=== PATIENT | female | born 1970 | race Caucasian/White ===

== ENCOUNTER 2017-10-23 11:19 | Emergency (ER) | payer OTHER, SELFPAY ==
--- NOTE | 2017-10-23 11:54 | RAD REPORT ---
EXAM DESCRIPTION: RAD - Foot Right 3 View - 10/23/2017 11:45 am CLINICAL HISTORY: Right foot pain status post injury FINDINGS: No fracture or dislocation is seen
--- NOTE | 2017-10-23 12:04 | ER ---
Nurse's Notes [facility] Name: Christianne Fountain Age: 47 yrs Sex: Female : 1970 Arrival Date: 10/23/2017 Time: 11:22 Bed 13 Private MD: Diagnosis: Pain in right foot Presentation: 10/23 11:22 Presenting complaint: Patient states: RIGHT foot pain since last night. Pt reports she hb kicked an elbow during horseplay. Transition of care: patient was not received from another setting of care. Onset of symptoms was October 22, 2017. Care prior to arrival: None. 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 - Social history:: Smoking status: Patient/guardian denies using tobacco. Screenin:30 Abuse screen: Denies threats or abuse. Nutritional screening: No deficits noted. rb1 Tuberculosis screening: No symptoms or risk factors identified. Fall Risk None identified. Assessment: 11:30 General: Appears in no apparent distress. comfortable, Behavior is calm, cooperative. rb1 Pain: Complains of pain in lateral side of right foot Pain currently is 7 out of 10 on a pain scale. Neuro: Level of Consciousness is awake, alert, obeys commands, Oriented to person, place, time, situation. Cardiovascular: Capillary refill < 3 seconds is brisk in bilateral toes. Respiratory: Airway is patent Respiratory effort is even, unlabored, Respiratory pattern is regular, symmetrical. GI: No signs and/or symptoms were reported involving the gastrointestinal system. : No signs and/or symptoms were reported regarding the genitourinary system. Derm: Skin is pink, warm \T\ dry. Musculoskeletal: Range of motion: intact in all extremities. 12:16 Reassessment: Patient appears in no apparent distress at this time. No changes from rb1 previously documented assessment. Vital Signs: 11:25 BP 127 / 86; Pulse 99; Resp 16; Temp 97.9; Pulse Ox 99% on R/A; Weight 86.18 kg; Height hb 6 ft. (182.88 cm); Pain 10/10; 12:16 BP 128 / 83; Pulse 87; Resp 16; Pulse Ox 100% on R/A; rb1 11:25 Body Mass Index 25.77 (86.18 kg, 182.88 cm) hb ED Course: 11:22 Patient arrived in ED. as 11:24 Triage completed. hb 11:27 Arm band placed on left wrist. hb 11:30 Cailin Fitzpatrick FNP-C is PHCP. kb 11:30 Venancio Copeland MD is Attending Physician. kb 11:30 Patient has correct armband on for positive identification. Bed in low position. Call rb1 light in reach. Side rails up X 1. Pulse ox on. NIBP on. 11:43 X-ray completed. Portable x-ray completed in exam room. Patient tolerated procedure la2 well. 11:58 Marilyn Hogan, RN is Primary Nurse. rb1 12:17 No provider procedures requiring assistance completed. Patient did not have IV access rb1 during this emergency room visit. Administered Medications: No medications were administered Outcome: 12:03 Discharge ordered by . kb 12:17 Discharged to home ambulatory. rb1 12:17 Condition: stable 12:17 Discharge instructions given to patient, Instructed on discharge instructions, follow up and referral plans. Demonstrated understanding of instructions, follow-up care, Prescriptions given X none 12:18 Patient left the ED. rb1 Signatures: Cailin Fitzpatrick FNP-C FNP-Princess Lindquist as Marilyn Hogan, RN RN [facility] Tania Crum RN RN Courtney Hackett la2
--- NOTE | 2017-10-23 12:04 | EDPHYS ---
Physician Documentation [facility] Name: Christianne Fountain Age: 47 yrs Sex: Female : 1970 Arrival Date: 10/23/2017 Time: 11:22 Bed 13 Private MD: ED Physician Venancio Copeland HPI: 10/23 12:02 This 47 yrs old Female presents to ER via Ambulatory with complaints of Foot kb Injury. 12:02 The patient presents with pain, that is acute. The complaints affect the right foot. kb Context: The problem was sustained inside, resulted from the patient kicking, a person, the patient can fully bear weight, the patient is able to ambulate. Onset: The symptoms/episode began/occurred yesterday. Modifying factors: The symptoms are alleviated by nothing, the symptoms are aggravated by weight bearing. Associated signs and symptoms: Pertinent positives: swelling, Pertinent negatives: calf tenderness, fever, nausea, numbness, rash, tingling, vomiting, warmth, weakness. Severity of symptoms: At their worst the symptoms were moderate, in the emergency department the symptoms are unchanged. The patient has not experienced similar symptoms in the past. The patient has not recently seen a physician. 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 - Social history:: Smoking status: Patient/guardian denies using tobacco. ROS: 12:01 Constitutional: Negative for fever, chills, and weight loss, Cardiovascular: Negative kb for chest pain, palpitations, and edema, Respiratory: Negative for shortness of breath, cough, wheezing, and pleuritic chest pain, Abdomen/GI: Negative for abdominal pain, nausea, vomiting, diarrhea, and constipation, Skin: Negative for injury, rash, and discoloration, Neuro: Negative for headache, weakness, numbness, tingling, and seizure. 12:01 MS/extremity: Positive for pain, tenderness, of the lateral side of right foot. Exam: 12:01 Constitutional: This is a well developed, well nourished patient who is awake, alert, kb and in no acute distress. Head/Face: Normocephalic, atraumatic. Chest/axilla: Normal chest wall appearance and motion. Nontender with no deformity. No lesions are appreciated. Cardiovascular: Regular rate and rhythm with a normal S1 and S2. No gallops, murmurs, or rubs. Normal PMI, no JVD. No pulse deficits. Respiratory: Lungs have equal breath sounds bilaterally, clear to auscultation and percussion. No rales, rhonchi or wheezes noted. No increased work of breathing, no retractions or nasal flaring. Abdomen/GI: Soft, non-tender, with normal bowel sounds. No distension or tympany. No guarding or rebound. No evidence of tenderness throughout. Skin: Warm, dry with normal turgor. Normal color with no rashes, no lesions, and no evidence of cellulitis. Neuro: Awake and alert, GCS 15, oriented to person, place, time, and situation. Cranial nerves II-XII grossly intact. Motor strength 5/5 in all extremities. Sensory grossly intact. Cerebellar exam normal. Normal gait. 12:01 Musculoskeletal/extremity: Extremities: grossly normal except: noted in the lateral side of right foot: pain, swelling, tenderness, ROM: no acute changes, intact in all extremities, Circulation is intact in all extremities. Sensation intact. Weight bearing: able to fully bear weight. Vital Signs: 11:25 BP 127 / 86; Pulse 99; Resp 16; Temp 97.9; Pulse Ox 99% on R/A; Weight 86.18 kg; Height hb 6 ft. (182.88 cm); Pain 10/10; 12:16 BP 128 / 83; Pulse 87; Resp 16; Pulse Ox 100% on R/A; rb1 11:25 Body Mass Index 25.77 (86.18 kg, 182.88 cm) hb MDM: 11:30 Patient medically screened. kb 12:01 Data reviewed: vital signs, nurses notes. Data interpreted: Pulse oximetry: on room air kb is 99 %. Interpretation: normal. Counseling: I had a detailed discussion with the patient and/or guardian regarding: the historical points, exam findings, and any diagnostic results supporting the discharge/admit diagnosis, radiology results, the need for outpatient follow up, a family practitioner, to return to the emergency department if symptoms worsen or persist or if there are any questions or concerns that arise at home. 10/23 11:31 Order name: Foot Right 3 View XRAY kb 10/23 11:54 Order name: RAD; Complete Time: 11:58 EDMS Administered Medications: No medications were administered Disposition: 10/23/17 12:03 Discharged to Home. Impression: Pain in right foot. - Condition is Stable. - Discharge Instructions: Foot Contusion, [id number]. - Medication Reconciliation Form, Thank You Letter, Antibiotic Education, Prescription Opioid Use form. - Follow up: Emergency Department; When: As needed; Reason: Worsening of condition. Follow up: Private Physician; When: 2 - 3 days; Reason: Recheck today's complaints, Continuance of care, Re-evaluation by your physician. Addendum: 10/25/2017 08:08 Co-signature as Attending Physician, Venancio Copeland MD I agree with the assessment and c pradhan plan of care. Signatures: Dispatcher [employer] EDMS Cailin Fitzpatrick, RETAIL SALESPERSON-C RETAIL SALESPERSON-Venancio Blackmon MD MD cha Barber, Rebecca, RN RN [facility] Tania Crum, RICKI RN
== END 2017-10-23 12:18 | disposition home or self-care (01) ==
LOC: ER 11:19
DX: M79.671 Pain in right foot (principal); W51.XXXA Accidental striking against or bumped into by another person, initial encounter; Y93.9 Activity, unspecified; Y92.9 Unspecified place or not applicable; Z79.82 Long term (current) use of aspirin; Z88.5 Allergy status to narcotic agent; Z94.1 Heart transplant status
CPT/HCPCS: 99283

== ENCOUNTER 2018-11-18 07:13 | Emergency (ER) | payer OTHER, SELFPAY ==
[2018-11-18 07:57] LABS: Absolute Lymphocytes (CBC) 1.4 K/uL (0.7-4.9); Absolute Monocytes 0.5 K/uL (0.1-1.3); Absolute Neutrophil 4.5 K/uL (1.8-8.0); Eosinophils % 1.9 % (0-4.4); Hematocrit 42.9 % (36.0-45.0); Lymphocytes % 21.5 % (15.3-44.8); MPV 9.5 fL (7.6-11.3); RBC Red Blood Cell Count 4.83 M/uL (3.86-4.86)
[2018-11-18 08:00] LABS: Protime INR 1.04
[2018-11-18 08:15] LABS: ALT/SGPT 22 U/L (12-78); AST/SGOT 17 U/L (15-37); Albumin 4.3 g/dL (3.4-5.0); Alkaline Phosphatase 70 U/L (45-117); BUN Blood Urea Nitrogen 21 mg/dL (7-18); Bicarbonate 26 mmol/L (21-32); Bilirubin Direct 0.2 mg/dL (0-0.2); Bilirubin Total 0.9 mg/dL (0.2-1.0); Glucose Level 94 mg/dL (74-106); NT PRO-BNP 334 pg/mL (<125); Potassium 3.8 mmol/L (3.5-5.1); Protein, Total 7.8 g/dL (6.4-8.2); Sodium Level 139 mmol/L (136-145); Troponin (Emerg Dept Use Only) < 0.02 ng/mL (0.0-0.045)
--- NOTE | 2018-11-18 08:27 | RAD REPORT ---
EXAM DESCRIPTION: Negar Single View11/18/2018 7:53 am CLINICAL HISTORY: Chest pain COMPARISON: 2016 FINDINGS: Lungs probably are clear of acute infiltrate. The heart is mildly enlarged. Postsurgical changes involve the chest
--- NOTE | 2018-11-18 10:57 | EKG ---
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
--- NOTE | 2018-11-18 13:03 | ER ---
Nurse's Notes [facility] Name: Christianne Fountain Age: 48 yrs Sex: Female : 1970 Arrival Date: 11/18/2018 Time: 07:17 Bed 13 Private MD: None, None Diagnosis: Chest pain on breathing Presentation: 11/18 07:28 Presenting complaint: Intermittent substernal chest pain that radiated to upper back hb while walking at 0300 today. Pain lasted a few seconds, happened a few times over 3 hrs. 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 Denies fever/cough/nausea/SOB. Heart transplant pt. Transition of care: patient was not received from another setting of care. Onset of symptoms was November 18, 2018 at 03:00. Risk Assessment: Do you want to hurt yourself or someone else? Patient reports no desire to harm self or others. Care prior to arrival: None. 07:28 Method Of Arrival: Ambulatory hb 07:28 Acuity: FOSTER 3 hb 07:37 Initial Sepsis Screen: Does the patient meet any 2 criteria? No. Patient's initial hj sepsis screen is negative. Does the patient have a suspected source of infection? No. Patient's initial sepsis screen is negative. Triage Assessment: 07:36 General: Appears in no apparent distress. uncomfortable, Behavior is calm, cooperative, hj appropriate for age. Pain: Complains of pain in chest. Cardiovascular: Capillary refill < 3 seconds Patient's skin is warm and dry. 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 - Social history:: Smoking status: Patient/guardian denies using tobacco. - Ebola Screening: : No symptoms or risks identified at this time. Screenin:36 Abuse screen: Denies threats or abuse. Denies injuries from another. Nutritional hj screening: No deficits noted. Tuberculosis screening: No symptoms or risk factors identified. Fall Risk None identified. Assessment: 07:37 Pain: Pain began 4 hours ago. hj 07:37 General: Appears in no apparent distress. uncomfortable, Behavior is calm, cooperative, hj appropriate for age. Neuro: Level of Consciousness is awake, alert, obeys commands, Oriented to person, place, time, situation, Appropriate for age. Cardiovascular: Capillary refill < 3 seconds Patient's skin is warm and dry. Respiratory: Airway is patent Respiratory effort is even, unlabored, Respiratory pattern is regular, symmetrical. GI: No signs and/or symptoms were reported involving the gastrointestinal system. : No signs and/or symptoms were reported regarding the genitourinary system. EENT: No signs and/or symptoms were reported regarding the EENT system. Derm: No signs and/or symptoms reported regarding the dermatologic system. Musculoskeletal: No signs and/or symptoms reported regarding the musculoskeletal system. Vital Signs: 07:31 BP 141 / 92; Pulse 97; Resp 16; Temp 98.1; Pulse Ox 99% on R/A; Pain 0/10; hb 07:59 BP 148 / 101; Pulse 76; Resp 18; Pulse Ox 98% on R/A; hj 09:10 BP 122 / 89; Pulse 85; Resp 18; Pulse Ox 100% on R/A; hj 10:45 BP 128 / 94; Pulse 86; Resp 17; Pulse Ox 98% on R/A; dh3 ED Course: 07:17 Patient arrived in ED. mr 07:17 None, None is Private Physician. mr 07:26 Joseph Ro MD is Attending Physician. kdr 07:27 Silvano Donovan, RICKI is Primary Nurse. hj 07:31 Triage completed. hb 07:33 Arm band placed on. hb 07:37 Patient has correct armband on for positive identification. Placed in gown. Bed in low hj position. Call light in reach. Side rails up X 1. mortgage coordinator on. Pulse ox on. NIBP on. 07:37 Patient maintains SpO2 saturation greater than 95% on room air. hj 07:45 Initial lab(s) drawn, by me, sent to lab. Inserted saline lock: 22 gauge in right hj antecubital area, using aseptic technique. Blood collected. 07:50 X-ray completed. Portable x-ray completed in exam room. Patient tolerated procedure jb2 well. 07:52 EKG done, by endoscopy technician. reviewed by Joseph Ro MD. at1 07:53 XRAY Chest (1 view) In Process Unspecified. EDMS 10:48 Jose Jimenez, RN is Primary Nurse. rv 12:51 Primary Nurse role handed off by Jose Jimenez, RN iw 12:51 Christy Toribio, RN is Primary Nurse. iw 13:32 No provider procedures requiring assistance completed. IV discontinued, intact, iw bleeding controlled, No redness/swelling at site. Pressure dressing applied. Administered Medications: No medications were administered Outcome: 13:02 Discharge ordered by . kdr 13:31 Discharged to home ambulatory. iw 13:31 Condition: good 13:31 Discharge instructions given to patient, Instructed on discharge instructions, follow up and referral plans. Demonstrated understanding of instructions, follow-up care. 13:32 Patient left the ED. iw Signatures: Dispatcher [employer] EDMS Joseph Ro MD MD [facility] Madeline Dubose Jesse jb2 Christy Toribio, RN RN iw Dinora Lovell, pantograph i engraver EKG Tat1 Silvano Donovan RN RICKI Tania Crum, RN RICKI Cece Cruz 3 Jose Jimenez, RN RN rv Corrections: (The following items were deleted from the chart) 07:36 07:28 Presenting complaint: Intermittent substernal chest pain that radiated to upper hb back while walking at 0300 today. Pain lasted a few seconds, happened a few times over 3 hrs. 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
--- NOTE | 2018-11-18 13:03 | EDPHYS ---
Physician Documentation [facility] Name: Christianne Fountain Age: 48 yrs Sex: Female : 1970 Arrival Date: 11/18/2018 Time: 07:17 Bed 13 Private MD: None, None ED Physician Joseph Ro HPI: 11/18 07:39 This 48 yrs old Female presents to ER via Ambulatory with complaints of Chest kdr Pain. 07:39 The patient or guardian reports chest pain that is located primarily in the substernal kdr area. Onset: suddenly, this morning. The pain radiates to the left scapula, the scapula on both sides. Associated signs and symptoms: Pertinent positives: lightheadedness, nausea, Pertinent negatives: abdominal pain, cough, diaphoresis, headache, lower extremity pain, lower extremity swelling, near syncope, palpitations, recent travel, shortness of breath, syncope. The chest pain is described as sharp, stabbing. Duration: The patient or guardian reports multiple episodes, approximately 3 episodes since symptom onset, that are intermittent, that wax and wane, with no pattern, Between midnight and 03:00. Duration: The patient or guardian reports multiple episodes, Lasts onlyl a few seconds then completely resolves. Modifying factors: The symptoms are alleviated by nothing. the symptoms are aggravated by nothing. Severity of pain: At its worst the pain was mild in the emergency department the pain has resolved. The patient has experienced similar episodes in the past, several times. 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 - Social history:: Smoking status: Patient/guardian denies using tobacco. - Ebola Screening: : No symptoms or risks identified at this time. ROS: 07:39 Constitutional: Negative for fever, chills, and weight loss, Eyes: Negative for injury, kdr pain, redness, and discharge, ENT: Negative for injury, pain, and discharge, Neck: Negative for injury, pain, and swelling, Respiratory: Negative for shortness of breath, cough, wheezing, and pleuritic chest pain, Abdomen/GI: Negative for abdominal pain, nausea, vomiting, diarrhea, and constipation, Back: Negative for injury and pain, : Negative for injury, bleeding, discharge, and swelling, MS/Extremity: Negative for injury and deformity, Skin: Negative for injury, rash, and discoloration, Neuro: Negative for headache, weakness, numbness, tingling, and seizure activity. Psych: Negative for depression, anxiety, suicide ideation, homicidal ideation, and hallucinations, Allergy/Immunology: Negative for hives, rash, and allergies, Endocrine: Negative for neck swelling, polydipsia, polyuria, polyphagia, and marked weight changes, Hematologic/Lymphatic: Negative for swollen nodes, abnormal bleeding, and unusual bruising. 07:39 Cardiovascular: Positive for chest pain, of the mid-sternal area, Negative for edema, orthopnea, palpitations, paroxysmal nocturnal dyspnea. Exam: 07:39 Constitutional: This is a well developed, well nourished patient who is awake, alert, kdr and in no acute distress. Head/Face: Normocephalic, atraumatic. Eyes: Pupils equal round and reactive to light, extra-ocular motions intact. Lids and lashes normal. Conjunctiva and sclera are non-icteric and not injected. Cornea within normal limits. Periorbital areas with no swelling, redness, or edema. Neck: Trachea midline, no thyromegaly or masses palpated, and no cervical lymphadenopathy. Supple, full range of motion without nuchal rigidity, or vertebral point tenderness. No Meningismus. Chest/axilla: Normal chest wall appearance and motion. Nontender with no deformity. No lesions are appreciated. Cardiovascular: Regular rate and rhythm with a normal S1 and S2. No gallops, murmurs, or rubs. Normal PMI, no JVD. No pulse deficits. Respiratory: Lungs have equal breath sounds bilaterally, clear to auscultation and percussion. No rales, rhonchi or wheezes noted. No increased work of breathing, no retractions or nasal flaring. Abdomen/GI: Soft, non-tender, with normal bowel sounds. No distension or tympany. No guarding or rebound. No evidence of tenderness throughout. Back: No spinal tenderness. No costovertebral tenderness. Full range of motion. Skin: Warm, dry with normal turgor. Normal color with no rashes, no lesions, and no evidence of cellulitis. MS/ Extremity: Pulses equal, no cyanosis. Neurovascular intact. Full, normal range of motion. Neuro: Awake and alert, GCS 15, oriented to person, place, time, and situation. Cranial nerves II-XII grossly intact. Motor strength 5/5 in all extremities. Sensory grossly intact. Cerebellar exam normal. Normal gait. Psych: Awake, alert, with orientation to person, place and time. Behavior, mood, and affect are within normal limits. Vital Signs: 07:31 BP 141 / 92; Pulse 97; Resp 16; Temp 98.1; Pulse Ox 99% on R/A; Pain 0/10; hb 07:59 BP 148 / 101; Pulse 76; Resp 18; Pulse Ox 98% on R/A; hj 09:10 BP 122 / 89; Pulse 85; Resp 18; Pulse Ox 100% on R/A; hj 10:45 BP 128 / 94; Pulse 86; Resp 17; Pulse Ox 98% on R/A; dh3 MDM: 10:19 Data reviewed: vital signs, nurses notes, lab test result(s), EKG, radiologic studies. kdr ED course: The patient continues to be stable and pain free in the ED. Will order one more Trop for r/o. 12:59 ED course: D/w social work coordinator: Darrel who conferred with Dr. Rita Lawrence. kdr Given normal VS and labs, the patient may be discharged to follow-up in clinic this next week. ED course: The patient was stable in the ED and without any other c/o and/or concerns. She was happy with the care provided and the plan for discharge and follow-up. 13:02 Patient medically screened. kdr 11/18 07:39 Order name: Basic Metabolic Panel; Complete Time: 09:20 kdr 11/18 07:39 Order name: CBC with Diff; Complete Time: 09:20 kdr 11/18 07:39 Order name: LFT's; Complete Time: 09:20 [facility] 11/18 07:39 Order name: Magnesium; Complete Time: 09:20 [facility] 11/18 07:39 Order name: NT PRO-BNP; Complete Time: 09:20 [facility] 11/18 07:39 Order name: PT-INR; Complete Time: 09:20 [facility] 11/18 07:39 Order name: Troponin (emerg Dept Use Only); Complete Time: 09:20 [facility] 11/18 07:39 Order name: XRAY Chest (1 view); Complete Time: 09:20 [facility] 11/18 07:39 Order name: EKG; Complete Time: 07:39 [facility] 11/18 07:39 Order name: Cardiac monitoring; Complete Time: 07:43 [facility] 11/18 07:39 Order name: EKG - Nurse/Tech; Complete Time: 07:43 [facility] 11/18 07:39 Order name: IV Saline Lock; Complete Time: 07:43 [facility] 11/18 07:39 Order name: Labs collected and sent; Complete Time: 07:43 [facility] 11/18 10:19 Order name: Troponin (emerg Dept Use Only); Complete Time: 12:06 [facility] 11/18 07:39 Order name: O2 Per Protocol; Complete Time: 07: [facility] 11/18 07:39 Order name: O2 Sat Monitoring; Complete Time: 07:44 kdr Administered Medications: No medications were administered Disposition: 11/18/18 13:02 Discharged to Home. Impression: Chest pain on breathing. - Condition is Stable. - Discharge Instructions: Nonspecific Chest Pain, [id number]. - Medication Reconciliation Form, Thank You Letter, Work release form form. - Follow up: Private Physician; When: 2 - 3 days; Reason: If symptoms return, Further diagnostic work-up, Recheck today's complaints, Continuance of care, Re-evaluation by your physician. - Problem is new. - Symptoms are resolved. Signatures: Dispatcher [employer] EDIA Joseph Ro MD MD kdr Christy Toribio RN RN iw Tania Crum RN RN Corrections: (The following items were deleted from the chart) 13:32 13:02 11/18/2018 13:02 Discharged to Home. Impression: Chest pain on breathing. iw Condition is Stable. Forms are Medication Reconciliation Form, Thank You Letter, Antibiotic Education, Prescription Opioid Use. Follow up: Private Physician; When: 2 - 3 days; Reason: If symptoms return, Further diagnostic work-up, Recheck today's complaints, Continuance of care, Re-evaluation by your physician. Problem is new. Symptoms are resolved. kdr
== END 2018-11-18 13:32 | disposition home or self-care (01) ==
LOC: ER 07:13
DX: R07.1 Chest pain on breathing (principal); Z79.82 Long term (current) use of aspirin; Z94.1 Heart transplant status; Z88.5 Allergy status to narcotic agent
CPT/HCPCS: 36415; 71045; 80048; 80076; 83735; 83880; 84484; 85025; 85610; 93005; 99285

== ENCOUNTER 2019-03-27 13:25 | Emergency (ER) | payer OTHER ==
--- OUTSIDE RECORDS SUMMARY | 2019-03-27 13:29 | XMS REPORT ---
:1970 [facility] [place] [address] Care Team Providers Name Role Phone Unavailable Unavailable Unavailable Problems This patient has no known problems. Allergies, Adverse Reactions, Alerts This patient has no known allergies or adverse reactions. Medications This patient has no known medications.
--- OUTSIDE RECORDS SUMMARY | 2019-03-27 13:29 | XMS REPORT | Clinical Summary ---
:1970 Author Organization [facility] Address [address] [place] [address] Care Team Providers Name Role Phone Asked, No Pcp Primary Care Provider Unavailable Allergies Active Allergy Reactions Severity Noted Date Comments Morphine Rash Medium 11/21/2018 Rash and vomiting. Can tolerate codeine. Medications Medication Sig Dispensed Refills Start End Status Date Date aspirin (ECOTRIN) 81 Take 81 mg by 0 03/31/20 Active MG enteric coated mouth daily. 17 021 tablet multivitamin Take 1 tablet 0 03/31/20 Active (THERAGRAN) tablet by mouth 17 021 daily. tacrolimus (PROGRAF) 1 Take 2 120 capsule 11 11/25/19 Active MG capsule capsules (2 19 020 mg total) by mouth 2 (two) times a day. calcium Take 1 tablet 0 01/03/20 Active carbonate-vitamin D3 by mouth 19 020 500 mg-200 unit per daily. tablet pravastatin Take 40 mg by 0 01/03/20 Active (PRAVACHOL) 40 MG mouth daily. 19 020 tablet hydroCHLOROthiazide Take 1 tablet 30 tablet 11 01/04/20 Active (HYDRODIURIL) 25 MG (25 mg total) 19 020 tablet by mouth daily as needed (for lowere extremity edema, or wt. gain ogreater than 4 pounds.). omeprazole OTC Take 1 tablet 60 tablet 11 01/04/20 Active (PriLOSEC OTC) 20 MG (20 mg total) 19 020 EC tablet by mouth 2 (two) times a day. mycophenolate Take 1 tablet 60 tablet 02/23/20 Active (CELLCEPT) 500 mg (500 mg 19 023 tablet total) by mouth 2 (two) times a day. Mfg-Assistanc e; must be brand name calcium Take 1 tablet 0 03/31/20 Discontinued carbonate-vitamin D3 by mouth 17 019 (Med List 500 mg-200 unit per daily. Cleanup) tablet mycophenolate Take 1,000 mg 0 03/31/20 Discontinued (CELLCEPT) 500 mg by mouth 2 17 019 tablet (two) times a day. Mfg-Assistanc e; must be brand name omeprazole (PriLOSEC) Take 40 mg by 0 03/31/20 Discontinued 20 MG capsule mouth daily. 17 019 (Med List Cleanup) pravastatin Take 20 mg by 0 03/31/20 Discontinued (PRAVACHOL) 20 MG mouth 17 019 (Med List tablet nightly. Cleanup) predniSONE (DELTASONE) Take 5 mg by 0 03/31/20 Discontinued 5 mg tablet mouth daily. 17 019 (Med List Cleanup) tacrolimus (PROGRAF) 1 Take 2 360 capsule 3 09/08/19 Discontinued MG capsule capsules (2 18 019 (Reorder) mg total) by mouth 2 (two) times a day. Z94.1 heart transplant tacrolimus (PROGRAF) 1 Take 1 180 capsule 3 10/11/19 Discontinued MG capsule capsule (1 mg 19 019 (Reorder) total) by mouth 2 (two) times a day. Z94.1 heart transplant tacrolimus (PROGRAF) 1 Take 1 60 capsule 11 10/19/19 Discontinued MG capsule capsule (1 mg 19 019 (Reorder) total) by mouth 2 (two) times a day. Z94.1 heart transplant tacrolimus (PROGRAF) 1 Take 2 120 capsule 11 11/01/19 Discontinued MG capsule capsules (2 19 019 (Reorder) mg total) by mouth 2 (two) times a day. Z94.[facility] tacrolimus (PROGRAF) 1 Take 2 120 capsule 11 11/15/19 Discontinued MG capsule capsules (2 19 019 mg total) by mouth 2 (two) times a day. Z94.1 heart transplant[facility] [facility] 07/25/2008 tacrolimus (PROGRAF) 1 Take 1 mg AM 90 capsule 11 11/17/19 Discontinued MG capsule & 2 mg PM . 19 019 (Med List Z94.1 heart Cleanup) transplant 07/25/2008 tacrolimus (PROGRAF) 1 Take 1 mg by 0 Discontinued MG capsule mouth 2 (two) 019 times a day. tacrolimus (PROGRAF) 1 Take 2 56 capsule 0 11/25/19 Discontinued MG capsule capsules (2 19 019 (Reorder) mg total) by mouth 2 (two) times a day for 14 days. calcium Take 1 tablet 30 tablet 0 11/27/19 carbonate-vitamin D3 by mouth 19 019 500 mg-200 unit per daily for 30 tablet days. omeprazole (PriLOSEC) Take 2 60 capsule 0 11/27/19 20 MG capsule capsules (40 19 019 mg total) by mouth daily for 30 days. pravastatin Take 1 tablet 30 tablet 0 11/27/19 (PRAVACHOL) 40 MG (40 mg total) 19 019 tablet by mouth nightly for 30 days. mycophenolate Take 1 tablet 60 tablet 12 01/04/20 Discontinued (CELLCEPT) 500 mg (500 mg 19 019 (Reorder) tablet total) by mouth 2 (two) times a day. Mfg-Assistanc e; must be brand name Active Problems Patient Care Coordination Note Heart Transplant 07/25/2008 Hx LVAD - [facility] Under insured MFG assistance Brand Name required for Prograf and Cellcept Problem Noted Date Other heart failure 11/28/2018 Overview: Added automatically from request for surgery [id number] Long-term use of immunosuppressant medication 11/21/2018 Weakness 11/21/2018 Heart transplanted 04/01/2017 Overview: Christianne Fountain : 1970 07/25/2008 Heart Transplanted Pre hx LVAD-[facility] DCM,MIs x3 in 1999 & 2000 Not seen since 2015 R/T no insurance and financial reasons Visit Date biopsy C4D Treatment Echo CMV Level Admit 4/22/19 4/23 0 R Admit from clinic -chest pressure; No insurance; out of FK; to convert to Rapa 60-64 neg 12/07/18 Lab only Late draw lab Kenji 4.2 on Echo/DEXA Scan , Encounters Date Type Specialty Care Team Description 02/22/2019 Refill Transplant Joel, Med Refill DAIN Layton 02/12/2019 Refill Transplant Gideon, Med Refill MD Joel 01/17/2019 Orders Only Cardiology Michael Pickett MD 01/03/2019 Office Visit Transplant Nieves, Heart transplanted ([facility]) ( Primary Dx); MD Michael Heart replaced by transplant ([facility]); Essential hypertension 01/02/2019 Orders Only Transplant Renard Bello Heart replaced by transplant ([facility]) (Primary Dx); RN Complication of heart transplant, unspecified complication ([facility]); Acute deep vein thrombosis (DVT) of right lower extremity, unspecified vein ([facility]) 12/12/2018 Hospital Encounter Transplant Nieves, Heart transplanted ([facility] ) (Primary Dx); MD Michael Long-term use of immunosuppressant medication 12/09/2018 Abstract Transplant Renard Bello RN 12/06/2018 Orders Only Cardiology Michael Pickett MD 12/01/2018 Documentation Transplant Kinjal Maldonado MA 11/30/2018 Orders Only Transplant Renard Bello Heart replaced by transplant ([facility]) (Primary Dx); RN Complication of heart transplant, unspecified complication ([facility]); Metabolic syndrome; Mixed hyperlipidemia; Essential hypertension; Bone loss; Hyperthyroidism; Infection; Chest pain due to myocardial ischemia, unspecified ischemic chest pain type; Cytomegalovirus infection, unspecified cytomegaloviral infection type ( [facility]) 11/28/2018 Orders Only Transplant Casey Heart replaced by RICKI Miller transplant ([facility]) (Primary Dx) 11/28/2018 Telephone Transplant Phyllis Brady MA 11/25/2018 Surgery Procedural Rita Lawrence Selective coronary Cardiology angiography [50114 (CPT)] 11/24/2018 Refill Transplant Munir Peña RN 11/22/2018 Surgery Procedural Blanca Reid, Cv right heart cath Cardiology right biopsy [[id number] (CPT)] 11/21/2018 Hospital Encounter Neurology Nilesh Acosta Weakness (Primary Dx); - MD Mode Acute angina (HCC); 11/26/2018 Mara Maravilla, Heart transplant failure (HCC); Other heart failure (HCC) 11/21/2018 Hospital Encounter Transplant Nieves, Long-term use of immunosuppressant medication (Primary Dx); MD Michael Heart transplanted (HCC); Heart replaced by transplant (HCC); Cardiac transplant rejection (HCC); Essential hypertension; Therapeutic drug monitoring; Metabolic syndrome; Hyperlipidemia associated with type 2 diabetes mellitus (HCC); Chronic fatigue; Chest pain, unspecified type; Infection; Cytomegalovirus infection, unspecified cytomegaloviral infection type ( HCC) 11/21/2018 Hospital Encounter Transplant Nieves, Heart replaced by transplant (HCC); MD Michael Cardiac transplant rejection (HCC); Essential hypertension; Therapeutic drug monitoring; Metabolic syndrome; Hyperlipidemia associated with type 2 diabetes mellitus (HCC); Chronic fatigue; Chest pain, unspecified type; Infection; Cytomegalovirus infection, unspecified cytomegaloviral infection type ( HCC) 11/21/2018 Travel 11/21/2018 Telephone Transplant Kinjal Maldonado MA 11/18/2018 Documentation Transplant Darrel Giles, After Hours Call RN 11/17/2018 Orders Only Transplant Renard Bello, Heart replaced by transplant (HCC) (Primary Dx); 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 10/31/2018 Documentation Transplant Renard Bello RN 10/31/2018 Refill Transplant Renard Bello Med Refill RN 10/26/2018 Documentation Transplant Renard Bello RN 10/24/2018 Telephone Transplant Sherif Dominguez, Prior Authorization MA 10/24/2018 Telephone Transplant Sherif Dominguez, Medication MA Clarification 10/18/2018 Refill Transplant Joel Med Refill DAIN Layton 10/10/2018 Refill Transplant Joel, Med Refill Kinjal DAIN 10/10/2018 Refill Transplant Nas, Med Refill Sarah Singh MA 10/10/2018 Telephone Transplant DominguezYumiko alexanderevon, Requesting Fax Number DAIN 10/10/2018 Telephone Transplant Brown, Assitance Program Holli Khanna MA 07/01/2018 Telephone Transplant Dominguez, Sherif, Discharge Date MA after 03/26/2018 Family History Medical History Relation Name Comments No Known Problems Father heart disease No Known Problems Mother heart disease No Known Problems Sister heart disease Relation Name Status Comments Father Mother Sister Social History Tobacco Use Types Packs/Day Years Used Date Never Smoker Smokeless Tobacco: Never Used Alcohol Use Drinks/Week oz/Week Comments No Alcohol Habits Answer Date Recorded How often do you have a drink containing alcohol? Never 11/21/2018 How many drinks containing alcohol do you have on a typical Not asked day when you are drinking? How often do you have six or more drinks on one occasion? Not asked Sex Assigned at Date Recorded Not on file Job Start Date Occupation Industry Not on file Not on file Not on file Travel History Travel Start Travel End No recent travel history available. Last Filed Vital Signs Vital Sign Reading Time Taken Comments Blood Pressure 135/87 01/03/2019 7:49 AM CDT 107 Pulse 106 01/03/2019 7:49 AM CDT Temperature 36.6 C (97.8 F) 01/03/2019 7:49 AM CDT Respiratory Rate 16 01/03/2019 7:49 AM CDT Oxygen Saturation 97% 01/03/2019 7:51 AM CDT Inhaled Oxygen Concentration - - Weight 94 kg (207 lb 4.8 oz) 01/03/2019 7:49 AM CDT Height 182.9 cm (6') 01/03/2019 7:49 AM CDT Body Mass Index 28.11 01/03/2019 7:49 AM CDT Plan of Treatment Health Maintenance Due Date Last Done Comments DIABETIC RETINAL EYE EXAM 1970 DIABETIC FOOT EXAM 1982 CERVICAL CANCER SCREENING 1993 INFLUENZA VACCINE 03/02/2019 Procedures Procedure Name Priority Date/Time Associated Diagnosis Comments FK506 TACROLIMUS Routine 01/17/2019 8:00 Results for this LEVEL, RANDOM AM CDT procedure are in the results section. MAGNESIUM LEVEL Routine 01/17/2019 8:00 Results for this AM CDT procedure are in the results section. PHOSPHORUS LEVEL Routine 01/17/2019 8:00 Results for this AM CDT procedure are in the results section. BASIC METABOLIC PANEL Routine 01/17/2019 8:00 Results for this AM CDT procedure are in the results section. CBC WITH PLATELET AND Routine 01/17/2019 8:00 Results for this DIFFERENTIAL AM CDT procedure are in the results section. ESTIMATED GFR STAT 01/03/2019 9:25 Results for this AM CDT procedure are in the results section. FK506 TACROLIMUS STAT 01/03/2019 9:25 Heart replaced by Results for this LEVEL, RANDOM AM CDT transplant (HCC) procedure are in Complication of heart the results transplant, section. unspecified complication (HCC) Metabolic syndrome Mixed hyperlipidemia Essential hypertension Bone loss Hyperthyroidism Infection Chest pain due to myocardial ischemia, unspecified ischemic chest pain type Cytomegalovirus infection, unspecified cytomegaloviral infection type (HCC) PROTHROMBIN TIME WITH STAT 01/03/2019 9:25 Heart replaced by Results for this INR AM CDT transplant (HCC) procedure are in Complication of heart the results transplant, section. unspecified complication (HCC) Metabolic syndrome Mixed hyperlipidemia Essential hypertension Bone loss Hyperthyroidism Infection Chest pain due to myocardial ischemia, unspecified ischemic chest pain type Cytomegalovirus infection, unspecified cytomegaloviral infection type (HCC) B NATRIURETIC PEPTIDE STAT 01/03/2019 9:25 Heart replaced by Results for this AM CDT transplant (HCC) procedure are in Complication of heart the results transplant, section. unspecified complication (HCC) Metabolic syndrome Mixed hyperlipidemia Essential hypertension Bone loss Hyperthyroidism Infection Chest pain due to myocardial ischemia, unspecified ischemic chest pain type Cytomegalovirus infection, unspecified cytomegaloviral infection type (HCC) LDH STAT 01/03/2019 9:25 Heart replaced by Results for this AM CDT transplant (HCC) procedure are in Complication of heart the results transplant, section. unspecified complication (HCC) Metabolic syndrome Mixed hyperlipidemia Essential hypertension Bone loss Hyperthyroidism Infection Chest pain due to myocardial ischemia, unspecified ischemic chest pain type Cytomegalovirus infection, unspecified cytomegaloviral infection type (HCC) HC COMPLETE BLD COUNT STAT 01/03/2019 9:25 Heart replaced by Results for this W/AUTO DIFF AM CDT transplant (HCC) procedure are in Complication of heart the results transplant, section. unspecified complication (HCC) Metabolic syndrome Mixed hyperlipidemia Essential hypertension Bone loss Hyperthyroidism Infection Chest pain due to myocardial ischemia, unspecified ischemic chest pain type Cytomegalovirus infection, unspecified cytomegaloviral infection type (HCC) COMPREHENSIVE STAT 01/03/2019 9:25 Heart replaced by Results for this METABOLIC PANEL AM CDT transplant (HCC) procedure are in Complication of heart the results transplant, section. unspecified complication (HCC) Metabolic syndrome Mixed hyperlipidemia Essential hypertension Bone loss Hyperthyroidism Infection Chest pain due to myocardial ischemia, unspecified ischemic chest pain type Cytomegalovirus infection, unspecified cytomegaloviral infection type (HCC) ECG 12-LEAD Routine 01/03/2019 8:10 Heart transplanted Results for this AM CDT (HCC) procedure are in Heart replaced by the results transplant (HCC) section. Essential hypertension FK506 TACROLIMUS Routine 12/06/2018 1:55 Results for this LEVEL, RANDOM PM CDT procedure are in the results section. MAGNESIUM LEVEL Routine 12/06/2018 1:55 Results for this PM CDT procedure are in the results section. PHOSPHORUS LEVEL Routine 12/06/2018 1:55 Results for this PM CDT procedure are in the results section. CBC WITH PLATELET AND Routine 12/06/2018 1:55 Results for this DIFFERENTIAL PM CDT procedure are in the results section. BASIC METABOLIC PANEL Routine 12/06/2018 1:55 Results for this PM CDT procedure are in the results section. CBC WITH PLATELET AND Routine 11/30/2018 7:48 Heart replaced by Results for this DIFFERENTIAL AM CDT transplant (HCC) procedure are in the results section. PHOSPHORUS LEVEL Routine 11/30/2018 7:48 Heart replaced by Results for this AM CDT transplant (HCC) procedure are in the results section. MAGNESIUM LEVEL Routine 11/30/2018 7:48 Heart replaced by Results for this AM CDT transplant (HCC) procedure are in the results section. BASIC METABOLIC PANEL Routine 11/30/2018 7:48 Heart replaced by Results for this AM CDT transplant (HCC) procedure are in the results section. FK506 TACROLIMUS Routine 11/30/2018 7:48 Heart replaced by Results for this LEVEL, RANDOM AM CDT transplant (HCC) procedure are in the results section. ESTIMATED GFR Routine 11/26/2018 5:05 Results for this AM CDT procedure are in the results section. FK506 TACROLIMUS Routine 11/26/2018 5:05 Results for this LEVEL, RANDOM AM CDT procedure are in the results section. BASIC METABOLIC PANEL Routine 11/26/2018 5:05 Results for this AM CDT procedure are in the results section. HC COMPLETE BLD COUNT Routine 11/26/2018 5:05 Results for this W/AUTO DIFF AM CDT procedure are in the results section. CV SELECTIVE CORONARY Routine 11/25/2018 6:28 Results for this ANGIOGRAPHY PM CDT procedure are in the results section. ESTIMATED GFR Routine 11/25/2018 5:15 Results for this AM CDT procedure are in the results section. PROTHROMBIN TIME WITH Routine 11/25/2018 5:15 Results for this INR AM CDT procedure are in the results section. FK506 TACROLIMUS Routine 11/25/2018 5:15 Results for this LEVEL, RANDOM AM CDT procedure are in the results section. BASIC METABOLIC PANEL Routine 11/25/2018 5:15 Results for this AM CDT procedure are in the results section. HC COMPLETE BLD COUNT Routine 11/25/2018 5:15 Results for this W/AUTO DIFF AM CDT procedure are in the results section. ESTIMATED GFR Routine 11/24/2018 5:17 Results for this AM CDT procedure are in the results section. CBC WITH PLATELET AND Routine 11/24/2018 5:17 Results for this DIFFERENTIAL AM CDT procedure are in the results section. BASIC METABOLIC PANEL Routine 11/24/2018 5:17 Results for this AM CDT procedure are in the results section. FK506 TACROLIMUS Routine 11/24/2018 5:17 Results for this LEVEL, RANDOM AM CDT procedure are in the results section. ESTIMATED GFR Routine 11/23/2018 5:03 Results for this AM CDT procedure are in the results section. D-DIMER Routine 11/23/2018 5:03 Results for this AM CDT procedure are in the results section. CYTOMEGALOVIRUS BY PCR Routine 11/23/2018 5:03 Results for this AM CDT procedure are in the results section. CBC WITH PLATELET AND Routine 11/23/2018 5:03 Results for this DIFFERENTIAL AM CDT procedure are in the results section. BASIC METABOLIC PANEL Routine 11/23/2018 5:03 Results for this AM CDT procedure are in the results section. FK506 TACROLIMUS Routine 11/23/2018 5:03 Results for this LEVEL, RANDOM AM CDT procedure are in the results section. US DUPLEX VENOUS LOWER STAT 11/22/2018 9:07 Results for this EXTREMITY BILATERAL PM CDT procedure are in the results section. SURGICAL PATHOLOGY Routine 11/22/2018 5:21 Results for this REQUEST PM CDT procedure are in the results section. CV RIGHT HEART CATH Routine 11/22/2018 5:08 Results for this RIGHT HEART BIOPSY PM CDT procedure are in the results section. POC , URINE Routine 11/22/2018 4:02 Results for this PM CDT procedure are in the results section. DONOR SPECIFIC Routine 11/22/2018 5:42 Results for this ANTIBODY AM CDT procedure are in the results section. ESTIMATED GFR Routine 11/22/2018 5:42 Results for this AM CDT procedure are in the results section. CYTOMEGALOVIRUS BY PCR Routine 11/22/2018 5:42 Results for this AM CDT procedure are in the results section. HC COMPLETE BLD COUNT Routine 11/22/2018 5:42 Results for this W/AUTO DIFF AM CDT procedure are in the results section. BASIC METABOLIC PANEL Routine 11/22/2018 5:42 Results for this AM CDT procedure are in the results section. FK506 TACROLIMUS Routine 11/22/2018 5:42 Results for this LEVEL, RANDOM AM CDT procedure are in the results section. ECHOCARDIOGRAM 2D STAT 11/21/2018 11:27 Results for this COMPLETE W MMODE PM CDT procedure are in SPECTRAL COLOR DOPPLER the results (83057) section. CT CHEST WO CONTRAST Routine 11/21/2018 8:06 Results for this PM CDT procedure are in the results section. TROPONIN Timed 11/21/2018 6:24 Results for this PM CDT procedure are in the results section. ECG ED PRELIMINARY Routine 11/21/2018 4:43 Results for this INTERPRETATION PM CDT procedure are in the results section. XR CHEST 2 VW STAT 11/21/2018 4:36 Results for this PM CDT procedure are in the results section. ESTIMATED GFR STAT 11/21/2018 4:26 Results for this PM CDT procedure are in the results section. B NATRIURETIC PEPTIDE STAT 11/21/2018 4:26 Results for this PM CDT procedure are in the results section. TROPONIN STAT 11/21/2018 4:26 Results for this PM CDT procedure are in the results section. COMPREHENSIVE STAT 11/21/2018 4:26 Results for this METABOLIC PANEL PM CDT procedure are in the results section. HC COMPLETE BLD COUNT STAT 11/21/2018 4:26 Results for this W/AUTO DIFF PM CDT procedure are in the results section. ECG 12-LEAD STAT 11/21/2018 3:28 Results for this PM CDT procedure are in the results section. ESTIMATED GFR Routine 11/21/2018 6:40 Results for this AM CDT procedure are in the results section. TROPONIN Routine 11/21/2018 6:40 Heart replaced by Results for this AM CDT transplant (HCC) procedure are in Cardiac transplant the results rejection (HCC) section. Essential hypertension Therapeutic drug monitoring Metabolic syndrome Hyperlipidemia associated with type 2 diabetes mellitus (HCC) Chronic fatigue Chest pain, unspecified type Infection Cytomegalovirus infection, unspecified cytomegaloviral infection type (HCC) FK506 TACROLIMUS Routine 11/21/2018 6:40 Heart replaced by Results for this LEVEL, RANDOM AM CDT transplant (HCC) procedure are in Cardiac transplant the results rejection (HCC) section. Essential hypertension Therapeutic drug monitoring Metabolic syndrome Hyperlipidemia associated with type 2 diabetes mellitus (HCC) Chronic fatigue Chest pain, unspecified type Infection Cytomegalovirus infection, unspecified cytomegaloviral infection type (HCC) T4 Routine 11/21/2018 6:40 Heart replaced by Results for this AM CDT transplant (HCC) procedure are in Cardiac transplant the results rejection (HCC) section. Essential hypertension Therapeutic drug monitoring Metabolic syndrome Hyperlipidemia associated with type 2 diabetes mellitus (HCC) Chronic fatigue Chest pain, unspecified type Infection Cytomegalovirus infection, unspecified cytomegaloviral infection type (HCC) T3 Routine 11/21/2018 6:40 Heart replaced by Results for this AM CDT transplant (HCC) procedure are in Cardiac transplant the results rejection (HCC) section. Essential hypertension Therapeutic drug monitoring Metabolic syndrome Hyperlipidemia associated with type 2 diabetes mellitus (HCC) Chronic fatigue Chest pain, unspecified type Infection Cytomegalovirus infection, unspecified cytomegaloviral infection type (HCC) B NATRIURETIC PEPTIDE Routine 11/21/2018 6:40 Heart replaced by Results for this AM CDT transplant (HCC) procedure are in Cardiac transplant the results rejection (HCC) section. Essential hypertension Therapeutic drug monitoring Metabolic syndrome Hyperlipidemia associated with type 2 diabetes mellitus (HCC) Chronic fatigue Chest pain, unspecified type Infection Cytomegalovirus infection, unspecified cytomegaloviral infection type (HCC) LDH Routine 11/21/2018 6:40 Heart replaced by Results for this AM CDT transplant (HCC) procedure are in Cardiac transplant the results rejection (HCC) section. Essential hypertension Therapeutic drug monitoring Metabolic syndrome Hyperlipidemia associated with type 2 diabetes mellitus (HCC) Chronic fatigue Chest pain, unspecified type Infection Cytomegalovirus infection, unspecified cytomegaloviral infection type (HCC) URIC ACID LEVEL Routine 11/21/2018 6:40 Heart replaced by Results for this AM CDT transplant (HCC) procedure are in Cardiac transplant the results rejection (HCC) section. Essential hypertension Therapeutic drug monitoring Metabolic syndrome Hyperlipidemia associated with type 2 diabetes mellitus (HCC) Chronic fatigue Chest pain, unspecified type Infection Cytomegalovirus infection, unspecified cytomegaloviral infection type (HCC) THYROID STIMULATING Routine 11/21/2018 6:40 Heart replaced by Results for this HORMONE AM CDT transplant (HCC) procedure are in Cardiac transplant the results rejection (HCC) section. Essential hypertension Therapeutic drug monitoring Metabolic syndrome Hyperlipidemia associated with type 2 diabetes mellitus (HCC) Chronic fatigue Chest pain, unspecified type Infection Cytomegalovirus infection, unspecified cytomegaloviral infection type (HCC) PARATHYROID HORMONE Routine 11/21/2018 6:40 Heart replaced by Results for this AM CDT transplant (HCC) procedure are in Cardiac transplant the results rejection (HCC) section. Essential hypertension Therapeutic drug monitoring Metabolic syndrome Hyperlipidemia associated with type 2 diabetes mellitus (HCC) Chronic fatigue Chest pain, unspecified type Infection Cytomegalovirus infection, unspecified cytomegaloviral infection type (HCC) HEMOGLOBIN A1C Routine 11/21/2018 6:40 Heart replaced by Results for this AM CDT transplant (HCC) procedure are in Cardiac transplant the results rejection (HCC) section. Essential hypertension Therapeutic drug monitoring Metabolic syndrome Hyperlipidemia associated with type 2 diabetes mellitus (HCC) Chronic fatigue Chest pain, unspecified type Infection Cytomegalovirus infection, unspecified cytomegaloviral infection type (HCC) LIPID PANEL Routine 11/21/2018 6:40 Heart replaced by Results for this AM CDT transplant (HCC) procedure are in Cardiac transplant the results rejection (HCC) section. Essential hypertension Therapeutic drug monitoring Metabolic syndrome Hyperlipidemia associated with type 2 diabetes mellitus (HCC) Chronic fatigue Chest pain, unspecified type Infection Cytomegalovirus infection, unspecified cytomegaloviral infection type (HCC) HEPATIC FUNCTION PANEL Routine 11/21/2018 6:40 Heart replaced by Results for this AM CDT transplant (HCC) procedure are in Cardiac transplant the results rejection (HCC) section. Essential hypertension Therapeutic drug monitoring Metabolic syndrome Hyperlipidemia associated with type 2 diabetes mellitus (HCC) Chronic fatigue Chest pain, unspecified type Infection Cytomegalovirus infection, unspecified cytomegaloviral infection type (HCC) MAGNESIUM LEVEL Routine 11/21/2018 6:40 Heart replaced by Results for this AM CDT transplant (HCC) procedure are in Cardiac transplant the results rejection (HCC) section. Essential hypertension Therapeutic drug monitoring Metabolic syndrome Hyperlipidemia associated with type 2 diabetes mellitus (HCC) Chronic fatigue Chest pain, unspecified type Infection Cytomegalovirus infection, unspecified cytomegaloviral infection type (HCC) HC COMPLETE BLD COUNT Routine 11/21/2018 6:40 Heart replaced by Results for this W/AUTO DIFF AM CDT transplant (HCC) procedure are in Cardiac transplant the results rejection (HCC) section. Essential hypertension Therapeutic drug monitoring Metabolic syndrome Hyperlipidemia associated with type 2 diabetes mellitus (HCC) Chronic fatigue Chest pain, unspecified type Infection Cytomegalovirus infection, unspecified cytomegaloviral infection type (HCC) BASIC METABOLIC PANEL Routine 11/21/2018 6:40 Heart replaced by Results for this AM CDT transplant (HCC) procedure are in Cardiac transplant the results rejection (HCC) section. Essential hypertension Therapeutic drug monitoring Metabolic syndrome Hyperlipidemia associated with type 2 diabetes mellitus (HCC) Chronic fatigue Chest pain, unspecified type Infection Cytomegalovirus infection, unspecified cytomegaloviral infection type (HCC) after 03/26/2018 Results FK506 Tacrolimus level, random (01/17/2019 8:00 AM CDT)Only the most recent of10 resultswithin the time period is included. FK506 level 3.5 2.0 - 20.0 ng/mL [facility] Comment: Trough (immediately following transplant) 15.0 Trough (steady state, 2 weeks or more after transplant):3.0 - 8.0 Detection Limit=1.0 Performed by LC-MS/MS technology. This test was developed and its performance characteristics determined by [employer]. It has not been cleared or approved by the Food and Drug Administration. Specimen Narrative Performed At Performed at: - [facility] [address] [place], [place] [id number] Bag Inspector: Staci Delgado MD, Phone:[phone] Performing Organization Address City/State/Zipcode Phone Number [facility] CBC with platelet and differential (01/17/2019 8:00 AM CDT)Only the most recent of11 resultswithin the time period is included. WBC 6.5 3.4 - 10.8 x10E3/uL [facility] RBC 4.22 3.77 - 5.28 x10E6/uL [facility] HGB 12.4 11.1 - 15.9 g/dL [facility] HCT 38.2 34.0 - 46.6 % [facility] MCV 91 79 - 97 fL [facility] MCH 29.4 26.6 - 33.0 pg [facility] MCHC 32.5 31.5 - 35.7 g/dL [facility] RDW 13.4 12.3 - 15.4 % [facility] Platelet count 222 150 - 450 x10E3/uL [facility] Neutrophils 42 Not Estab. % [facility] Lymphocytes 37 Not Estab. % [facility] Monocytes 7 Not Estab. % [facility] Eosinophils 13 Not Estab. % [facility] Basophils 1 Not Estab. % [facility] Neutrophils, absolute 2.7 1.4 - 7.0 x10E3/uL [facility] Lymphocytes, absolute 2.4 0.7 - 3.1 x10E3/uL [facility] Monocytes, absolute 0.4 0.1 - 0.9 x10E3/uL [facility] Eosinophils, absolute 0.8 (H) 0.0 - 0.4 x10E3/uL [facility] Basophils, absolute 0.1 0.0 - 0.2 x10E3/uL [facility] Immature granulocytes 0 Not Estab. % [facility] Immature grans (abs) 0.0 0.0 - 0.1 x10E3/uL [facility] Specimen Narrative Performed At Performed at:[address] [place], [place] [id number] Bag Inspector: José Parmar MD, Phone:[phone] Performing Organization Address [facility] Phone Number [facility] Phosphorus level (01/17/2019 8:00 AM CDT)Only the most recent of3 resultswithin the time period is included. Phosphorus 3.4 2.5 - 4.5 mg/dL [facility] Specimen Narrative Performed At Performed at: [id number] Bag Inspector: José Parmar MD, Phone:[phone] Performing Organization Address [facility] Phone Number [facility] Magnesium level (01/17/2019 8:00 AM CDT)Only the most recent of4 resultswithin the time period is included. Magnesium 1.8 1.6 - 2.3 mg/dL [facility] Specimen Narrative Performed At Performed at:[address] [place], [place] [id number] Bag Inspector: José Parmar MD, Phone:[phone] Performing Organization Address City/[facility] Phone Number [facility] Basic metabolic panel (01/17/2019 8:00 AM CDT)Only the most recent of9 resultswithin the time period is included. Glucose 105 (H) 65 - 99 mg/dL [facility] BUN, whole blood 17 6 - 24 mg/dL [facility] Creatinine 0.88 0.57 - 1.00 mg/dL [facility] EGFR Non-Afr. Malaysian 79 >59 mL/min/1.73 [facility] EGFR 91 >59 mL/min/1.73 [facility] BUN/creatinine ratio 19 9 - 23 [facility] Sodium 141 134 - 144 mmol/L [facility] Potassium 4.2 3.5 - 5.2 mmol/L [facility] Chloride 106 96 - 106 mmol/L [facility] CO2 24 20 - 29 mmol/L [facility] Calcium 9.0 8.7 - 10.2 mg/dL [facility] Specimen Narrative Performed At Performed at:01 - [facility] [address] [place], [id number] Bag Inspector: José Parmar MD, Phone:[phone] Performing Organization Address [facility] Phone Number [facility] Estimated GFR (01/03/2019 9:25 AM CDT)Only the most recent of8 resultswithin the time period is included. Pathologist [facility] Estimated GFR 66 mL/min/1.73 [facility] Comment: HOSPITAL CatergoryUnitsInterpretation G1 >=90 Normal or high G2 60-89Mildly decreased [id number] to moderately decreased [id number] to severely decreased G4 15-29Severely decreased G5 <15Kidney failure The eGFR was calculated using the Chronic Kidney Disease Epidemiology Collaboration (CKD-EPI) equation. Interpretation is based on recommendations of the National Kidney Foundation-Kidney Disease Outcomes Quality Initiative (NKF-KDOQI) published in 2014. Specimen Plasma specimen Performing Organization Address City/State/Zipcode Phone Number [facility] DEPARTMENT OF PATHOLOGY AND [address] [place] [address] GENOMIC MEDICINE [address] [address] Prothrombin time with INR (01/03/2019 9:25 AM CDT)Only the most recent of2 resultswithin the time period is included. Pathologist [facility] Prothrombin time 12.8 11.5 - 14.5 [facility] INR 1.0 [facility] Comment: [facility] International Normalized Ratio (INR) is a therapeutic HOSPITAL monitoring tool for patients who are stable on oral anticoagulant therapy. An INR of 2.0-3.0 is suggested for deep vein thrombosis/pulmonary embolism. Specimen Blood Performing Organization Address City/[facility] Phone Number [facility] DEPARTMENT OF PATHOLOGY AND [address] [place] [address] B natriuretic peptide (01/03/2019 9:25 AM CDT)Only the most recent of3 resultswithin the time period is included. [facility] BNP 125 (H) 0 - 100 pg/mL [facility] Specimen Blood Performing Organization Address City/[facility] Phone Number [facility] DEPARTMENT OF PATHOLOGY AND [address] [place] [address] LDH (01/03/2019 9:25 AM CDT)Only the most recent of2 resultswithin the time period is included. Pathologist [facility] LDH 185 87 - 225 U/L [facility] Specimen Plasma specimen Performing Organization Address City/[facility] Phone Number [facility] DEPARTMENT OF PATHOLOGY AND [address] [place] [address] Comprehensive metabolic panel (01/03/2019 9:25 AM CDT)Only the most recent of2 resultswithin the time period is included. Pathologist [facility] Sodium 142 135 - 148 [facility] mEq/L [facility] Potassium 3.8 3.5 - 5.0 [facility] mEq/L [facility] Chloride 103 98 - 112 mEq/L [facility] CO2 26 24 - 31 mEq/L [facility] Anion gap 13@ANIO 7 - 15 mEq/L [facility] BUN 16 6 - 20 mg/dL [facility] Creatinine 1.01 (H) 0.50 - 0.90 [facility] mg/dL HOSPITAL Glucose 90 65 - 99 mg/dL [facility] Calcium 9.5 8.3 - 10.2 [facility] mg/dL HOSPITAL Protein 7.4 6.3 - 8.3 g/dL [facility] Comment: HOSPITAL 4.6-7.0 g/dL 1 week 4.4-7.6 g/dL 7 months-1year5.1-7.3 g/dL 1-2 years5.6-7.5 g/dL >3 years6.0-8.0 g/dL 18-150 6.3-8.3 g/dL Albumin 3.9 3.5 - 5.0 g/dL [facility] A/G ratio 1.1 0.7 - 3.8 [facility] Alkaline phosphatase 86 35 - 104 U/L [facility] AST 25 10 - 35 U/L [facility] ALT 16 5 - 50 U/L [facility] Total bilirubin 0.4 0.0 - 1.2 [facility] mg/dL HOSPITAL Specimen Plasma specimen Performing Organization Address City/[facility] Phone Number [facility] DEPARTMENT OF PATHOLOGY AND [address] [place] [address] GENOMIC MEDICINE [address] [address] ECG 12 lead (01/03/2019 8:10 AM CDT)Only the most recent of2 resultswithin the time period is included. Ventricular rate 97 [facility] Atrial rate 97 [facility] LA interval 174 [facility] QRSD interval 130 [facility] QT interval 374 [facility] QTC interval 474 [facility] P axis 1 52 [facility] QRS axis 1 70 [facility] T wave axis 13 H MUSE EKG impression Normal sinus [facility] MUSE rhythm-Possible Left atrial enlargement-Right bundle branch block-Abnormal ECG-In automated comparison with ECG of 12-DEC-2018 12:40,-No significant change was found- Specimen Narrative Performed At Performing Organization Address City/State/[facility] Phone Number [facility] [address] [place] [id number] Cv geoscience laboratory technician procedure (11/25/2018 6:28 PM CDT) Specimen Narrative Performed At Mild CAV. HM [facility] Normal LVEDP. Performing Organization Address [facility] Cent[facility]ode Phone Number [facility] [address] [place] [address] Cytomegalovirus by PCR (11/23/2018 5:03 AM CDT)Only the most recent of2 resultswithin the time period is included. Cytomegalovirus by PCR Not-Detected Not-Detected [facility] IU/mL HOSPITAL Cytomegalovirus by PCR See link [facility] below for PDF HOSPITAL Lab ReportComment : Specimen Performing Organization Address [facility]j Phone Number [facility] DEPARTMENT OF PATHOLOGY AND [address] [place] [address] D-dimer (11/23/2018 5:03 AM CDT) D-dimer 0.32 0.00 - 0.40 [facility] Comment: ug/mL FEU HOSPITAL Units are ug/ml Fibrinogen Equivalent Unit. When combined with low clinical probability, D-dimer results of less than 0.5 ug/ml FEU have a good negativepredictive value in excluding PE or DVT. For D-dimer results greater than 0.5ug/ml FEU further testing is indicated if PE or DVT is suspectedclinically. Elevated D-dimer results have been reported in DVT, PE, and DIC cases and may indicate the presence of a clot. D-dimer results may be elevated due to old age, , inflammatory diseases, trauma, post-operative states, sepsis, and malignancies. Specimen Blood Performing Organization Address [facility] Phone Number [facility] DEPARTMENT OF PATHOLOGY AND [address] [place] [address] Us duplex venous lower extremity (11/22/2018 9:07 PM CDT) Specimen Narrative Performed At [facility] Vascular Ultrasound Laboratory Lower Extremity Venous Report [address] [place] [address].Name:Precious FOUNTAIN.ID:[id number] .Date: 11/22/2018 Refer.MD:MARA MARAVILLA MD Exam Time: 8:24:00 PMStudy Type:LE Venous DOBAge:1970,48Y Sex: FEMALE Sonogrphr: Connell Vi, RVTPat. Stat.:Inpatient Room:[address] TapeVol: AUGUSTO, CPT - 4: 30680 Echo Event ID:[id number] Order ID:[id number] Reason for Study:Patieint had chest pain. History of heart transplant in 2007. Procedures:Colorflow, Grayscale/2D, Pulsed wave Doppler SUMMARY: DUPLEX SCAN OBSERVATIONS Deep VeinsSuperficial Veins RightLeft RightLeft EIV GSV (prox) NormalNormal CFV Normal Normal (above knee) Femoral Normal Normal GSV (dist) Normal Normal Profunda Normal Normal (below knee) Popliteal Normal Normal PT (prox) Normal NormalSSV Normal Normal PT (dist) Normal Normal Peroneal Normal Normal Gastroc NormalNormal RIGHT: There is normal compressibility with no evidence of echogenic material noted within the lumen of the visualized veins.Colorflow and Doppler signals are normal. LEFT: There is normal compressibility with no evidence of echogenic material noted within the lumen of the visualized veins.Colorflow and Doppler signals are normal. PRELIMINARY FINDINGS 1. No evidence of venous thrombosis seen in the visualized veins, bilaterally. PHYSICIAN INTERPRETATION Venous examination of the both lower extremities demonstrated no evidence of venous thrombosis in the visualized veins.Normal compressibility and augmentation of all veins visualized. Signed 11/22/2018 11:32 PM Jorge Vickers MD, RPVI Procedure Note Interface, Radiology Results In - 11/22/2018 11:32 PM CDT Vascular Ultrasound Laboratory Lower Extremity Venous Report [address] [place] [address] Pat.Name: CHRISTIANNE FOUNTAIN.ID: [id number] .Date: 11/22/2018 Refer.MD: MARA MARAVILLA MD Exam Time: 8:24:00 PM Study Type:LE Venous Age: 11 1970,48Y Sex: FEMALE Sonogrphr: Connell Vi, RVT Pat. Stat.:Inpatient Room: [id number] Tape Vol: AUGUSTO, CPT - 4: 82431 Echo Event ID:[id number] Order ID: [id number] Reason for Study:Patieint had chest pain. History of heart transplant in 2007. Procedures:Colorflow, Grayscale/2D, Pulsed wave Doppler SUMMARY: DUPLEX SCAN OBSERVATIONS Deep Veins Superficial Veins Right Left Right Left EIV GSV (prox) Normal Normal CFV Normal Normal (above knee) Femoral Normal Normal GSV (dist) Normal Normal Profunda Normal Normal (below knee) Popliteal Normal Normal PT (prox) Normal Normal SSV Normal Normal PT (dist) Normal Normal Peroneal Normal Normal Gastroc Normal Normal RIGHT: There is normal compressibility with no evidence of echogenic material noted within the lumen of the visualized veins.Colorflow and Doppler signals are normal. LEFT: There is normal compressibility with no evidence of echogenic material noted within the lumen of the visualized veins.Colorflow and Doppler signals are normal. PRELIMINARY FINDINGS 1. No evidence of venous thrombosis seen in the visualized veins, bilaterally. PHYSICIAN INTERPRETATION Venous examination of the both lower extremities demonstrated no evidence of venous thrombosis in the visualized veins. Normal compressibility and augmentation of all veins visualized. Signed 11/22/2018 11:32 PM Jorge Vickers MD, RPVI Performing Organization Address City/[facility]/Zipcode Phone Number [facility] [address] [place] [address] Surgical pathology request (11/22/2018 5:21 PM CDT) [facility] DEPARTMENT OF PATHOLOGY AND GENOMIC MEDICINE Surgical pathology See link below [facility] DEPARTMENT OF report for PDF Lab PATHOLOGY AND Report GENOMIC MEDICINE Result status This is Final [facility] DEPARTMENT OF Report for PATHOLOGY AND [id number] GENOMIC MEDICINE Specimen Performing Organization Address City/[facility]/Zipcode Phone Number [facility] DEPARTMENT OF PATHOLOGY AND [address] [place] [address] GENOMIC MEDICINE Cv geoscience laboratory technician procedure (11/22/2018 5:08 PM CDT) Specimen Narrative Performed At Normal left and right sided filling pressures [facility] Normal CO/CI Await EMBx results Post procedure RA pressure was same as baseline. Performing Organization Address City/[facility] Cent[facility]ode Phone Number [facility] [address] [place] [address] POC , urine (11/22/2018 4:02 PM CDT) test urine, POC Negative QC done Yes Specimen Urine Donor specific antibody (11/22/2018 5:42 AM CDT) DSA serum ID [id number] [facility] DSA serum collection 11/22/2018 05:42 [facility] D&T [facility] DSA class I antibody Negative [facility] DSA antibody I [facility] DSA cPRA class I 0 [facility] DSA class II Negative [facility] DSA antibody II NONE [facility] DSA cPRA class II 0 [facility] Donor specific See link below [facility] antibody for PDF Lab HOSPITAL Report Specimen Blood Performing Organization Address City/[facility]ode Phone Number [facility] DEPARTMENT OF PATHOLOGY AND [address] [place] [address] GEN[address] MED[address] Echocardiogram complete w contrast and 3D if needed (11/21/2018 11:27 PM CDT) Specimen Narrative Performed At [facility] Echocardiography Report [address] [place] [address] Pat.Name:Precious FOUNTAIN.ID:[id number] .Date: 11/21/2018 Refer.MD:MARA MARAVILLA MD Exam Time: 8:58:00 PMStudy Type:Routine Echo Height:72.01in Weight:199.54lb BSA: 2.13 m2 DOBAge:1970,48Y Sex: FEMALEBP:125/77 HR:97 bpmSonogrphr: CIELO Morgan Pat. Stat.:Inpatient Room:[place] [address] Study Status:Final Echo Event ID:[id number] Order ID:[id number] Reason for Study:Cardiac transplant, monitoring for rejection Procedures:2D Echo, Colorflow Doppler, Strain, Portable, Stat Race: FINDINGS: LV: LV size is normal. LV EF is normal. Overall wall motion is normal.Estimated EF is 60-64%. RV: RV size is mildly enlarged. RV systolic function is normal. LA: LA volume is enlarged. RA: RA volume is enlarged. AO: Aortic root diameter is normal. DONNA: No pericardial effusion. AV: No structural AV abnormalities noted. MV: No structural MV abnormalities noted. Mild mitral regurgitation. PV: No structural PV abnormalities noted. TV: No structural TV abnormalities noted. A trace of tricuspid regurgitation Quarles: Normal diastolic function. Other:Insufficient TR jet to estimate PA systolic pressure. MEASUREMENTS: 2D Parasternal Long [place] LA Ds3.4 cmLVPWd0.9 cm LVOT 2 cmAo An2 cm LVIDd4.3 cmIndex2 cm/m Ao Rtd 2.3 cm Index1.1 cm/m LVIDs2.5 cmLV Wrlc198.2 g(87-129) LV%fs 41.9 % LVM Index 60.2 g/m2 IVSd 1 cmRWT0.4 LA Sng Plane LA Area 30.1 cm2(8.8-23.4) LA Vol98.9 ml Index46.4 ml/m LA LngAx 7.5 cm RA Sng Plane RA Area 28.7 cm2(8.3-19.5) RA Vol85.1 ml Index40 ml/m RA LngAx 7.9 cm DOPPLER LVOT Stroke Vol LVOT 2 cmLVOT CO5.6 l/min LVOT TVI19.2 cmLVOT CI2.6 l/m/m2 LVOT Tm275 [id number] bpm LVOT SV 60.2 ml Signed 11/22/2018 11:47 AM Ry Ha M.D. Procedure Note Interface, Radiology Results In - 11/22/2018 11:47 AM CDT Echocardiography Report [address] [address] Pat.Name: CHRISTIANNE FOUNTAIN.ID: [id number] St.Date: 11/21/2018 Refer.MD: MARA MARAVILLA MD Exam Time: 8:58:00 PM Study Type:Routine Echo Height: 72.01in Weight: 199.54lb BSA: 2.13 m2 Age: 11 1970,48Y Sex: FEMALE BP: 125/77 HR: 97 bpm Sonogrphr: CIELO Morgan Pat. Stat.:Inpatient Room: [place] [address] Study Status:Final Echo Event ID:[id number] Order ID: [id number] Reason for Study:Cardiac transplant, monitoring for rejection Procedures:2D Echo, Colorflow Doppler, Strain, Portable, Stat Race: FINDINGS: LV: LV size is normal. LV EF is normal. Overall wall motion is normal. Estimated EF is 60-64%. RV: RV size is mildly enlarged. RV systolic function is normal. LA: LA volume is enlarged. RA: RA volume is enlarged. AO: Aortic root diameter is normal. DONNA: No pericardial effusion. AV: No structural AV abnormalities noted. MV: No structural MV abnormalities noted. Mild mitral regurgitation. PV: No structural PV abnormalities noted. TV: No structural TV abnormalities noted. A trace of tricuspid regurgitation Quarles: Normal diastolic function. Other: Insufficient TR jet to estimate PA systolic pressure. MEASUREMENTS: 2D Parasternal Long [place] LA Ds 3.4 cm LVPWd 0.9 cm LVOT 2 cm Ao An 2 cm LVIDd 4.3 cm Index 2 cm/m Ao Rtd 2.3 cm Index 1.1 cm/m LVIDs 2.5 cm LV Mass 128.2 g (87-129) LV%fs 41.9 % LVM Index 60.2 g/m2 IVSd 1 cm RWT 0.4 LA Sng Plane LA Area 30.1 cm2 (8.8-23.4) LA Vol 98.9 ml Index 46.4 ml/m LA LngAx 7.5 cm RA Sng Plane RA Area 28.7 cm2 (8.3-19.5) RA Vol 85.1 ml Index 40 ml/m RA LngAx 7.9 cm DOPPLER LVOT Stroke Vol LVOT 2 cm LVOT CO 5.6 l/min LVOT TVI 19.2 cm LVOT CI 2.6 l/m/m2 LVOT Tm 275 msec HR 93 bpm LVOT SV 60.2 ml Signed 11/22/2018 11:47 AM Ry Ha M.D. Performing Organization Address City/State/Zipcode Phone Number [facility] [address] [place] [address] CT Chest Wo Contrast (11/21/2018 8:06 PM CDT) Specimen Narrative Performed At EXAMINATION:CT CHEST WO CONTRAST RADIANT CLINICAL HISTORY:Chest pain or SOBpleurisy or effusion suspected, abdnormal chestx ray. Vague nodular airspace disease in lung bases COMPARISON:09/13/2009 TECHNIQUE:CT of the chest without intravenous contrast. Absence of contrast decreases sensitivity for detection of focal lesions and vascular pathology. CT imaging was performed with iterative reconstruction techniques and/or automated exposure control to reduce radiation dose. FINDINGS: LUNGS and PLEURA:There are no concerning lung nodules. There are some scattered calcified granulomas on the right. No consolidation or effusion. There is some mild stable linear scarring in the right upper lobe. There is some mild nonspecific groundglass attenuation within the right lung base which was also present in 2009, minimally more prominent. There is some mild mosaic attenuation the lung bases may be some physiologic air trapping. HEART and MEDIASTINUM:Thoracic aorta is nonaneurysmal. Main pulmonary artery is dilated measuring 4.1 cm. there are midline sternotomy wires. Mild to moderate cardiac enlargement. No thoracic adenopathy ABDOMEN:The IVC and hepatic veins appear slightly prominent. Can be seen with right heart dysfunction. Cholecystectomy clips. Calcified splenic granulomas. BONES and SOFT TISSUES:No concerning osseous abnormalities. IMPRESSION: 1.Noted concerning lung nodule. 2.No acute consolidation or effusion. 3.Enlargement of the main pulmonary artery suggests pulmonary hypertension. There is mild to moderate cardiac enlargement. 4.Additional findings as above. [facility]-[id number] Procedure Note Interface, Radiology Results Incoming - 11/21/2018 8:20 PM CDT EXAMINATION: CT CHEST WO CONTRAST CLINICAL HISTORY: Chest pain or SOB pleurisy or effusion suspected, abdnormal chest x ray. Vague nodular airspace disease in lung bases COMPARISON: 09/13/2009 TECHNIQUE: CT of the chest without intravenous contrast. Absence of contrast decreases sensitivity for detection of focal lesions and vascular pathology. CT imaging was performed with iterative reconstruction techniques and/or automated exposure control to reduce radiation dose. FINDINGS: LUNGS and PLEURA: There are no concerning lung nodules. There are some scattered calcified granulomas on the right. No consolidation or effusion. There is some mild stable linear scarring in the right upper lobe. There is some mild nonspecific groundglass attenuation within the right lung base which was also present in 2010, minimally more prominent. There is some mild mosaic attenuation the lung bases may be some physiologic air trapping. HEART and MEDIASTINUM: Thoracic aorta is nonaneurysmal. Main pulmonary artery is dilated measuring 4.1 cm. there are midline sternotomy wires. Mild to moderate cardiac enlargement. No thoracic adenopathy ABDOMEN: The IVC and hepatic veins appear slightly prominent. Can be seen with right heart dysfunction. Cholecystectomy clips. Calcified splenic granulomas. BONES and SOFT TISSUES: No concerning osseous abnormalities. IMPRESSION: 1. Noted concerning lung nodule. 2. No acute consolidation or effusion. 3. Enlargement of the main pulmonary artery suggests pulmonary hypertension. There is mild to moderate cardiac enlargement. 4. Additional findings as above. [facility]-[id number] Performing Organization Address City/State/Zipcode Phone Number [facility] [address] [place] [address] Troponin (11/21/2018 6:24 PM CDT)Only the most recent of3 resultswithin the time period is included. Troponin <0.30 0.00 - 0.30 [facility] Comment: ng/mL HOSPITAL 0.30 - 1.49 ng/mlMay indicate increased risk of acute coronary syndrome. >=1.5 ng/mlConsistent with acute myocardial infarction. The diagnostic value of a single normal or non-diagnostic result is questionable.Serial samples at 2-6 hour intervals are required to rule out acute myocardial injury. Specimen Plasma specimen Performing Organization Address City/State/Zipcode Phone Number [facility] DEPARTMENT OF PATHOLOGY AND [address] [place] [address] GENOMIC MEDICINE [facility] [address] [place] [address] ECG ED Preliminary Interpretation - Not an Order (11/21/2018 4:43 PM CDT) Narrative Performed At Nilesh Acosta MD 11/21/20188:38 PM ECG ED Preliminary Interpretation - Not an Order Performed by: Enedina Arzate PA Authorized by: Nilesh Acosta MD ECG reviewed by ED Physician in the absence of a cable assembler and swager: yes Previous ECG: Previous ECG:Compared to current Interpretation: Interpretation: abnormal Rate: ECG rate:109 bpm ECG rate assessment: tachycardic Rhythm: Rhythm: sinus rhythm Ectopy: Ectopy: none QRS: QRS axis:Left Conduction: Conduction: abnormal Abnormal conduction: complete RBBB ST segments: ST segments:Non-specific T waves: T waves: non-specific XR Chest 2 Vw (11/21/2018 4:36 PM CDT) Specimen Narrative Performed At EXAMINATION:XR CHEST 2 VW RADIANT CLINICAL HISTORY:Coughnew onset COMPARISON:2 view chest from 07/21/2011 IMPRESSION: PA and lateral radiographs of the chest was submitted for interpretation. Vague nodular airspace disease is seen predominantly within both lung bases. Findings may represent an underlying bronchiolitis. Further evaluation with CT chest is recommended. No focal consolidation or pleural effusion. No pneumothorax or midline shift. The mediastinal contours and cardiac silhouette are unchanged. The patient is status post median sternotomy. The bones are unremarkable. [facility]-[id number] Procedure Note Interface, Radiology Results Incoming - 11/21/2018 4:41 PM CDT EXAMINATION: XR CHEST 2 VW CLINICAL HISTORY: Cough new onset COMPARISON: 2 view chest from 07/21/2011 IMPRESSION: PA and lateral radiographs of the chest was submitted for interpretation. Vague nodular airspace disease is seen predominantly within both lung bases. Findings may represent an underlying bronchiolitis. Further evaluation with CT chest is recommended. No focal consolidation or pleural effusion. No pneumothorax or midline shift. The mediastinal contours and cardiac silhouette are unchanged. The patient is status post median sternotomy. The bones are unremarkable. [facility]-[id number] Performing Organization Address City/[facility]/Zipcode Phone Number [address] [address] Uric acid level (11/21/2018 6:40 AM CDT) Uric acid 4.0 2.4 - 5.7 mg/dL [facility] Specimen Plasma specimen Performing Organization Address [facility] Phone Number [facility] DEPARTMENT OF PATHOLOGY AND [address] [place] [phone] T3 (11/21/2018 6:40 AM CDT) T3 104 80 - 200 ng/dL [facility] Specimen Plasma specimen Performing Organization Address [facility] Phone Number [facility] DEPARTMENT OF PATHOLOGY AND [address] [place] [phone] Thyroid stimulating hormone (11/21/2018 6:40 AM CDT) TSH 1.88 0.27 - 4.20 uIU/mL [facility] Specimen Plasma specimen Performing Organization Address [facility] Phone Number [facility] DEPARTMENT OF PATHOLOGY AND [address] [place] [phone] T4 (11/21/2018 6:40 AM CDT) T4 7.8 4.5 - 11.7 ug/dL [facility] Specimen Plasma specimen Performing Organization Address [facility] Phone Number [facility] DEPARTMENT OF PATHOLOGY AND [address] [place] [phone] Parathyroid hormone (11/21/2018 6:40 AM CDT) PTH 104 (H) 15 - 65 pg/mL [facility] Specimen Blood Performing Organization Address City/[facility] Cent[facility]ode Phone Number [facility] DEPARTMENT OF PATHOLOGY AND [address] [place] [phone] [address] Hemoglobin A1c (11/21/2018 6:40 AM CDT) Hemoglobin A1C 5.5 4.0 - 5.6 % [facility] Comment: HOSPITAL HbA1c cutoffs for diagnosing diabetes: 4.0% - 5.6%=normal 5.7% - 6.4%=increased risk for diabetes (prediabetes) >=6.5%=diabetes Goals for glycemic control (ADA 2016) < 7.0%Target for non adults with diabetes. More or less stringent targets may be appropriate for individual patients. <7.5% Target for Children and adolescents with type 1 diabetes. Specimen Blood Performing Organization Address [facility] Cent[facility] Phone Number [facility] DEPARTMENT OF PATHOLOGY AND [address] [place] [phone] [address] Hepatic function panel (11/21/2018 6:40 AM CDT) Albumin 4.0 3.5 - 5.0 g/dL [facility] Total bilirubin 0.5 0.0 - 1.2 [facility] mg/dL [facility] Bilirubin direct <0.2 0.0 - 0.3 [facility] mg/dL [facility] Alkaline phosphatase 75 35 - 104 U/L [facility] Protein 7.1 6.3 - 8.3 g/dL [facility] Comment: HOSPITAL [place] 4.6-7.0 g/dL 1 week 4.4-7.6 g/dL 7 months-1year5.1-7.3 g/dL 1-2 years5.6-7.5 g/dL >3 years6.0-8.0 g/dL 18-150 6.3-8.3 g/dL ALT 15 5 - 50 U/L [facility] AST 16 10 - 35 U/L [facility] Specimen Plasma specimen Performing Organization Address [facility] Centercode Phone Number [facility] DEPARTMENT OF PATHOLOGY AND [address] [place] [phone] [address] Lipid panel (11/21/2018 6:40 AM CDT) Cholesterol 192 <200 mg/dL [facility] Triglycerides 47 <150 mg/dL [facility] HDL cholesterol 79 >40 mg/dL [facility] LDL cholesterol 114 (H)Comment: <100 mg/dL [facility] Result obtained by [facility] direct [facility] measurement [facility]id [facility] Comment: [facility] Total Cholesterol (mg/dL) HOSPITAL <200 Desirable [id number]-pmkf >=240High Triglycerides (mg/dL) <150 Normal 561-950Fwgmrodkjb-iwpp 200-499High >=500Very high HDL Cholesterol (mg/dL) <40Low (male) <40Low (female) LDL Cholesterol (mg/dL) <100 Optimal 100-129Near or above optimal [phone]-qhrk 160-189High >=190Very high Risk Catergories that modify LDL goals. Risk CatergoriesLDL goal (mg/dL) CHD and CHD risk equivalent<100 (10-year risk >20%) Multiple (2+) risk factors <130 (10-year risk=<20%) 0-1 risk factors <160 (<10-year risk) Defining levels of lipids in metabolic syndrome Triglycerides>=150 mg/dL HDL Cholesterol Men<40 mg/dL Women<40 mg/dL Non-HDL cholesterol is a second target for therapy in persons with high triglycerides (>=200 mg/dL) Specimen Plasma specimen Performing Organization Address City/State/Zipcode Phone Number [facility] DEPARTMENT OF PATHOLOGY AND [address] [place] [phone] GENOMIC MEDICINE [address] [address] after 03/26/2018 Insurance Payer Benefit Plan / Subscriber ID Effective Dates Phone Address Type Group ALLIED HEALTH ALLIED HEALTH xxxxxxxxx 2018-Present Commercial [place] (Home) [place] [address] Advance Directives For more information, please contact: [phone] Type Date Recorded Patient Insurance Claims Processor Explanation Advance Directives, Living Will 08/10/2008 1:16 PM and 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
[2019-03-27] MEDS ORDERED: NA CHLORIDE 0.9% 1,000 ML ONE (13:52)
[2019-03-27 14:16] LABS: Absolute Lymphocytes (CBC) 1.7 K/uL (0.7-4.9); Basophils % 0.8 % (0-1.3); Hematocrit 42.8 % (36.0-45.0); Lymphocytes % 18.7 % (15.3-44.8); MPV 9.4 fL (7.6-11.3); RBC Red Blood Cell Count 4.81 M/uL (3.86-4.86)
--- NOTE | 2019-03-27 14:32 | RAD REPORT ---
EXAM DESCRIPTION: RAD - Chest Single View - 03/27/2019 2:22 pm CLINICAL HISTORY: COUGH Chest pain. COMPARISON: Chest Single View dated 11/18/2018; Chest Single View dated 11/18/2015 FINDINGS: Portable technique limits examination quality. Mild interstitial pulmonary edema suspected. The heart is mildly enlarged in size with sternotomy wir es present. No displaced fractures. IMPRESSION: Mild CHF versus volume overload pattern.
[2019-03-27 14:36] LABS: ALT/SGPT 22 U/L (12-78); AST/SGOT 15 U/L (15-37); Albumin 3.9 g/dL (3.4-5.0); Alkaline Phosphatase 76 U/L (45-117); BUN Blood Urea Nitrogen 16 mg/dL (7-18); Bicarbonate 32 mmol/L (21-32); Bilirubin Direct 0.2 mg/dL (0-0.2); Bilirubin Total 0.6 mg/dL (0.2-1.0); Glucose Level 125 mg/dL (74-106); Lipase 86 U/L (73-393); Magnesium 1.8 mg/dL (1.8-2.4); NT PRO-BNP 349 pg/mL (<125); Potassium 3.2 mmol/L (3.5-5.1); Protein, Total 7.5 g/dL (6.4-8.2); Sodium Level 137 mmol/L (136-145); Troponin (Emerg Dept Use Only) < 0.02 ng/mL (0.0-0.045)
--- NOTE | 2019-03-27 14:40 | RAD REPORT ---
EXAM DESCRIPTION: CT - Head Brain Wo Cont - 03/27/2019 2:33 pm CLINICAL HISTORY: HEADACHE Headache, nausea and vomiting COMPARISON: No comparisons TECHNIQUE: All CT scans are performed using dose optimization technique as appropriate and may inclu de automated exposure control or mA/KV adjustment according to patient size. FINDINGS: No intracranial hemorrhage, hydrocephalus or extra-axial fluid collection.No areas of brai n edema or evidence of midline shift. The paranasal sinuses and mastoids are clear. The calvarium is intact. IMPRESSION: No acute intracranial abnormality.
--- NOTE | 2019-03-27 15:17 | EKG ---
Test Date: 2019-03-27 Test Time: 14:13:16 Asset Management Coordinator: JORGE MEASUREMENT RESULTS: Intervals: Rate: 82 WV: 172 QRSD: 144 QT: 436 QTc: 509 Moore: P: 65 WV: 172 QRS: 73 T: 52 INTERPRETIVE STATEMENTS: Normal sinus rhythm Possible Left atrial enlargement Right bundle branch block Abnormal ECG Compared to ECG 11/18/2018 07:43:36 No significant changes Electronically Signed On 03-27-19 15:16:59 CDT by Zion Murcia
[2019-03-27] MEDS ORDERED: POTASSIUM 25 MEQ EFFERV TAB ONE (15:41)
--- NOTE | 2019-03-27 15:41 | ER ---
Nurse's Notes [facility] Name: Christianne Fountain Age: 48 yrs Sex: Female : 1970 Arrival Date: 03/27/2019 Time: 13:26 Bed 28 Private MD: Elliott Veras V Diagnosis: Headache;Hypokalemia Presentation: 03/27 13:42 Presenting complaint: Patient states: last night, i had this R sided headache since iw last night, now the headache is all over my head now, pain is 10/10; reports N/V; hx of heart transplant in 2007;. Transition of care: patient was not received from another setting of care. Onset of symptoms was March 27, 2019. Risk Assessment: Do you want to hurt yourself or someone else? Patient reports no desire to harm self or others. Initial Sepsis Screen: Does the patient meet any 2 criteria? No. Patient's initial sepsis screen is negative. Does the patient have a suspected source of infection? No. Patient's initial sepsis screen is negative. Care prior to arrival: None. 13:42 Method Of Arrival: Ambulatory iw 13:42 Acuity: FOSTER 3 iw Triage Assessment: 14:17 Headache History: The patient has had previous headaches and this one is different than rv previous episodes, and this one is more severe than previous episodes. General: Appears in no apparent distress. comfortable, Behavior is calm, cooperative. Pain: Pain currently is 7 out of 10 on a pain scale. Pain began suddenly. Pain: Also complains of no other associated symptoms. Historical: - Allergies: 13:45 Morphine (Vomiting, Hives); iw - Home Meds: 13:45 aspirin 81 mg Oral chew 1 tab once daily [Active]; CellCept 1000 units Oral tab 2 times iw per day [Active]; Centrum Silver 400-250 mcg Oral chew daily [Active]; prednisone 5 mg/5 mL Oral soln once daily [Active]; Prograf 2mg Oral cap every 12 hours [Active]; tumeric [Active]; - PMHx: 13:45 cardiac issues; iw - PSHx: 13:45 Heart Transplant; Cholecystectomy; iw - Immunization history:: Adult Immunizations up to date. - Social history:: Smoking status: unknown. - Ebola Screening: : No symptoms or risks identified at this time. Screenin:16 Abuse screen: Denies threats or abuse. Denies injuries from another. Nutritional rv screening: No deficits noted. Tuberculosis screening: No symptoms or risk factors identified. Fall Risk None identified. Assessment: 14:15 General: Appears in no apparent distress. comfortable, Behavior is calm, cooperative. rv Pain: Complains of pain in head. Neuro: Level of Consciousness is awake, alert, obeys commands, Oriented to person, place, time, situation, Reports headache that is the "worst ever". Cardiovascular: Patient's skin is warm and dry. Respiratory: Airway is patent. GI: No signs and/or symptoms were reported involving the gastrointestinal system. : No signs and/or symptoms were reported regarding the genitourinary system. EENT: No signs and/or symptoms were reported regarding the EENT system. Derm: Skin is intact. Musculoskeletal: No signs and/or symptoms reported regarding the musculoskeletal system. Vital Signs: 13:45 BP 139 / 84; Pulse 85; Resp 18; Temp 98.4(O); Pulse Ox 98% on R/A; Weight 95.25 kg; iw Height 6 ft. 0 in. (182.88 cm); Pain 10/10; 14:19 BP 131 / 87; Pulse 81; Resp 16; Pulse Ox 98% on R/A; rv 15:16 BP 128 / 75; Pulse 84; Resp 15; Pulse Ox 98% on R/A; rv 15:51 BP 127 / 86; Pulse 82; Resp 15; Pulse Ox 98% on R/A; rv 13:45 Body Mass Index 28.48 (95.25 kg, 182.88 cm) iw ED Course: 13:26 Patient arrived in ED. mr 13:27 Elliott Veras MD is Private Physician. mr 13:44 Triage completed. iw 13:45 Arm band placed on left wrist. iw 13:47 Venancio Copeland MD is Attending Physician. soledad 14:00 Inserted saline lock: 20 gauge in left antecubital area, using aseptic technique. Blood rv collected. 14:13 Jose Jimenez, RICKI is Primary Nurse. rv 14:17 Patient has correct armband on for positive identification. Placed in gown. Bed in low rv position. Call light in reach. Side rails up X 1. desk monitor on. Pulse ox on. NIBP on. 14:23 XRAY Chest (1 view) In Process Unspecified. EDMS 14:24 EKG done, by metrology technician. reviewed by Venancio Copeland MD. [facility] 14:36 CT Head Brain wo Cont In Process Unspecified. EDMS 15:38 Elliott Veras MD is Referral Physician. soledad 15:51 No provider procedures requiring assistance completed. rv 15:53 IV discontinued, intact, bleeding controlled, No redness/swelling at site. Pressure rv dressing applied. Administered Medications: Discontinued: NS 0.9% 1000 ml IV at 125 ml/hr continuous 14:00 Drug: NS 0.9% 1000 ml Route: IV; Rate: 125 ml/hr; Site: left antecubital; rv 15:50 Follow up: IV Status: Order to discontinue infusion rv 15:47 Drug: Potassium Effervescent Tablet 25 mEq Route: PO; rv 15:51 Follow up: Response: No adverse reaction rv Outcome: 15:39 Discharge ordered by MD. soledad 15:53 Discharged to home ambulatory. rv 15:53 Condition: good 15:53 Discharge instructions given to patient, Instructed on discharge instructions, follow up and referral plans. medication usage, Demonstrated understanding of instructions, follow-up care, medications, Prescriptions given X 2. 15:53 Patient left the ED. rv Signatures: Dispatcher [employer] ESTEFANYMS Venancio Copeland MD MD cha Rivera, Mary mr Williams, Irene, Kaya Singh RN [facility] Jose Jimenez, RICKI RN rv Corrections: (The following items were deleted from the chart) 13:47 13:45 Pulse 85bpm; Resp 18bpm; Pulse Ox 98% RA; Temp 98.4F Oral; 95.25 kg; Height 6 ft. iw 0 in.; BMI: 28.4; Pain 10/10; iw
--- NOTE | 2019-03-27 15:41 | EDPHYS ---
Physician Documentation [facility] Name: Christianne Fountain Age: 48 yrs Sex: Female : 1970 Arrival Date: 03/27/2019 Time: 13:26 Bed 28 Private MD: Elliott Veras V ED Physician Venancio Copeland HPI: 03/27 13:50 This 48 yrs old Female presents to ER via Ambulatory with complaints of soledad Headache, Nausea, Vomiting. Historical: - Allergies: 13:45 Morphine (Vomiting, Hives); iw - Home Meds: 13:45 aspirin 81 mg Oral chew 1 tab once daily [Active]; CellCept 1000 units Oral tab 2 times iw per day [Active]; Centrum Silver 400-250 mcg Oral chew daily [Active]; prednisone 5 mg/5 mL Oral soln once daily [Active]; Prograf 2mg Oral cap every 12 hours [Active]; tumeric [Active]; - PMHx: 13:45 cardiac issues; iw - PSHx: 13:45 Heart Transplant; Cholecystectomy; iw - Immunization history:: Adult Immunizations up to date. - Social history:: Smoking status: unknown. - Ebola Screening: : No symptoms or risks identified at this time. ROS: 15:35 Constitutional: Negative for fever, chills, and weight loss, Eyes: Negative for injury, soledad pain, redness, and discharge, ENT: Negative for injury, pain, and discharge, Neck: Negative for injury, pain, and swelling, Cardiovascular: Negative for chest pain, palpitations, and edema, Respiratory: Negative for shortness of breath, cough, wheezing, and pleuritic chest pain, Abdomen/GI: Negative for abdominal pain, nausea, vomiting, diarrhea, and constipation, Back: Negative for injury and pain, : Negative for injury, bleeding, discharge, and swelling, MS/Extremity: Negative for injury and deformity, Skin: Negative for injury, rash, and discoloration, Psych: Negative for depression, anxiety, suicide ideation, homicidal ideation, and hallucinations, Allergy/Immunology: Negative for hives, rash, and allergies, Endocrine: Negative for neck swelling, polydipsia, polyuria, polyphagia, and marked weight changes, Hematologic/Lymphatic: Negative for swollen nodes, abnormal bleeding, and unusual bruising. 15:35 Neuro: Positive for headache. Exam: 15:35 Constitutional: This is a well developed, well nourished patient who is awake, alert, soledad and in no acute distress. Head/Face: Normocephalic, atraumatic. Eyes: Pupils equal round and reactive to light, extra-ocular motions intact. Lids and lashes normal. Conjunctiva and sclera are non-icteric and not injected. Cornea within normal limits. Periorbital areas with no swelling, redness, or edema. ENT: Nares patent. No nasal discharge, no septal abnormalities noted. Tympanic membranes are normal and external auditory canals are clear. Oropharynx with no redness, swelling, or masses, exudates, or evidence of obstruction, uvula midline. Mucous membranes moist. Neck: Trachea midline, no thyromegaly or masses palpated, and no cervical lymphadenopathy. Supple, full range of motion without nuchal rigidity, or vertebral point tenderness. No Meningismus. Chest/axilla: Normal chest wall appearance and motion. Nontender with no deformity. No lesions are appreciated. Cardiovascular: Regular rate and rhythm with a normal S1 and S2. No gallops, murmurs, or rubs. Normal PMI, no JVD. No pulse deficits. Respiratory: Lungs have equal breath sounds bilaterally, clear to auscultation and percussion. No rales, rhonchi or wheezes noted. No increased work of breathing, no retractions or nasal flaring. Abdomen/GI: Soft, non-tender, with normal bowel sounds. No distension or tympany. No guarding or rebound. No evidence of tenderness throughout. Back: No spinal tenderness. No costovertebral tenderness. Full range of motion. Skin: Warm, dry with normal turgor. Normal color with no rashes, no lesions, and no evidence of cellulitis. MS/ Extremity: Pulses equal, no cyanosis. Neurovascular intact. Full, normal range of motion. Neuro: Awake and alert, GCS 15, oriented to person, place, time, and situation. Cranial nerves II-XII grossly intact. Motor strength 5/5 in all extremities. Sensory grossly intact. Cerebellar exam normal. Normal gait. Psych: Awake, alert, with orientation to person, place and time. Behavior, mood, and affect are within normal limits. 15:35 Neck: ROM/movement: is normal, no acute changes, Meningeal signs: are not present, Kernig's sign is negative, Brudzinski's sign is negative. Vital Signs: 13:45 BP 139 / 84; Pulse 85; Resp 18; Temp 98.4(O); Pulse Ox 98% on R/A; Weight 95.25 kg; iw Height 6 ft. 0 in. (182.88 cm); Pain 10/10; 14:19 BP 131 / 87; Pulse 81; Resp 16; Pulse Ox 98% on R/A; rv 15:16 BP 128 / 75; Pulse 84; Resp 15; Pulse Ox 98% on R/A; rv 15:51 BP 127 / 86; Pulse 82; Resp 15; Pulse Ox 98% on R/A; rv 13:45 Body Mass Index 28.48 (95.25 kg, 182.88 cm) iw MDM: 13:[address] [facility] 15:37 Data reviewed: vital signs, nurses notes, lab test result(s), EKG, radiologic studies, [facility] CT scan, plain films. 03/27 13:49 Order name: Basic Metabolic Panel; Complete Time: 15:34 [facility] 03/27 13:49 Order name: CBC with Diff; Complete Time: 15:34 [facility] 03/27 13:49 Order name: LFT's; Complete Time: 15:34 [facility] 03/27 13:49 Order name: Magnesium; Complete Time: 15:34 [facility] 03/27 13:49 Order name: NT PRO-BNP; Complete Time: 15:34 [facility] 03/27 13:49 Order name: PT-INR; Complete Time: 15:34 [facility] 03/27 13:49 Order name: Troponin (emerg Dept Use Only); Complete Time: 15:34 [facility] 03/27 13:49 Order name: XRAY Chest (1 view); Complete Time: 15:34 [facility] 03/27 13:49 Order name: Lipase; Complete Time: 15:34 [facility] 03/27 13:49 Order name: CT Head Brain wo Cont; Complete Time: 15:34 [facility] 03/27 14:55 Order name: Urine Dipstick--Ancillary (enter results) 03/27 14:55 Order name: Urine --Ancillary (enter results) 03/27 13:49 Order name: EKG; Complete Time: 13:51 [facility] 03/27 13:49 Order name: Cardiac monitoring; Complete Time: 14:14 [facility] 03/27 13:49 Order name: EKG - Nurse/Tech; Complete Time: 14:14 [facility] 03/27 13:49 Order name: IV Saline Lock; Complete Time: 14:14 [facility] 03/27 13:49 Order name: Labs collected and sent; Complete Time: 14:14 [facility] 03/27 13:49 Order name: O2 Per Protocol; Complete Time: 14:14 [facility] 03/27 13:49 Order name: O2 Sat Monitoring; Complete Time: 14:15 [facility] 03/27 13:49 Order name: Urine Dipstick-Ancillary (obtain specimen); Complete Time: 14:14 [facility] Administered Medications: Discontinued: NS 0.9% 1000 ml IV at 125 ml/hr continuous 14:00 Drug: NS 0.9% 1000 ml Route: IV; Rate: 125 ml/hr; Site: left antecubital; rv 15:50 Follow up: IV Status: Order to discontinue infusion rv 15:47 Drug: Potassium Effervescent Tablet 25 mEq Route: PO; rv 15:51 Follow up: Response: No adverse reaction rv Disposition: 03/27/19 15:39 Discharged to Home. Impression: Headache, Hypokalemia. - Condition is Stable. - Discharge Instructions: Potassium Content of Foods, General Headache Without Cause, General Headache Without Cause, [id number], Hypokalemia. - Prescriptions for Fioricet with Codeine 50- 325-40-30 mg Oral capsule - take 1 capsule by ORAL route every 4 hours as needed not to exceed 6 capsules per 24hrs; 20 capsule. Zofran 4 mg Oral Tablet - take 1 tablet by ORAL route every 12 hours As needed; 20 tablet. - Medication Reconciliation Form, Thank You Letter, Antibiotic Education, Prescription Opioid Use, Work release form form. - Follow up: Elliott Veras MD; When: 1 - 2 days; Reason: Recheck today's complaints, Continuance of care, Re-evaluation by your physician. - Problem is new. - Symptoms have improved. Signatures: Dispatcher [employer] Venancio Spicer MD MD cha Williams, Irene, RICKI RN iw Jose Jimenez RN RN rv Corrections: (The following items were deleted from the chart) 15:40 15:39 03/27/2019 15:39 Discharged to Home. Impression: Headache. Condition is Stable. soledad Forms are Medication Reconciliation Form, Thank You Letter, Antibiotic Education, Prescription Opioid Use. Follow up: Elliott Veras; When: 1 - 2 days; Reason: Recheck today's complaints, Continuance of care, Re-evaluation by your physician. Problem is new. Symptoms have improved. [facility] 15:53 15:40 03/27/2019 15:39 Discharged to Home. Impression: Headache; Hypokalemia. Condition rv is Stable. Forms are Medication Reconciliation Form, Thank You Letter, Antibiotic Education, Prescription Opioid Use. Follow up: Elliott Veras; When: 1 - 2 days; Reason: Recheck today's complaints, Continuance of care, Re-evaluation by your physician. Problem is new. Symptoms have improved. soledad
[2019-03-27 15:43] LABS: Urine Blood 2+ (NEG); Urine Glucose NEGATIVE (NEG); Urine Protein NEGATIVE (NEG); Urine Specific Gravity >1.030 (1.005-1.030); Urine pH 6.5 (5.0-7.0)
== END 2019-03-27 15:53 | disposition home or self-care (01) ==
LOC: ER 13:25
DX: E87.6 Hypokalemia (principal); Z79.82 Long term (current) use of aspirin; Z88.5 Allergy status to narcotic agent; Z94.1 Heart transplant status
CPT/HCPCS: 96361; 93005; 85025; 80048; 36415; 83735; 81025; 85610; 80076; 81003; 84484; 83690; 83880; 70450; 71045; 96360; 99285; J7030

== ENCOUNTER 2019-08-31 05:53 | Emergency (ER) | payer OTHER ==
--- OUTSIDE RECORDS SUMMARY | 2019-08-31 05:54 | XMS REPORT ---
:1970 [facility] Address [address] [place] [address] Care Team Providers Name Role Phone Unavailable Unavailable Unavailable Problems This patient has no known problems. Allergies, Adverse Reactions, Alerts This patient has no known allergies or adverse reactions. Medications This patient has no known medications.
[2019-08-31 06:37] LABS: Urine Blood NEGATIVE (NEG); Urine Glucose NEGATIVE (NEG); Urine Protein NEGATIVE (NEG); Urine pH 5.5 (5.0-7.0)
[2019-08-31 06:46] LABS: Absolute Lymphocytes (CBC) 1.6 K/uL (0.7-4.9); Basophils % 1.4 % (0-1.3); Hematocrit 39.8 % (36.0-45.0); Lymphocytes % 23.2 % (15.3-44.8); MPV 9.4 fL (7.6-11.3); RBC Red Blood Cell Count 4.42 M/uL (3.86-4.86)
[2019-08-31 06:47] LABS: Protime INR 1.03
[2019-08-31 06:49] LABS: Barbiturates NEGATIVE (NEGATIVE); Benzodiazepines NEGATIVE (NEGATIVE); Cocaine NEGATIVE (NEGATIVE); METHAMPHETAM NEGATIVE (NEGATIVE); Methadone NEGATIVE (NEGATIVE); Opiates NEGATIVE (NEGATIVE); Phencyclidine NEGATIVE (NEGATIVE); THC Cannibis NEGATIVE (NEGATIVE)
[2019-08-31 06:55] LABS: Urine Bacteria <20 /HPF (<20); Urine Culture Reflex Order NOT NEEDED; Urine RBC <5 /HPF (NONE SEEN)
[2019-08-31 07:01] LABS: ALT/SGPT 23 U/L (12-78); AST/SGOT 20 U/L (15-37); Albumin 3.9 g/dL (3.4-5.0); Alkaline Phosphatase 57 U/L (45-117); BUN Blood Urea Nitrogen 18 mg/dL (7-18); Bicarbonate 27 mmol/L (21-32); Bilirubin Direct 0.3 mg/dL (0-0.2); Bilirubin Total 0.8 mg/dL (0.2-1.0); Glucose Level 78 mg/dL (74-106); Magnesium 1.9 mg/dL (1.8-2.4); NT PRO-BNP 549 pg/mL (<125); Potassium 4.2 mmol/L (3.5-5.1); Protein, Total 7.2 g/dL (6.4-8.2); Sodium Level 137 mmol/L (136-145); Troponin (Emerg Dept Use Only) < 0.02 ng/mL (0.0-0.045)
--- NOTE | 2019-08-31 07:48 | RAD REPORT ---
EXAM DESCRIPTION: CT - Head Brain Wo Cont - 08/31/2019 6:52 am CLINICAL HISTORY: Headache COMPARISON: 2014 TECHNIQUE: Computed axial tomography of the head was obtained. IV contrast was not requested. All CT scans are performed using dose optimization technique as appropriate and may include automated exposure control or mA/KV adjustment according to patient size. FINDINGS: An intracranial bleed is not seen . The ventricles are normal in caliber. No extra-axial fluid collection is noted. Fluid within the sinuses/ mastoids is not seen. IMPRESSION: No acute intracranial abnormality is seen. If patient's symptoms persist MRI of the bra in would be recommended.
--- NOTE | 2019-08-31 07:52 | RAD REPORT ---
EXAM DESCRIPTION: USCarotid Artery Bilateral08/31/2019 7:18 am CLINICAL HISTORY: Blurred vision COMPARISON: None FINDINGS: The velocity of the right internal carotid artery equals 119 cm/sec. The right ICA/CCA rat io 1 The velocity of the left internal carotid artery equals 125 cm/sec. The left ICA/CCA ratio 1.1 No plaque is visualized within the carotid arteries The vertebral arteries demonstrate antegrade flow IMPRESSION: No plaque visualized within the carotid arteries NASCET criteria used. Mild 0-49% stenosis Moderate 50-69% stenosis Severe 70-99% stenosis
--- NOTE | 2019-08-31 07:55 | RAD REPORT ---
EXAM DESCRIPTION: Negar Single View08/31/2019 6:28 am CLINICAL HISTORY: Chest pain COMPARISON: March 2019 FINDINGS: The lungs appear clear of acute infiltrate. The heart is mildly enlarged. Postsurgical changes involve the chest. IMPRESSION: No acute abnormalities displayed
--- NOTE | 2019-08-31 08:15 | ER ---
Nurse's Notes [facility] Name: Christianne Fountain Age: 49 yrs Sex: Female : 1970 Arrival Date: 08/31/2019 Time: 05:54 Bed 13 Private MD: Diagnosis: Headache;Dizziness and giddiness Presentation: 08/31 06:09 Presenting complaint: Patient states: she was at work tonight at [employer] at approx bb 0100 and started feeling pressure on the sides of her neck radiating through her head which has increased with activity causing her to feel dizzy and her vision to get cloudy for seconds at a time, pt has had heart transplant 11 years ago. Transition of care: patient was not received from another setting of care. Onset of symptoms was August 31, 2019. Risk Assessment: Do you want to hurt yourself or someone else? Patient reports no desire to harm self or others. Initial Sepsis Screen: Does the patient meet any 2 criteria? No. Patient's initial sepsis screen is negative. Does the patient have a suspected source of infection? No. Patient's initial sepsis screen is negative. Care prior to arrival: None. 06:09 Method Of Arrival: Ambulatory bb 06:09 Acuity: FOSTER 2 bb CLINICAL TECH: 06:16 LMP 08/15/2019 bb Historical: - Allergies: 06:16 Morphine (Vomiting, Hives); bb - Home Meds: 06:16 aspirin 81 mg Oral chew 1 tab once daily [Active]; tacrolimus oral oral [Active]; bb Omeprazole Oral [Active]; spironolactone Oral [Active]; mycophenolate mofetil oral oral [Active]; - PMHx: 06:16 cardiac issues; bb - PSHx: 06:16 Heart Transplant; Cholecystectomy; bb - Immunization history:: Adult Immunizations up to date. - Coronavirus screen:: The patient has NOT traveled to [place], [place], or [place] in the past 14 days. Proceed with normal triage process as indicated. - Social history:: Smoking status: Patient denies any tobacco usage or history of. - Ebola Screening: : No symptoms or risks identified at this time. Screenin:35 Abuse screen: Denies threats or abuse. Denies injuries from another. Nutritional wh screening: No deficits noted. Tuberculosis screening: No symptoms or risk factors identified. Fall Risk None identified. Assessment: 06:35 General: Appears in no apparent distress. Behavior is calm, cooperative, appropriate wh for age. Pain: Denies pain. Neuro: Level of Consciousness is awake, alert, obeys commands, Oriented to person, place, time, situation, Appropriate for age Personnel Manager are equal bilaterally Moves all extremities. Gait is steady, Speech is normal, Facial symmetry appears normal, Reports dizziness. Cardiovascular: Heart tones S1 S2 Rhythm is regular. Respiratory: Airway is patent Respiratory effort is even, unlabored, Respiratory pattern is regular, symmetrical, Breath sounds are clear bilaterally. GI: Abdomen is flat, non-distended. : No signs and/or symptoms were reported regarding the genitourinary system. EENT: No signs and/or symptoms were reported regarding the EENT system. Derm: Skin is intact, is healthy with good turgor, Skin is pink, warm \T\ dry. normal. Musculoskeletal: Circulation, motion, and sensation intact. 07:00 General: Appears in no apparent distress. comfortable, Behavior is calm, cooperative. rb1 Pain: Denies pain. Neuro: Level of Consciousness is awake, alert, obeys commands, Oriented to person, place, time, situation. Cardiovascular: Capillary refill < 3 seconds is brisk in bilateral fingers. Respiratory: Airway is patent Respiratory effort is even, unlabored, Respiratory pattern is regular, symmetrical. 07:00 Derm: Skin is pink, warm \T\ dry. rb1 08:00 Reassessment: Patient appears in no apparent distress at this time. No changes from rb1 previously documented assessment. 08:40 Reassessment: Patient appears in no apparent distress at this time. Patient and/or rb1 family updated on plan of care and expected duration. Pain level reassessed. Patient is alert, oriented x 3, equal unlabored respirations, skin warm/dry/pink. Patient denies pain at this time. Vital Signs: 06:16 BP 133 / 86; Pulse 94; Resp 16 S; Temp 97.7(O); Pulse Ox 100% on R/A; Weight 92.99 kg bb (R); Height 6 ft. 0 in. (182.88 cm) (R); Pain 0/10; 07:30 BP 118 / 81; Pulse 87; Resp 17; Pulse Ox 97% on R/A; Pain 0/10; rb1 08:30 BP 119 / 77; Pulse 87; Resp 15; Pulse Ox 100% ; Pain 0/10; rb1 06:16 Body Mass Index 27.80 (92.99 kg, 182.88 cm) bb [place] Coma Score: 08:15 Eye Response: spontaneous(4). Verbal Response: oriented(5). Motor Response: obeys snw commands(6). Total: 15. ED Course: 05:54 Patient arrived in ED. ag3 05:56 Lore Hu FNP-C [facility]. snw 05:56 Prakash Tinajero MD is Attending Physician. snw 06:11 Triage completed. bb 06:15 Dominguez Aparicio is Primary Nurse. wh 06:16 Arm band placed on Patient placed in an exam room, on a stretcher, on pulse oximetry. bb 06:20 Inserted saline lock: 22 gauge in right antecubital area, using aseptic technique. Blood collected. 06:29 XRAY Chest (1 view) In Process Unspecified. EDMS 06:37 Patient has correct armband on for positive identification. Bed in low position. Call light in reach. Side rails up X 1. classroom monitor on. Pulse ox on. NIBP on. 06:52 CT Head Brain wo Cont In Process Unspecified. EDMS 06:56 CT completed. Patient tolerated procedure well. Patient moved to CT via wheelchair. Patient moved back from CT. 07:19 Carotid Artery Bilateral In Process Unspecified. EDMS 08:47 No provider procedures requiring assistance completed. IV discontinued, intact, rb1 bleeding controlled, No redness/swelling at site. Pressure dressing applied. Administered Medications: 08:45 Drug: Antivert 50 mg Route: PO; rb1 08:45 Follow up: Response: Medication administered at discharge. rb1 08:45 Follow up: Response: Medication administered at discharge. rb1 Outcome: 08:15 Discharge ordered by . snw 08:47 Discharged to home ambulatory. rb1 08:47 Condition: stable 08:47 Discharge instructions given to patient, Instructed on discharge instructions, follow up and referral plans. medication usage, Demonstrated understanding of instructions, follow-up care, medications, Prescriptions given X 1. 08:47 Patient left the ED. rb1 Signatures: Dispatcher [employer] EDMS Lore Hu FNP-C [employer] ROB[employer]IST-Judw JaidenRodo do Brenda, RN RN bb Marilyn Hogan, RN RN rb1 Dominguez Aparicio Alice ag3
--- NOTE | 2019-08-31 08:16 | EDPHYS ---
Physician Documentation [facility] Name: Christianne Fountain Age: 49 yrs Sex: Female : 1970 Arrival Date: 08/31/2019 Time: 05:54 Bed 13 Private MD: ED Physician Prakash Tinajero HPI: 08/31 07:43 This 49 yrs old Female presents to ER via Ambulatory with complaints of Feels snw pressure in neck and head. 07:43 The patient complains of pain to the generalized. The patient describes the headache as snw a pressure. Onset: The symptoms/episode began/occurred this morning, at 01:00. Associated signs and symptoms: Pertinent positives: bouts of blurry vision that last a few seconds. Severity of symptoms: At its worst the pain was mild, moderate. The symptoms are alleviated by nothing. the symptoms are aggravated by nothing. It is unknown whether or not the patient has had similar symptoms in the past. The patient has not recently seen a physician, the patient's primary care provider is Dr. Dr. Veras. hx of heart transplant 11 yrs ago. 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 - Coronavirus screen:: The patient has NOT traveled to [place], [place], or [place] in the past 14 days. Proceed with normal triage process as indicated. - Social history:: Smoking status: Patient denies any tobacco usage or history of. - Ebola Screening: : No symptoms or risks identified at this time. ROS: 06:41 Constitutional: Negative for fever, chills, and weight loss, Eyes: Negative for injury, snw pain, redness, and discharge, ENT: Negative for injury, pain, and discharge, Neck: Negative for injury, pain, and swelling, Cardiovascular: Negative for chest pain, palpitations, and edema, Respiratory: Negative for shortness of breath, cough, wheezing, and pleuritic chest pain, Abdomen/GI: Negative for abdominal pain, nausea, vomiting, diarrhea, and constipation, Back: Negative for injury and pain, : Negative for injury, bleeding, discharge, and swelling, MS/Extremity: Negative for injury and deformity, Skin: Negative for injury, rash, and discoloration, Neuro: Negative for headache, weakness, numbness, tingling, and seizure, pressure in head intermittently since 0100 while at work, intermittent blurry vision Psych: Negative for depression, anxiety, suicide ideation, homicidal ideation, and hallucinations. Exam: 06:40 Constitutional: This is a well developed, well nourished patient who is awake, alert, snw and in no acute distress. Head/Face: Normocephalic, atraumatic. Eyes: Pupils equal round and reactive to light, extra-ocular motions intact. Lids and lashes normal. Conjunctiva and sclera are non-icteric and not injected. Cornea within normal limits. Periorbital areas with no swelling, redness, or edema. ENT: Nares patent. No nasal discharge, no septal abnormalities noted. Tympanic membranes are normal and external auditory canals are clear. Oropharynx with no redness, swelling, or masses, exudates, or evidence of obstruction, uvula midline. Mucous membranes moist. Neck: Trachea midline, no thyromegaly or masses palpated, and no cervical lymphadenopathy. Supple, full range of motion without nuchal rigidity, or vertebral point tenderness. No Meningismus. Chest/axilla: Normal chest wall appearance and motion. Nontender with no deformity. No lesions are appreciated. 06:40 Respiratory: Lungs have equal breath sounds bilaterally, clear to auscultation and percussion. No rales, rhonchi or wheezes noted. No increased work of breathing, no retractions or nasal flaring. Abdomen/GI: Soft, non-tender, with normal bowel sounds. No distension or tympany. No guarding or rebound. No evidence of tenderness throughout. Back: No spinal tenderness. No costovertebral tenderness. Full range of motion. Skin: Warm, dry with normal turgor. Normal color with no rashes, no lesions, and no evidence of cellulitis. MS/ Extremity: Pulses equal, no cyanosis. Neurovascular intact. Full, normal range of motion. Neuro: Awake and alert, GCS 15, oriented to person, place, time, and situation. Cranial nerves II-XII grossly intact. Motor strength 5/5 in all extremities. Sensory grossly intact. Cerebellar exam normal. Normal gait. Psych: Awake, alert, with orientation to person, place and time. Behavior, mood, and affect are within normal limits. 06:40 Cardiovascular: Rate: tachycardic. Vital Signs: 06:16 BP 133 / 86; Pulse 94; Resp 16 S; Temp 97.7(O); Pulse Ox 100% on R/A; Weight 92.99 kg bb (R); Height 6 ft. 0 in. (182.88 cm) (R); Pain 0/10; 07:30 BP 118 / 81; Pulse 87; Resp 17; Pulse Ox 97% on R/A; Pain 0/10; rb1 08:30 BP 119 / 77; Pulse 87; Resp 15; Pulse Ox 100% ; Pain 0/10; rb1 06:16 Body Mass Index 27.80 (92.99 kg, 182.88 cm) bb Opal Coma Score: 08:15 Eye Response: spontaneous(4). Verbal Response: oriented(5). Motor Response: obeys snw commands(6). Total: 15. MDM: 06:32 Patient medically screened. snw 08:15 Data reviewed: vital signs, nurses notes. Data interpreted: Pulse oximetry: on room air snw is 97 %. Interpretation: normal. Counseling: I had a detailed discussion with the patient and/or guardian regarding: the historical points, exam findings, and any diagnostic results supporting the discharge/admit diagnosis, the presence of at least one elevated blood pressure reading (>120/80) during this emergency department visit, lab results, radiology results, the need for outpatient follow up, to return to the emergency department if symptoms worsen or persist or if there are any questions or concerns that arise at home. Response to treatment: the patient's symptoms have resolved after treatment. Special discussion: Based on the history and exam findings, there is no indication for further emergent testing or inpatient evaluation. I discussed with the patient/guardian the need to see the primary care provider for further evaluation of the symptoms. 08/31 06:11 Order name: Urine Drug Screen; Complete Time: 06:50 snw 08/31 06:11 Order name: Urine Microscopic Only; Complete Time: 06:58 08/31 06:11 Order name: Basic Metabolic Panel; Complete Time: 07:07 08/31 06:11 Order name: CBC with Diff; Complete Time: 06:50 w 08/31 06:11 Order name: LFT's; Complete Time: 07:07 08/31 06:11 Order name: Magnesium; Complete Time: 07:07 08/31 06:11 Order name: CT Head Brain wo Cont; Complete Time: 07:49 w 08/31 06:11 Order name: US Carotid Artery Bilateral; Complete Time: 07:53 w 08/31 06:11 Order name: NT PRO-BNP; Complete Time: 07:07 08/31 06:11 Order name: PT-INR; Complete Time: 07:07 08/31 06:11 Order name: Troponin (emerg Dept Use Only); Complete Time: 07:07 08/31 06:11 Order name: XRAY Chest (1 view); Complete Time: 08:02 08/31 06:34 Order name: Urine Dipstick--Ancillary (enter results); Complete Time: 06:40 cm6 08/31 06:11 Order name: Urine Dipstick-Ancillary (obtain specimen); Complete Time: 06:31 08/31 06:11 Order name: EKG; Complete Time: 06:12 08/31 06:11 Order name: Cardiac monitoring; Complete Time: 06:31 08/31 06:11 Order name: EKG - Nurse/Tech; Complete Time: 06:31 08/31 06:11 Order name: IV Saline Lock; Complete Time: 06:31 08/31 06:11 Order name: Labs collected and sent; Complete Time: 06:31 08/31 06:11 Order name: O2 Per Protocol; Complete Time: 06:14 08/31 06:11 Order name: O2 Sat Monitoring; Complete Time: 06:14 snw Administered Medications: 08:45 Drug: Antivert 50 mg Route: PO; rb1 08:45 Follow up: Response: Medication administered at discharge. rb1 08:45 Follow up: Response: Medication administered at discharge. rb1 Disposition: 11:22 Co-signature as Attending Physician, Prakash Tinajero MD I agree with the assessment and tw4 plan of care. Disposition: 08/31/19 08:15 Discharged to Home. Impression: Headache, Dizziness and giddiness. - Condition is Stable. - Discharge Instructions: Dizziness, General Headache Without Cause, Hypertension, Rehydration, Adult. - Prescriptions for promethazine 25 mg Oral Tablet - take 1 tablet by ORAL route every 6 hours As needed; 20 tablet. - Medication Reconciliation Form, Thank You Letter, Antibiotic Education, Prescription Opioid Use, Work release form form. - Follow up: Emergency Department; When: As needed; Reason: Worsening of condition. Follow up: Private Physician; When: 2 - 3 days; Reason: Recheck today's complaints, Continuance of care, Re-evaluation by your physician. Signatures: Dispatcher [employer] EDMS Lore Hu, CRISTINA-C ACCOUNTING LECTURER-Csnw Carito Taylor, RN RN bb Marilyn Hogan, RN RN rb1 Prakash Tinajero MD MD tw4 Corrections: (The following items were deleted from the chart) 08:47 08:15 08/31/2019 08:15 Discharged to Home. Impression: Headache; Dizziness and rb1 giddiness. Condition is Stable. Forms are Medication Reconciliation Form, Thank You Letter, Antibiotic Education, Prescription Opioid Use. Follow up: Emergency Department; When: As needed; Reason: Worsening of condition. Follow up: Private Physician; When: 2 - 3 days; Reason: Recheck today's complaints, Continuance of care, Re-evaluation by your physician. snw
[2019-08-31] MEDS ORDERED: MECLIZINE HCL 12.5 MG TAB ONE (08:42)
--- NOTE | 2019-08-31 11:17 | EKG ---
Test Date: 2019-08-31 Test Time: 06:31:46 Onsite Health Coach: RUI MEASUREMENT RESULTS: Intervals: Rate: 87 NV: 160 QRSD: 130 QT: 402 QTc: 483 [place]: P: 53 NV: 160 QRS: 65 T: 51 INTERPRETIVE STATEMENTS: Normal sinus rhythm Possible Left atrial enlargement Right bundle branch block Septal infarct, age undetermined Abnormal ECG Compared to ECG 03/27/2019 14:13:16 Myocardial infarct finding now present Electronically Signed On 08-31-19 11:16:04 THREAT MONITORING ANALYST by Cristi Lara
[2019-08-31 15:10] VITALS: TEMP 97.7
[2019-08-31 15:13] VITALS: BP 119/77; O2SAT 100
== END 2019-08-31 08:47 | disposition home or self-care (01) ==
LOC: ER 05:53
DX: R51 Headache (principal); R42 Dizziness and giddiness
CPT/HCPCS: 93005; 85025; 80048; 36415; 83735; 85610; 80076; 80307 ×8; 84484; 83880; 70450; 71045; 93880; 99285; J8597; 81003; 81015

== ENCOUNTER 2020-07-16 08:49 | Emergency (ER) | payer OTHER ==
--- OUTSIDE RECORDS SUMMARY | 2020-07-16 08:55 | XMS REPORT | Clinical Summary ---
:1970 Author Organization [facility] Address [address] [place] [address] Care Team Providers Name Role Phone Asked, No Pcp Primary Care Provider Unavailable Allergies Active Allergy Reactions Severity Noted Date Comments Morphine Rash Medium 11/21/2018 Rash and vomiti ng. Can tolerate codeine. Medications Medication Sig Dispensed Refills Start End Date Status Date aspirin (ECOTRIN) Take 81 mg by 0 04/01/20 Active 81 MG enteric mouth daily. 7 21 coated tablet multivitamin Take 1 tablet 0 04/01/20 Act ambrose (THERAGRAN) tablet by mouth 7 21 daily. spironolactone Take 25 mg by 0 A ctive (ALDACTONE) 25 MG mouth daily. tablet pantoprazole Take 1 tablet 60 tablet 11 12/04/19 Act ambrose (Protonix) 40 MG EC (40 mg total) 0 21 tablet by mouth daily. metoprolol Take 1 tablet 30 tablet 11 12/04/19 Activ e succinate XL (25 mg total) 0 21 (Toprol XL) 25 mg by mouth 24 hr tablet daily. mycophenolate Take 1 tablet 180 tablet 3 03/05/20 A ctive (CELLCEPT) 500 mg (500 mg 0 21 tablet total) by mouth 2 (two) times a day. Z94.1 Heart TXP S/P tacrolimus Take 2 360 capsule 3 03/05/20 Active (Prograf) 1 MG capsules (2 0 21 capsule mg total) by mouth 2 (two) times a day. Z94.1 Heart Txp S/P amLODIPine Take 1 tablet 90 tablet 3 04/05/20 Activ e (NORVASC) 5 mg (5 mg total) 0 21 tablet by mouth daily. tacrolimus Take 2 120 capsule 11 03/05/20 Discont inued (PROGRAF) 1 MG capsules (2 9 20 (Re order) capsule mg total) by mouth 2 (two) times a day. calcium Take 1 tablet 0 01/03/20 d carbonate-vitamin by mouth 9 20 D3 500 mg-200 unit daily. per tablet mycophenolate Take 1 tablet 180 tablet 3 03/05/20 D iscontinued (CELLCEPT) 500 mg (500 mg 9 20 (R eorder) tablet total) by mouth 2 (two) times a day. Z94.1 Heart TXP S/P omeprazole OTC Take 2 180 tablet 3 12/04/19 Disc ontinued (PriLOSEC OTC) 20 tablets (40 9 20 (Alternate MG EC mg total) by therapy ) tabletIndications: mouth daily. Heart transplanted (HCC), Metabolic syndrome pravastatin Take 1 tablet 90 tablet 3 06/05/20 Expi red (PRAVACHOL) 40 MG (40 mg total) 9 20 tablet by mouth daily. benzonatate Take 1 90 capsule 0 04/27/20 (Tessalon Perles) capsule (100 0 20 100 MG capsule mg total) by mouth 3 (three) times a day as needed for cough for up to 30 days. Active Problems Patient Care Coordination Note Heart Transplant 07/25/2008 Hx LVAD - [facility] Under insured MFG assistance Brand Name required for Prograf and Cellcept Problem Noted Date Cardiac dysrhythmia 12/08/2019 Overview: Added 12/04/2019 Intermittent c/o palpations and chest pa in. 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 Other heart failure 11/28/2018 Overview: Added automatically from request for wes cathleen [id number] Long-term use of immunosuppressant medication 11/22/19 19 Weakness 11/21/2018 Heart transplanted 04/01/2017 Overview: Christianne Fountain : 1970 07/25/2008 Heart Transplanted Pre hx LVAD-[facility] DCM,MIs x3 in 1999 & 2000 Not seen since 2016 R/T no insurance and financial reasons Visit Date biopsy C4D Treatment Echo CMV Level Admit 11/21/1811/22 0 R Admit from clinic -chest pressure; No insurance; out of FK; to convert to Rapa 60-64 neg 12/07/18 Lab only Late draw lab Kenji 4.2 on Admit 07/10/1907/11 0 R Admit for Rejection .Out of FK for > 10 days; EF >70 < 2.0 08/08/19 AlloM AlloS Post d/c follow-up: BNP 166, DSA s pending SCr 0.98/GFR 69, LDH 190: return 3 month s 60-64 neg 7.0 11/09/19 Local l lab SCr 0.88/GFR 78, WB C 5.2 Fk ^ to 4.4 Clinic 12/04/19 AlloM AlloS 35 <0.17 C/O chest pressure & Palpations BNP 167, Trop <0.006, SCR 1.03/GFR 64, Blaine 7 day event monitor EF 59% 7.9 on 09/0303/21/20 03/22/20 Sick COVID pos Call w c/o temp,& head ache Advised COVID testing: New c/o nause/loss of appetite Testing t kimberli , Encounters Date Type Specialty Care Team Description 07/16/2020 Telephone Transplant KiraMonisha vance, Sick Call MA 07/15/2020 Travel 07/15/2020 Documentation Transplant Renard Bello RN 06/28/2020 Orders Only Transplant Renard Bello Heart transpl [place] ([facility]); RN Metabolic syndr ome; Therapeutic satish g monitoring; Infection; Essential hyper tension 05/31/2020 Orders Only Transplant Renard Bello Heart transpl [place] ([facility]); RN Metabolic syndr ome; Therapeutic satish g monitoring; Infection; Essential hyper tension 05/03/2020 Orders Only Transplant Renard Bello Heart transpl gina ([facility]); RN Metabolic syndr ome; Therapeutic satish g monitoring; Infection; Essential hyper tension 04/05/2020 Transplant Transplant Nieves Heart transplcathy Rodriguez MD ([facility]) (Primary Dx) Madeleine Desir MD 03/28/2020 Documentation Transplant Renard Bello RN 03/21/2020 Documentation Transplant Renard Bello RN 03/21/2020 Telephone Transplant Andrew, Sick call Librado 03/08/2020 Documentation Transplant Renard Bello, RN 03/05/2020 Refill Transplant , Med Refill Kinjal, MA 03/05/2020 Refill Transplant , Med Refill Kinjal, MA 03/05/2020 Telephone Transplant Jose Antonio, Prior Auth Fax [place] Clemencia, [place] 02/28/2020 Telephone Transplant KiraMonisha, Sick Call MA 12/07/2019 Documentation Transplant Renard Bello, RN 12/07/2019 Documentation Procedural Renard Bello, flight hostess 12/06/2019 Documentation Transplant Renard Bello, RN 12/04/2019 Office Visit Transplant Radhaimabenjamin Heart transplan siddhartha ([facility]) (Primary Dx); MD Michael Long-term use of immunosuppressant medic ation; Jean, Imad, Chest pain, u nspecified type; Cardiac transpl ant rejection ([facility]); Essential hyper tension; Metabolic syndr ome; Chronic fatigue ; Therapeutic satish g monitoring; Hyperlipidemia associated with type 2 diabetes mellitus ([facility]); Infection; Cytomegalovirus infection, unspecified cytomegaloviral infection type ([facility]); Persistent atri al fibrillation; Palpitations 12/04/2019 Hospital Encounter Procedural Bhimaraj, Chest calli n, unspecified type; Cardiology MD Michael Heart transplan siddhartha ([facility]); Cardiac transpl ant rejection ([facility]); Essential hyper tension 12/04/2019 Travel 12/01/2019 Travel 12/01/2019 Documentation Transplant Renard Bello, RICKI 11/24/2019 Documentation Transplant Renard Bello, RN 11/09/2019 Orders Only Cardiology Michael Pickett MD 09/28/2019 Documentation Transplant Renard Bello, RN 08/23/2019 Documentation Transplant Renard Bello, RN 08/07/2019 Office Visit Transplant Bhimabenjamin, Heart transplan siddhartha ([facility]) (Primary Dx); MD Michael Long-term use of immunosuppressant medic ation; Madeleine Desir MD Cardiac carreon splant rejection ([facility]); Heart replaced by transplant ([facility]); Essential hyper tension 08/07/2019 Hospital Encounter Procedural Trachtenberg, Heart tr ansplanted ([facility]); Cardiology MD Ronel Essential hyper tension; Cardiac transpl ant rejection ([facility]) 08/01/2019 Orders Only Transplant Ace Renard, Heart transpl anted (HCC) (Primary Dx); RN Essential hyper tension; Cardiac transpl ant rejection (HCC) 07/27/2019 Orders Only Transplant Renard Bello, Heart transpl anted (HCC) (Primary Dx); 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) 07/17/2019 Documentation Transplant Renard Bello RN after 07/16/2019 Immunizations Name Administration Dates Next Due FLUCELVAX QUAD PF 07/13/2019 Surgical History Surgery Date Site/Laterality Comments CARDIAC SURGERY transplant 2007 HEART TRANSPLANTATION 07/09/2008 CARDIAC CATHETERIZATION 11/22/2018 N/A Procedur e: Cv right heart cath right biopsy; S urgeon: Blanca Reid MD; Locat ion: [facility] [employer] Invasive Loc ation; Service: Cardiovascular; Laterality: N/A; CARDIAC CATHETERIZATION 11/25/2018 N/A Procedur e: Selective coronary angiography; [place] rgeon: Rita Lawrence MD; Lo cation: [facility] [employer] Location; Service: Cardiov ascular; Laterality: N/A; CARDIAC CATHETERIZATION 07/11/2019 N/A Procedur e: Right heart cath right biopsy; Surgeon : Shagufta Dill MD; Location: [facility] [employer] Invasive Locatio n; Service: Cardiovascular; Laterality: N/A; Medical History Medical History Date Comments Heart transplant recipient (HCC) Skin cancer Family History Medical History Relation Name Comments [...] six or more drinks on one occasion? 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 Temperature 36.2 C (97.1 F) 12/04/2019 1:35 PM CDT Respiratory Rate 17 12/04/2019 1:35 PM CDT Oxygen Saturation 97% 12/04/2019 1:35 PM CDT Inhaled Oxygen Concentration - - Weight 93.8 kg (206 lb 11.2 oz) 12/04/2019 1:35 PM CDT Height 182.9 cm (6') 12/04/2019 1:35 PM CDT Body Mass Index 28.03 12/04/2019 1:35 PM CDT Plan of Treatment Date Type Specialty Care Team Description 07/16/2020 Transplant Telemedicine Transplant Hussain Lawrence MD [address] [facility] [address] [place] [address] 07/23/2020 Lab Transplant Rita Lawrence M D [address] 7703 07/23/2020 Appointment Procedural Cardiology Francesco Lawrence MD [address] [facility] [address] [place] [address] 7703 07/23/2020 Office Visit Transplant Rita Lawrence M D [address] 7703 Health Maintenance Due Date Last Done Comments DIABETES: RETINAL EYE EXAM 1982 DIABETIC FOOT EXAM 1982 COVID-19 VACCINE (#1) 1988 CERVICAL CANCER SCREENING 1993 INFLUENZA VACCINE 03/02/2020 07/13/2019 Procedures Procedure Name Priority Date/Time Associated Diagnosis Comme nts FK506 TACROLIMUS Routine 04/01/2020 7:57 Results for LEVEL, RANDOM AM CDT this procedure are in the results section. COMPREHENSIVE Routine 04/01/2020 7:57 Results fo r METABOLIC PANEL AM CDT this procedu re are in the results section. CBC WITH PLATELET AND Routine 04/01/2020 7:57 Re sults for DIFFERENTIAL AM CDT this procedure are in the results section. MAGNESIUM LEVEL Routine 04/01/2020 7:57 Heart transplanted Re sults for AM CDT (HCC) this procedure Metabolic syndro me are in the Therapeutic drug results monitoring section. Infection Essential hypertension ECG 12-LEAD Routine 12/04/2019 1:46 Chest pain, unspecified Results for PM CDT type this procedure Heart transplanted are in th e (HCC) results Cardiac transplant section. rejection (HCC) Essential hypert ension Long-term use of immunosuppressant medication Metabolic syndro me Chronic fatigue Therapeutic drug monitoring Hyperlipidemia associated with type 2 diabetes mellitu s (HCC) Infection Cytomegalovirus infection, unspecified cytomegaloviral infection type (HCC) TTE COMPLETE, WO Routine 12/04/2019 9:00 Chest pain, unspecif ied Results for CONTRAST, W DOPPLER AM CDT type this procedure (16183) Heart transplanted are in th e (HCC) results Cardiac transplant section. rejection (HCC) Essential hypertension DONOR SPECIFIC Routine 12/04/2019 7:07 Results f or ANTIBODY AM CDT this procedure are in the results section. MISCELLANEOUS REFERRAL STAT 12/04/2019 7:07 R esults for TEST AM CDT this procedure are in the results section. ESTIMATED GFR STAT 12/04/2019 7:07 Results fo r AM CDT this procedure are in the results section. FK506 TACROLIMUS STAT 12/04/2019 7:07 Chest pain, unspecif ied Results for LEVEL, RANDOM AM CDT type this procedure Heart transplanted are in th e (HCC) results Cardiac transplant section. rejection (HCC) Essential hypert ension Long-term use of immunosuppressant medication Metabolic syndro me Chronic fatigue Therapeutic drug monitoring Hyperlipidemia associated with type 2 diabetes mellitu s (HCC) Infection Cytomegalovirus infection, unspecified cytomegaloviral infection type (HCC) PROTHROMBIN TIME WITH STAT 12/04/2019 7:07 Chest pain, uns pecified Results for INR AM CDT type this procedure Heart transplanted are in th e (HCC) results Cardiac transplant section. rejection (HCC) Essential hypert ension Long-term use of immunosuppressant medication Metabolic syndro me Chronic fatigue Therapeutic drug monitoring Hyperlipidemia associated with type 2 diabetes mellitu s (HCC) Infection Cytomegalovirus infection, unspecified cytomegaloviral infection type (HCC) TROPONIN STAT 12/04/2019 7:07 Chest pain, unspecified Results for AM CDT type this procedure Heart transplanted are in th e (HCC) results Cardiac transplant section. rejection (HCC) Essential hypert ension Long-term use of immunosuppressant medication Metabolic syndro me Chronic fatigue Therapeutic drug monitoring Hyperlipidemia associated with type 2 diabetes mellitu s (HCC) Infection Cytomegalovirus infection, unspecified cytomegaloviral infection type (HCC) B NATRIURETIC PEPTIDE STAT 12/04/2019 7:07 Chest pain, uns pecified Results for AM CDT type this procedure Heart transplanted are in th e ([facility]) results Cardiac transplant section. rejection (HCC) Essential hypert ension Long-term use of immunosuppressant medication Metabolic syndro me Chronic fatigue Therapeutic drug monitoring Hyperlipidemia associated with type 2 diabetes mellitu s (HCC) Infection Cytomegalovirus infection, unspecified cytomegaloviral infection type (HCC) LDH STAT 12/04/2019 7:07 Chest pain, unspecified Results for AM CDT type this procedure Heart transplanted are in th e ([facility]) results Cardiac transplant section. rejection (HCC) Essential hypert ension Long-term use of immunosuppressant medication Metabolic syndro me Chronic fatigue Therapeutic drug monitoring Hyperlipidemia associated with type 2 diabetes mellitu s (HCC) Infection Cytomegalovirus infection, unspecified cytomegaloviral infection type (HCC) HC COMPLETE BLD COUNT STAT 12/04/2019 7:07 Chest pain, uns pecified Results for W/AUTO DIFF AM CDT type this procedure Heart transplanted are in th e ([facility]) results Cardiac transplant section. rejection (HCC) Essential hypert ension Long-term use of immunosuppressant medication Metabolic syndro me Chronic fatigue Therapeutic drug monitoring Hyperlipidemia associated with type 2 diabetes mellitu s (HCC) Infection Cytomegalovirus infection, unspecified cytomegaloviral infection type (HCC) MAGNESIUM LEVEL STAT 12/04/2019 7:07 Chest pain, unspecifi ed Results for AM CDT type this procedure Heart transplanted are in th e ([facility]) results Cardiac transplant section. rejection (HCC) Essential hypert ension Long-term use of immunosuppressant medication Metabolic syndro me Chronic fatigue Therapeutic drug monitoring Hyperlipidemia associated with type 2 diabetes mellitu s (HCC) Infection Cytomegalovirus infection, unspecified cytomegaloviral infection type (HCC) COMPREHENSIVE STAT 12/04/2019 7:07 Chest pain, unspecified Results for METABOLIC PANEL AM CDT type this procedure Heart transplanted are in th e ([facility]) results Cardiac transplant section. rejection (HCC) Essential hypert ension Long-term use of immunosuppressant medication Metabolic syndro me Chronic fatigue Therapeutic drug monitoring Hyperlipidemia associated with type 2 diabetes mellitu s (HCC) Infection Cytomegalovirus infection, unspecified cytomegaloviral infection type (HCC) FK506 TACROLIMUS Routine 11/09/2019 8:12 Results for LEVEL, RANDOM AM CDT this procedure are in the results section. MAGNESIUM LEVEL Routine 11/09/2019 8:12 Results for AM CDT this procedure are in the results section. COMPREHENSIVE Routine 11/09/2019 8:12 Results fo r METABOLIC PANEL AM CDT this procedu re are in the results section. CBC WITH PLATELET AND Routine 11/09/2019 8:12 Re sults for DIFFERENTIAL AM CDT this procedure are in the results section. ECG 12-LEAD Routine 08/07/2019 11:11 Heart transplanted Resul ts for AM MONOMER RECOVERY OPERATOR ([facility]) this procedure Heart replaced by are in the transplant ([facility]) results Essential hypertension secti on. TTE COMPLETE, WO Routine 08/07/2019 10:41 Heart transplanted R esults for CONTRAST, W DOPPLER AM MONOMER RECOVERY OPERATOR ([facility]) this procedure ([id number]) Essential hypert ension are in the Cardiac transplant results rejection ([facility]) section. DONOR SPECIFIC Routine 08/07/2019 6:25 Results f or ANTIBODY AM MONOMER RECOVERY OPERATOR this procedure are in the results section. ESTIMATED GFR STAT 08/07/2019 6:25 Results fo r AM MONOMER RECOVERY OPERATOR this procedure are in the results section. FK506 TACROLIMUS STAT 08/07/2019 6:25 Heart replaced by Re sults for LEVEL, RANDOM AM MONOMER RECOVERY OPERATOR transplant ([facility]) this procedure Complication of heart are in the transplant, unspecified resu lts complication (HC C) section. Metabolic syndro me Mixed hyperlipid emia Essential hypert ension Bone loss Hyperthyroidism Infection Chest pain due to myocardial ischemia, unspecified ischemic chest pain type Cytomegalovirus infection, unspecified cytomegaloviral infection type ([facility]) TROPONIN STAT 08/07/2019 6:25 Heart replaced by Result s for AM MONOMER RECOVERY OPERATOR transplant ([facility]) this procedure Complication of heart are in the transplant, unspecified resu lts complication (HC C) section. Metabolic syndro me Mixed hyperlipid emia Essential hypert ension Bone loss Hyperthyroidism Infection Chest pain due to myocardial ischemia, unspecified ischemic chest pain type Cytomegalovirus infection, unspecified cytomegaloviral infection type ([facility]) B NATRIURETIC PEPTIDE STAT 08/07/2019 6:25 Heart replaced by Results for AM MONOMER RECOVERY OPERATOR transplant ([facility]) this procedure Complication of heart are in the transplant, unspecified resu lts complication (HC C) section. Metabolic syndro me Mixed hyperlipid emia Essential hypert ension Bone loss Hyperthyroidism Infection Chest pain due to myocardial ischemia, unspecified ischemic chest pain type Cytomegalovirus infection, unspecified cytomegaloviral infection type (HCC) LDH STAT 08/07/2019 6:25 Heart replaced by Result s for AM MONOMER RECOVERY OPERATOR transplant (HCC) this procedure Complication of heart are in the transplant, unspecified resu lts complication (HC C) section. Metabolic syndro me Mixed hyperlipid emia Essential hypert ension Bone loss Hyperthyroidism Infection Chest pain due to myocardial ischemia, unspecified ischemic chest pain type Cytomegalovirus infection, unspecified cytomegaloviral infection type (HCC) CYTOMEGALOVIRUS BY PCR STAT 08/07/2019 6:25 Heart replaced by Results for AM MONOMER RECOVERY OPERATOR transplant ([facility]) this procedure Complication of heart are in the transplant, unspecified resu lts complication (HC C) section. Metabolic syndro me Mixed hyperlipid emia Essential hypert ension Bone loss Hyperthyroidism Infection Chest pain due to myocardial ischemia, unspecified ischemic chest pain type Cytomegalovirus infection, unspecified cytomegaloviral infection type (HCC) HC COMPLETE BLD COUNT STAT 08/07/2019 6:25 Heart replaced by Results for W/AUTO DIFF AM MONOMER RECOVERY OPERATOR transplant ([facility]) this procedure Complication of heart are in the transplant, unspecified resu lts complication (HC C) section. Metabolic syndro me Mixed hyperlipid emia Essential hypert ension Bone loss Hyperthyroidism Infection Chest pain due to myocardial ischemia, unspecified ischemic chest pain type Cytomegalovirus infection, unspecified cytomegaloviral infection type (HCC) MAGNESIUM LEVEL STAT 08/07/2019 6:25 Heart replaced by Res ults for AM MONOMER RECOVERY OPERATOR transplant (HCC) this procedure Complication of heart are in the transplant, unspecified resu lts complication (HC C) section. Metabolic syndro me Mixed hyperlipid emia Essential hypert ension Bone loss Hyperthyroidism Infection Chest pain due to myocardial ischemia, unspecified ischemic chest pain type Cytomegalovirus infection, unspecified cytomegaloviral infection type (HCC) COMPREHENSIVE STAT 08/07/2019 6:25 Heart replaced by Resul ts for METABOLIC PANEL AM MONOMER RECOVERY OPERATOR transplant ([facility]) this procedure Complication of heart are in the transplant, unspecified resu lts complication (HC C) section. Metabolic syndro me Mixed hyperlipid emia Essential hypert ension Bone loss Hyperthyroidism Infection Chest pain due to myocardial ischemia, unspecified ischemic chest pain type Cytomegalovirus infection, unspecified cytomegaloviral infection type (HCC) after 07/16/2019 Results FK506 Tacrolimus level, random (04/01/2020 7:57 AM CDT)Only the most recent of4 resultswithin the time period is included. Pathologist Sig nature FK506 level 11.9 2.0 - 20.0 ng/mL [facility] Comment: Trough (immediately following transplant) 15.0 Trough (steady state, 2 weeks or more after transplant): 3.0 - 8.0 Detec tion Limit = 1.0 Performed by LC-MS/MS technology. This test was developed and its performanc e characteristics determined by [facility]. It has not been cleared or approved by the Food a nd Drug Administration. Specimen Narrative Performed At Performed at: 01 - [facility] [address] [place], [place] [id number] [employer] Officer: Staci Delgado MD, Phone: [phone] Performing Organization Address City/State/ZIP Code Phon e Number [facility] CBC with platelet and differential (04/01/2020 7:57 AM CDT)Only the most recent of4 resultswithin the time period is included. Pathologist Sig nature WBC 6.6 3.4 - 10.8 x10E3/uL [facility] RBC 4.46 3.77 - 5.28 x10E6/uL [facility] HGB 13.8 11.1 - 15.9 g/dL [facility] HCT 40.3 34.0 - 46.6 % [facility] MCV 90 79 - 97 fL [facility] MCH 30.9 26.6 - 33.0 pg [facility] MCHC 34.2 31.5 - 35.7 g/dL [facility] RDW 11.8 11.7 - 15.4 % [facility] Platelet count 196 150 - 450 x10E3/uL [facility] Neutrophils 46 Not Estab. % [facility] Lymphocytes 39 Not Estab. % [facility] Monocytes 10 Not Estab. % [facility] Eosinophils 3 Not Estab. % [facility] Basophils 1 Not Estab. % [facility] Neutrophils, absolute 3.2 1.4 - 7.0 x10E3/uL [facility] Lymphocytes, absolute 2.5 0.7 - 3.1 x10E3/uL [facility] Monocytes, absolute 0.6 0.1 - 0.9 x10E3/uL [facility] Eosinophils, absolute 0.2 0.0 - 0.4 x10E3/uL [facility] Basophils, absolute 0.0 0.0 - 0.2 x10E3/uL [facility] Immature granulocytes 1 Not Estab. % [facility] Immature grans (abs) 0.0 0.0 - 0.1 x10E3/uL [facility] Specimen Narrative Performed At [facility]formed at: [facility] [address] [place] [address] [id number] [employer] Officer: José Parmar MD, Phone: [phone] Performing Organization Address [facility] Phon e Number [facility] Magnesium level (04/01/2020 7:57 AM CDT)Only the most recent of4 resultswithin the time period is included. Pathologist Sig nature Magnesium 1.8 1.6 - 2.3 mg/dL [facility] Specimen Blood Narrative Performed At Performed at: [facility] [address] [place] [address] [id number] [employer] Officer: José Parmar MD, Phone: [phone] Performing Organization Address [facility] [facility] e Number [facility] Comprehensive metabolic panel (04/01/2020 7:57 AM CDT)Only the most recent of4 resultswithin the time period is included. Pathologist Sig nature Glucose 119 (H) 65 - 99 mg/dL [facility] BUN 28 (H) 6 - 24 mg/dL [facility] Creatinine 1.38 (H) 0.57 - 1.00 mg/dL [facility] EGFR Non-Afr. Sudanese 46 (L) >59 mL/min/1.73 [facility] EGFR 53 (L) >59 mL/min/1.73 [facility] BUN/creatinine ratio 20 9 - 23 [facility] Sodium 138 134 - 144 mmol/L [facility] Potassium 5.1 3.5 - 5.2 mmol/L [facility] Chloride 98 96 - 106 mmol/L [facility] CO2 25 20 - 29 mmol/L [facility] Calcium 9.7 8.7 - 10.2 mg/dL [facility] Protein 6.8 6.0 - 8.5 g/dL [facility] Albumin, S 4.5 3.8 - 4.8 g/dL [facility] Globulin, total 2.3 1.5 - 4.5 g/dL [facility] Albumin/globulin ratio 2.0 1.2 - 2.2 [facility] Total bilirubin 0.8 0.0 - 1.2 mg/dL [facility] Alkaline phosphatase 73 39 - 117 IU/L [facility] AST 19 0 - 40 IU/L [facility] ALT 14 0 - 32 IU/L [facility] Specimen Narrative Performed At Performed at: [facility] [address] [place], [place] [id number] 143 [employer] Officer: José Parmar MD, Phone: [phone] Performing Organization Address City/[facility]/ZIP Code Phon e Number [id number] ECG 12 lead (12/04/2019 1:46 PM CDT)Only the most recent of2 resultswithin the time period is included. Pathologist Sig nature Ventricular rate 96 [facility] Atrial rate 96 [facility] OR interval 150 [facility] QRSD interval 122 [facility] QT interval 384 [facility] QTC interval 485 [facility] P axis 1 61 [facility] QRS axis 1 73 [facility] T wave axis 60 [facility] EKG impression Normal sinus [facility] MUSE rhythm-Possible Left atrial enlargement-Right bundle branch block- Specimen Narrative Performed At This result has an attachment that is no t available. Performing Organization Address [facility] e Number [facility] MUSE [address] [place] [address] Transthoracic Echocardiogram Complete, (w Contrast, Strain and 3D if needed) (12/04/2019 9:00 AM CDT) Specimen Narrative Performed At [facility] Echo cardiography Report [address] [place] [address] Pat.Name: CHRISTIANNE FOUNTAIN Pat.ID: [id number] .Date: 12/04/2019 Refer.MD: MICHAEL PICKETT MD Exam Time: 8:17:00 AM Study Type:R outine Echo Height: 72in Weight: 209lb BSA: 2.17 m2 Ag e: 1970,49Y Sex: FEMALE BP: 119/70 HR: 84 bpm Sonogr phr: Martine Le, VERO, RVT Pat. Stat.:Outpatient Room: [place] [address] Study Status:Final Echo Event ID:[id number] Order ID: [id number] Reason for Study:Cardiac transplant, mon itoring for rejection palpationsin heart transplant pt. History / Clinical:Cancer, Heart Transpl ant Procedures: 2D Echo, Colorflow Doppler Race: C SUMMARY: EF = 59% RV systolic function is normal. LV filling pressure is normal. Estimated PA systolic pressure is 33-38 mmHg, assuming a mean RAP of 5-10 mmHg. FINDINGS: LV: LV size is normal. LV EF is normal. Overall wall motion is normal. EF = 59% RV: RV size is mildly enlarged. RV systolic function is normal. LA: LA volume is enlarged, rela siddhartha to heart transplant. RA: RA volume is enlarged, rela siddhartha to heart transplant. AO: Aortic root diameter is nor mal. DONNA: No pericardial effusion. AV: No structural AV abnormalit ies noted. Aortic Valve is normal. MV: No structural MV abnormalit ies noted. Mild mitral regurgitation. PV: No structural PV abnormalit ies noted. TV: No structural TV abnormalit ies noted. Mild tricuspid regurgitation Quarles: LV relaxation is normal. LV filling pressure is normal. Other: Estimated PA systolic pressu re is 33-38 mmHg, assuming a mean RAP of 5-10 mmHg. MEASUREMENTS: 2D Parasternal Long [place] Ao An 2 cm LVPWd 0.94 cm Ao Rtd 2.4 cm Index 1.1 cm/m2 LA Ds 5.2 cm IVSd 1.2 cm RWT 0.42 LVIDd 4.5 cm Index 2.1 cm/m2 LV Mass 163 g (87-12 9) LVIDs 3 cm LVM I ndex 75 g/m LV%fs 33 % LVOT 2.2 cm EF Biplane EDV 125 ml EF 59 % ESV 51 ml HR 77 bpm SV 74 ml CO 5.7 l/min LVOT LVOT Area 3.7 cm DOPPLER AV For Flow/MELLY AV pkVel 131 cm/s (100-170) AV AC/ET 0.3 AV mnVel 94 cm/s AV TVI 27 cm AV pkPG 6.9 mmHg AVpkAcRt 2911 cm/s AV Mean G 4.1 mmHg AV DeRt 458 cm/s AV ET 286 msec AV AC 85 msec (83-118) Aortic Valve AV DI 0.76 AV Are a 2.8 cm (3-5) LVOT For Flow LVOT TVI 20 cm LVOTpkP G 3.6 mmHg LVOTpkVel 95 cm/s LVOTmnPG 2 mmHg LVOT LVOT SV 75 ml SVi 35 ml/m Signed 12/05/2019 11:34 AM Jamshid Hassan M.D. Procedure Note Interface, Radiology Results In - 2019 11:34 AM CDT Echocardiography Report [address] [place] [address] Pat.Name: CHRISTIANNE FOUNTAIN Pat.I D: [id number] .Date: 12/04/2019 Refer .MD: MICHAEL PICKETT MD Exam Time: 8:17:00 AM Study Type:Routine Echo Height: 72in Weigh t: 209lb BSA: 2.17 m2 Age: 11 1970,49Y Sex: FEMALE BP: 119/70 HR: 84 bpm Sonog rphr: Martine Le RDCS, RVT Pat. Stat.:Outpatient Room: [facility]- 3 Study Status:Final Echo Event ID:[id number] Order ID: [id number] Reason for Study:Cardiac transplant, mon itoring for rejection palpationsin heart transplant pt. History / Clinical:Cancer, Heart Transpl ant Procedures: 2D Echo, Colorflow Doppler Race: C SUMMARY: EF = 59% RV systolic function is normal. LV filling pressure is normal. Estimated PA systolic pressure is 33-38 mmHg, assuming a mean RAP of 5-10 mmHg. FINDINGS: LV: LV size is normal. LV EF is no rmal. Overall wall motion is normal. EF = 59% RV: RV size is mildly enlarged. RV systolic function is normal. LA: LA volume is enlarged, related to heart transplant. RA: RA volume is enlarged, related to heart transplant. AO: Aortic root diameter is normal . DONNA: No pericardial effusion. AV: No structural AV abnormalities noted. Aortic Valve is normal. MV: No structural MV abnormalities noted. Mild mitral regurgitation. PV: No structural PV abnormalities noted. TV: No structural TV abnormalities noted. Mild tricuspid regurgitation Quarles: LV relaxation is normal. LV fi lling pressure is normal. Other: Estimated PA systolic pressure is 33-38 mmHg, assuming a mean RAP of 5-10 mmHg. MEASUREMENTS: 2D Parasternal Long [place] Ao An 2 cm LVPW d 0.94 cm Ao Rtd 2.4 cm Inde x 1.1 cm/m2 LA Ds 5.2 cm IVSd 1.2 cm RWT 0.42 LVIDd 4.5 cm Inde x 2.1 cm/m2 LV Mass 163 g (87-129) LVIDs 3 cm LVM Index 75 g/m LV%fs 33 % LVOT 2.2 cm EF Biplane EDV 125 ml EF 59 % ESV 51 ml HR 77 bpm SV 74 ml CO 5.7 l/min LVOT LVOT Area 3.7 cm DOPPLER AV For Flow/MELLY AV pkVel 131 cm/s (100-170) AV AC/ET 0.3 AV mnVel 94 cm/s AV T 27 cm AV pkPG 6.9 mmHg AVpk AcRt 2911 cm/s AV Mean G 4.1 mmHg AV D eRt 458 cm/s AV ET 286 msec AV A C 85 msec (83-118) Aortic Valve AV DI 0.76 AV A roseann 2.8 cm (3-5) LVOT For Flow LVOT TVI 20 cm LVOT pkPG 3.6 mmHg LVOTpkVel 95 cm/s LVOT mnPG 2 mmHg LVOT LVOT SV 75 ml SVi 35 ml/m Signed 12/05/2019 11:34 AM Jamshid Hassan M.D. Performing Organization Address City/[facility] Phon e Number [facility] [address] [place] [address] Estimated GFR (12/04/2019 7:07 AM CDT)Only the most recent of2 resultswithin the time period is included. Pathologist [facility] Estimated GFR 64 mL/min/1.73 [facility] Comment: HOSPITAL Catergory Units Interpretation G1 >=90 Normal or high G2 60-89 Mildly decreased G3a 45-59 Mildly to moderately decreas ed G3b 30-44 Moderately to severely decre ased G4 15-29 Severely decreased G5 <15 Kidney failure The eGFR was calculated using the Chronic Kidney Disea se Epidemiology Collaboration (CKD-EPI) equation. Interpretation is based on recommendations of the National Kidney Foundation-Kidney Disease Outcomes Alberto lity Initiative (NKF-KDOQI) published in 2014. Specimen Performing Organization Address City/[facility] Phon e Number [facility] DEPARTMENT OF PATHOLOGY AND [address] [place], [place] [address] GENOMIC [address] [address] Miscellaneous referral test (12/04/2019 7:07 AM CDT) Pathologist [facility] Misc test name CMV QUANT PCR SHOWN ABOVE Misc test result see note SHOWN ABOVE Comment: CMV qPCR (plasma) - - - - - - - - - - - - - - - - - - - - - - - - - - - - - - - - TEST RESULT UNIT REF RANGE CMV qPCR Not Detected IU/mL N ot Detected Assay Range: 96 IU/mL to 1.88E+08 IU/mL One IU is equal to 0.53 copies of CMV. The limit of quantitation (LOQ) is 96 IU/mL. CMV DNA d etected below the LOQ will be reported as Detected:<96 IU/mL. This test was developed and its performance characteri stics determined by [employer]. It has not been cleared or approved by the U.S. Food and Drug Administration. Results should be used in conjunc tion with clinical findings, and should not form the sole basis for a aimee gnosis or treatment decision. --------- Performed at: [facility] [address] [employer] [place], [place] Specimen Narrative Performed At CMVPR - Cytomegalovirus (CMV) Quantitative [facility] DEPARTM ENT OF PATHOLOGY AND GENOMIC Real-time PCR MEDICINE [facility] Test code: 5500 Source: PLASMA ?CMV PCR Quantitative Performing Organization Address City/[facility] Phon e Number [facility] DEPARTMENT OF PATHOLOGY AND [address] [place] [phone] GENOMIC MEDICINE SHOWN ABOVE Donor specific antibody (12/04/2019 7:07 AM CDT)Only the most recent of2 resultswithin the time period is included. DSA serum ID [id number] [facility] DSA serum collection 12/04/2019 07:07 [facility] T D&T [facility] DSA class I antibody Negative [facility] DSA antibody I None [facility] DSA cPRA class I [address] [facility] DSA class II DP11 [facility] antibody assignment HOSPITAL DSA antibody II Cannot exclude DP [facility] comments antibody as DSA HOSPITAL DSA cPRA class II [address] [facility] Donor specific See link below [facility] antibody for PDF Lab HOSPITAL Report Specimen Blood Performing Organization Address City/State/ZIP Code Phon e Number [facility] DEPARTMENT OF PATHOLOGY AND [address] [place] [phone] [facility] [address] [place] [address] [facility] Troponin (12/04/2019 7:07 AM CDT)Only the most recent of2 resultswithin the time period is included. Troponin <0.006 0.000 - 0.040 [facility] Comment: ng/mL HOSPITAL In patients suspected of having a myocardial infarctio n, along with all other appropriate clinical measures and actions includ ing ECG and other diagnostics as appropriate, measure Ultra TnI at 0 hrs and at 3 hrs. Myocardial infarction VERY LIKELY The 0 hr TnI level is > 0.10 ng/mL Myocardial infarction LIKELY The 0 hr TnI level is > 0.04 ng/mL and 3 hr level is i ncreased or decreased by at least 0.020 ng/mL Myocardial infarction VERY UNLIKELY Both the 0 hr and 3 hr TnI levels <= 0.04 ng/mL(within normal limits) OR 0 hr is > 0.04 ng/mL and 3 hr is increased OR decreased by less than 0.020 ng/mL Specimen Blood Performing Organization Address City/[facility] Code Phon e Number [facility] DEPARTMENT OF PATHOLOGY AND [address] [place], [place] [address] [address] Prothrombin time with INR (12/04/2019 7:07 AM CDT) Prothrombin time 13.7 11.5 - 14.5 [facility] INR 1.0 [facility] Comment: SHAHRAM The International Normalized Ratio (INR) is a [facility] monitoring tool for patients who are stable on oral anticoagulant therapy. An INR of 2.0-3.0 is suggested for deep vein thrombosis/pulmonary embolism. Specimen Blood Performing Organization Address City/[facility] Phon e Number [facility] DEPARTMENT OF PATHOLOGY AND [address] [place] [address] B natriuretic peptide (12/04/2019 7:07 AM CDT)Only the most recent of2 results within the time period is included. Pathologist Sig nature BNP 167 (H) 0 - 100 pg/mL [facility] Specimen Blood Performing Organization Address [facility] Phon e Number [facility] DEPARTMENT OF PATHOLOGY AND [address] [place] [address] LDH (12/04/2019 7:07 AM CDT)Only the most recent of2 resultswithin the time period is included. Pathologist Sig nature LDH 242 (H) 87 - 225 U/L [facility] Specimen Blood Performing Organization Address [facility] Phon e Number [facility] DEPARTMENT OF PATHOLOGY AND [address] [place] [address] Echocardiogram complete w contrast and 3D if needed (08/07/2019 10:41 AM MONOMER RECOVERY OPERATOR) Specimen Narrative Performed At [facility] Echo cardiography Report [address] [facility] [place] [address] Pat.Name: CHRISTIANNE FOUNTIAN Pat.ID: [id number] .Date: 08/07/2019 Refer.MD: RONEL ADAMS MD Exam Time: 10:12:00 AM Study Type:Ro utine Echo Height: 72.01in Weight: 209lb BSA: 2.17 m2 Ag e: 1970,49Y Sex: FEMALE BP: 132/84 HR: 119 bpm Sonogrp hr: Yumiko Chaudhary RDCS Pat. Stat.:Outpatient Study Status :Final Echo Event ID:[id number] Order ID: [id number] Reason for Study:VAD and Cardiac Transpl antation - Cardiac structure and function evaluation in a potential h eart donor Ruleout rejection inpost heart transplan t pt. History / Clinical:Cancer, Heart Transpl ant Procedures: 2D Echo, Colorflow Doppler, Strain Race: SUMMARY: Normal average LV global longitudinal st rain at -18.4%. Estimated EF is 60-64%. Normal diastolic function and LV filling pressures. Estimated PA systolic pressure is 32 mmH g, assuming a mean RAP of 5 mmHg. FINDINGS: LV: LV size is normal. Normal a verage LV global longitudinal strain at -18.4%. LV EF is normal. Ov erall wall motion is normal. Estimated EF is 60-64%. RV: RV size is normal. RV systo lic function is normal. LA: LA volume is enlarged. RA: RA volume is enlarged. AO: Aortic root diameter is nor mal. DONNA: No pericardial effusion. PLE: Pleural effusion is present . AV: No structural AV abnormalit ies noted. MV: No structural MV abnormalit ies noted. A trace of mitral regurgitation. PV: No structural PV abnormalit ies noted. TV: No structural TV abnormalit ies noted. A trace of tricuspid regurgitation Quarles: Normal diastolic function an d LV filling pressures. Other: Estimated PA systolic pressu re is 32 mmHg, assuming a mean RAP of 5 mmHg. MEASUREMENTS: 2D Parasternal Long [place] Ao An 2 cm LVPWd 0.9 cm Ao Rtd 2.3 cm Index 1.1 cm/m2 LA Ds 6.8 cm IVSd 0.93 cm RWT 0.39 LVIDd 4.6 cm Index 2.1 cm/m2 LV Mass 142 g (87-12 9) LVIDs 3.1 cm LVM In dex 65 g/m LV%fs 34 % LA Sng Plane LA Area 31 cm (8.8-23.4) LA Vol 91 ml Index 42 ml/m2 LA LngAx 9.1 cm LVOT Stroke Vol LVOT 1.9 cm LVOT LVOT Area 2.8 cm DOPPLER LVOT Stroke Vol LVOT TVI 20 cm LVOT CI 2.4 l/m/m LVOT SV 58 ml HR 88 bpm LVOT CO 5.1 l/min LVOT SVi 27 ml/m Signed 08/08/2019 02:44 PM Jamshid Hassan M.D. Procedure Note Interface, Radiology Results In - 2019 2:45 PM MONOMER RECOVERY OPERATOR Echocardiography Report [address] [place] [address] Pat.Name: CHRISTIANNE FOUNTAIN Pat.I D: [id number] .Date: 08/07/2019 Refer.MD: RONEL ADAMS MD Exam Time: 10:12:00 AM Study Type:Routine Echo Height: 72.01in Weigh t: 209lb BSA: 2.17 m2 Age: 11 1970,49Y Sex: FEMALE BP: 132/84 HR: 119 bpm Sonog rphr: Yumiko Chaudhary RDCS Pat. Stat.:Outpatient Study Status:Final Echo Event ID:[id number] Order ID: [id number] Reason for Study:VAD and Cardiac Transpl antation - Cardiac structure and function evaluation in a potential h eart donor Ruleout rejection inpost heart transplan t pt. History / Clinical:Cancer, Heart Transpl ant Procedures: 2D Echo, Colorflow Doppler, Strain Race: SUMMARY: Normal average LV global longitudinal st rain at -18.4%. Estimated EF is 60-64%. Normal diastolic function and LV filling pressures. Estimated PA systolic pressure is 32 mmH g, assuming a mean RAP of 5 mmHg. FINDINGS: LV: LV size is normal. Normal aver age LV global longitudinal strain at -18.4%. LV EF is no rmal. Overall wall motion is normal. Estimated EF is 60-64 %. RV: RV size is normal. RV systolic function is normal. LA: LA volume is enlarged. RA: RA volume is enlarged. AO: Aortic root diameter is normal . DONNA: No pericardial effusion. PLE: Pleural effusion is present. AV: No structural AV abnormalities noted. MV: No structural MV abnormalities noted. A trace of mitral regurgitation. PV: No structural PV abnormalities noted. TV: No structural TV abnormalities noted. A trace of tricuspid regurgitation Quarles: Normal diastolic function and LV filling pressures. Other: Estimated PA systolic pressure is 32 mmHg, assuming a mean RAP of 5 mmHg. MEASUREMENTS: 2D Parasternal Long [place] Ao An 2 cm LVPW d 0.9 cm Ao Rtd 2.3 cm Inde x 1.1 cm/m2 LA Ds 6.8 cm IVSd 0.93 cm RWT 0.39 LVIDd 4.6 cm Inde x 2.1 cm/m2 LV Mass 142 g (87-129) LVIDs 3.1 cm LVM Index 65 g/m LV%fs 34 % LA Sng Plane LA Area 31 cm (8.8-23.4) L A Vol 91 ml Index 42 ml/m2 LA LngAx 9.1 cm LVOT Stroke Vol LVOT 1.9 cm LVOT LVOT Area 2.8 cm DOPPLER LVOT Stroke Vol LVOT TVI 20 cm LVOT CI 2.4 l/m/m LVOT SV 58 ml HR 88 bpm LVOT CO 5.1 l/min LVOT SVi 27 ml/m Signed 08/08/2019 02:44 PM Jamshid Hassan M.D. Performing Organization Address City/State/ZIP Code Phon e Number [facility] [address] [place] [address] Cytomegalovirus by PCR (08/07/2019 6:25 AM MONOMER RECOVERY OPERATOR) Cytomegalovirus by PCR Not-Detected Not-Detected [facility] IU/mL HOSPITAL Cytomegalovirus by PCR See link [facility] below for PDF HOSPITAL Lab ReportComment : Specimen Performing Organization Address [facility] Code Phon e Number [facility] DEPARTMENT OF PATHOLOGY AND [address] [place], [place] [address] [facility] [address] [place] [address] [facility] after 07/16/2019 Insurance Payer Benefit Plan / Subscriber ID Effective Dates Phone Addre ss Type Group 90 ENTRUST / [id number] 2019-Present PPO DEGREE/[employer] BENEFITS COVERAGE M Advance Directives For more information, please contact: [phone] Type Date Recorded Patient Operations Officer Afloat Explanati on Advance Directives, Living Will 08/10/2008 1:16 PM and Medical Power of Oil Transport Driver
--- OUTSIDE RECORDS SUMMARY | 2020-07-16 08:56 | XMS REPORT | Continuity of Care Document ---
:1970 Author Organization [facility] t Address [address] [place] [address] Care Team Providers Name Role Phone Asked, No Pcp Primary Care Physician Unavailable Kira GAUTAM Attending Clinician Unavailable Ace ROBISON Attending Clinician Unavailable Nieves BERRY Attending Clinician Thang BERRY Attending Clinician Andrew Attending Clinician Unavailable Joel GAUTAM Attending Clinician Unavailable Clemencia Brady MA Attending Clinician Unavailable Jean BERRY Attending Clinician Gideon BERRY Attending Clinician EVANGELIST Attending Clinician Unavailable NIEVES Ariasitting Clinician Unavailable Payers Payer Name Policy Type Policy Effective Date Expiration Date Sour ce Number 90 [id number] 2019 [facility] DEGREE/ENTRUSTE 00:00:00 Yarsanism NTRUST / 90 DEGREE BENEFITS COVERAGE [id number] Problems Condition Condition Condition Status Onset Resolution Last Treating Co mments Source Name Details Category Date Date Treatment Clinician Date Cardiac Cardiac Disease Active Overview: lLoyd ton dysrhythmi dysrhythmi 5-08 Added Me [facility] a a 00:00: 12/04/2019 st 00 Intermitt ent c/o palpation s and chest pain. Cardiac Cardiac Disease Active 2018-08 [facility] transplant transplant 2-09 Me thodi rejection rejection 00:00: st 00 Other Other Disease Active Overview: Pedro Luis n heart heart 4-29 Added Methodi failure failure 00:00: automatic st 00 ally from request for surgery [id number] Long-term Long-term Disease Active Alejandro mendez use of use of 4-22 [facility] immunosupp immunosupp 00:00: st ressant ressant 00 medication medication Weakness Weakness Disease Active [place] 11-21 Methodi 00:00: st 00 Heart Heart Disease Active Overview: Pedro Luis bobby transplant transplant 04-01 Formattin Methodi ed ed 00:00: g of this note might be different from the original. Christianne Fountain : 1970 8 Heart Transplan tedPre hx [facility] DCM,MIs x3 in 1999 & 2000Not seen since 2015 R/T no insurance and financial reasonsVi sit Date biopsy C4D Treatment Echo CMV Level Admit 11/21/1811/22 0 R Admit from clinic -chest pressure; No insurance ; out of FK; to convert to Rapa 60-64 neg 12/07/18 Lab only Late draw lab Kenji 4.2 on Admit 07/10/1907/11 0 R Admit for Rejection .Out of FK for > 10 days; EF >70 < 2.0 08/08/19 AlloMAllo S Post d/c follow-up : BNP 166, DSAs pendingSC r 0.98/GFR 69, LDH 190: return 3 months 60-64 neg 7.0 11/09/19 Local l lab SCr 0.88/GFR 78, WBC 5.2 Fk ^ to 4.4 Clinic 12/04/19 AlloMAllo S 35<0.17 C/O chest pressure & Palpation sBNP 167, Trop <0.006, SCR 1.03/GFR 64, Blaine 7 day event monitor EF 59% 7.9 on 09/03 03/21// SickCOVID pos Call w c/o temp,& head ache Advised COVID testing: New c/o nause/los s of appetite Testing today , Allergies, Adverse Reactions, Alerts Allergy Allergy Status Severity Reaction(s) Onset Inactive Treating Comm ents Source Name Type Date Date Clinician Morphine Propensi Active Rash Rash and [place] ty to 11-21 vomiting. Methodi adverse 00:00: Can st reaction 00 tolerate s to codeine. drug Family History Family Member Diagnosis Comments Start Date Stop Date Source Natural father No Known Problems Alejandro Newmanist Natural mother No Known Problems Alejandro [place] Natural sister No Known Problems Alejandro mendez Yarsanism Social History Social Habit Start Date Stop Date Quantity Comments [facility] Binge Sex Assigned At [facility] Clemencia ethodist Exposure to Not sure [place] Metho dist SARS-CoV-2 (event) Tobacco use and 2019-07-13 2019-07-13 Never used Landeros Clemencia ethodist exposure 00:00:00 00:00:00 Alcohol intake 2019-07-13 2019-07-13 Current [facility] Me thodist 00:00:00 00:00:00 non-drinker of alcohol (finding) History SDOH 2018-11-21 2018-11-21 1 [facility] Meth odist Alcohol Frequency 00:00:00 00:00:00 Smoking Status Start Date Stop Date Source Never smoker [facility] Methodis t Medications Ordered Filled Start Stop Current Ordering Indication Dosage Frequency Signature Comments Components Source Medication Medication Date Date Medication? Clinician (SIG) Name Name amLODIPine 2020- No 5mg QD Take 1 [place] (NORVASC) 5 04-05 tablet (5 Me thodi mg tablet 00:00: 23:59 mg total) st 00 :00 by mouth daily. benzonatate 2019- No 100mg Q.[id number] Take 1 [facility] (Tessalon 03-28 [id number] capsule Methodi Perles) 100 00:00: 23:59 3D ([address] MG capsule 00 :00 total) by mouth 3 (three) times a day as needed for cough for up to 30 days. mycophenola 2020- No 500mg Q.5D Take 1 Driss donohue te 03-05 tablet Methodi (CELLCEPT) 00:00: 23:59 ([address] 500 mg 00 :00 total) by tablet mouth 2 (two) times a day. Z94.1 Heart TXP S/P tacrolimus 2020- No 2mg Q.5D Take 2 [place] (Prograf) 1 03-05 capsules Met hodi MG capsule 00:00: 23:59 ([address] 00 :00 total) by mouth 2 (two) times a day. Z94.1 Heart Txp S/P spironolact 2019- Yes 25mg QD Take 25 mg Landeros one 5-04 by mouth Methodi (ALDACTONE) 07:10: daily. st 25 MG 34 tablet pantoprazol No 40mg QD Take 1 Alejandro ston e 12-03 05-04 tablet (40 Methodi (Protonix) 00:00: 23:59 mg total) s t 40 MG EC 00 :00 by mouth tablet daily. metoprolol No 25mg QD Take 1 [place] succinate 12-03 05-04 tablet (25 Met hodi XL (Toprol 00:00: 23:59 mg total) s t XL) 25 mg 00 :00 by mouth 24 hr daily. tablet pravastatin 2018-08 No 40mg QD Take 1 Alejandro ston (PRAVACHOL) 08-05 tablet (40 M ethodi 40 MG 00:00: 23:59 mg total) st tablet 00 :00 by mouth daily. omeprazole 2018-08 Metabolic 40mg QD Take 2 Landeros OTC 0 05-04 syndrome tablets Methodi (PriLOSEC 00:00: 00:00 ([address] OTC) 20 MG 00 :00 total) by EC tablet mouth daily. mycophenola 2018-08- No 500mg Q.5D Take 1 [place] 0- tablet Methodi (CELLCEPT) 00:00: 00:00 ([address] 500 mg 00 :00 total) by tablet mouth 2 (two) times a day. Z94.1 Heart TXP S/P calcium No 1{tbl} QD Take 1 [place] carbonate-v 01-02- tablet by Me dickey itamin D3 00:00: 23:[address] 500 mg-200 00 :00 daily. unit per tablet tacrolimus 2019- No 2mg Q.5D Take 2 [place] (PROGRAF) 1 11-24- capsules Met hodi MG capsule 00:00: 00:00 ([address] 00 :00 total) by mouth 2 (two) times a day. aspirin 81mg QD Take 81 mg Alejandro ston (ECOTRIN) 03-31 by mouth Metho di 81 MG 00:00: 23:[address] enteric 00 :00 coated tablet multivitami 2017-0 2021- No 1{tbl} QD Take 1 H rosalba n 830 04-01 tablet by Methodi (THERAGRAN) 00:00: 23:[address] tablet 00 :00 daily. Immunizations Ordered Immunization Filled Immunization Date Status Commen ts Source Name Name TOM GONZALEZ PF 2019-07-13 Completed [facility] 00:00:00 Yarsanism Vital Signs Vital Name Observation Time Observation Value Comments Source Systolic blood 2019-12-04 13:35:00 130 mm[Hg] Lloydto n Yarsanism pressure Diastolic blood 2019-12-04 13:35:00 85 mm[Hg] Melquiades on Yarsanism pressure Body temperature 2019-12-04 13:35:00 36.17 Susan Lloyd [place] Respiratory rate 2019-12-04 13:35:00 17 /min Lloyd [place] Body height 2019-12-04 13:35:00 182.9 cm Tigre [place] Body weight 2019-12-04 13:35:00 93.759 kg [place] BMI 2019-12-04 13:35:00 28.03 kg/m2 [place] Oxygen saturation in 2019-12-04 13:35:00 97 /min [place] Arterial blood by Pulse oximetry Heart rate 2019-08-07 13:26:00 119 /min [place]re [place] Procedures Procedure Date / Time Performing Clinician Source Performed MAGNESIUM LEVEL 2020-04-01 07:57:00 Rita Lawrence Meth odist CBC WITH PLATELET AND 2020-04-01 07:57:00 Rita Lawrence DIFFERENTIAL COMPREHENSIVE METABOLIC 2020-04-01 07:57:00 Rita Lawrence PANEL [id number] TACROLIMUS LEVEL, 2020-04-01 07:57:00 Rita Lawrence RANDOM ECG 12-LEAD 2019-12-04 13:46:14 Michael Pickett Met jacob TTE COMPLETE, WO CONTRAST, 2019-12-04 09:00:00 Michael Pickett W DOPPLER ([id number]) COMPREHENSIVE METABOLIC 2019-12-04 07:07:00 Michael Pickett Yarsanism PANEL MAGNESIUM LEVEL 2019-12-04 07:07:00 Michael Pickett Met jacob HC COMPLETE BLD COUNT 2019-12-04 07:07:00 Michael Pickett on Yarsanism W/AUTO DIFF LDH 2019-12-04 07:07:00 Michael Pickett Met hodist B NATRIURETIC PEPTIDE 2019-12-04 07:07:00 Michael Pickett on Yarsanism TROPONIN 2019-12-04 07:07:00 Michael Pickett Met hodist PROTHROMBIN TIME WITH INR 2019-12-04 07:07:00 Michael Pickett Yarsanism [id number] TACROLIMUS LEVEL, 2019-12-04 07:07:00 Michael Pickett Yarsanism RANDOM ESTIMATED GFR 2019-12-04 07:07:00 Michael Pickett Met hodist MISCELLANEOUS REFERRAL 2019-12-04 07:07:00 Michael Pickett Yarsanism TEST DONOR SPECIFIC ANTIBODY 2019-12-04 07:07:00 Michael Pickett Yarsanism CBC WITH PLATELET AND 2019-11-09 08:12:00 Michael Pickett on Yarsanism DIFFERENTIAL COMPREHENSIVE METABOLIC 2019-11-09 08:12:00 Michael Pickett Yarsanism PANEL MAGNESIUM LEVEL 2019-11-09 08:12:00 Michael Pickett Met hodist [id number] TACROLIMUS LEVEL, 2019-11-09 08:12:00 Michael Pickett Yarsanism RANDOM ECG 12-LEAD 2019-08-07 11:11:36 Michael Pickett Met hodist TTE COMPLETE, WO CONTRAST, 2019-08-07 10:41:47 Enmanuel Meneses Yarsanism W DOPPLER ([id number]) COMPREHENSIVE METABOLIC 2019-08-07 06:25:00 Michael Pickett Yarsanism PANEL MAGNESIUM LEVEL 2019-08-07 06:25:00 Michael Pickett Met hodist HC COMPLETE BLD COUNT 2019-08-07 06:25:00 Michael Pickett on Yarsanism W/AUTO DIFF CYTOMEGALOVIRUS BY PCR 2019-08-07 06:25:00 Michael Pickett Yarsanism LDH 2019-08-07 06:25:00 Michael Pickett Met hodist B NATRIURETIC PEPTIDE 2019-08-07 06:25:00 Michael Pickett on Yarsanism TROPONIN 2019-08-07 06:25:00 Michael Pickett Met jacob [id number] TACROLIMUS LEVEL, 2019-08-07 06:25:00 Michael Pickett RANDOM ESTIMATED GFR 2019-08-07 06:25:00 Michael Pickett Met jacob DONOR SPECIFIC ANTIBODY 2019-08-07 06:25:00 Ronel Meneses Plan of Care Planned Activity Planned Date Details Comments Source Future Scheduled 2020-03-02 INFLUENZA VACCINE [place] [facility] Test 00:00:00 [code = INFLUENZA VACCINE] Future Scheduled 1993 Screening for [facility] thodist Test 00:00:00 malignant neoplasm of cervix (procedure) [code = 514108406] Future Scheduled 1988 COVID-19 VACCINE [facility] Yarsanism Test 00:00:00 (#1) [code = COVID-19 VACCINE (#1)] Future Scheduled 1982 DIABETES: RETINAL [place] [facility] Test 00:00:00 EYE EXAM [code = DIABETES: RETINAL EYE EXAM] Future Scheduled 1982 DIABETIC FOOT EXAM [place] Yarsanism Test 00:00:00 [code = DIABETIC FOOT EXAM] Encounters Start End Encounter Admission Attending Care Care Encounter Source Date/Time Date/Time Type Type Clinicians Facility Department ID 2020-04-05 2020-04-05 Outpatient [facility] [id number] [facility] 00:00:00 00:00:00 MICHAEL [address] 2019-12-04 2019-12-04 Outpatient [facility] [id number] [facility] 00:00:00 00:00:00 MICHAEL [address] 2019-12-04 2019-12-04 Outpatient [facility] [id number] [facility] 00:00:00 00:00:00 MICHAEL [address] 2019-12-04 2019-12-04 Outpatient [facility] [id number] [facility] 00:00:00 00:00:00 MICHAEL [address] 2019-08-07 2019-08-07 Outpatient [facility] [id number] [facility] 00:00:00 00:00:00 RONEL Dickens 463 Ricardo courtney 2019-07-10 2019-07-13 Inpatient KYLIE BLANCA [facility] [id number] [facility] 00:00:00 00:00:[address] Results Test Description Test Time Test Comments Results Result Comments Source FK506 Tacrolimus level, random 2020-04-04 12:10:00 Test Item Value Reference Range Interpretation Comme nts FK506 level (test code 11.9 ng/mL 2-20 Trough (immediately = 63779-0) following transplant) 15.0 Trough (steady state, 2 weeks or more after tr ansplant): 3.0 - 8.0 Dete ction Limit = 1.0 Perf ormed by LC-MS/MS techno logy. This test was d heliod and its performance characteristics determined by [employer]. It has not been cleared or approved by the Food and Drug Administration. LAUREN (test code = LAUREN) Performed at: [address] [id number] Director: Staci Delgado MD, Phone: [phone] [facility] [id number] 06:09:00 Test Item Value Reference Range Interpretation Comments Glucose (test code = 119 mg/dL 65-99 H 2345-7) BUN (test code = 3094-0) 28 mg/dL 6-24 H Creatinine (test code = 1.38 mg/dL 0.57-1 H 2160-0) EGFR Non-Afr. [place] 46 mL/min/1.73 >59 L (test code = 2775) EGFR 53 mL/min/1.73 >59 L (test code = 2774) BUN/creatinine ratio 20 9-23 (test code = 3097-3) Sodium (test code = 138 mmol/L 178-532 0878-2) Potassium (test code = 5.1 mmol/L 3.5-5.2 2823-3) Chloride (test code = 98 mmol/L 96-106 2075-0) CO2 (test code = 8-9) 25 mmol/L 20-29 Calcium (test code = 9.7 mg/dL 8.7-10.2 93947-2) Protein (test code = 6.8 g/dL 6-8.5 2885-2) Albumin, S (test code = 4.5 g/dL 3.8-4.8 1751-7) Globulin, total (test 2.3 g/dL 1.5-4.5 code = 10298-7) Albumin/globulin ratio 2.0 1.2-2.2 (test code = 1759-0) Total bilirubin (test 0.8 mg/dL 0-1.2 code = 1975-2) Alkaline phosphatase 73 39- 117 IU/L (test code = 6768-6) AST (test code = 1920-8) 19 0- 40 IU/L ALT (test code = 1742-6) 14 0- 32 IU/L LAUREN (test code = LAUREN) Performed at: [address] [place] [id number] Director: José Parmar MD, Phone: [phone] Lab Interpretation (test Abnormal code = 57998-3) [facility] [id number] 06:09:00 Test Item Value Reference Range Interpretation Comments Magnesium (test code = 1.8 mg/dL 1.6-2.3 26748-0) LAUREN (test code = LAUREN) Performed at: [address] [place] [address] [id number] Director: José Parmar MD, Phone: [phone] [facility] with platelet and [id number] 06:09:00 Test Item Value Reference Range Interpretation Comments WBC (test code = 6.6 3.4- 10.8 x10E3/uL 6690-2) RBC (test code = 4.46 3.77- 5.28 x10E6/uL 789-8) HGB (test code = 13.8 g/dL 11.1-15.9 718-7) HCT (test code = 40.3 % 34-46.6 4544-3) MCV (test code = 90 fL 79-97 787-2) MCH (test code = 30.9 pg 26.6-33 785-6) MCHC (test code = 34.2 g/dL 31.5-35.7 786-4) RDW (test code = 11.8 % 11.7-15.4 788-0) Platelet count (test 196 150- 450 x10E3/uL code = 777-3) Neutrophils (test code 46 % Not Estab. = 770-8) Lymphocytes (test code 39 % Not Estab. = 736-9) Monocytes (test code = 10 % Not Estab. 5905-5) Eosinophils (test code 3 % Not Estab. = 713-8) Basophils (test code = 1 % Not Estab. 706-2) Neutrophils, absolute 3.2 1.4- 7.0 x10E3/uL (test code = 751-8) Lymphocytes, absolute 2.5 0.7- 3.1 x10E3/uL (test code = 731-0) Monocytes, absolute 0.6 0.1- 0.9 x10E3/uL (test code = 742-7) Eosinophils, absolute 0.2 0.0- 0.4 x10E3/uL (test code = 711-2) Basophils, absolute 0.0 0.0- 0.2 x10E3/uL (test code = 704-7) Immature granulocytes 1 % Not Estab. (test code = 97356-1) Immature grans (abs) 0.0 0.0- 0.1 x10E3/uL (test code = 25413-1) LAUREN (test code = LAUREN) Performed at: [address] [place] [address] [id number] Director: José Parmar MD, Phone: [phone] [facility] Complete, (w Contrast, Strain and 3D if needed)2019-12-05 11:34:00Interface, Radiology Results In - 12/05/2019 11:34 AM CDT Echocardiography Report [id number] [address] Pat.Name: CHRISTIANNE FOUNTAIN Bren.ID: [id number].Date: 12/04/2019 Refer.MD: MICHAEL PICKETT MD Exam Time: 8:17:00 AM Study Type:Routine Echo Height: 72in Weight: 209lb BSA: 2.17 m2 Age: 11 1970,49Y Sex: FEMALE BP: 119/70 HR: 84 bpm Sonogrphr: Martine Le, RDCS, RVT Pat. Stat.:Outpatient Room: [place] [address] Study Status:Final Echo Event ID:[id number] Order ID: [id number] Reason for Study:Cardiac transplant, monitoring forrejectionpalpationsin heart transplant pt.History / Clinical:Cancer, Heart TransplantProcedures: 2D Echo, Colorflow DopplerRace: C ---- SUMMARY: EF = 59%RV systolic function is normal.LV filling pressure is normal.Estimated PA systolic pressure is 33-38 mmHg, assuming amean RAP of5-10 mmHg. FINDINGS: ------LV: LV size is normal. LV EF is normal. Overall wall motion is normal. EF = 59%RV: RV size is mildly enlarged. RV systolic function is normal.LA: LA volume is enlarged, related to heart transplant.RA: RA volume is enlarged, related to heart transplant.AO: Aorticroot diameter is normal.DONNA: No pericardial effusion.AV: No structural AV abnormalities noted. Aortic Valve is normal. MV: No structural MV abnormalities noted. Mild mitral regurgitation. PV: No structural PV abnormalities noted.TV: No structural TV abnormalities noted. Mild tricuspid regurgitation Quarles: LV relaxation is normal. LV filling pressure is normal.Other: Estimated PA systolic pressure is 33-38 mmHg, assuming a mean RAP of 5-10 mmHg. MEASUREMENTS: 2DParasternal [facility] Ao An 2 cm LVPWd 0.94 cm Ao Rtd 2.4 cm Index 1.1 cm/m2 LA Ds 5.2 cm IVSd 1.2 cm RWT 0.42 LVIDd 4.5 cm Index 2.1 cm/m2 LV Mass 163 g (87-129) LVIDs 3 cm LVM Index 75 g/m2 LV%fs 33 % LVOT 2.2 cm EF Biplane EDV 125 ml EF 59 % ESV 51 ml HR 77 bpm SV 74 ml CO 5.7 l/minLVOT LVOT Area 3.7 cm2 DOPPLERAV For Flow/MELLY AV pkVel 131 cm/s (100- 170) AV AC/ET 0.3 AV mnVel 94 cm/s AV TVI 27 cm AV pkPG 6.9 mmHg AVpkAcRt 2911 cm/s2 AV Mean G 4.1 mmHgAV DeRt 458 cm/s2 AV ET 286 msec AV AC 85 msec (83-118)Aortic Valve AV DI 0.76 AV Area 2.8 cm2 (3-5)LVOT For Flow LVOT TVI 20 cm LVOTpkPG 3.6 mmHg LVOTpkVel 95 cm/s LVOTmnPG 2 mmHgLVOT LVOT SV 75 ml SVi 35 ml/m2 Signed 12/05/2019 11:34 Colette Hassan M.D.[facility] 12 lead 2019-12-04 17:54:15 Test Item Value Reference Range Interpretation Comments Ventricular rate (test 96 code = 253) Atrial rate (test code = 96 255) ND interval (test code = 150 266) QRSD interval (test code 122 = 260) QT interval (test code = 384 264) QTC interval (test code = 485 265) P axis 1 (test code = 61 267) QRS axis 1 (test code = 73 268) T wave axis (test code = 60 270) EKG impression (test code Normal sinus = 273) rhythm-Possible Left atrial enlargement-Right bundle branch block- [facility] MethodistEchocardiogram complete w contrast and 3D if [id number] 14:44:00Interface, Radiology Results In - 08/08/2019 2:45 PM [facility] Echocardiography Report [id number] [address] Pat.Name: CHRISTIANNE FOUNTAIN Pat.ID: [id number].Date: 08/07/2019 Refer.MD: RONEL MENESES MDExam Time: 10:12:00 AM Study Type:Routine Echo Height: 72.01in Weight: 209lb BSA: 2.17 m2 Age: 11 1970,49Y Sex: FEMALE BP: 132/84 HR: 119 bpm Sonogrphr: Yumiko swanson [facility] Pat. Stat.:Outpatient Study Status:Final Echo Event ID:[id number] Order ID: [id number] Reason for Study:VAD and Cardiac Transplantation - Cardiac structureand function evaluation in a potential heart donorRuleout rejection inpost heart transplant pt.History / Clinical:Cancer, Heart TransplantProcedures: 2D Echo, Colorflow Doppler, StrainRace: SUMMARY: Normal average LV global longitudinal strain at - 18.4%.Estimated EF is 60-64%.Normal diastolic function and LV filling pressures.Estimated PA systolic pressure is 32 mmHg, assuming amean RAP of 5mmHg. FINDINGS: -------LV: LV size is normal. Normal average LV global longitudinal strain at -18.4%. LV EF is normal. Overall wall motion is normal. Estimated EF is 60-64%.RV: RV size is normal. RV systolic function is normal.LA: LA volume is enlarged.RA: RA volume is enlarged.AO: Aortic root diameter is normal.DONNA: No pericardial effusion.PLE: Pleural effusion is present.AV: No structural AV abnormalities noted.MV: No structural MV abnormalities noted. A trace of mitral regurgitation. PV: No structural PV abnormalities noted.TV: No structural TV abnormalities noted. A trace of tricuspid regurgitation Quarles: Normal diastolic function and LV filling pressures.Other: Estimated PA systolic pressure is 32 mmHg, assuming a mean RAP of 5 mmHg. MEASUREMENTS: 2DParasternal [facility] Ao An 2 cm LVPWd 0.9 cm Ao Rtd 2.3 cm Index 1.1 cm/m2 LA Ds 6.8 cm IVSd 0.93 cm RWT 0.39 LVIDd 4.6 cm Index 2.1 cm/m2 LV Mass 142 g (87-129) LVIDs 3.1 cm LVM Index 65 g/m2 LV%fs 34 % LA Sng Plane LA Area 31 cm2 (8.8-23.4) LA Vol 91 ml Index 42 ml/m2 LA LngAx 9.1 cm LVOT Stroke Vol LVOT 1.9 cm LVOT LVOT Area 2.8 cm2 DOPPLERLVOT Stroke Vol LVOT TVI 20 cmLVOT CI 2.4 l/m/m2 LVOT SV 58 ml HR 88 bpm LVOT CO 5.1 l/min LVOT SVi 27 ml/m2 Signed 08/08/2019 02:44 PMNicola Meyer
--- NOTE | 2020-07-16 09:52 | EDPHYS ---
Physician Documentation [facility] Name: Christianne Fountain Age: 50 yrs Sex: Female : 1970 Arrival Date: 07/16/2020 Time: 08:49 Bed 4 Private MD: Elliott Veras V ED Physician Venancio Copeland HPI: 07/16 09:43 This 50 yrs old Female presents to ER via Wheelchair with complaints of Chest soledad Pain, Dizziness, Shortness Of Breath, High Blood Pressure. 09:43 The patient or guardian reports chest pain that is located primarily in the anterior soledad chest wall, bilaterally. Onset: 2 week(s) ago. The pain does not radiate. Associated signs and symptoms: Pertinent positives: abdominal pain. The chest pain is described as a pressure. Severity of pain: At its worst the pain was mild in the emergency department the pain has improved. The patient has experienced similar episodes in the past, several times. Historical: - Allergies: 09:01 Morphine (Vomiting, Hives); sv - PMHx: 09:01 cardiac issues; sv - PSHx: 09:01 Cholecystectomy; Thumb; Foot; sv - Immunization history:: Flu vaccine is up to date. - Social history:: Smoking status: Patient denies any tobacco usage or history of. - Family history:: not pertinent. ROS: 09:43 Constitutional: Negative for fever, chills, and weight loss, Eyes: Negative for injury, soledad pain, redness, and discharge, ENT: Negative for injury, pain, and discharge, Neck: Negative for injury, pain, and swelling, Respiratory: Negative for shortness of breath, cough, wheezing, and pleuritic chest pain, Abdomen/GI: Negative for abdominal pain, nausea, vomiting, diarrhea, and constipation, Back: Negative for injury and pain, : Negative for injury, bleeding, discharge, and swelling, MS/Extremity: Negative for injury and deformity, Skin: Negative for injury, rash, and discoloration. 09:43 Cardiovascular: Positive for chest pain. Exam: 09:43 Constitutional: This is a well developed, well nourished patient who is awake, alert, soledad and in no acute distress. Head/Face: Normocephalic, atraumatic. Eyes: Pupils equal round and reactive to light, extra-ocular motions intact. Lids and lashes normal. Conjunctiva and sclera are non-icteric and not injected. Cornea within normal limits. Periorbital areas with no swelling, redness, or edema. ENT: Nares patent. No nasal discharge, no septal abnormalities noted. Tympanic membranes are normal and external auditory canals are clear. Oropharynx with no redness, swelling, or masses, exudates, or evidence of obstruction, uvula midline. Mucous membranes moist. Neck: Trachea midline, no thyromegaly or masses palpated, and no cervical lymphadenopathy. Supple, full range of motion without nuchal rigidity, or vertebral point tenderness. No Meningismus. Chest/axilla: Normal chest wall appearance and motion. Nontender with no deformity. No lesions are appreciated. Cardiovascular: Regular rate and rhythm with a normal S1 and S2. No gallops, murmurs, or rubs. Normal PMI, no JVD. No pulse deficits. Respiratory: Lungs have equal breath sounds bilaterally, clear to auscultation and percussion. No rales, rhonchi or wheezes noted. No increased work of breathing, no retractions or nasal flaring. Abdomen/GI: Soft, non-tender, with normal bowel sounds. No distension or tympany. No guarding or rebound. No evidence of tenderness throughout. Back: No spinal tenderness. No costovertebral tenderness. Full range of motion. Female : Normal external genitalia. Skin: Warm, dry with normal turgor. Normal color with no rashes, no lesions, and no evidence of cellulitis. MS/ Extremity: Pulses equal, no cyanosis. Neurovascular intact. Full, normal range of motion. Neuro: Awake and alert, GCS 15, oriented to person, place, time, and situation. Cranial nerves II-XII grossly intact. Motor strength 5/5 in all extremities. Sensory grossly intact. Cerebellar exam normal. Normal gait. Psych: Awake, alert, with orientation to person, place and time. Behavior, mood, and affect are within normal limits. 09:52 ECG was reviewed by the Attending Physician. [facility] Vital Signs: 08:57 Weight 92.08 kg; Height 6 ft. 0 in. (182.88 cm); Pain 0/10; sv 09:07 BP 124 / 89; Pulse 95; Resp 28; Temp 97.7(TE); Pulse Ox 99% on R/A; mh5 10:04 BP 116 / 84; Pulse 91; Resp 23; Pulse Ox 98% on R/A; tw2 11:00 BP 114 / 72; Pulse 90; Resp 20; Pulse Ox 98% on 2 lpm NC; ph 11:44 BP 128 / 87; Pulse 93; Resp 24; Pulse Ox 99% on 2 lpm NC; ph 12:40 BP 122 / 79; Pulse 89; Resp 18; Temp 97.8; Pulse Ox 99% on 2 lpm NC; ph 08:57 Body Mass Index 27.53 (92.08 kg, 182.88 cm) sv MDM: 08:59 Patient medically screened. soledad 09:48 Differential diagnosis: abnormal EKG, acute myocardial infarction, acute pericarditis, soledad anxiety, coronary artery disease costochondritis, esophagitis, hiatal hernia, mitral valve prolapse, pancreatitis, peptic ulcer disease, pleurisy, stable angina, unstable angina. HEART Score: History: Moderately Suspicious (1), ECG: Non specific repolarization disturbance / LBTB / PM (1), Age: > 45 and < 65 years (1), Risk Factors: > or = 3 Risk factors for atherosclerotic disease (2), [Hypercholesterolemia] [Hypertension] [+ Family HX] Troponin: < or = 1 x Normal Limit (0). The patient was given aspirin in the Emergency Department. The patient's deep vein thrombosis risk score was calculated as follows: Total Score: 0. This patient was found to be at low risk for a deep vein thrombosis by using the Well's assessment criteria. The patient's pulmonary embolism risk score was calculated as follows: Total Score: 0-2 points. This patient was found to be at low risk for a pulmonary embolism by using the Well's assessment criteria. KAL Risk Score: not applicable. Data reviewed: vital signs, nurses notes, lab test result(s), EKG. Data interpreted: environmental monitoring specialist: rate is 95 beats/min, rhythm is regular, Pulse oximetry: on room air is 99 %. Test interpretation: by ED physician or midlevel provider: ECG, plain radiologic studies. Counseling: I had a detailed discussion with the patient and/or guardian regarding: the historical points, exam findings, and any diagnostic results supporting the discharge/admit diagnosis, the presence of at least one elevated blood pressure reading (>120/80) during this emergency department visit, lab results, radiology results, the need to transfer to another facility, for higher level of care, [facility] does not immediately have the required specialist. 07/16 09:01 Order name: Basic Metabolic Panel [facility] 07/16 09:01 Order name: CBC with Diff [facility] 07/16 09:01 Order name: LFT's [facility] 07/16 09:01 Order name: Magnesium [facility] 07/16 09:01 Order name: NT PRO-BNP [facility] 07/16 09:01 Order name: PT-INR; Complete Time: 10:07 [facility] 07/16 09:01 Order name: Troponin (emerg Dept Use Only) [facility] 07/16 09:01 Order name: Flu [facility] 07/16 09:02 Order name: Basic Metabolic Panel [facility] 07/16 09:02 Order name: CBC with Automated Diff; Complete Time: 10:07 [facility] 07/16 09:02 Order name: Liver (Hepatic) Function [facility] 07/16 09:38 Order name: Urine Dipstick--Ancillary (enter results); Complete Time: 10:07 [facility] 07/16 09:38 Order name: Urine --Ancillary (enter results); Complete Time: 10:07 em 07/16 09:01 Order name: XRAY Chest (1 view) [facility] 07/16 09:01 Order name: EKG; Complete Time: 09:02 [facility] 07/16 09:01 Order name: Cardiac monitoring; Complete Time: 09:19 [facility] 07/16 09:01 Order name: EKG - Nurse/Tech; Complete Time: 09:19 [facility] 07/16 09:01 Order name: IV Saline Lock; Complete Time: 10:04 [facility] 07/16 09:01 Order name: Labs collected and sent; Complete Time: 10:04 [facility] 07/16 09:01 Order name: O2 Per Protocol; Complete Time: 10:05 [facility] 07/16 09:01 Order name: O2 Sat Monitoring; Complete Time: 10:05 [facility] 07/16 09:01 Order name: Urine Dipstick-Ancillary (obtain specimen); Complete Time: 09:36 [facility] 07/16 10:08 Order name: Urine Culture [facility] 07/16 10:10 Order name: Oxygen; Complete Time: 10:35 [facility] 07/16 10:50 Order name: SARS-COV-2 RT PCR EDMS EC:52 Rate is 94 beats/min. Rhythm is regular. QRS [place] is Normal. DE interval is normal. QRS soledad interval is normal. QT interval is normal. No Q waves. T waves are Normal. No ST changes noted. Clinical impression: NSR w/ Non-specific ST/T Changes and No evidence of ischemia. Interpreted by me. Reviewed by me. Administered Medications: 10:28 Drug: Lasix 20 mg Route: IVP; Site: right antecubital; tw2 11:47 Follow up: Response: No adverse reaction ph 10:30 Drug: Rocephin - (cefTRIAXone) 1 grams {Note: IVP available on from pharmacy.} Route: tw2 IVPB; Infused Over: 5 mins; Site: right antecubital; 10:36 Follow up: Response: No adverse reaction; IV Status: Completed infusion; IV Intake: [id number] Disposition: 07/16/20 09:51 Transfer ordered to [facility]. Diagnosis are Chest pain, unspecified, Transplanted organ and tissue status, Urinary tract infection, site not specified, Dyspnea, Unspecified systolic (congestive) heart failure. - Reason for transfer: Higher level of care. - Accepting physician is to transplant [place], meth. - Condition is Stable. - Problem is new. - Symptoms have improved. Signatures: Dispatcher [employer] EDMS Stephanie Malloy RN RN Venancio Levi MD MD cha Martinez, Eric em1 Reyna Berger RN RN tw2 Nithya Naylor RN ph Corrections: (The following items were deleted from the chart) 10:08 09:02 CORONAVIRUS+MR.LAB.BRZ ordered. [facility] 10:09 09:51 07/16/2020 09:51 Transfer ordered to [facility]. Diagnosis is Chest pain, soledad unspecified; Transplanted organ and tissue status. Reason for transfer: Higher level of care. Accepting physician is to transplant [place], meth. Condition is Stable. Problem is new. Symptoms have improved. soledad 10:11 10:07/16/2020 09:51 Transfer ordered to [facility]. Diagnosis is Chest pain, soledad unspecified; Transplanted organ and tissue status; Urinary tract infection, site not specified. Reason for transfer: Higher level of care. Accepting physician is to transplant [place], meth. Condition is Stable. Problem is new. Symptoms have improved. soledad 12:49 10:11 07/16/2020 09:51 Transfer ordered to [facility]. Diagnosis is Chest pain, em1 unspecified; Transplanted organ and tissue status; Urinary tract infection, site not specified; Dyspnea; Unspecified systolic (congestive) heart failure. Reason for transfer: Higher level of care. Accepting physician is to transplant [place]. Condition is Stable. Problem is new. Symptoms have improved. soledad
--- NOTE | 2020-07-16 09:52 | ER ---
Nurse's Notes [facility] Name: Christianne Fountain Age: 50 yrs Sex: Female : 1970 Arrival Date: 07/16/2020 Time: 08:49 Bed 4 Private MD: Elliott Veras V Diagnosis: Chest pain, unspecified;Transplanted organ and tissue status;Urinary tract infection, site not specified;Dyspnea;Unspecified systolic (congestive) heart failure Presentation: 07/16 08:57 Chief complaint: Patient states: left sided chest pain and SOB with activity that sv started yesterday, dizziness started today. Coronavirus screen: Client denies travel out of the [place] in the last 14 days. shortness of breath, Client presents with at least one sign or symptom that may indicate coronavirus-19. Standard/surgical mask placed on the client. Provider contacted for isolation considerations. Ebola Screen: No symptoms or risks identified at this time. Risk Assessment: Do you want to hurt yourself or someone else? Patient reports no desire to harm self or others. Onset of symptoms was July 15, 2020. 08:57 Method Of Arrival: Wheelchair sv 08:57 Acuity: FOSTER 3 sv 10:12 Initial Sepsis Screen: Does the patient meet any 2 criteria? No. Patient's initial ph sepsis screen is negative. Does the patient have a suspected source of infection? No. Patient's initial sepsis screen is negative. Triage Assessment: 09:01 General: Appears in no apparent distress. comfortable, Behavior is calm, cooperative, sv appropriate for age. Pain: Denies pain. Neuro: Level of Consciousness is awake, alert, obeys commands, Oriented to person, place, time, situation. Respiratory: Respiratory effort is even, unlabored. Historical: - Allergies: 09:01 Morphine (Vomiting, Hives); sv - PMHx: 09:01 cardiac issues; sv - PSHx: 09:01 Cholecystectomy; Thumb; Foot; sv - Immunization history:: Flu vaccine is up to date. - Social history:: Smoking status: Patient denies any tobacco usage or history of. - Family history:: not pertinent. Screenin:04 Abuse screen: Denies threats or abuse. Nutritional screening: No deficits noted. tw2 Tuberculosis screening: No symptoms or risk factors identified. Fall Risk None identified. Assessment: 09:30 General: Appears in no apparent distress. comfortable, well groomed, Behavior is calm, ph cooperative, appropriate for age, Denies fever, feeling ill. Pain: Complains of pain in anterior aspect of left upper chest Pain does not radiate. Pain began approx 1 week ago. Neuro: Level of Consciousness is awake, alert, obeys commands, Oriented to person, place, time, situation, Reports dizziness. Cardiovascular: Reports chest pain, fatigue, lightheadedness, Capillary refill < 3 seconds in bilateral fingers Patient's skin is warm and dry. Respiratory: Reports shortness of breath on exertion Airway is patent Respiratory effort is even, unlabored, Respiratory pattern is regular, symmetrical. GI: No signs and/or symptoms were reported involving the gastrointestinal system. Derm: Skin is intact, is healthy with good turgor, Skin is pink, warm \T\ dry. Musculoskeletal: Circulation, motion, and sensation intact. Range of motion: intact in all extremities. 10:04 Reassessment: Patient appears in no apparent distress at this time. No changes from tw2 previously documented assessment. Patient and/or family updated on plan of care and expected duration. Pain level reassessed. Patient is alert, oriented x 3, equal unlabored respirations, skin warm/dry/pink. 11:00 Reassessment: Patient appears in no apparent distress at this time. Patient and/or ph family updated on plan of care and expected duration. Pain level reassessed. Patient is alert, oriented x 3, equal unlabored respirations, skin warm/dry/pink. 11:42 Reassessment: Patient appears in no apparent distress at this time. Patient and/or ph family updated on plan of care and expected duration. Pain level reassessed. Patient is alert, oriented x 3, equal unlabored respirations, skin warm/dry/pink. Pt ambulated to restroom w/ steady gait, denies dizziness, awaiting transfer. 12:40 Reassessment: Patient appears in no apparent distress at this time. Patient and/or ph family updated on plan of care and expected duration. Pain level reassessed. Patient is alert, oriented x 3, equal unlabored respirations, skin warm/dry/pink. [facility] at bedside, pt transferred to [facility]. Vital Signs: 08:57 Weight 92.08 kg; Height 6 ft. 0 in. (182.88 cm); Pain 0/10; sv 09:07 BP 124 / 89; Pulse 95; Resp 28; Temp 97.7(TE); Pulse Ox 99% on R/A; mh5 10:04 BP 116 / 84; Pulse 91; Resp 23; Pulse Ox 98% on R/A; tw2 11:00 BP 114 / 72; Pulse 90; Resp 20; Pulse Ox 98% on 2 lpm NC; ph 11:44 BP 128 / 87; Pulse 93; Resp 24; Pulse Ox 99% on 2 lpm NC; ph 12:40 BP 122 / 79; Pulse 89; Resp 18; Temp 97.8; Pulse Ox 99% on 2 lpm NC; ph 08:57 Body Mass Index 27.53 (92.08 kg, 182.88 cm) sv ED Course: 08:49 Patient arrived in ED. rg4 08:50 Elliott Veras MD is Private Physician. rg4 08:59 Venancio Copeland MD is Attending Physician. soledad 09:00 Triage completed. sv 09:01 Arm band placed on. sv 09:06 Patient has correct armband on for positive identification. Bed in low position. Call 5 light in reach. Pillow given. managed services consultant on. Pulse ox on. NIBP on. 09:06 EKG done, by ED staff, reviewed by Venancio Copeland MD. mh5 09:36 Urine collected: clean catch specimen, cloudy. mh5 09:38 XRAY Chest (1 view) In Process Unspecified. EDMS 09:40 Initial lab(s) drawn, by wv, sent to lab. COVID swab sent to lab. Flu and/or RSV swab ph sent to lab. Inserted saline lock: 20 gauge in right antecubital area, using aseptic technique. Blood collected. Patient maintains SpO2 saturation greater than 95% on room air. 09:50 Nithya Naylor, RN is Primary Nurse. ph 10:11 No provider procedures requiring assistance completed. ph 12:40 Patient transferred, IV remains in place. ph Administered Medications: 10:28 Drug: Lasix 20 mg Route: IVP; Site: right antecubital; tw2 11:47 Follow up: Response: No adverse reaction ph 10:30 Drug: Rocephin - (cefTRIAXone) 1 grams {Note: IVP available on from pharmacy.} Route: tw2 IVPB; Infused Over: 5 mins; Site: right antecubital; 10:36 Follow up: Response: No adverse reaction; IV Status: Completed infusion; IV Intake: [id number] Intake: 10:36 IV: 10ml; Total: 10ml. tw2 Outcome: 09:51 ER care complete, transfer ordered by MD. rowe 12:40 Transferred by ground EMS to [facility]. 12:40 Condition: stable 12:40 Instructed on the need for admit. 12:49 Patient left the ED. em1 Signatures: Dispatcher [employer] Stephanie Stockton, Venancio Hager RN, MD MD cha Martinez, Eric em1 Nithya Naylor RN RN ph Wise, Tara, RN RN 2 Perla Rodriguez [facility] Linnette Bear [facility]
[2020-07-16 09:55] LABS: Urine Blood 2+ (NEG); Urine Glucose NEGATIVE (NEG); Urine Protein NEGATIVE (NEG); Urine Specific Gravity >1.030 (1.005-1.030); Urine pH 5.5 (5.0-7.0)
[2020-07-16 10:02] LABS: Basophils % 1.8 % (0-1.3); Hematocrit 40.8 % (36.0-45.0); Lymphocytes % 25.1 % (15.3-44.8); MPV 9.3 fL (7.6-11.3); RBC Red Blood Cell Count 4.54 M/uL (3.86-4.86)
--- NOTE | 2020-07-16 10:09 | RAD REPORT ---
EXAM DESCRIPTION: RAD - Chest Single View - 07/16/2020 9:38 am CLINICAL HISTORY: PAINleft-side with shortness of breath COMPARISON: Portable August 2019 TECHNIQUE: AP portable chest image was obtained 07/16/2020 9:38 am . FINDINGS: No focal, dense consolidations seen. Patient indicates left-sided chest pain. Interstitial pattern in the left lung field is similar. Right lung field shows increased opacification in the low er right lung field. This is subtle and probably artifact from imaging technique or possibly minimal atelectasis. Acute right lung field finding is doubtful in the setting of no clinical symptom. Sternotomy wires are in place. Heart and vasculature are normal. No measurable pleural effusion and n o pneumothorax. No acute bony abnormality seen. No acute aortic findings suspected. IMPRESSION: No acute cardiopulmonary process. As detailed above, no acute cardiopulmonary finding confirmed.
[2020-07-16 10:19] LABS: ALT/SGPT 17 U/L (12-78); AST/SGOT 15 U/L (15-37); Albumin 3.9 g/dL (3.4-5.0); Alkaline Phosphatase 71 U/L (45-117); BUN Blood Urea Nitrogen 16 mg/dL (7-18); Bicarbonate 27 mmol/L (21-32); Bilirubin Direct 0.1 mg/dL (0-0.2); Bilirubin Total 0.6 mg/dL (0.2-1.0); Glucose Level 104 mg/dL (74-106); Magnesium 1.8 mg/dL (1.8-2.4); NT PRO-BNP 1203 pg/mL (<125); Potassium 3.7 mmol/L (3.5-5.1); Protein, Total 7.5 g/dL (6.4-8.2); Sodium Level 142 mmol/L (136-145); Troponin (Emerg Dept Use Only) < 0.02 ng/mL (0.0-0.045)
[2020-07-16] MEDS ORDERED: FUROSEMIDE 20 MG/ 2ML VIAL ONE (10:33)
[2020-07-16] MEDS ORDERED: CEFTRIAXONE/SWI 1gm 1 GM/10 ML SYR ONE (10:33)
--- NOTE | 2020-07-16 19:33 | EKG ---
Test Date: 2020-07-16 Test Time: 09:01:17 Spray Machine Operator: RICHARD MEASUREMENT RESULTS: Intervals: Rate: 94 OR: 166 QRSD: 128 QT: 390 QTc: 487 [place]: P: 52 OR: 166 QRS: 63 T: 54 INTERPRETIVE STATEMENTS: Normal sinus rhythm Possible Left atrial enlargement Right bundle branch block Septal infarct, age undetermined Abnormal ECG Compared to ECG 08/31/2019 06:31:46 No significant changes Electronically Signed On 07-16-20 19:32:21 MIX MAKER by Cristi Lara
[2020-07-18 16:30] VITALS: TEMP 97.7
[2020-07-18 16:34] VITALS: BP 128/87; O2SAT 99
== END 2020-07-16 12:49 | disposition short-term general hospital (02) ==
LOC: ER 08:49
DX: R06.00 Dyspnea, unspecified (principal); N39.0 Urinary tract infection, site not specified; I50.9 Heart failure, unspecified; Z20.828 Contact with and (suspected) exposure to other viral communicable diseases; Z94.9 Transplanted organ and tissue status, unspecified; Z88.5 Allergy status to narcotic agent
CPT/HCPCS: 93005; 87088; 85025; 87086; 80048; 36415; 83735; 81025; 85610; 80076; 81003; 84484; 83880; 87804 ×2; 71045; 96375; 96374; 99285; U0003; J1940; J0696

== ENCOUNTER 2020-12-17 08:43 | Emergency (ER) | payer OTHER ==
--- OUTSIDE RECORDS SUMMARY | 2020-12-17 08:48 | XMS REPORT | Continuity of Care Document ---
:1970 Author Organization [facility] t Address [address] [place] [address] Care Team Providers Name Role Phone Asked, No Pcp Primary Care Physician Unavailable Clemencia Brady MA Attending Clinician Unavailable Ace ROBISON Attending Clinician Unavailable Swati Reid MD Attending Clinician Kyle Franco MD Attending Clinician Andrew Attending Clinician Unavailable Nieves BERRY Attending Clinician Provider Attending Clinician Unavailable Chandu Attending Clinician Unavailable Pavan Mccarthy Attending Clinician Unavailable Kim ROBISON Attending Clinician Unavailable Leah BERRY Attending Clinician Joel GAUTAM Attending Clinician Unavailable Gideon BERRY Attending Clinician Martin ROBISON Attending Clinician Unavailable Melinda BERRY Attending Clinician Kira GAUTAM Attending Clinician Unavailable Aniyah BERRY Attending Clinician Thang BERRY Attending Clinician EVANGELIST Admitting Clinician Unavailable JOAN Admitting Clinician Unavailable NIEVES Admitting Clinician Unavailable Payers Payer Name Policy Type Policy Effective Date Expiration Date [facility] ce Number 90 [id number] 2019 [place] DEGREE/ENTRUSTE 00:00:00 Spiritism NTRUST / 90 DEGREE BENEFITS COVERAGE [id number] Problems Condition Condition Condition Status Onset Resolution Last Treating Co mments Source Name Details Category Date Date Treatment Clinician Date Therapeuti Therapeuti Disease Active [place] drug c drug 4-30 Methodi monitoring monitoring 00:00: st 00 Pulmonary Pulmonary Disease Active Alejandro mendez embolism embolism 11-26 Method i on right on right 00:00: st 00 SOB SOB Disease Active [place] (shortness (shortness 11-26 Me th[facility] of breath) of breath) 00:00: st 00 COVID-19 COVID-19 Disease Active [place] 10-30 Methodi 00:00: st 00 Heart Heart Disease Active Overview: Pedro Luis n failure failure 10-25 [place] Metho di 00:00: g of this st note might be different from the original. Added automatic ally from request for surgery [id number] Essential Essential Disease Active 2019-08 Alejandro mendez hypertensi hypertensi [facility] [place] on on 00:00: st 00 COVID-19 COVID-19 Disease Active 2019-08 Overview: [place] virus virus [place] Methodi infection infection 00:00: g of this s note might be different from the original. March 2020 Covid infection with symptoms: Fever,chi lls, SOB, weakness / malase, cough, head aches,Not e related virtual visits Anxiety Anxiety Disease Active 2019-08 Overview: [place] Methodi 00:00: g of this st note might be different from the original. Long standing history of anxiety attacksAc companied with palpation s &/or chest pressure Chest pain Chest pain Disease Active 2019-08 Overview : [place] 09-18 [place] Methodi 00:00: g of this st note might be different from the original. Multiple ER visits and admits for chest pain/pres sure. Cardiac Cardiac Disease Active Overview: [place] dysrhythmi dysrhythmi 12-07 [place] Methodi a a 00:00: g of this st note might be different from the original. Added 12/04/2019 Intermitt ent c/o palpation s and chest pain.14 day [place] failed to record any occurence s Cardiac Cardiac Disease Active 2018-08 [place] transplant transplant 2-09 Me th[facility] rejection rejection 00:00: st 00 Other Other Disease Active Overview: Pedro Luis n heart heart 11-28 [place] Methodi failure failure 00:00: g of this st note might be different from the original. Added automatic ally from request for surgery [id number] Long-term Long-term Disease Active Alejandro stokanu use of use of 11-21 Methodi immunosupp immunosupp 00:00: st ressant ressant 00 medication medication Weakness Weakness Disease Active [place] 11-21 Methodi 00:00: st 00 Heart Heart Disease Active Overview: Pedro Luis bobby transplant transplant 04-01 [place] Methodi ed ed 00:00: g of this st note is different from the original. Images from the original note were not included. [place] : 1970 8 Heart Transplan tedPre hx [facility] Ector DCM,MIs x3 in 1999 & 2000Not seen [...] c/o nause/los s of appetite Testing today AdmitPost DC 09/1909/19/2011 / ChestLeft cathD/C PainNormc kelsie Admit via transfer from [facility] ER fo uncontrol ed BP/ chest pain upon exertionD ischarge clinic: Started op colchicin e 0.3 mg BID NoDSAs 70% Fk 7.9 Lajueu0pf COVID ? 10/14/20 10/22/20AM ap 373/ 10/30/214/ 01/20 SCR SCRASureP reLabRt BXLab&UA [id number] .12CX For c/o chest pressure, & not urinating + UTI (enteroco ccus f. )Start Cipro 500 x5 PCP referral for PM: , stop cochicine (Positive ) for COVID. BX cancelled & ambulator y Covid referral initiated for Patient had reaction to monoclona l antibody infusion (flushing , rash, Hypertens ambrose, tach )BNP 177, SCr 0.99, WBC 5.98 /Neutr 57.1 DSAs negCOVID CMV pendneg 8.6 /28.9 2/215.4 [facility] >ADMIT 11/26/20Fo r PE A-[facility] re 340.26 BNP 143, SCR 1.13 / GFR 57,: seen for SOB &chest pain. CT Chest PE protocol (+) for multi PE in rt. lobes 60-64 neg 6.8 2/2 , Allergies, Adverse Reactions, Alerts Allergy Allergy Status Severity Reaction(s) Onset Inactive Treating Comm ents Source Name Type Date Date Clinician Morphine Propensi Active Rash Rash and [place] ty to 11-21 vomiting. Methodi adverse 00:00: Can st reaction 00 tolerate s to codeine. drug Family History Family Member Diagnosis Comments Start Date Stop Date Source Natural father No Known Problems Alejandro ston Spiritism Natural mother No Known Problems Alejandro ston Spiritism Natural sister No Known Problems Alejandro ston Spiritism Social History Social Habit Start Date Stop Date Quantity Comments Source History [facility] Meth odist Alcohol Std Drinks History [facility] Meth odist Alcohol Binge ASSERTION [place] Method ist Exposure to Not sure [place] Metho dist SARS-CoV-2 (event) Tobacco use and 2020-11-26 2020-11-26 Never used [place] Khanna ethodist exposure 00:00:00 00:00:00 Alcohol intake 2020-11-26 2020-11-26 Current [facility] thodist 00:00:00 00:00:00 non-drinker of alcohol (finding) History SDIN 2018-11-21 2018-11-21 1 [place] Meth odist Alcohol Frequency 00:00:00 00:00:00 [birth year] F [place] Khanna ethodist 00:00:00 00:00:00 Smoking Status Start Date Stop Date Source Never smoker [place] t Medications Ordered Filled Start Stop Current Ordering Indication Dosage Frequency Signature Comments Components Source Medication Medication Date Date Medication? Clinician (SIG) Name Name apixaban Yes 5mg Q.5D Take 1 [place] (ELIQUIS) 5 5-05 tablet (5 Met hodi mg tablet 00:00: mg total) st 00 by mouth 2 (two) times a day. spironolact Yes 50mg QD Take 50 mg [place] one 4-30 by mouth Methodi (ALDACTONE) 18:49: daily. st 25 MG 37 tablet apixaban 2020- No 10mg Q.5D Take 2 [place] (ELIQUIS) 5 4-30 05-04 tablets Meth romel mg tablet 00:00: 23:59 ([address] 00 :00 total) by mouth 2 (two) times a day for 4 days. apixaban Yes follow [place] (Eliquis 4-28 package Methodi DVT-PE 00:00: instructio st Treat 30D 00 ns Start) 5 mg (74 tabs) tablets,dos e pack ciprofloxac 2020- No 500mg QD Take 1 [place] (Cipro) 10-22 tablet Method i 500 MG 00:00: 23:59 ([address] tablet 00 :00 total) by mouth daily for 5 days. For UTI colchicine 2020- No TAKE BY Alejandro mendez 0.6 mg 09-11 MOUTH 1/2 Methodi tablet 00:00: 00:[address] 00 :00 TIMES A DAY colchicine 2020- No .3mg Q.5D Take 0.5 [place] 0.6 mg 09-10 tablets Methodi tablet 00:00: 00:00 (0.[address] 00 :00 total) by mouth 2 (two) times a day for 90 days. ( take 1/2 a tablet twice a day = total of 0.6 mg daily) Effexor XR Yes TAKE 1 [place] 75 mg 24 hr 1-14 CAPSULE BY Nh thodi capsule 00:00: MOUTH st 00 EVERY MORNING colchicine 2019-08 .3mg Q.5D Take 0.5 [place] 0.6 mg 09-10 tablets Methodi tablet 00:00: 00:00 (0.[address] 00 :00 total) by mouth 2 (two) times a day. ( take 1/2 a tablet twice a day = total of 0.6 mg daily) docusate 2019-08 100mg Q.5D Take 1 [place] sodium 09-22 capsule Methodi (COLACE) 00:00: 23:59 ([address] 100 MG 00 :00 total) by capsule mouth 2 (two) times a day for 90 days. polyethylen 2019-08 17g QD Take 17 g [place] e glycol 09-22 by mouth Method i (MIRALAX) 00:00: 23:[address] 17 gram 00 :00 90 days. packet venlafaxine 2019-08 75mg QD Take 1 Alejandro ston XR 09-20 capsule Methodi (EFFEXOR-XR 00:00: 00:00 ([address] ) 75 MG 24 00 :00 total) by hr capsule mouth every morning. venlafaxine 2019-08 75mg QD Take 1 Alejandro ston XR 09-20-18 capsule Methodi (EFFEXOR-XR 00:00: 00:00 ([address] ) 75 MG 24 00 :00 total) by hr capsule mouth every morning for 30 days. pravastatin 2019-08 Yes TAKE 1 [place] (PRAVACHOL) 2-18 TABLET BY Met hodi 40 mg 00:00: MOUTH st tablet 00 EVERY DAY butalbital- 2019-08 1{tbl} Q6H Take 1 [place] acetaminoph 18 - tablet by [place] en-caff 00:00: 23:[address] (FIORICET) 00 :00 every 6 50-325-40 (six) mg per hours as tablet needed for headaches for up to 20 days. tacrolimus 2019-08 1mg QD Take 1 mg H rosalba (PROGRAF) 1 2-17 12-15 by mouth Met hodi MG capsule 17:59: 00:[address] 54 :00 evening. 2 mg in morning1 mg in evenin amLODIPine No 5mg QD Take 1 [place] (NORVASC) 5 04-05- tablet (5 Me thodi mg tablet 00:00: 23:59 mg total) st 00 :00 by mouth daily. benzonatate 2019- No 100mg [id number] Take 1 [place] (Tessalon 03-28- [id number] capsule Methodi Perles) 100 00:00: 23:59 3D ([address] MG capsule 00 :00 total) by mouth 3 (three) times a day as needed for cough for up to 30 days. mycophenola No 500mg Q.5D Take 1 [place] te 03-05 tablet Methodi (CELLCEPT) 00:00: 23:59 ([address] 500 mg 00 :00 total) by tablet mouth 2 (two) times a day. Z94.1 Heart TXP S/P tacrolimus No 2mg Q.5D Take 2 [place] (Prograf) 1 03-05 capsules Met hodi MG capsule 00:00: 23:59 ([address] 00 :00 total) by mouth 2 (two) times a day. Z94.1 Heart Txp S/P pantoprazol Yes 40mg QD Take 1 [place] e 5-04 tablet (40 Methodi (Protonix) 00:00: mg total) st 40 MG EC 00 by mouth tablet daily. metoprolol Yes 25mg QD Take 1 [place] succinate 12-03 tablet (25 Meth romel XL (Toprol 00:00: mg total) st XL) 25 mg 00 by mouth 24 hr daily. tablet pravastatin 2018-08 No 40mg QD Take 1 Alejandro ston (PRAVACHOL) 08-05 tablet (40 M ethodi 40 MG 00:00: 00:00 mg total) st tablet 00 :00 by mouth daily. mycophenola 2018-08- No 500mg Q.5D Take 1 [place] te 0-07 08-04 tablet Methodi (CELLCEPT) 00:00: 00:00 ([address] 500 mg 00 :00 total) by tablet mouth 2 (two) times a day. Z94.1 Heart TXP S/P calcium 2019- No 1{tbl} QD Take 1 [place] carbonate-v 01-02 tablet by Me dickey itamin D3 00:00: 23:[address] 500 mg-200 00 :00 daily. unit per tablet tacrolimus 2019- No 2mg Q.5D Take 2 [place] (PROGRAF) 1 11-24 capsules Met hodi MG capsule 00:00: 00:00 ([address] 00 :00 total) by mouth 2 (two) times a day. aspirin 81mg QD Take 81 mg Alejandro ston (ECOTRIN) 03-31 by mouth Metho di 81 MG 00:00: 23:[address] enteric 00 :00 coated tablet multivitami No 1{tbl} QD Take 1 [place] 03-31 tablet by Ramandeep (THERAGRAN) 00:00: 23:[address] tablet 00 :00 daily. Immunizations Ordered Immunization Filled Immunization Date Status Commen ts Source Name Name FLUCELVAX QUAD PF 2020-07-19 Completed [place] 00:00:00 Spiritism FLUCELVAX QUAD PF 2019-07-13 Completed [place] 00:00:00 Spiritism Vital Signs Vital Name Observation Time Observation Value Comments Source Systolic blood 2020-11-29 11:16:17 126 mm[Hg] [place] Spiritism pressure Diastolic blood 2020-11-29 11:16:17 77 mm[Hg] [place] [facility] pressure Heart rate 2020-11-29 11:16:17 88 /min [place] Body temperature 2020-11-29 11:16:17 35.83 Susan [place] [facility] Respiratory rate 2020-11-29 11:16:17 18 /min [place] [facility] Oxygen saturation in 2020-11-29 11:16:17 98 /min [place] Arterial blood by Pulse oximetry Body weight 2020-11-29 04:50:33 91.218 kg [place] BMI 2020-11-29 04:50:33 27.27 kg/m2 [place] Body height 2020-11-26 22:05:56 182.9 cm [place] Procedures Procedure Date / Time Performing Clinician Source Performed [id number] TACROLIMUS LEVEL, 2020-11-29 05:14:00 Blanca Reid Spiritism RANDOM BASIC METABOLIC PANEL 2020-11-29 05:14:00 Amanda Uriostegui on Spiritism [place] CBC WITH PLATELET AND 2020-11-29 05:14:00 Amanda Uriostegui on Spiritism DIFFERENTIAL [place] ESTIMATED GFR 2020-11-29 05:14:00 Amanda Uriostegui Met hodist Moisésle US DUPLEX VENOUS LOWER 2020-11-28 20:25:00 Tamia Franco EXTREMITY BILATERAL ECG 12-LEAD 2020-11-28 13:22:48 Hung Mayberry ethodist [id number] TACROLIMUS LEVEL, 2020-11-28 04:40:00 lBanca Reid RANDOM BASIC METABOLIC PANEL 2020-11-28 04:40:00 Amanda Uriostegui on Spiritism [place] CBC WITH PLATELET AND 2020-11-28 04:40:00 Amanda Uriostegui on Spiritism DIFFERENTIAL [place] THYROID STIMULATING 2020-11-28 04:40:00 Hung Mayberry HORMONE T4, FREE 2020-11-28 04:40:00 Hung Mayberry ethodist HEPATIC FUNCTION PANEL 2020-11-28 04:40:00 Hung Mayberry CYTOMEGALOVIRUS BY PCR 2020-11-28 04:40:00 Hung Mayberry ESTIMATED GFR 2020-11-28 04:40:00 Amanda Uriostegui Met jacob Frias DONOR SPECIFIC ANTIBODY 2020-11-28 04:40:00 Hung Mayberry [id number] TACROLIMUS LEVEL, 2020-11-27 05:41:00 Blanca Reid Spiritism RANDOM BASIC METABOLIC PANEL 2020-11-27 05:41:00 Amanda Uriostegui on Spiritism [place] HC COMPLETE BLD COUNT 2020-11-27 05:41:00 Bryant, Amanda [place] [facility] W/AUTO DIFF [place] ESTIMATED GFR 2020-11-27 05:41:00 Amanda Uriostegui Met hodist Rodriguez ANTI XA, UNFRACTIONATED 2020-11-27 05:41:00 Blanca Reid Spiritism TTE COMPLETE, WO CONTRAST, 2020-11-27 00:45:00 Blanca Reid W DOPPLER ([id number]) ANTI XA, UNFRACTIONATED 2020-11-27 00:28:00 Amanda Uriostegui Spiritism [place] MISCELLANEOUS REFERRAL 2020-11-27 00:16:00 Tamia Franco TEST PARTIAL THROMBOPLASTIN 2020-11-26 18:00:00 Blanca Reid Spiritism TIME (PTT) ANTI XA, UNFRACTIONATED 2020-11-26 18:00:00 Blanca Reid FACTOR VIII ASSAY 2020-11-26 18:00:00 Tamia Franco Spiritism ANTITHROMBIN III LEVEL 2020-11-26 18:00:00 Tamia Franco FUNCTIONAL PROTEIN C 2020-11-26 18:00:00 Tamia Franco FUNCTIONAL PROTEIN S 2020-11-26 18:00:00 Tamia Franco THYROID STIMULATING 2020-11-26 16:44:00 Tamia Franco Spiritism HORMONE T4, FREE 2020-11-26 16:44:00 Tamia Franco C-REACTIVE PROTEIN 2020-11-26 16:39:00 Tamia Francoist CARDIOLIPIN ANTIBODIES 2020-11-26 16:39:00 Tamia Franco BETA-2 GLYCOPROTEIN 1 2020-11-26 16:39:00 Tamia Franco ANTIBODY, IGG AND IGM COVID-19 QUALITATIVE PCR 2020-11-26 16:27:[address] ANGIOGRAM PE CHEST 2020-11-26 11:02:43 Blanca Reid Spiritism ECG 12-LEAD 2020-11-26 08:06:11 Michael Pickett Met hodist COMPREHENSIVE METABOLIC 2020-11-26 07:00:00 Michael Pickett Spiritism PANEL MAGNESIUM LEVEL 2020-11-26 07:00:00 Michael Pickett Met hodist HC COMPLETE BLD COUNT 2020-11-26 07:00:00 Michael Pickett on Spiritism W/AUTO DIFF CYTOMEGALOVIRUS BY PCR 2020-11-26 07:00:00 Michael Pickett Spiritism LDH 2020-11-26 07:00:00 Michael Pickett Met hodist B NATRIURETIC PEPTIDE 2020-11-26 07:00:00 Michael Pickett on Spiritism TROPONIN 2020-11-26 07:00:00 Michael Pickett Met hodist PROTHROMBIN TIME WITH INR 2020-11-26 07:00:00 Michael Pickett Spiritism [id number] TACROLIMUS LEVEL, 2020-11-26 07:00:00 Michael Pickett Spiritism RANDOM ESTIMATED GFR 2020-11-26 07:00:00 Michael Pickett Met hodist RESPIRATORY PATHOGEN PANEL 2020-11-06 08:05:00 Michael Pickett Spiritism WITH COVID-19 COVID-19 ANTI-SPIKE IGG 2020-11-06 08:05:00 Michael Pickett Spiritism ANTIBODY TITER COMPREHENSIVE METABOLIC 2020-11-06 08:05:00 Michael Pickett Spiritism PANEL HC COMPLETE BLD COUNT 2020-11-06 08:05:00 Michael Pickett on Spiritism W/AUTO DIFF B NATRIURETIC PEPTIDE 2020-11-06 08:05:00 Michael Pickett on Spiritism [id number] TACROLIMUS LEVEL, 2020-11-06 08:05:00 Michael Pickett Spiritism RANDOM PROTHROMBIN TIME WITH INR 2020-11-06 08:05:00 Michael Pickett ESTIMATED GFR 2020-11-06 08:05:00 Michael Pickett Met hodist COMPREHENSIVE METABOLIC 2020-10-29 08:40:00 Michael Pickett Spiritism PANEL MAGNESIUM LEVEL 2020-10-29 08:40:00 Michael Pickett Met hodist HC COMPLETE BLD COUNT 2020-10-29 08:40:00 Michael Pickett on Spiritism W/AUTO DIFF B NATRIURETIC PEPTIDE 2020-10-29 08:40:00 Michael Pickett on Spiritism PROTHROMBIN TIME WITH INR 2020-10-29 08:40:00 Michael Pickett URINALYSIS, AUTOMATED WITH 2020-10-29 08:40:00 Michael Pickett MICROSCOPY ESTIMATED GFR 2020-10-29 08:40:00 Michael Pickett Met hodist DONOR SPECIFIC ANTIBODY 2020-10-29 08:40:00 Michael Pickett Spiritism COVID-19 QUALITATIVE PCR 2020-10-29 08:27:00 Blanca Reid Spiritism ECG 12-LEAD 2020-10-22 08:20:03 Michael Pickett Met hodist COMPREHENSIVE METABOLIC 2020-10-22 07:35:00 Michael Pickett Spiritism PANEL MAGNESIUM LEVEL 2020-10-22 07:35:00 Michael Pickett Met hodist HC COMPLETE BLD COUNT 2020-10-22 07:35:00 Michael Pickett on Spiritism W/AUTO DIFF CYTOMEGALOVIRUS BY PCR 2020-10-22 07:35:00 Michael Pickett B NATRIURETIC PEPTIDE 2020-10-22 07:35:00 Michael Pickett on Spiritism TROPONIN 2020-10-22 07:35:00 Michael Pickett Met hodist PROTHROMBIN TIME WITH INR 2020-10-22 07:35:00 Michael Pickett [id number] TACROLIMUS LEVEL, 2020-10-22 07:35:00 Michael Pickett Spiritism RANDOM ESTIMATED GFR 2020-10-22 07:35:00 Michael Pickett DONOR SPECIFIC ANTIBODY 2020-10-22 07:35:00 Michael Pickett URINE CULTURE 2020-10-14 09:18:00 Ronel Meneses CBC WITH PLATELET AND 2020-10-14 09:18:00 Ronel Meneses Spiritism DIFFERENTIAL COMPREHENSIVE METABOLIC 2020-10-14 09:18:00 Ronel Meneses PANEL URINALYSIS, ROUTINE WITH 2020-10-14 09:18:00 Ronel Meneses MICROSCOPIC EXAMINATION ON POSITIVES MICROSCOPIC EXAMINATION 2020-10-14 09:18:00 Ronel Mneeses MAGNESIUM LEVEL 2020-10-14 09:18:00 Ronel Meneses [id number] TACROLIMUS LEVEL, 2020-10-14 09:18:00 Ronel Meneses RANDOM CBC WITH PLATELET AND 2020-08-15 07:55:00 Rita Lawrence Spiritism DIFFERENTIAL COMPREHENSIVE METABOLIC 2020-08-15 07:55:00 Rita Lawrence Spiritism PANEL MAGNESIUM LEVEL 2020-08-15 07:55:00 Rita Lawrence odist [id number] TACROLIMUS LEVEL, 2020-08-15 07:55:00 Rita Lawrence Spiritism RANDOM [id number] TACROLIMUS LEVEL, 2020-07-24 08:02:00 Rita Lawrence Spiritism RANDOM CBC WITH PLATELET AND 2020-07-24 08:02:00 Rita Lawrence n Spiritism DIFFERENTIAL COMPREHENSIVE METABOLIC 2020-07-24 08:02:00 Rita Lawrence Spiritism PANEL MAGNESIUM LEVEL 2020-07-24 08:02:00 Rita Lawrence Meth odist [id number] TACROLIMUS LEVEL, 2020-07-19 04:55:00 Hung Mayberry Spiritism RANDOM BASIC METABOLIC PANEL 2020-07-19 04:55:00 Tamia Franco HC COMPLETE BLD COUNT 2020-07-19 04:55:00 Tamia Franco W/AUTO DIFF ESTIMATED GFR 2020-07-19 04:55:00 Tamia Franco MAGNESIUM LEVEL 2020-07-19 04:55:00 Tamia Franco Spiritism PHOSPHORUS LEVEL 2020-07-19 04:55:00 Tamia Franco CV LEFT HEART CATH LV GRAM 2020-07-18 14:32:04 Amanda Uriostegui Spiritism WITH CORS [place] [id number] TACROLIMUS LEVEL, 2020-07-18 05:43:00 Hung Mayberry RANDOM BASIC METABOLIC PANEL 2020-07-18 05:43:00 Tamia Franco HC COMPLETE BLD COUNT 2020-07-18 05:43:00 Tamia Franco W/AUTO DIFF ESTIMATED GFR 2020-07-18 05:43:00 Tamia Franco MAGNESIUM LEVEL 2020-07-18 05:43:00 Tamia Franco PHOSPHORUS LEVEL 2020-07-18 05:43:00 Tamia Franco XR CHEST 1 VW PORTABLE 2020-07-17 11:22:06 Tamia Franco [id number] TACROLIMUS LEVEL, 2020-07-17 05:47:00 Hung Mayberry RANDOM CYTOMEGALOVIRUS BY PCR 2020-07-17 05:47:00 Hung Mayberry THYROID STIMULATING 2020-07-17 05:47:00 Hung Mayberry on Spiritism HORMONE T4, FREE 2020-07-17 05:47:00 Hung Mayberry ethodist IMMUNOGLOBULIN G 2020-07-17 05:47:00 Hung Mayberry LIPID PANEL 2020-07-17 05:47:00 Hung Mayberry ethodist BASIC METABOLIC PANEL 2020-07-17 05:47:00 Tamia Franco CBC WITH PLATELET AND 2020-07-17 05:47:00 Tamia Franco DIFFERENTIAL MAGNESIUM LEVEL 2020-07-17 05:47:00 Tamia Franco ESTIMATED GFR 2020-07-17 05:47:00 Tamia Franco TTE COMPLETE, WO CONTRAST, 2020-07-16 21:45:00 Hung Mayberry W DOPPLER ([id number]) URINE CULTURE 2020-07-16 19:26:[address] HEAD WO CONTRAST 2020-07-16 18:55:56 Hung Mayberry on Spiritism URINALYSIS SCREEN AND 2020-07-16 18:15:00 Tamia Franco MICROSCOPY, WITH REFLEX TO CULTURE US DUPLEX VENOUS LOWER 2020-07-16 17:15:00 Hung Mayberry EXTREMITY BILATERAL US CAROTID DUPLEX 2020-07-16 17:00:00 Hung Mayberry BILATERAL INFLUENZA ANTIGEN TEST, 2020-07-16 16:30:00 Hung Myaberry REFLEX NEGATIVE TO RPP RESPIRATORY PATHOGEN PANEL 2020-07-16 16:30:00 Hung Mayberry WITH COVID-19 HCG QUALITATIVE, SERUM 2020-07-16 16:17:00 Tamia Franco SCREEN BLOOD CULTURE, AEROBIC & 2020-07-16 16:15:00 Hung Mayberry ANAEROBIC BLOOD CULTURE, AEROBIC & 2020-07-16 16:00:00 Hung Mayberry ANAEROBIC HC COMPLETE BLD COUNT 2020-07-16 16:00:00 Hung Mayberry W/AUTO DIFF BASIC METABOLIC PANEL 2020-07-16 16:00:00 Hung Mayberry HEPATIC FUNCTION PANEL 2020-07-16 16:00:00 Hung Mayberry TROPONIN 2020-07-16 16:00:00 Hung Mayberry ethodist ESTIMATED GFR 2020-07-16 16:00:00 Hung Mayberry ethodist DONOR SPECIFIC ANTIBODY 2020-07-16 16:00:00 Hung Mayberry XR CHEST 1 VW PORTABLE 2020-07-16 15:11:42 Hung Mayberry ECG 12-LEAD 2020-07-16 15:10:22 Hung Mayberry M ethodist COVID-19 QUALITATIVE PCR 2020-07-16 15:07:00 Hung Mayberry MAGNESIUM LEVEL 2020-04-01 07:57:00 Rita Lawrence Meth odist CBC WITH PLATELET AND 2020-04-01 07:57:00 Rita Lawrence DIFFERENTIAL COMPREHENSIVE METABOLIC 2020-04-01 07:57:00 Rita Lawrence PANEL [id number] TACROLIMUS LEVEL, 2020-04-01 07:57:00 Rita Lawrence RANDOM Plan of Care Planned Activity Planned Date Details Comments Source Future Scheduled 2021-03-02 INFLUENZA VACCINE [place] [facility] Test 00:00:00 [code = INFLUENZA VACCINE] Future Scheduled 1993 Screening for [facility] thodist Test 00:00:00 malignant neoplasm of cervix (procedure) [code = 990946809] Future Scheduled 1990 Hepatitis C [place] Met hodist Test 00:00:00 screening (procedure) [code = 359856918] Future Scheduled 1984 COVID-19 VACCINE (1) Alejandro mendez Spiritism Test 00:00:00 [code = COVID-19 VACCINE (1)] Future Scheduled 1982 DIABETES: RETINAL [place] [facility] Test 00:00:00 EYE EXAM [code = DIABETES: RETINAL EYE EXAM] Future Scheduled 1982 DIABETIC FOOT EXAM Melquiades contreras Spirit[facility] Test 00:00:00 [code = DIABETIC FOOT EXAM] Encounters Start End Encounter Admission Attending Care Care Encounter Source Date/Time Date/Time Type Type Clinicians Facility Department ID 2020-11-26 2020-11-29 Inpatient [facility] [id number] [place] 00:00:00 00:00:00 TAMIA [address] 2020-11-26 2020-11-26 Outpatient [facility] [id number] [place] 00:00:00 00:00:00 MICHAEL [address] 2020-11-26 2020-11-26 Outpatient NIEVES, [facility] [id number] [place] 00:00:00 00:00:00 MICHAEL [address] 2020-11-26 2020-11-26 Outpatient BLANCA REID [facility] [id number] [place] 00:00:00 00:00:[address] 2020-11-06 2020-11-06 Outpatient NIEVES [facility] [id number] [place] 00:00:00 00:00:00 MICHAEL [address] 2020-10-31 2020-10-31 Outpatient NIEVES [facility] [id number] [place] 00:00:00 00:00:00 MICHAEL [address] 2020-10-29 2020-10-29 Outpatient NIEVES [facility] [id number] [place] 00:00:00 00:00:00 MICHEAL [address] 2020-10-29 2020-10-29 Outpatient NIEVES [facility] [id number] [place] 00:00:00 00:00:00 MICHAEL [address] 2020-10-22 2020-10-22 Outpatient NIEVES [facility] [id number] [place] 00:00:00 00:00:00 MICHAEL [address] 2020-10-22 2020-10-22 Outpatient NIEVES [facility] [id number] [place] 00:00:00 00:00:00 MICHAEL [address] 2020-07-30 2020-07-30 Outpatient MELINDA [facility] [id number] [place] 00:00:00 00:00:00 ASHRITH [address] 2020-07-16 2020-07-19 Inpatient JOAN, [facility] [id number] [place] 00:00:00 00:00:00 TAMIA [address] 2020-04-05 2020-04-05 Outpatient NIEVES, [facility] [id number] [place] 00:00:00 00:00:00 MICHAEL [address] 2019-12-04 2019-12-04 Outpatient NIEVES, [facility] [id number] [place] 00:00:00 00:00:00 MICHAEL [address] 2019-12-04 2019-12-04 Outpatient NIEVES [facility] [address] [place] 00:00:00 00:00:00 MICHAEL [address] 2019-12-04 2019-12-04 Outpatient NIEVES [facility] [address] [place] 00:00:00 00:00:00 MICHAEL [address] 2019-08-07 2019-08-07 Outpatient CAITIE [facility] 482 [id number] [place] 00:00:00 00:00:[address] 2019-07-10 2019-07-13 Inpatient BLANCA REID [facility] [id number] 83 [place] 00:00:00 00:00:[address] Results Test Description Test Time Test Comments Results Result Comments Source Miscellaneous referral test 2020-12-03 13:32:54 Test Item Value Reference Range Interpretation Comme nts Misc test name (test FACV PTPCR code = 2566) Mis test result (test see comment Facto r V Leiden (F5) R506Q code = 1730) Mutation [facility] est code [id number] FACV Specimen Whole Blood - - - - - - - - - - - - - - - - - - - - - - - - - - - - - - Factor V Leiden (F5) R 506Q Mutation Negative Indic ation for testing: Assess genetic risk for thrombosis. NEGATIVE: The factor V Leiden variant, c.1601G>A; p.Ar h434Ydx, was not detected. This does not exclude a genetic cause for thrombophilia. If this individual has had a previous venous thromboe mbolism, this negative result is unlikely to significantly r educe the risk for recurrence; thus, future clinical manage ment to reduce recurrence shou ld not be altered. This r esult has been reviewed and ap proved by Daryn Johnson, Ph.D. BACKG ROUND INFORMATION: Fa ctor V Leiden (F5) R506Q Muta tion CHARACTERISTICS : Venous thromboembolism (VTE) is multifactorial caused by a combination of genetic and environmental f actors. The Factor V Leiden (FVL) variant is the most com mon cause of inherited VTEs, accounting for over 90 percent of activated protein C (APC) resistance. Because the FVL variant eliminates the APC cleavage site, factor V is inactivated slower, thus pe rsisting longer in blood circul ation, leading to more thrombi n production. Other genetic r isk factors for VTE include, ma le sex and variants in ant ithrombin, protein C, prot ein S, or factor XIII. Non-bhumi ic risk factors include, age, s moking, prolonged immob ilization, malignant neopl asms, surgery, , oral contraceptives, estrogen replac ement therapy, tamoxifen and r aloxifene therapy.INCIDEN CE OF FACTOR V LEIDEN VARIANT: Approximately 5 percent of Cauc asians, 2 percent of Hisp anics, 1 percent of Amer icans and 0.5 percent of Danielle ns are heterozygous; h omozygosity occurs in 1 in 1500 Caucasians.INHE RITANCE: Semi-dominant; both heterozygotes a nd homozygotes are at increase d risk for VTE.PENETRANCE: Lifetime risk of VTE is 10 pe rcent for heterozygotes a nd 80 percent of homozygotes.CAU SE: The pathogenic gain of function in the F5 gene karis iant c.1601G>A (p.Hmw728Sgt). Legacy nomenclature: R 506Q (1691G>A) CLINICAL SENSIT IVITY: 20-50 percent of jin viduals with an isolated VTE pradhan ve the FVL variant. METHOD OLOGY: Polymerase huber n reaction and fluorescence monitoring.ANAL YTICAL SENSITIVITY AND SPECIFICITY: 99 percent.LIMITAT IONS: Diagnostic errors can occu r due to rare sequence variat ions. F5 gene mutations, othe r than p.Ytq551Wmi, wi ll not be detected. This test was developed and i ts performance characteristics determined by [facility]. It has not been cleared or approved by the [place] Food and Won g Administration. This test was performed in a CLIA certified laboratory and is intended for clinical purpos es. Counseling and informed co nsent are recommended for genetic testing. Consen t forms are available onlin e. Prothrombin (F2 ) c.*97G>A (X48736C) Patho genic Variant [facility] test code 5905129 PT PCR Specimen Whole Blood - - - - - - - - - - - - - - - - - - - - - - - - - - - - - - Prothrombin (F2) [id number] Va riant Negative Indication for testing: Assess genetic risk fo r thrombosis. NEGATIVE: The F actor II, prothrombin G20 210A mutation, was not detecte d. Other causes of elevated pro thrombin levels and hereditary forms of venous thrombosis have not been excluded. Recom mendations: If clinically jin cated, testing for other inher ited or acquired thrombophilic d isorders is recommended inc luding DNA testing for the factor V Leiden mutation, measu rement of total plasma homocyst eine concentration, serological assays for anti cardiolipin antibodies, mul tiple phospholipid-de pendent coagulation ass ays for lupus inhibitor, prot ein C activity, protein S activ ity or free protein S antig en, and antithrombin ac tivity. This result has been reviewed and approved by Florentin Hoffman M.D. BACKGROUND INFO RMATION: Prothrombin (F2 ) c.*97G>A (N25889P) Pathogenic VariantCHARACTE RISTICS: The Factor II, c.*9 7G>A (X45195T) pathogenic vari ant is a common genetic risk fa ctor for venous thrombosis asso ciated with elevated prothr ombin levels leading to incr eased rates of thrombin genera tion and excessive growt h of fibrin clots. The expr ession of Factor II thrombophili a is impacted by coexisting gene tic thrombophilic d isorders, acquired thromb ophilic disorders (eg, malignancy, hyperhomocystei nemia, high factor VIII lev els), and circumstances i ncluding: , oral contraceptive use, hormone re placement therapy, select ambrose estrogen receptor modula tors, travel, central venous catheters, surgery, and or eddie transplantation .INCIDENCE: Approximately 2 percent of Caucasians and 0.3 percent of Dorota ns are heterozygous; h omozygosity occurs in 1 in 10,000 individuals. IN HERITANCE: Incomplete auto somal dominant.PENETR ANCE: The risk of thrombosis i s increased 2-4 fold for hetero zygotes and further increas ed for homozygotes.CAU SE: Homozygosity or heterozygosi ty for F2 c.*97G>A (G2021 0A). PATHOGENIC VARIANT TESTED: F2 c.*97G>A (F11458H).CLINI SILVANO SENSITIVITY FOR VENOUS THRO MBOSIS: Approximately 1 0 percent.METHODO LOGY: Polymerase chain reaction and fluorescence monitoring.ANAL YTICAL SENSITIVITY AND SPECIFICITY: 99 percent.LIMITAT IONS: Diagnostic errors can occu r due to rare sequence variat ions. F2 gene variants, other than c.*97G>A (F95632I), will not be detected. This test was developed and i ts performance characteristics determined by [facility]. It has not been cleared or approved by the [place] Food and Won g Administration. This test was performed in a CLIA certified laboratory and is intended for clinical purpos es. Counseling and informed co nsent are recommended for genetic testing. Consen t forms are available onlin e. Tricia t performed by: [employer] [place] [id number] LAUREN (test code = LAUREN) 1.9FAC5L - Factor V Leiden (F5) R506Q Mutation [facility] Test ID: [id number]: Whole Blood EDTA2.9PTPCR - Prothrombin (F2) c.*97G>A (J34045C) Pathogenic [facility]ariantRE[facility] Test ID: [id number]: Whole Blood EDTA [facility] specific [id number] 07:03:06 Test Item Value Reference Range Interpretation Comments DSA serum ID (test code [id number] = 5858) DSA serum collection D&T 11/28/2020 04:40 AM (test code = 5859) DSA class I antibody Negative assignment (test code = 5862) DSA antibody I comments NONE (test code = 5863) DSA cPRA class I (test 0 code = 5860) DSA class II antibody Negative assignment (test code = 5864) DSA antibody II comments NONE (test code = 5865) DSA cPRA class II (test 0 code = 5861) Case number (test code = [id number]) Donor specific antibody See link below for (test code = 1080) PDF Lab Report [place] [facility] duplex venous lower [id number] 08:37:00Interface, Radiology Results In - 11/29/2020 8:38 AM CDT Vascular Ultrasound Laboratory Lower Extremity Venous Report [id number] [address] Pat.Name: MINGO FOUNTAIN Pat.ID: [id number] .Date: 11/28/2020 Refer.MD: TAMIA FRANCO MD Exam Time: 7:49:00PM Study Type:LE Venous Height: 72in Age: 9 1970,50Y Sex: FEMALE Sonogrphr: CHESTER Albert, CIELO Pat. Stat.:Inpatient Room: [address] Vol: , CPT - 4: [address]86 Echo Event ID:[id number] Order ID: [id number] Reason for Study:Leg deep vein thrombosis (DVT) suspected. H oforthotopic heart transplant, melanoma, HTN, HLD, Covid-19.Procedures: Colorflow, Grayscale/2D, Pulsed wave DopplerRace: C SUMMARY: Deep Veins Superficial Veins* Normal Reflux Criteria: < 1 second * Normal RefluxCriteria: < 0.5 seconds * Abnormal Reflux Criteria: > or equal to 1 second * Abnormal RefluxCriteria: > or equal to 0.5 seconds DUPLEX SCAN OBSERVATIONS Deep Veins Superficial Veins Right Left Right Left GSV (prox) Normal NormalCFV Normal Normal (above knee)Femoral Normal Normal GSV (dist) Normal NormalProfunda Normal Normal (below knee)Popliteal Normal NormalPT (prox) Normal Normal SSV Normal NormalPT (dist) Normal Normal Peroneal Normal Normal Gastrocs Normal NormalRIGHT: There is normal compressibility with no evidence of echogenicmaterial noted within the lumen of the visualized veins. Color flowand Doppler signals are normal.LEFT: There is normal compressibility with no evidence ofechogenic material noted within the lumen of the visualized veins.Color flow and Doppler signals are normal.PRELIMINARY FINDINGS:1. No evidence of venous thrombosis of the visualiz ed veins,bilaterally.PHYSICIAN INTERPRETATION: Venous examination of the both lower extremities demonstrated noevidence of venous thrombosis in the visualized veins. Normalcompressibility and augmentation of all veins visualized. FINDINGS: Signed 11/29/2020 08:37 Valarie Vickers MD, [facility] 12 [id number] 16:25:55 Test Item Value Reference Range Interpretation Comments Ventricular rate (test 84 code = 253) Atrial rate (test code = 84 255) OR interval (test code = 178 266) QRSD interval (test code 134 = 260) QT interval (test code = 398 264) QTC interval (test code = 470 265) P axis 1 (test code = 60 267) QRS axis 1 (test code = 61 268) T wave axis (test code = 26 270) EKG impression (test code Normal sinus = 273) rhythm-Possible Left atrial enlargement-Right bundle branch block-Abnormal ECG- [place] [facility] Complete, (w Contrast, Strain and 3D if needed)2020-11-27 16:39:00Interface, Radiology Results In - 11/27/2020 4:39 PM CDT Echocardiography Report [address] [place] [address], [address]Name: MINGO FOUNTAIN.ID: [id number] .Date: 11/26/2020 Refer.MD: BLANCA REID MD Exam Time: 10:56:00 PM Study Type:Routine Echo Height: 72in Weight: 203lb BSA: 2.15 m2 Age: 9 1970,50Y Sex: FEMALE BP: 118/72 HR: 84 bpm Sonogrphr: Anthony Cohn [facility] Pat. Stat.:Inpatient Room: [place] [address] Study Status:Final Echo Event ID:[id number] Order ID: [id number] Reason for Study:Heart allograft dysfunction, To assess LV Function.History / Clinical:Cancer, Heart TransplantProcedures: 2D Echo, Colorflow Doppler, P ortable, StrainRace: C SUMMARY:------- LV size is normal. LV EF is normal.Estimated EF is 60-64%.RV systolic function is moderately depressed.Estimated PA systolic pressure is 41 mmHg, assuming a mean RAP of 5mmHg.Mild to moderate tricuspid regurgitation FINDINGS: LV: LV size is normal. Normal average LV global longitudinal strain at -18.6%. LV EF is normal. Overall wall motion is normal. Septal motion is paradoxical. Estimated EF is 60- 64%.RV: RV size is enlarged. RV systolic function is moderately depressed. LA: LA size: post-transplantRA: RA size: post- transplantAO: Aortic root diameter is normal.DONNA: No pericardial effusion.AV: No structural AV abnormalitiesnoted.MV: No structural MV abnormalities noted. Mild mitral regurgitation. PV: No structural PV abnormalities noted. Mild pulmonic regurgitation. TV: No structural TV abnormalities noted. Mild to moderate tricuspid regurgitationOther: Estimated PA systolic pressure is 41 mmHg, assuming a mean RAP of 5 mmHg. JORDAN SUREMENTS: 2DParasternal Long [place] Ao An 1.9 cm LVPWd 0.99 cm Ao Rtd 2.4 cm Index 1.1 cm/m2 LA Ds 5.7 cm IVSd 1 cm RWT 0.45 LVIDd 4.4 cm Index 2 cm/m2 LV Mass 148 g (87-129) LVIDs 3 cm LVM Index 69 g/m2 LV%fs 32 % LVOT 1.9 cm LA Sng Plane LA Area 45 cm2 (8.8-23.4) LA Vol 187 ml Index 87 ml/m2 LA LngAx 8.8 cm RA Sng Plane RA Vol 111 ml Index 52 ml/m2 RA LngAx 8.5 cm RA Area 35 cm2 (8.3-19.5)LVOT LVOT Area 2.8 cm2 DOPPLERLVOT Stroke Vol & Cardiac Out LVOT TVI 25 cm HR 83 bpm LVOT LVOT SV 72 ml LVOT CO 6 l/min SVi 33 ml/m2 LVOT CI 2.8 l/m/m2 Signed 11/27/2020 04:39 Aleena York M.D.[place] [facility] Angiogram Pe [id number] 11:16:45Hm Interface, Radiology Results 11/26/2020 11:19 AM CDT EXAMINATION: CT ANGIOGRAM PE CHESTCLINICAL HISTORY: R07.9 Chest pain unspecified, U07.1 COVID- 19, Post heart recipient who had COVID 6 [address]CT of chest PE protocolTECHNIQUE: PE PROTOCOL: CT angiographic images of the chest were obtained during intravenous administration of iodinated contrast. Computerized reformatted images and 3-D MIP images were also obtained andarchived (CT pulmonary embolus protocol). CT imaging was performed with iterative reconstruction technique and/or automated exposure control to reduce radiation dose.COMPARISON: November 21, 2018FINDINGS:Pulmonary arteries: There are subsegmental pulmonary emboli in the right upper lobe (see image 97 series 2) and right lower lobe (image 209). Embolic burden is small. Main pulmonary artery diameter is 3.5 cm. Right ventricular to left ventricular diameter ratio is less than 1.Lungs and airways: Minimalscarring, predominantly in the upper lobes/apices. No acute airspace disease. Pleura: Minimal posterior pleural thickening bilaterally, right greater than left, with a few associated small calcified pleural plaques. No pleural effusion or pneumothorax.Mediastinum and lymph nodes: No lymphadenopathy. Cardiovascular: Surgical changes status post heart transplant, with markedly patulous atria and mildlydilated right and left ventricles.Upper abdomen: There are calcified splenic granulomas.Musculoskelet al: Prior median sternotomy. Scattered degenerative osseous changes.IMPRESSION:1.Small burden subsegmental pulmonary emboli in the right upper and lower lobes.2.Surgical changes status post heart transp lant.[id number] attempts to reach the clinic were unsuccessful. Dr. Haile spoke with the patient and sent the patient back to clinic.[facility] pathogen panel with [id number] 12:55:06 Test Item Value Reference Interpretation Comments Range Adenovirus PCR Not Detected Specimen (test code = 7092) Informati onSpecimen Source: NasopharyngealS pecimen Site: swab Coronavirus HKU1 Not Detected PCR (test code = 7093) Coronavirus NL63 Not Detected PCR (test code = 7094) Coronavirus 229E Not Detected PCR (test code = 7095) Coronavirus OC43 Not Detected PCR (test code = 7096) Human Not Detected metapneumovirus PCR (test code = 7097) Human Not Detected rhinovirus/enterovi erin PCR (test code = 7098) Influenza A PCR Not Detected (test code = 7099) Influenza A/H1 PCR Not Reported (test code = 7100) Influenza A/H3 PCR Not Reported (test code = 7102) Influenza A/H1-2009 Not Reported PCR (test code = 7101) Influenza B PCR Not Detected (test code = 7104) Parainfluenza virus Not Detected 1 PCR (test code = 7105) Parainfluenza virus Not Detected 2 PCR (test code = 7106) Parainfluenza virus Not Detected 3 PCR (test code = 7107) Parainfluenza virus Not Detected 4 PCR (test code = 7108) Respiratory Not Detected syncytial virus PCR (test code = 7109) Bordetella Not Detected pertussis PCR (test code = 3901145) Bordetella Not Detected parapertussis PCR (test code = 6183273) Chlamydia Not Detected pneumoniae PCR (test code = 3753) Mycoplasma Not Detected pneumoniae PCR (test code = 7110) COVID-19 Not Detected qualitative PCR result (test code = 51282-1) [place] [facility] [id number] 18:09:00 Test Item Value Reference Range Interpretation Comments WBC, UA (test code 0-5 See_Comment [Automat ed = 5821-4) message] The system which generated this result transmit siddhartha reference range : 0 - 5 /hpf. The reference range was not used to interpret this result as normal/abnormal . RBC, UA (test code 0-2 See_Comment [Automat ed = 84675-5) message] The system which generated this result transmit siddhartha reference range : 0 - 2 /hpf. The reference range was not used to interpret this result as normal/abnormal . Epithelial cells 0-10 See_Comment [Automated (non renal) (test message] T he code = 5787-7) system which generated this result transmit siddhartha reference range : 0 - 10 /hpf. The reference range was not used to interpret this result as normal/abnormal . Mucus, UA (test Present Not Estab. code = 8247-9) Bacteria, UA (test None seen None seen/Few code = 5769-5) LAUREN (test code = Performed at: 01 LAUREN) - [facility] [id number] Director: José Parmar MD, Phone: [phone] [place] MethodistUrinalysis, routine with microscopic examination on positives 2020-10-15 18:09:00 Test Item Value Reference Range Interpretation Comments Specific gravity, 1.018 1.005-1.030 urine (test code = 2965-2) pH, urine (test code 5.5 5.0-7.5 = 5803-2) Color, UA (test code Yellow Yellow = 5778-6) Appearance (test code Clear Clear = 5767-9) WBC esterase, urine Trace Negative A (test code = 5799-2) Protein, UA (test Negative Negative/Trace code = 93417-8) Glucose, urine (test Negative Negative code = 2159-9) Ketones, UA (test Negative Negative code = 4834-8) Occult blood, urine Negative Negative (test code = 5794-3) Bilirubin, UA (test Negative Negative code = 5770-3) Urobilinogen, UA 0.2 mg/dL 0.2-1.0 (test code = 34827-6) Nitrite, UA (test Negative Negative code = 5802-4) Microscopic See below: Microscopic was examination (test indicated and was code = 42565-7) performed. LAUREN (test code = LAUREN) Performed at: - [facility] [id number] Director: José Parmar MD, Phone: [phone] Lab Interpretation Abnormal (test code = 30840-3) [facility] lab [id number] 15:02:51After obtaining informed consent, the patient was brought to the cardiac catheterization suite. The right groin was prepped and draped in normal sterile fashion. The right femoral artery was located bypalpation and ultrasound, and 1% xylocaine was used as local anesthetic. The artery was subsequentlyaccessed using the modifed Seldinger technique, and a 4F glidesheath was inserted. JL4 and JR4 catheters were advanced over a J wire to access the left and right coronary systems, respectively, and selective coronary angiography was performed. Standard views were obtained. Moderate sedation was administered with physician supervision beginning at 2:14 for a total of 25 minutes.Findings:Mild (Grade I) CAV without focal stenoses.[facility] 1 Vw [id number] 11:31:44Hm Interface, Radiology Results Incoming 07/17/2020 11:34 AM CST EXAMINATION: XR CHEST 1 VW PORTABLECLINICAL HISTORY: sob rule out Covid 19COMPARISON: Most RecentIMPRESSION:Heart and mediastinum stable. No significant effusion. Mild pulmonary vascular congestion, without acute consolidation. [facility]-[id number] [place] MethodistTransthoracic Echocardiogram Complete, (w Contrast, Strain and 3D if needed)2020-07-17 06:14:00Interface, Radiology Results In 07/17/2020 6:15 AM CST Echocardiography Report [address] [address], [place] [address] Pat.Name: MINGO FOUNTAIN Bren.ID: [id number] .Date: 07/16/2020 ExamTime: 9:27:00 PM Study Type:Routine Echo Height: 72in Weight: 206lb BSA: 2.16 m2 Age: 9 1970,50Y Sex: FEMALE BP: 104/70 HR: 95 bpm Sonogrphr: Aleksandra Meadows, RCS, RVT Pat. Stat.:Inpatient Room: [facility] CPT - 4: 01173, 660[address], [address] Study Status:Final Echo Event ID:[id number] Order ID: [id number] Reason for Study:OHT, chest pain History / Clinic al:Cancer, Heart TransplantProcedures: 2D Echo, 2D Echo, Colorflow Doppler, PortableRace: C SUMMARY: LVEF is hyperdynamic. Estimated EF is >70%.RV systolic function is normal.Estimated PA systolic pressure is 30 mmHg, assuming a mean RAP of 5mmHg. FINDINGS: LV: LV size is normal. Concentric left ventricular remodeling. Normal average LV global longitudinal strain at -18%. LV EF is hyperdynamic. Overall wall motion is hyperdynamic. Estimated EF is >70%.RV: RV size is upper limits of normal. RV systolic function is normal. LA: The left atrium is dilated consistent with history of heart transplant. RA: RA volume is enlarged.AO: Aortic root diameter is normal.DONNA: No pericardial effusion.SVn: Normal collapse of IVC during inspiration is consistent with normal RA pressure.AV: No structural AV abnormalities noted.MV: No structural MV abnormalities noted. Mild mitral regurgitation. PV: No structural PV abnormalities noted.TV: No structural TV abnormalities noted. A trace of tricuspid regurgitation Quarles: Unable to assess diastolic function due to Tachycardia.Other: Estimated PA systolicpressure is 30 mmHg, assuming a mean RAP of 5 mmHg. MEASU REMENTS: 2DParasternal Long [place] Ao An 1.7 cm LVPWd 0.96 cm Ao Rtd 2.4 cm Index 1.1 cm/m2 LA Ds 6.3 cm IVSd 0.86 cm RWT 0.43 LVIDd 4.5 cm Index 2.1 cm/m2 LV Mass 135 g (87-129) LVIDs 2.5 cm LVM Index 62 g/m2 LV%fs 43 % LVOT 1.9 cm LVOT LVOT Area 2.7 cm2 DOPPLERLVOT Stroke Vol & Cardiac Out LVOT TVI 26 cm HR 98 bpm LVOT LVOT SV 71 ml LVOT CO 6.9 l/min SVi 33 ml/m2 LVOT CI 3.2 l/m/m2 Signed 07/17/2020 06:14 Sarah Nash [facility] carotid [id number] 23:15:00Interface, Radiology Results In - 07/16/2020 11:17 PM CST Vascular Ultrasound Laboratory Carotid Artery Duplex Report [address] [place] [address] For supplier quality purposes, the categorization of thedegree of the stenosis of this exam is based on criteria described in the IAC carotid stenosis grading white paper( www.intersocietal.org/Vascular) and Dave Springer., Everett CMariselB., et al. Carotid artery stenosis: marc-scale and Doppler US diagnosis--Society of Radiologists in Ultrasound Consensus Conference. Radiology. 2003 Nov; 229(2):340-6. Pat.Name: MINGO FOUNTAIN Pat.ID: [id number] St.Date: 07/16/2020 Refer.MD: RONEL MENESES MD Exam Time: 4:38:00 PM Study Type:Carotid Height: 72in Weight: 206lb BSA: 2.16 m2 Age: 9 1970,50Y Sex: FEMALE Sonogrphr:Travis Dawson RVT, [facility] Pat. Stat.:Inpatient Room: Z4035-Y Tape Vol: VINEET, [facility] - 4: 58332 Echo Event ID:[id number] Order ID: [id number] Reason for Study:Suspected carotid artery disease; transient visionloss. PMH of orthotopic heart transplant, melanoma, HTN, HLD,Covid-19.Procedures: Colorflow, Grayscale/ 2D, Pulsed wave DopplerRace: C SUMMARY : PHYSICAL ASSESSMENT Blood Pulses Carotid Pressure Carotid Temporal BruitRight ___ + + 0Left ___ + + 0CAROTID ARTERY SCANRIGHT: There is focal echogenic material noted in the proximal commoncarotid artery. There is focal plaque noted in the bulb. The internaland external carotid artery are clear. Colorflow is normal. LEFT: There is smooth intimal lining in the common carotid ,bulb,internal andexternal carotid artery. PRELIMINARY FINDINGS1. Non-stenotic plaque in the right common carotidartery; partialechogenic material noted in the proximal common carotid artery. 2. <50% stenosis in the right internal carotid artery. Left carotidis normal. 3. Antegrade vertebral artery flow, bilaterally. PHYSICIAN INTERPRETATION Bilateral carotid duplex examination demonstrated atheroscleroticplaques in the right bulb/ CCA. Less than 50% stenosis in the right internal carotid artery. Left sideis normal.Antegrade vertebral artery flow, bilaterally. FINDINGS : Carotid Findings: Right Left Verteb.Flw Antegrade Antegrade Subclavian Triphasic Triphasic MEASUREMENTS: DOPPLERRight CCA Dist CCA Dist PSV 105 cm/s CCA Dist EDV 39.4 cm/sRight CCA Mid CCA Mid PSV 114 cm/s CCA Mid EDV 39.4 cm/sRight CCA Prox CCA Prox PSV 147 cm/s CCA Prox EDV 30.1 cm/sRight ECA Prox ECA Prox PSV 119 cm/s ECA Prox EDV 16.1 cm/sRight ICA Dist ICA Dist PSV 55.5 cm/s ICA Dist EDV 27 cm/sRight ICA Mid ICA Mid PSV 59.6 cm/s ICA Mid EDV 24.1 cm/sRight ICA Prox ICA Prox PSV 79 cm/s ICA Prox EDV 25.4 cm/sRight Vertebral Vertebral PSV 45.2 cm/s Vertebral EDV 12.8 cm/sRight Subclavian Subclavian PSV 142 cm/s Subclavian EDV 0 cm/sLeft CCA Dist CCA Dist PSV 126 cm/s CCA Dist EDV 37.2 cm/sLeft CCA Mid CCA Mid PSV 124 cm/s CCA Mid EDV 35.3 cm/sLeft CCA Prox CCA Prox PSV 120 cm/s CCA Prox EDV 35.3 cm/sLeft ECA Prox ECA Prox PSV 100 cm/s ECA Prox EDV 17.5 cm/sLeft ICA Dist ICA Dist PSV 53.7 cm/s ICA Dist EDV 24.1 cm/sLeft ICA Mid ICA Mid PSV 66.1 cm/s ICA Mid EDV 22.4 cm/ sLeft ICA Prox ICA Prox PSV 67.7 cm/s ICA Prox EDV 27.3 cm/sLeft Vertebral Vertebral PSV 51.5 cm/s Vertebral EDV 23 cm/sLeft Subclavian Subclavian PSV 125 cm/s Subclavian EDV 0 cm/sRight ICA/CCA Ratio ICA/CCA PSV 0.693 Left ICA/CCA Ratio ICA/CCA PSV 0.546 Signed 07/16/2020 11:15 PMJorge Vickers MD, RPVIHouston MethodistCT Head Wo [id number] 18:59:45Hm Interface, Radiology Results Incoming - 07/16/2020 7:02 PM CST EXAMINATION: CT HEAD WO CONTRASTCLINICAL HISTORY: Heart transplant HTN transient vision lossCOMPARISON: None.TECHNIQUE: Noncontrast head CT performed using radiation dose reduction techniques. Technical factors are evaluated and adjusted to ensure appropriate moderation of exposure. Automated dose management technology is applied to adjust radiation exposure while achieving a diagnostic quality image. FINDINGS:No evidence of acute intracranial hemorrhage, mass, mass effect, midline shift, or acute infarct. Ventricles and sulci are normal in appearance for patient's age. Basal cisterns are clear. Calvarium is intact.Findings consistent with tiny drusen in the right globe. Orbits are otherwise normal in appearance. No significant paranasal sinus mucosal thickening. Mastoid air cells are clear. IMPRESSION:1. No CT evidence of acute intracranial abnormality.[id number]
[2020-12-17 09:26] LABS: Absolute Lymphocytes (CBC) 2.3 K/uL (0.7-4.9); Basophils % 2.4 % (0-1.3); Lymphocytes % 33.7 % (15.3-44.8); MPV 9.3 fL (7.6-11.3); RBC Red Blood Cell Count 4.32 M/uL (3.86-4.86)
[2020-12-17 09:37] LABS: Protime INR 1.17
[2020-12-17 09:43] LABS: BUN Blood Urea Nitrogen 20 mg/dL (7-18); Bicarbonate 27 mmol/L (21-32); Glucose Level 97 mg/dL (74-106); NT PRO-BNP 534 pg/mL (<125); Potassium 4.1 mmol/L (3.5-5.1); Sodium Level 139 mmol/L (136-145); Troponin (Emerg Dept Use Only) < 0.02 ng/mL (0.0-0.045)
--- NOTE | 2020-12-17 09:59 | RAD REPORT ---
EXAM DESCRIPTION: RAD - Chest Single View - 12/17/2020 9:31 am CLINICAL HISTORY: CHEST PAIN COMPARISON: Two view chest November 14 TECHNIQUE: AP portable chest image was obtained 12/17/2020 9:31 am . FINDINGS: No peripheral mass or consolidations seen. Adjusting for AP versus PA technique, lung pare nchymal pattern is not clearly different from comparison. Heart size is upper normal. Vasculature is mildly prominent. No measurable pleural effusion and no pneumothorax. No acute bony abnormality seen. No acute aortic findings suspected. IMPRESSION: No acute lung parenchymal process seen. Lung findings are not clearly different from com parison. Heart size is upper normal.
--- NOTE | 2020-12-17 11:14 | EDPHYS ---
Physician Documentation [facility] Name: Christianne Fountain Age: 50 yrs Sex: Female : 1970 Arrival Date: 12/17/2020 Time: 08:47 Bed 6 Private MD: Elliott Veras V ED Physician Madi Boles HPI: 12/17 10:17 This 50 yrs old Female presents to ER via Ambulatory with complaints of Chest rn Pain, dizziness. 10:18 The patient presents with dizziness. Onset: The symptoms/episode began/occurred 2 rn day(s) ago. Context: occurred at an unknown location, occurred while the patient was at rest, just prior to the episode the patient experienced no apparent symptoms. Modifying factors: The symptoms are alleviated by nothing, the symptoms are aggravated by standing up, changing position. Severity of symptoms: At their worst the symptoms were mild in the emergency department the symptoms have improved. The patient has experienced similar episodes in the past. The patient has been recently seen by a physician:. Reports 2 days of intermittent chest pain, anterior, nonradiating, also with dizziness, no syncope. No sob. Reports recently admitted to [facility] for PE, started on eliquis. Reports upon discharge has been having intermittent dizziness with change in position, especially when bending down and getting up. . Historical: - Allergies: 08:59 Morphine (Vomiting, Hives); sv - PMHx: 08:59 cardiac issues; PEs; sv - PSHx: 08:59 Cholecystectomy; Thumb; Foot; Heart transplant(2008); sv - Immunization history:: Client reports having NOT received the Covid vaccine. - Social history:: Smoking status: Patient denies any tobacco usage or history of. - Family history:: not pertinent. - Hospitalizations: : No recent hospitalization is reported. ROS: 10:18 Constitutional: Negative for fever, chills, and weight loss, Eyes: Negative for injury, rn pain, redness, and discharge, Neck: Negative for injury, pain, and swelling, Cardiovascular: Negative for palpitations, and edema Respiratory: Negative for cough, wheezing, and pleuritic chest pain, Abdomen/GI: Negative for abdominal pain, nausea, vomiting, diarrhea, and constipation, Back: Negative for injury and pain, : Negative for injury, bleeding, discharge, and swelling, MS/Extremity: Negative for injury and deformity, Skin: Negative for injury, rash, and discoloration, Neuro: Negative for headache, weakness, numbness, tingling, and seizure. Exam: 10:18 Constitutional: This is a well developed, well nourished patient who is awake, alert, rn and in no acute distress. Head/Face: Normocephalic, atraumatic. Eyes: Pupils equal round and reactive to light, extra-ocular motions intact. Lids and lashes normal. Conjunctiva and sclera are non-icteric and not injected. Cornea within normal limits. Periorbital areas with no swelling, redness, or edema. ENT: NO stridor Cardiovascular: Regular rate and rhythm. No pulse deficits. Respiratory: No increased work of breathing, no retractions or nasal flaring. Abdomen/GI: soft, non-tender Skin: Warm, dry, no cyanosis MS/ Extremity: Pulses equal, no cyanosis. No edema, equal circumference. Neuro: Awake and alert, GCS 15, oriented to person, place, time, and situation. Cranial nerves II-XII grossly intact. Motor strength 5/5 in all extremities. Sensory grossly intact. Cerebellar exam normal. Vital Signs: 08:57 Weight 95.25 kg; Height 6 ft. 0 in. (182.88 cm); Pain 0/10; sv 09:09 BP 131 / 80; Pulse 83; Resp 16; Temp 97.8(O); Pulse Ox 100% on R/A; sv 09:58 BP 117 / 82; Pulse 82; Resp 15; Pulse Ox 97% on R/A; hb 10:44 BP 118 / 83; Pulse 82; Resp 17; Pulse Ox 97% on R/A; tw2 08:57 Body Mass Index 28.48 (95.25 kg, 182.88 cm) sv MDM: 08:57 Patient medically screened. rn 11:10 Differential diagnosis: generalized weakness, hypovolemia, idiopathic dizziness, rn vertigo. Differential diagnosis: cardiac arrhythmia. Data reviewed: vital signs, nurses notes, lab test result(s), EKG, radiologic studies. Counseling: I had a detailed discussion with the patient and/or guardian regarding: the historical points, exam findings, and any diagnostic results supporting the discharge/admit diagnosis, lab results, radiology results, the need for outpatient follow up, to return to the emergency department if symptoms worsen or persist or if there are any questions or concerns that arise at home. Response to treatment: the patient's symptoms have markedly improved after treatment, the patient's condition has returned to base line, the patient is now symptom free, and as a result, I will discharge patient. Special discussion: Based on the patient's history, exam, and Dx evaluation, there is no indication for emergent intervention or inpatient Tx. It is understood by the patient/guardian that if the Sx's persist or worsen they need to return immediately for re-evaluation. I discussed with the patient/guardian in detail that at this point there is no indication for admission to the hospital. It is understood, however, that if the symptoms persist or worsen the patient needs to return immediately for re-evaluation. Based on the history and exam findings, there is no indication for further emergent testing or inpatient evaluation. I discussed with the patient/guardian the need to see the production supv for further evaluation of the symptoms. ED course: Pt improved, watching film on her phone, denies dizziness or chest pain, no oxygen requirement, compliant with her eliquis. Will dc home with pcp and cardiology f/u.. 12/17 09:03 Order name: Basic Metabolic Panel rn 12/17 09:03 Order name: CBC with Diff rn 12/17 09:03 Order name: NT PRO-BNP rn 12/17 09:03 Order name: PT-INR rn 12/17 09:03 Order name: Troponin (emerg Dept Use Only) rn 12/17 09:03 Order name: Ptt, Activated rn 12/17 09:03 Order name: XRAY Chest (1 view) rn 12/17 09:33 Order name: CBC with Automated Diff; Complete Time: 10:03 EDMN 12/17 09:38 Order name: Protime (+INR); Complete Time: 10:03 EDMN 12/17 09:38 Order name: PTT, Activated Partial Thromb; Complete Time: 10:03 EDMN 12/17 09:43 Order name: Basic Metabolic Panel; Complete Time: 10:03 EDMN 12/17 09:43 Order name: Troponin (Emerg Dept Use Only); Complete Time: 10:03 EDMN 12/17 09:43 Order name: NT PRO-BNP; Complete Time: 10:03 EDMN 12/17 09:59 Order name: RAD; Complete Time: 10:03 EDMS 12/17 09:03 Order name: EKG; Complete Time: 09:04 rn 12/17 09:03 Order name: Cardiac monitoring; Complete Time: :19 rn 12/17 09:03 Order name: EKG - Nurse/Tech; Complete Time: :20 rn 12/17 09:03 Order name: IV Saline Lock; Complete Time: : rn 12/17 09:03 Order name: Labs collected and sent; Complete Time: : rn 12/17 09:03 Order name: O2 Per Protocol; Complete Time: : rn 12/17 09:03 Order name: O2 Sat Monitoring; Complete Time: : rn Administered Medications: No medications were administered Disposition: 12/17/20 11:13 Discharged to Home. Impression: Dizziness and giddiness, Chest pain, unspecified. - Condition is Stable. - Discharge Instructions: Nonspecific Chest Pain, Dizziness. - Medication Reconciliation Form, Thank You Letter, Antibiotic Education, Prescription Opioid Use, Work release form form. - Follow up: Private Physician; When: As needed; Reason: Recheck today's complaints, Re-evaluation by your physician. - Problem is new. - Symptoms have improved. Signatures: Dispatcher [employer] EDMN Stephanie Malloy RN RN sv Nieto, Roman, MD MD rn Baxter, Heather, RN RN Corrections: (The following items were deleted from the chart) 11:38 11:13 12/17/2020 11:13 Discharged to Home. Impression: Dizziness and giddiness; Chest hb pain, unspecified. Condition is Stable. Forms are Work release form, Medication Reconciliation Form, Thank You Letter, Antibiotic Education, Prescription Opioid Use. Follow up: Private Physician; When: As needed; Reason: Recheck today's complaints, Re-evaluation by your physician. Problem is new. Symptoms have improved. rn
--- NOTE | 2020-12-17 11:14 | ER ---
Nurse's Notes [facility] Name: Christianne Fountain Age: 50 yrs Sex: Female : 1970 Arrival Date: 12/17/2020 Time: 08:47 Bed 6 Private MD: Elliott Veras V Diagnosis: Dizziness and giddiness;Chest pain, unspecified Presentation: 12/17 08:57 Chief complaint: Patient states: epigastric pain w/ intermittent posterior shoulder sv pain, mild SOB when laying down, and HTN 148/101 x 2 days. Coronavirus screen: Client denies travel out of the [place] in the last 14 days. At this time, the client does not indicate any symptoms associated with coronavirus-19. Ebola Screen: No symptoms or risks identified at this time. Risk Assessment: Do you want to hurt yourself or someone else? Patient reports no desire to harm self or others. Onset of symptoms was December 15, 2020. 08:57 Method Of Arrival: Ambulatory sv 08:57 Acuity: FOSTER 3 sv 09:09 Initial Sepsis Screen: Does the patient meet any 2 criteria? No. Patient's initial sv sepsis screen is negative. Does the patient have a suspected source of infection? No. Patient's initial sepsis screen is negative. Historical: - Allergies: 08:59 Morphine (Vomiting, Hives); sv - PMHx: 08:59 cardiac issues; PEs; sv - PSHx: 08:59 Cholecystectomy; Thumb; Foot; Heart transplant(2008); sv - Immunization history:: Client reports having NOT received the Covid vaccine. - Social history:: Smoking status: Patient denies any tobacco usage or history of. - Family history:: not pertinent. - Hospitalizations: : No recent hospitalization is reported. Screenin:56 Abuse screen: Denies threats or abuse. Denies injuries from another. Nutritional hb screening: No deficits noted. Tuberculosis screening: No symptoms or risk factors identified. Fall Risk None identified. Assessment: 09:02 Reassessment: provider at bedside at this time. tw2 09:15 General: Appears in no apparent distress. Behavior is calm, cooperative. Pain: Pain hb currently is 0 out of 10 on a pain scale. at worst was 5 out of 10 on a pain scale. Neuro: Level of Consciousness is awake, alert, obeys commands, Oriented to person, place, time, situation. Cardiovascular: Reports chest pain, Patient's skin is warm and dry. Rhythm is regular. Respiratory: Respiratory effort is even, unlabored, Respiratory pattern is regular, symmetrical. GI: No signs and/or symptoms were reported involving the gastrointestinal system. : No signs and/or symptoms were reported regarding the genitourinary system. EENT: No signs and/or symptoms were reported regarding the EENT system. Derm: Skin is pink, warm \T\ dry. Musculoskeletal: No signs and/or symptoms reported regarding the musculoskeletal system. 10:45 Reassessment: Patient appears in no apparent distress at this time. No changes from tw2 previously documented assessment. Patient and/or family updated on plan of care and expected duration. Pain level reassessed. Patient is alert, oriented x 3, equal unlabored respirations, skin warm/dry/pink. Vital Signs: 08:57 Weight 95.25 kg; Height 6 ft. 0 in. (182.88 cm); Pain 0/10; sv 09:09 BP 131 / 80; Pulse 83; Resp 16; Temp 97.8(O); Pulse Ox 100% on R/A; sv 09:58 BP 117 / 82; Pulse 82; Resp 15; Pulse Ox 97% on R/A; hb 10:44 BP 118 / 83; Pulse 82; Resp 17; Pulse Ox 97% on R/A; tw2 08:57 Body Mass Index 28.48 (95.25 kg, 182.88 cm) sv ED Course: 08:47 Patient arrived in ED. mr 08:47 Elliott Veras MD is Private Physician. mr 08:57 Madi Boles MD is Attending Physician. rn 08:58 Triage completed. sv 09:00 Arm band placed on. sv 09:48 Tania Crum, RICKI is Primary Nurse. hb 09:56 Patient has correct armband on for positive identification. Placed in gown. Bed in low hb position. Call light in reach. Side rails up X 1. monitoring and evaluation advisor on. Pulse ox on. NIBP on. 10:01 Ptt, Activated Sent. sv 10:02 Troponin (emerg Dept Use Only) Sent. sv 10:02 PT-INR Sent. sv 10:02 NT PRO-BNP Sent. sv 10:02 CBC with Diff Sent. sv 10:02 Basic Metabolic Panel Sent. sv 10:02 XRAY Chest (1 view) Sent. sv Administered Medications: No medications were administered Outcome: 11:13 Discharge ordered by . rn 11:38 Patient left the ED. Signatures: Stephanie Malloy, RN RN Madeline Durham Roman, MD MD rn Baxter, Heather, RN RN Reyna Berger RN RN tw2
[2020-12-17 11:44] VITALS: TEMP 97.8
[2020-12-17 11:45] VITALS: O2SAT 97
[2020-12-17 11:47] VITALS: BP 118/83
--- NOTE | 2020-12-18 08:45 | EKG ---
Test Date: 2020-12-17 Test Time: 09:04:51 [employer]rolled [employer]: YUMIKO MEASUREMENT RESULTS: Intervals: Rate: 84 AR: 172 QRSD: 126 QT: 410 QTc: 484 [place]: P: 58 AR: 172 QRS: 69 T: 31 INTERPRETIVE STATEMENTS: Normal sinus rhythm Possible Left atrial enlargement Right bundle branch block Septal infarct, age undetermined Abnormal ECG Compared to ECG 07/16/2020 09:01:17 No significant changes Electronically Signed On 12-18-20 08:41:48 CDT by Cristi Lara
== END 2020-12-17 11:38 | disposition home or self-care (01) ==
LOC: ER 08:43
DX: R07.9 Chest pain, unspecified (principal); Z86.711 Personal history of pulmonary embolism; Z94.1 Heart transplant status; Z79.01 Long term (current) use of anticoagulants; Z88.5 Allergy status to narcotic agent
CPT/HCPCS: 36415; 71045; 80048; 83880; 84484; 85025; 85610; 85730; 93005; 99284

== ENCOUNTER 2021-04-05 21:22 | Emergency (ER) | payer OTHER ==
--- OUTSIDE RECORDS SUMMARY | 2021-04-05 21:25 | XMS REPORT | Continuity of Care Document ---
:1970 Author Organization [facility] t Address [address] [place] [address] Care Team Providers Name Role Phone Asked, No Pcp Primary Care Physician Unavailable Perlita Attending Clinician Unavailable Ace ROBISON Attending Clinician Unavailable Kira GAUTAM Attending Clinician Unavailable Joel GAUTAM Attending Clinician Unavailable Nieves BERRY Attending Clinician Clemencia Brady MA Attending Clinician Unavailable Swati Reid MD Attending Clinician Benjamin Franco MD Attending Clinician Andrew Attending Clinician Unavailable MD SWATI REID Attending Clinician Unavailable Provider Attending Clinician Unavailable MD NIEVES Attending Clinician Unavailable Chandu Attending Clinician Unavailable Pavan Mccarthy Attending Clinician Unavailable Kim ROBISON Attending Clinician Unavailable Leah BERRY Attending Clinician Angie BERRY Attending Clinician Martin RN Attending Clinician Unavailable Melinda BERRY Attending Clinician Aniyah BERRY Attending Clinician MD ANGIE H Attending Clinician Unavailable Thang BERRY Attending Clinician EVANGELIST Admitting Clinician Unavailable MD SWATI REID Admitting Clinician Unavailable MD NIEVES Admitting Clinician Unavailable JOAN Admitting Clinician Unavailable MD John MENESES Admitting Clinician Unavailable NIEVES Admitting Clinician Unavailable Payers Payer Name Policy Type Policy Number Effective Date Expiration Date S ource Problems Condition Condition Condition Status Onset Resolution Last Treating Co mments Source Name Details Category Date Date Treatment Clinician Date Therapeuti Therapeuti Disease Active M ethodi c drug c drug 4-30 st monitoring monitoring 00:00: Ho spita 00 l Pulmonary Pulmonary Disease Active Met hodi embolism embolism 4-27 st on right on right 00:00: Hospit a 00 l SOB SOB Disease Active Methodi (shortness (shortness 4-27 st of breath) of breath) 00:00: Ho spita 00 l COVID-19 COVID-19 Disease Active Metho di 3-31 st 00:00: Hospita 00 l Heart Heart Disease Active Overview: Method i failure failure 3- Formattin st 00:00: g of this Hospita 00 note l might be different from the original. Added automatic ally from request for surgery [id number] Essential Essential Disease Active 2019-08 Met hodi hypertensi hypertensi 2- st on on 00:00: Hospita 00 l COVID-19 COVID-19 Disease Active 2019-08 Overview: Me thodi virus virus 2- Formattin st infection infection 00:00: g of this H ospita 00 note l might be different from the original. March 2020 Covid infection with symptoms: Fever,chi lls, SOB, weakness / malase, cough, head aches,Not e related virtual visits Anxiety Anxiety Disease Active 2019-08 Overview: Meth romel 2-[address] 00:00: g of this Hospita 00 note l might be different from the original. Long standing history of anxiety attacksAc companied with palpation s &/or chest pressure Chest pain Chest pain Disease Active 2019-08 Overview : Methodi 2-[address] 00:00: g of this Hospita 00 note l might be different from the original. Multiple ER visits and admits for chest pain/pres sure. Cardiac Cardiac Disease Active Overview: Meth romel dysrhythmi dysrhythmi 5-[address] a a 00:00: g of this Hospita 00 note l might be different from the original. Added 12/04/2019 Intermitt ent c/o palpation s and chest pain.14 day [place] failed to record any occurence s Cardiac Cardiac Disease Active 2018-08 Methodi transplant transplant 2-09 st rejection rejection 00:00: Hosp ten 00 l Other Other Disease Active Overview: Method i heart heart 4-[address] failure failure 00:00: g of this Hospi ta 00 note l might be different from the original. Added automatic ally from request for surgery [id number] Long-term Long-term Disease Active Met jason use of use of 11-21 st immunosupp immunosupp 00:00: Ho spita ressant ressant 00 l medication medication Weakness Weakness Disease Active Metho di 11-21 st 00:00: Hospita 00 l Heart Heart Disease Active Overview: Method i transplant transplant 04-01 Formattin ed ed 00:00: g of this Hospita 00 note is l different from the original. Images from the original note were not included. [place] : 1970 8 Heart Transplan tedPre hx [facility] DCM,MIs x3 in 1999 & 2000Not seen since 2015 - 2018 R/T no insurance and financial reasonsVi sit [...] s of appetite Testing today AdmitPost DC 09/19/2011 ChestLeft cathD/C PainNormc kelsie Admit via transfer from [facility] ER fo uncontrol ed BP/ chest pain upon exertionD ischarge clinic: Started op colchicin e 0.3 mg BID NoDSAs 70% Fk 7.9 [id number] COVID ? 10/14/20 10/22/20AM ap 373/ 3/214/ 01/20 SCR SCRASureP reLabRt BXLab&UA [id number] .12CX [...] /Neutr 57.1 DSAs negCOVID CMV pendneg 8.6 2/28.9 2/215.4 [facility] >ADMIT 11/26/20Fo r PE A-[facility] re 340.26 BNP 143, SCR 1.13 / GFR 57,: seen for SOB &chest pain. CT Chest PE protocol (+) for multi PE in rt. Lobes D/C Eliquist 5 mg 60-64 neg 6.8 /01/06/21 Local l Lab BUN 18 / SCR 1.0 / GFR67, Mag 1.5 6.9 , Allergies, Adverse Reactions, Alerts Allergy Allergy Status Severity Reaction(s) Onset Inactive Treating Comm ents Source Name Type Date Date Clinician Morphine Propensi Active Rash Rash and Meth romel ty to 11-[address] adverse 00:00: Can Hospita reaction 00 tolerate l s to codeine. drug Family History Family Member Diagnosis Comments Start Date Stop Date Source Natural father No Known Problems [facility] Natural mother No Known Problems Met [facility] Natural sister No Known Problems Met [facility] Social History Social Habit Start Date Stop Date Quantity Comments Source History SDOH Religious Alcohol Std Drinks Hospit al History [facility] Religious [facility] ASSERTION [facility] Tobacco use and 2020-11-26 2020-11-26 Never used Religious exposure 00:00:00 00:00:00 Hospital Alcohol intake 2020-11-262020-11-26 Current Religious 00:00:00 00:00:00 non-drinker of Hospital alcohol (finding) History SDOH 2018-11-21 2018-11-21 1 Religious Alcohol Frequency 00:00:00 00:00:00 Hospita l Sex Ass[birth year] At [birth year] F Religious 00:00:00 00:00:00 Hospital Smoking Status Start Date Stop Date Source Never smoker Religious Hospit al Medications Ordered Filled Start Stop Current Ordering Indication Dosage Frequency Signature Comments Components Source Medication Medication Date Date Medication? Clinician (SIG) Name Name hydrALAZINE 2021- Yes 25mg [id number] Take 1 Methodi (APRESOLINE 03-19 [id number] tablet (25 st ) 25 MG 00:00: 04:59 3D mg total) Hosp ten tablet 00 :00 by mouth 3 l (three) times a day. Patient may Hold if systolic BP is less than 120 apixaban 2021- Yes 5mg Q.5D Take 1 Method i (ELIQUIS) 5 03-04 tablet (5 st mg tablet 00:00: 04:59 mg total) Ho spita 00 :00 by mouth 2 l (two) times a day. Z94.1 HEART TRANSPLANT STATUS POST mycophenola Yes TAKE 1 Meth romel te -[address] (CELLCEPT) 00:00: MOUTH Hospit a 500 mg 00 TWICE l tablet DAILY tacrolimus Yes TAKE 2 Metho di (PROGRAF) 1 - CAPSULES st MG capsule 00:00: BY MOUTH 2 H ospita 00 TIMES A l DAY mycophenola 2021- Yes 500mg Q.5D Take 1 Me thodi te 02-19- tablet st (CELLCEPT) 00:00: 04:59 (500 mg Hos lauryn 500 mg 00 :00 total) by l tablet mouth 2 (two) times a day. Z94.1 Heart TXP S/P tacrolimus 2021- Yes 2mg Q.5D Take 2 Meth romel (Prograf) 1 02-19- capsules st MG capsule 00:00: 04:59 (2 mg Hospi ta 00 :00 total) by l mouth 2 (two) times a day. Z94.1 Heart Txp S/P apixaban 2020- No 5mg Q.5D Take 1 Method i (ELIQUIS) 5 5-05 08-03 tablet (5 st mg tablet 00:00: 00:00 mg total) Ho spita 00 :00 by mouth 2 l (two) times a day. spironolact Yes 50mg QD Take 50 mg Methodi one 4-[address] (ALDACTONE) 23:49: daily. Hosp ten 25 MG 37 l tablet apixaban 2020- No 10mg Q.5D Take 2 Method i (ELIQUIS) 5 4-30 05-[address] mg tablet 00:00: 04:59 (10 mg Hospi ta 00 :00 total) by l mouth 2 (two) times a day for 4 days. apixaban Yes follow Methodi (Eliquis 4-[address] DVT-PE 00:00: instructio Hospi ta Treat 30D 00 ns l Start) 5 mg (74 tabs) tablets,dos e pack ciprofloxac 2020- No 500mg QD Take 1 Me thodi in (Cipro) 3 03-[address] 500 MG 00:00: 04:59 (500 mg Hospita tablet 00 :00 total) by l mouth daily for 5 days. For UTI colchicine 2020- No TAKE BY Met hodi 0.6 mg 2-10 03-23 MOUTH 1/2 st tablet 00:00: 00:00 TABLET 2 Hospit a 00 :00 TIMES A l DAY colchicine 2020- No .3mg Q.5D Take 0.5 Me thodi 0.6 mg 209 02-[address] tablet 00:00: 00:00 (0.3 mg Hospita 00 :00 total) by l mouth 2 (two) times a day for 90 days. ( take 1/2 a tablet twice a day = total of 0.6 mg daily) Effexor XR Yes TAKE 1 Metho di 75 mg 24 hr 1-[address] capsule 00:00: MOUTH Hospita 00 EVERY l MORNING colchicine 2019-08- No .3mg Q.5D Take 0.5 Me thodi 0.6 mg 2-29 02-[address] tablet 00:00: 00:00 (0.3 mg Hospita 00 :00 total) by l mouth 2 (two) times a day. ( take 1/2 a tablet twice a day = total of 0.6 mg daily) docusate 2019-08 No 100mg Q.5D Take 1 Metho di sodium 09-22- capsule st (COLACE) 00:00: 04:59 (100 mg Hospi ta 100 MG 00 :00 total) by l capsule mouth 2 (two) times a day for 90 days. polyethylen 2019-08 17g QD Take 17 g Methodi e glycol 09-[address] (MIRALAX) 00:00: 04:59 daily for Ho spita 17 gram 00 :00 90 days. l packet venlafaxine 2019-08 75mg QD Take 1 Met hodi XR 09-20-[address] (EFFEXOR-XR 00:00: 00:00 (75 mg Hos lauryn ) 75 MG 24 00 :00 total) by l hr capsule mouth every morning. venlafaxine 2019-08 No 75mg QD Take 1 Met hodi XR 09-20 12-[address] (EFFEXOR-XR 00:00: 00:00 (75 mg Hos lauryn ) 75 MG 24 00 :00 total) by l hr capsule mouth every morning for 30 days. pravastatin 2019-08 Yes TAKE 1 Meth romel (PRAVACHOL) 2-[address] 40 mg 00:00: MOUTH Hospita tablet 00 EVERY DAY l butalbital- 2019-08 No 1{tbl} Q6H Take 1 M ethodi acetaminoph 2-18 -[address] en-caff 00:00: 05:59 mouth Hospita (FIORICET) 00 :00 every 6 l 50-325-40 (six) mg per hours as tablet needed for headaches for up to 20 days. tacrolimus 2019-08 No 1mg QD Take 1 mg M ethodi (PROGRAF) 1 17 12-[address] MG capsule 23:59: 00:00 every Hospi ta 54 :00 evening. 2 l mg in morning1 mg in evenin amLODIPine 2020-0 2021- No 5mg QD Take 1 Meth romel (NORVASC) 5 04-05 tablet (5 st mg tablet 00:00: 04:59 mg total) Ho spita 00 :00 by mouth l daily. benzonatate No 100mg Q.[id number] Take 1 Methodi (Tessalon 03-[id number] Perles) 100 00:00: 04:59 3D (100 mg Ho spita MG capsule 00 :00 total) by l mouth 3 (three) times a day as needed for cough for up to 30 days. mycophenola No 500mg Q.5D Take 1 Me thodi te 03-[address] (CELLCEPT) 00:00: 00:00 (500 mg Hos lauryn 500 mg 00 :00 total) by l tablet mouth 2 (two) times a day. Z94.1 Heart TXP S/P tacrolimus No 2mg Q.5D Take 2 Meth romel (Prograf) 1 03-[address] MG capsule 00:00: 00:00 (2 mg Hospi ta 00 :00 total) by l mouth 2 (two) times a day. Z94.1 Heart Txp S/P pantoprazol Yes 40mg QD Take 1 Meth romel e 5-04 tablet (40 st (Protonix) 00:00: mg total) Ho spita 40 MG EC 00 by mouth l tablet daily. metoprolol Yes 25mg QD Take 1 Metho di succinate 5-04 tablet (25 st XL (Toprol 00:00: mg total) Ho spita XL) 25 mg 00 by mouth l 24 hr daily. tablet pravastatin 2018-08 No 40mg QD Take 1 Met hodi (PRAVACHOL) 08-0518 tablet (40 s t 40 MG 00:00: 00:00 mg total) Hospit a tablet 00 :00 by mouth l daily. aspirin 81mg QD Take 81 mg Met hodi (ECOTRIN) 03-[address] 81 MG 00:00: 04:59 daily. Hospita enteric 00 :00 l coated tablet multivitami 1{tbl} QD Take 1 M ethodi n 03-[address] (THERAGRAN) 00:00: 04:59 mouth Hosp ten tablet 00 :00 daily. l Immunizations Ordered Immunization Filled Immunization Date Status Commen ts Source Name Name FLUCELVAX QUAD PF 2020-07-[address] 00:00:00 Hospital FLUCELVAX QUAD PF 2019-07-[address] 00:00:00 Hospital Vital Signs Vital Name Observation Time Observation Value Comments Source Systolic blood 2020-11-29 16:16:17 126 mm[Hg] [facility] pressure Diastolic blood 2020-11-29 16:16:17 77 mm[Hg] [facility] pressure Heart rate 2020-11-29 16:16:17 88 /min [facility] Body temperature 2020-11-29 16:16:17 35.83 Susan [facility] Respiratory rate 2020-11-29 16:16:17 18 /min [facility] Oxygen saturation in 2020-11-29 16:16:17 98 /min [facility] Arterial blood by Pulse oximetry Body weight 2020-11-29 09:50:33 91.218 kg [facility] BMI 2020-11-29 09:50:33 27.27 kg/m2 [facility] Body height 2020-11-27 03:05:56 182.9 cm [facility] Procedures Procedure Date / Time Performing Clinician Source Performed [id number] TACROLIMUS LEVEL, 2021-01-06 12:45:00 [facility] RANDOM CBC WITH PLATELET AND 2021-01-06 12:45:00 [facility] DIFFERENTIAL COMPREHENSIVE METABOLIC 2021-01-06 12:45:00 [facility] PANEL MAGNESIUM LEVEL 2021-01-06 12:45:00 [facility] spital [id number] TACROLIMUS LEVEL, 2020-11-29 10:14:00 Blanca Reid [facility] RANDOM BASIC METABOLIC PANEL 2020-11-29 10:14:00 [facility] WITH PLATELET AND 2020-11-29 10:14:00 [facility] DIFFERENTIAL [facility] ESTIMATED GFR 2020-11-29 10:14:00 [facility] US DUPLEX VENOUS LOWER 2020-11-29 01:25:00 Tamia Franco [facility] EXTREMITY BILATERAL ECG 12-LEAD 2020-11-28 18:22:48 [facility] [id number] TACROLIMUS LEVEL, 2020-11-28 09:40:00 [facility] RANDOM BASIC METABOLIC PANEL 2020-11-28 09:40:00 [facility] CBC WITH PLATELET AND 2020-11-28 09:40[facility]00 [facility] THYROID STIMULATING 2020-11-28 09:40:00 [facility], FREE 2020-11-28 09:40:00 [facility] 2020-11-28 09:40[facility] CYT[facility] BY PCR 2020-11-28 09:40:00 [facility] ESTIMATED GFR 2020-11-28 09:40:00 Amanda Uriostegui [facility] DONOR SPECIFIC ANTIBODY 2020-11-28 09:40:00 Shaw[facility] [id number] TACROLIMUS LEVEL, 2020-11-27 10:41:00 [facility] RANDOM BASIC METABOLIC PANEL 2020-11-27 10:41:00 Moody [facility] HC COMPLETE BLD COUNT 2020-11-27 10:41:00 [facility] W/AUTO DIFF [facility] ESTIMATED GFR 2020-11-27 10:41:00 [facility] ANTI XA, UNFRACTIONATED 2020-11-27 10:41:00 [facility] TTE COMPLETE, WO CONTRAST, 2020-11-27 05:45:[address] [facility] W DOPPLER ([id number]) ANTI XA, UNFRACTIONATED 2020-11-27 05:28:00 Amanda Uriostegui [facility] MISCELLANEOUS REFERRAL 2020-11-27 05:16:00 [facility] TEST PARTIAL THROMBOPLASTIN 2020-11-26 23:00:00 Blanca Reid [facility] TIME (PTT) ANTI XA, UNFRACTIONATED 2020-11-26 23:00:00 Blanca Reid [facility] FACTOR VIII ASSAY 2020-11-26 23:00:00 [facility] ANTITHROMBIN III LEVEL 2020-11-26 23:00:00 [facility] FUNCTIONAL PROTEIN C 2020-11-26 23:00:00 [facility] FUNCTIONAL PROTEIN S 2020-11-26 23:00:00 [facility] THYROID STIMULATING 2020-11-26 21:44:00 [facility] HORMONE T4, FREE 2020-11-26 21:44:00 [facility] C-REACTIVE PROTEIN 2020-11-26 21:39:00 [facility] CARDIOLIPIN ANTIBODIES 2020-11-26 21:39:00 [facility] BETA-2 GLYCOPROTEIN 1 2020-11-26 21:39:[address] [facility] ANTIBODY, IGG AND IGM COVID-19 QUALITATIVE 2020-11-26 21:27:[address] [facility] RT-PCR CT ANGIOGRAM PE CHEST 2020-11-26 16:02:43 [facility] 12-LEAD 2020-11-26 13:06:11 Michael Pickett ospital COMPREHENSIVE METABOLIC 2020-11-26 12:00:00 [facility] PANEL MAGNESIUM LEVEL 2020-11-26 12:00:00 [facility] COMPLETE BLD COUNT 2020-11-26 12:00:00 [facility] W/AUTO DIFF CYTOMEGALOVIRUS BY PCR 2020-11-26 12:00:[address] [facility] [address] [facility] LDH 2020-11-26 12:00:00 Michael Pickett [facility] ospital B NATRIURETIC PEPTIDE 2020-11-26 12:00:00 [facility] TROPONIN 2020-11-26 12:00:00 Michael Pickett [facility] ospital PROTHROMBIN TIME WITH INR 2020-11-26 12:00:00 [facility] [id number] TACROLIMUS LEVEL, 2020-11-26 12:00:00 Michael Pickett [facility] RANDOM ESTIMATED GFR 2020-11-26 12:00:00 Michael Pickett [facility] RESPIRATORY PATHOGEN PANEL 2020-11-06 13:05:00 [facility] WITH COVID-19 RT-PCR COVID-19 ANTI-SPIKE IGG 2020-11-06 13:05:00 [facility] ANTIBODY TITER COMPREHENSIVE METABOLIC 2020-11-06 13:05:00 [facility] alexander [facility] PANEL HC COMPLETE BLD COUNT 2020-11-06 13:05:00 [facility] W/AUTO DIFF B NATRIURETIC PEPTIDE 2020-11-06 13:05:00 [facility] [id number] TACROLIMUS LEVEL, 2020-11-06 13:05:00 Michael Pickett [facility] RANDOM PROTHROMBIN TIME WITH INR 2020-11-06 13:05:00 [facility] ESTIMATED GFR 2020-11-06 13:05:00 [facility]haecu healthMichael alexander [facility] ospital COMPREHENSIVE METABOLIC 2020-10-29 13:40:00 [facility] Hospital[facility] aelxander [facility] PANEL MAGNESIUM LEVEL 2020-10-29 13:40:00 Michael Pickett [facility] ospital HC COMPLETE BLD COUNT 2020-10-29 13:40:00 [facility] W/AUTO DIFF B NATRIURETIC PEPTIDE 2020-10-29 13:40:00 [facility] PROTHROMBIN TIME WITH INR 2020-10-29 13:40:00 [facility] URINALYSIS, AUTOMATED WITH 2020-10-29 13:40:00 [facility] MICROSCOPY ESTIMATED GFR 2020-10-29 13:40:00 [facility] ospital DONOR SPECIFIC ANTIBODY 2020-10-29 13:40:00 [facility] COVID-19 QUALITATIVE 2020-10-29 13:27:[address] [facility] RT-PCR ECG 12-LEAD 2020-10-22 13:20:03 [facility] COMPREHENSIVE METABOLIC 2020-10-22 12:35:00 [facility] PANEL MAGNESIUM LEVEL 2020-10-22 12:35:00 [facility] HC COMPLETE BLD COUNT 2020-10-22 12:35:00 [facility] W/AUTO DIFF CYTOMEGALOVIRUS BY PCR 2020-10-22 12:35:00 [facility] B NATRIURETIC PEPTIDE 2020-10-22 12:35:00 [facility] TROPONIN 2020-10-22 12:35:00 [facility] ospital PROTHROMBIN TIME WITH INR 2020-10-22 12:35:00 [facility] [id number] TACROLIMUS LEVEL, 2020-10-22 12:35:00 [facility] RANDOM ESTIMATED GFR 2020-10-22 12:35:00 [facility] ospital DONOR SPECIFIC ANTIBODY 2020-10-22 12:35:00 [facility] URINE CULTURE 2020-10-14 14:18:00 Ronel Meneses [facility] CBC WITH PLATELET AND 2020-10-14 14:18:00 Ronel Meneses [facility] DIFFERENTIAL COMPREHENSIVE METABOLIC 2020-10-14 14:18:00 [facility] PANEL URINALYSIS, ROUTINE WITH 2020-10-14 14:18:00 [facility] MICROSCOPIC EXAMINATION ON POSITIVES MICROSCOPIC EXAMINATION 2020-10-14 14:18:00 [facility] MAGNESIUM LEVEL 2020-10-14 14:18:00 [facility] [id number] TACROLIMUS LEVEL, 2020-10-14 14:18:00 [facility] RANDOM CBC WITH PLATELET AND 2020-08-15 13:55:00 [facility] DIFFERENTIAL COMPREHENSIVE METABOLIC 2020-08-15 13:55:00 [facility] PANEL MAGNESIUM LEVEL 2020-08-15 13:55:00 [facility] spital [id number] TACROLIMUS LEVEL, 2020-08-15 13:55:00 [facility] RANDOM [id number] TACROLIMUS LEVEL, 2020-07-24 14:02:00 [facility] RANDOM CBC WITH PLATELET AND 2020-07-24 14:02:00 [facility] DIFFERENTIAL COMPREHENSIVE METABOLIC 2020-07-24 14:02:00 [facility] PANEL MAGNESIUM LEVEL 2020-07-24 14:02:00 [facility] spital [id number] TACROLIMUS LEVEL, 2020-07-19 10:55:00 [facility] RANDOM BASIC METABOLIC PANEL 2020-07-19 10:55:00 [facility] COMPLETE BLD COUNT 2020-07-19 10:55:00 Joan, [facility] W/AUTO DIFF ESTIMATED GFR 2020-07-19 10:55:00 [facility] MAGNESIUM LEVEL 2020-07-19 10:55:00 [facility] PHOSPHORUS LEVEL 2020-07-19 10:55:00 [facility] HEART CATH LV GRAM 2020-07-18 20:32:04 Amanda Uriostegui [facility] WITH JASSON Curielle [id number] TACROLIMUS LEVEL, 2020-07-18 11:43:00 [facility] BASIC METABOLIC PANEL 2020-07-18 11:43:[address] [facility] HC COMPLETE BLD COUNT 2020-07-18 11:43:[address] [facility] W/AUTO DIFF ESTIMATED GFR 2020-07-18 11:43:00 [facility] MAGNESIUM LEVEL 2020-07-18 11:43:00 [facility] PHOSPHORUS LEVEL 2020-07-18 11:43:00 [facility] XR CHEST 1 VW PORTABLE 2020-07-17 17:22:06 [facility] [id number] TACROLIMUS LEVEL, 2020-07-17 11:47:00 [facility] RANDOM CYTOMEGALOVIRUS BY PCR 2020-07-17 11:47:00 [facility] 2020-07-17 11:47:00 [facility] HORMONE T4, FREE 2020-07-17 11:47:00 [facility] IMMUNOGLOBULIN G 2020-07-17 11:47:00 [facility] LIPID PANEL 2020-07-17 11:47:00 [facility] BASIC METABOLIC PANEL 2020-07-17 11:47:[address] [facility] CBC WITH PLATELET AND 2020-07-17 11:47:[address] [facility] DIFFERENTIAL MAGNESIUM LEVEL 2020-07-17 11:47:00 [facility] ESTIMATED GFR 2020-07-17 11:47:00 [facility] TTE COMPLETE, WO CONTRAST, 2020-07-17 03:45:00 [facility] W DOPPLER ([id number]) URINE CULTURE 2020-07-17 01:26:[address] [facility] [address] HEAD WO CONTRAST 2020-07-17 00:55:56 [facility]EN AND 2020-07-17 00:15:[address] [facility] MICROSCOPY, WITH REFLEX TO CULTURE US DUPLEX VENOUS LOWER 2020-07-16 23:15:00 Shawanda [facility] EXTREMITY BILATERAL US CAROTID DUPLEX 2020-07-16 23:00:00 Hung Mayberry [facility] BILATERAL INFLUENZA ANTIGEN TEST, 2020-07-16 22:30[facility] RESPIRATORY PATHOGEN PANEL 2020-07-16 22:30:[facility]-19 RT-PCR HCG QUALITATIVE, SERUM 2020-07-16 22:17:00 [facility] SCREEN BLOOD CULTURE, AEROBIC & 2020-07-16 22:15:00 [facility] ANAEROB[facility] BLOOD CULTURE, AEROBIC & 2020-07-16 22:00:00 [facility] ANA[facility] HC COMPLETE BLD COUNT 2020-07-16 [facility] DIFF BASIC METABOLIC PANEL 2020-07-16 22:00:00 [facility] HEPATIC FUNCTION PANEL 2020-07-16 [facility] 2020-07-16 22:00:00 [facility] ESTIMATED GFR 2020-07-16 22:00:00 [facility] SPECIFIC ANTIBODY 2020-07-16 22:00:00 [facility]ST 1 VW PORTABLE 2020-07-16 21:11[facility] 12-LEAD 2020-07-16 21:10:22 [facility]-19 QUALITATIVE 2020-07-16 21:07:00 Shawanda [facility] RT-PCR Plan of Care Planned Activity Planned Date Details Comments Source Future Scheduled Test DIABETES: RETINAL EYE [facility] EXAM [code = DIABETES: RETINAL EYE EXAM] Future Scheduled Test DIABETIC FOOT EXAM [facility] [code = DIABETIC FOOT EXAM] Future Scheduled Test COVID-19 VACCINE (1) [facility] [code = COVID-19 VACCINE (1)] Future Scheduled Test Hepatitis C screening [facility] (procedure) [code = 033640512] Future Scheduled Test Screening for [facility] malignant neoplasm of cervix (procedure) [code = 422687739] Future Scheduled Test INFLUENZA VACCINE [facility] [code = INFLUENZA VACCINE] Encounters Start End Encounter Admission Attending Care Care Encounter Source Date/Time Date/Time Type Type Clinicians Facility Department ID 2021-03-20 2021-03-20 Telephone Perlita, 1.2.840.1 [id number] Methodi 00:00:00 00:00:[address] 3.430.2.7 Hospit a .3.318918 l .8 2021-03-19 2021-03-19 Documentat Jyoticassius, 1.2.840.1 [id number] Methodi 00:00:00 00:00:[address]29[address]1.[address] 3.430.2.7 Hospit a .3.196009 l .8 2021-03-17 2021-03-17 Telephone Kira, 1.2.840.1 [id number] 765 [id number] Methodi 00:00:00 00:00:[address] 3.430.2.7 Hospit a .3.180295 l .8 2021-03-04 2021-03-04 Refill Joel, 1.2.840.1 [id number] 544 [id number] Methodi 00:00:00 00:00:[address] 3.430.2.7 Hospit a .3.110166 l .8 2021-02-19 2021-02-19 Refill Joel 1.2.840.1 [id number] 942 [id number] Methodi 00:00:00 00:00:[address] 3.430.2.7 Hospit a .3.532856 l .8 2021-02-17 2021-02-17 Refill Nieves, 1.2.840.1 [id number] 2100 [id number] Methodi 00:00:00 00:00:[address] 3.430.2.7 Hospit a .3.824610 l .8 2020-12-16 2020-12-16 Telephone Jose Antonio, 1.2.840.1 [id number] 2100 [id number] Methodi 00:00:00 00:00:00 [place] Clemencia [address] 3.430.2.7 Hospit a .3.546093 l .8 2020-12-03 2020-12-03 Documentat Ace, 1.2.840.1 [id number] 349 [id number] Methodi 00:00:00 00:00:00 [address]60[address]1.[address] 3.430.2.7 Hospit a .3.551633 l .8 2020-11-26 2020-11-29 [facility] Blanca Reid 1.2.840.1 [id number] Methodi 15:18:00 18:49:00 Encounter Tamia Franco Benjamin 25993.1.[address] 3.430.2.7 Hospit a .3.876459 l .8 2020-11-29 2020-11-29 Telephone Andrew, 1.2.840.1 [id number] 21 [id number] Methodi 00:00:00 00:00:[address] 3.430.2.7 Hospit a .3.110316 l .8 2020-11-26 2020-11-29 [id number] [id number] 1215 [place] 00:00:00 00:00:00 TAMIA [address] 2020-11-26 2020-11-26 [facility] Blanca Reid 1.2.840.1 [id number] 04034 09141 Methodi 08:00:00 15:17:00 Encounter Swati 41466.1.[address] 3.430.2.7 Hospit a .3.034745 l .8 2020-11-26 2020-11-26 Office [facility] 1.2.840.1 [id number] 32 [id number] Methodi 06:41:01 06:56:01 Visit Evangelist Blanca Longoria 23979.1.[address] 3.430.2.7 Hospit a .3.308374 l .8 2020-11-26 2020-11-26 Outpatient [facility] [id number] 61845 [place] 00:00:00 00:00:00 MICHAEL [address] 2020-11-26 2020-11-26 Outpatient [facility] 06159 [place] 00:00:00 00:00:00 MICHAEL [address] 2020-11-26 2020-11-26 Documentat Topfer, 1.2.840.1 [id number] 820 [id number] Methodi 00:00:00 00:00:00 ion [address]ard 12882.1.[address] 3.430.2.7 Hospit a .3.412028 l .8 2020-11-26 2020-11-26 Documentat Provider, 1.2.840.1 [id number] 2 [id number] Methodi 00:00:00 00:00:[address] ion Sab[address] 27724.1.[address] 3.430.2.7 Hospit a .3.286770 l .8 2020-11-26 2020-11-26 Travel 1.2.840.1 1.2.960.670 9718 980847 Methodi 00:00:00 00:00:[address] 3.430.2.7 0.2.7.3.698 Ho spita .3.277656 084.8 l .8 2020-11-26 2020-11-26 Outpatient BLANCA REID [facility] [id number] [address] [place] [address] 00:00:00 00:00:[address] 2020-11-07 2020-11-07 Documentat Topfer, 1.2.840.1 [id number] 151 [id number] Methodi 00:00:00 00:00:00 ion Renard 76696.1.[address] 3.430.2.7 Hospit a .3.625348 l .8 2020-11-06 2020-11-06 Lab [facility], 1.2.840.1 [id number] 2100 [id number] Methodi 08:05:07 08:10:[address] 3.430.2.7 Hospit a .3.014842 l .8 2020-11-06 2020-11-06 Outpatient [facility] 68008 9[address] [place] 00:00:00 00:00:00 MICHAEL [address] 2020-11-03 2020-11-03 Documentat Provider, 1.2.840.1 [id number] 2 [id number] Methodi 00:00:00 00:00:00 ion Unknown 40438.1.[address] 3.430.2.7 Hospit a .3.324341 l .8 2020-10-31 2020-10-31 Infusion [facility], 1.2.840.1 [id number] 670 [id number] Methodi 12:44:33 18:29:[address] 3.430.2.7 Hospit a .3.347095 l .8 2020-10-31 2020-10-31 Orders Ace, 1.2.840.1 [id number] 2313 Methodi 00:00:00 00:00:00 Only Renard 49936.1.[address] 3.430.2.7 Hospit a .3.639400 l .8 2020-10-31 2020-10-31 Outpatient [facility] 22160 05361 [place] 00:00:00 00:00:00 MICHAEL [address] 2020-10-30 2020-10-30 Orders [facility], 1.2.840.1 [id number] 2100 [id number] Methodi 00:00:00 00:00:00 Only Michael 79459.1.[address] 3.430.2.7 Hospit a .3.877193 l .8 2020-10-30 2020-10-30 Telephone Chandu, 1.2.840.1 [id number] 2100 [id number] Methodi 00:00:00 00:00:[address] 3.430.2.7 Hospit a .3.893051 l .8 2020-10-30 2020-10-30 [facility] 1.2.840.1 [id number] 576 [id number] Methodi 00:00:00 00:00:00 ion [address] 05338.1.[address] 3.430.2.7 Hospit a .3.396077 l .8 2020-10-29 2020-10-29 Outpatient [facility] 53117 33062 [place] 00:00:00 00:00:00 MICHAEL [address] 2020-10-29 2020-10-29 Outpatient [facility] 82832 22157 [place] 00:00:00 00:00:00 MICHAEL [address] 2020-10-29 2020-10-29 Documentat [facility], 1.2.840.1 [id number] 467 [id number] Methodi 00:00:00 00:00:00 ar[address] Glynn [address]655.1.[address] 3.430.2.7 Hospit a .3.765796 l .8 2020-10-29 2020-10-29 Telephone Mccarthy, 1.2.840.1 [id number] 2099 [id number] Methodi 00:00:00 00:00:00 Catrachita Browne 68059.1.[address] 3.430.2.7 Hospit a .3.949769 l .8 2020-10-29 2020-10-29 Travel 1.2.840.1 1.2.581.110 4295 790955 Methodi 00:00:00 00:00:[address] 3.430.2.7 0.2.7.3.698 Ho spita .3.630595 084.8 l .8 2020-10-28 2020-10-28 Documentat Provider, 1.2.840.1 [id number] 2 [id number] Methodi 00:00:00 00:00:00 ion Sabino 76870.1.[address] 3.430.2.7 Hospit a .3.309741 l .8 2020-10-25 2020-10-25 Orders Tabermejo, 1.2.840.1 [id number] 250 [id number] Methodi 00:00:00 00:00:00 Only Clement 40642.1.[address] 3.430.2.7 Hospit a .3.564934 l .8 2020-10-25 2020-10-25 Orders [place], 1.2.840.1 [id number] 456 [id number] Methodi 00:00:00 00:00:00 Only Clement 66281.1.[address] 3.430.2.7 Hospit a .3.134799 l .8 2020-10-25 2020-10-25 Documentat Kim, 1.2.840.1 [id number] Methodi 00:00:00 00:00:00 ion Clement 15552.1.[address] 3.430.2.7 Hospit a .3.476659 l .8 2020-10-22 2020-10-22 Office Michael hernandez 1.2.840.1 [id number] 32 [id number] Methodi 07:13:02 07:28:02 Visit Deedee Lynn 10835.1.[address] 3.430.2.7 Hospit a .3.340696 l .8 2020-10-22 2020-10-22 Outpatient [facility] 57181 82436 [place] 00:00:00 00:00:00 MICHAEL [address] 2020-10-22 2020-10-22 Outpatient [facility] 04195 05792 [place] 00:00:00 00:00:00 MICHAEL [address] 2020-10-22 2020-10-22 Travel 1.2.840.1 1.2.858.894 4800 726847 Methodi 00:00:00 00:00:[address] 3.430.2.7 0.2.7.3.698 spita .3.088463 084.8 l .8 2020-10-17 2020-10-17 Telephone , 1.2.840.1 [id number] 2 [id number] Methodi 00:00:00 00:00:[address] 3.430.2.7 Hospit a .3.795206 l .8 2020-10-14 2020-10-14 Orders Trachtenber 1.2.840.1 [id number] 21 [id number] Methodi 00:00:00 00:00:00 Only Ronel gupta 73650.1.[address] 3.430.2.7 Hospit a .3.844997 l .8 2020-10-11 2020-10-11 Telephone Martin, 1.2.840.1 [id number] 2100 362755 Methodi 00:00:00 00:00:[address] 3.430.2.7 Hospit a .3.266823 l .8 2020-10-11 2020-10-11 Orders Topfer, 1.2.840.1 [id number] 304820 1528 Methodi 00:00:00 00:00:00 Only Renard 15816.1.[address] 3.430.2.7 Hospit a .3.929266 l .8 2020-10-04 2020-10-04 Orders Topfer, 1.2.840.1 [id number] 270949 6673 Methodi 00:00:00 00:00:00 Only Renard 47563.1.[address] 3.430.2.7 Hospit a .3.308159 l .8 2020-09-27 2020-09-27 Orders Topfer, 1.2.840.1 [id number] 055222 5749 Methodi 00:00:00 00:00:00 Only Renard 24664.1.[address] 3.430.2.7 Hospit a .3.470912 l .8 2020-09-20 2020-09-20 Orders Topfer, 1.2.840.1 [id number] 513635 6948 Methodi 00:00:00 00:00:00 Only Renard 84498.1.[address] 3.430.2.7 Hospit a .3.435125 l .8 2020-09-13 2020-09-13 Doris Bello, 1.2.840.1 [id number] 242997 3333 Methodi 00:00:00 00:00:00 Only Renard 72239.1.[address] 3.430.2.7 Hospit a .3.357017 l .8 2020-09-11 2020-09-11 Refill Nieves, 1.2.840.1 [id number] 2099 [id number] Methodi 00:00:00 00:00:[address] 3.430.2.7 Hospit a .3.138538 l .8 2020-09-10 2020-09-10 Refill Joel, 1.2.840.1 [id number] 236 7083540 Methodi 00:00:00 00:00:[address] 3.430.2.7 Hospit a .3.883013 l .8 2020-09-10 2020-09-10 Gaviota Mccarthy, 1.2.840.1 [id number] 2100 660716 Methodi 00:00:00 00:00:00 Catrachita Browne [address]25.[address] 3.430.2.7 Hospit a .3.983550 l .8 2020-09-06 2020-09-06 Doris Bello, 1.2.840.1 [id number] 220315 8174 Methodi 00:00:00 00:00:00 Only Renard 92903.1.[address] 3.430.2.7 Hospit a .3.647857 l .8 2020-08-30 2020-08-30 Doris Bello, 1.2.840.1 [id number] 403272 7986 Methodi 00:00:00 00:00:00 Only Renard 81874.1.[address] 3.430.2.7 Hospit a .3.391064 l .8 2020-08-23 2020-08-23 Doris Bello, 1.2.840.1 [id number] 455834 1629 Methodi 00:00:00 00:00:00 Only Renard 36310.1.[address] 3.430.2.7 Hospit a .3.286244 l .8 2020-08-16 2020-08-16 Orders Ace, 1.2.840.1 [id number] 654321 8161 Methodi 00:00:00 00:00:00 Only Renard 37030.1.[address] 3.430.2.7 Hospit a .3.577292 l .8 2020-08-15 2020-08-15 Orders Melinda, 1.2.840.1 [id number] 148743 3970 Methodi 00:00:00 00:00:00 Only Rita 24682.1.[address] 3.430.2.7 Hospit a .3.699247 l .8 2020-08-09 2020-08-09 Orders Ace, 1.2.840.1 [id number] 759988 6184 Methodi 00:00:00 00:00:00 Only Renard 78736.1.[address] 3.430.2.7 Hospit a .3.217122 l .8 2020-08-01 2020-08-01 Documentat Ace, 1.2.840.1 [id number] 313 [id number] Methodi 00:00:00 00:00:00 ion Renard [address]2588.1.[address] 3.430.2.7 Hospit a .3.044154 l .8 2020-07-30 2020-07-30 Transplant Melinda Jorgitoramses 1.2.840.1 6631099 32 [id number] Methodi 09:20:36 09:37:33 Telemedici Deedee Lynn 60000.1.[address] 3.430.2.7 Hospit a .3.473372 l .8 2020-07-30 2020-07-30 Telephone Kira, 1.2.840.1 [id number] 807 [id number] Methodi 00:00:00 00:00:[address] 3.430.2.7 Hospit a .3.145995 l .8 2020-07-30 2020-07-30 Outpatient MELINDA, [facility] [id number] 544 [place] 00:00:00 00:00:00 RITA [address] 2020-07-26 2020-07-26 Orders Ace, 1.2.840.1 [id number] 7457 Methodi 00:00:00 00:00:00 Only Renard 84810.1.[address] 3.430.2.7 Hospit a .3.002032 l .8 2020-07-22 2020-07-22 [facility] 1.2.840.1 [id number] 21 [id number] Methodi 00:00:00 00:00:[address] 3.430.2.7 Hospit a .3.216935 l .8 2020-07-22 2020-07-22 Telephone [facility], 1.2.840.1 [id number] Methodi 00:00:00 00:00:[address] 3.430.2.7 Hospit a .3.778254 l .8 2020-07-22 2020-07-22 Documentat Ace, 1.2.840.1 [id number] 732 [id number] Methodi 00:00:00 00:00:00 ion Renard 63897.1.[address] 3.430.2.7 Hospit a .3.965979 l .8 2020-07-16 2020-07-19 Hospital Ronel Meneses 1.2.840.1 104 903253 [id number] Methodi 14:04:00 13:55:00 Encounter Tamia Franco 93939.1.[address] 3.430.2.7 Hospit a .3.228403 l .8 2020-07-16 2020-07-19 Inpatient JOAN [facility] 060 [id number] 9032 [place] 00:00:00 00:00:00 TAMIA [address] 2020-07-18 2020-07-18 Surgery Aniyah, 1.2.840.1 [id number] 1416 Methodi 15:15:00 16:15:[address] 3.430.2.7 Hospit a .3.430191 l .8 2020-07-18 2020-07-18 Refjesus Pickett, 1.2.840.1 [id number] 2099 778624 Methodi 00:00:00 00:00:[address] 3.430.2.7 Hospit a .3.131570 l .8 2020-07-16 2020-07-16 Telephone Kira, 1.2.840.1 [id number] 135 [id number] Methodi 00:00:00 00:00:[address] 3.430.2.7 Hospit a .3.035083 l .8 2020-07-15 2020-07-15 Travel 1.2.840.1 1.2.148.760 2213 883745 Methodi 00:00:00 00:00:[address] 3.430.2.7 0.2.7.3.698 Ho spita .3.624905 084.8 l .8 2020-07-15 2020-07-15 Documentat Ace, 1.2.840.1 [id number] 606 [id number] Methodi 00:00:00 00:00:00 ion Renard 03062.1.[address] 3.430.2.7 Hospit a .3.661390 l .8 2020-06-28 2020-06-28 Doris Bello, 1.2.840.1 [id number] 825555 3933 Methodi 00:00:00 00:00:00 Only Renard 02953.1.[address] 3.430.2.7 Hospit a .3.809844 l .8 2020-05-31 2020-05-31 Doris Bello, 1.2.840.1 [id number] 181224 2769 Methodi 00:00:00 00:00:00 Only Renard 63038.1.[address] 3.430.2.7 Hospit a .3.841927 l .8 2020-05-03 2020-05-03 Orders Topfer, 1.2.840.1 [id number] 361341 6750 Methodi 00:00:00 00:00:00 Only Renard 60610.1.[address] 3.430.2.7 Hospit a .3.859813 l .8 2020-04-05 2020-04-05 Transplant Michael Pickett 1.2.840.1 1040 47795 8838751166 Methodi 08:17:58 10:19:28 Telemedici Madeleine Desir 16255.1.[address] ne 3.430.2.7 Hospit a .3.042982 l .8 2020-04-05 2020-04-05 Outpatient [facility] 01434 17980 [place] 00:00:00 00:00:00 MICHAEL [address] 2019-12-04 2019-12-04 Outpatient [facility] 17047 96010 [place] 00:00:00 00:00:00 MICHAEL [address] 2019-12-04 2019-12-04 [facility] 18199 36389 [place] 00:00:00 00:00:00 MICHAEL [address] 2019-12-04 2019-12-04 Outpatient [facility] 79600 17277 [place] 00:00:00 00:00:00 MICHAEL [address] 2019-08-07 2019-08-07 Outpatient CAITIE [facility] 277 [id number] [place] 00:00:00 00:00:00 RONEL Gupta 463 Ricardo courtney 2019-07-10 2019-07-13 Inpatient BLANCA REID [facility] [id number] 83 [place] 00:00:00 00:00:[address] Results Test Description Test Time Test Comments Results Result Comments Source FK506 Tacrolimus level, random 2021-01-09 22:08:00 Test Item Value Reference Range Interpretation Comme nts FK506 level (test code 6.9 ng/mL 2.0-20.0 Trough (immediately = 95393-2) following transplant) 15.0 Trough (steady state, 2 weeks or mor e after transplant): 3.0 - 8.0 Detection Keith it = 1.0 Performed by LC-MS/MS technology. This test was developed a nd its performance characteristics determined by [facility]. It has not been cleare d or approved by the Food and Drug Administration. LAUREN (test code = LAUREN) Performed at: [address] [place] [address] [id number] Director: Staci Delgado MD, Phone: [phone] [facility] with platelet and [id number] 11:09:00 Test Item Value Reference Range Interpretation Comments WBC (test code = See_Comment [Automated 6290-2) message] The system which generated this result transmitted reference range : 3.4 - 10.8 x10E3/uL. The reference range was not used to interpret this result as normal/abnormal . RBC (test code = See_Comment [Automated 659-8) message] The system which generated this result transmitted reference range : 3.77 - 5.28 x10E6/uL. The reference range was not used to interpret this result as normal/abnormal . HGB (test code = 13.0 g/dL 11.1-15.9 718-7) HCT (test code = 39.9 % 34.0-46.6 4544-3) MCV (test code = 93 fL 79-97 787-2) MCH (test code = 30.3 pg 26.6-33.0 785-6) MCHC (test code = 32.6 g/dL 31.5-35.7 786-4) RDW (test code = 11.9 % 11.7-15.4 788-0) Platelet count (test See_Comment [Autom ated code = 777-3) message] The system which generated this result transmitted reference range : 150 - 450 x10E3/uL. The reference range was not used to interpret this result as normal/abnormal . Neutrophils (test 58 % Not Estab. code = 770-8) Lymphocytes (test 33 % Not Estab. code = 736-9) Monocytes (test code 2 % Not Estab. = 5905-5) Eosinophils (test 6 % Not Estab. code = 713-8) Basophils (test code 1 % Not Estab. = 706-2) Neutrophils, absolute See_Comment [Auto mated (test code = 021-8) message] The system which generated this result transmitted reference range : 1.4 - 7.0 x10E3/uL. The reference range was not used to interpret this result as normal/abnormal . Lymphocytes, absolute See_Comment H [Auto mated (test code = 731-0) message] The system which generated this result transmitted reference range : 0.7 - 3.1 x10E3/uL. The reference range was not used to interpret this result as normal/abnormal . Monocytes, absolute See_Comment [Automa siddhartha (test code = 742-7) message] The system which generated this result transmitted reference range : 0.1 - 0.9 x10E3/uL. The reference range was not used to interpret this result as normal/abnormal . Eosinophils, absolute See_Comment H [Auto mated (test code = 711-2) message] The system which generated this result transmitted reference range : 0.0 - 0.4 x10E3/uL. The reference range was not used to interpret this result as normal/abnormal . Basophils, absolute See_Comment [Automa siddhartha (test code = 704-7) message] The system which generated this result transmitted reference range : 0.0 - 0.2 x10E3/uL. The reference range was not used to interpret this result as normal/abnormal . Immature granulocytes 0 % Not Estab. (test code = 83873-3) Immature grans (abs) See_Comment [Autom ated (test code = 79926-9) messag e] The system which generated this result transmitted reference range : 0.0 - 0.1 x10E3/uL. The reference range was not used to interpret this result as normal/abnormal . LAUREN (test code = LAUREN) Performed at: [facility] [id number] Director: José Parmar MD, Phone: [phone] Lab Interpretation Abnormal (test code = 38858-1) [facility] metabolic [id number] 10:09:00 Test Item Value Reference Interpretation Comments Range Glucose (test code = 59 mg/dL 65-99 L 2345-7) BUN (test code = 18 mg/dL 6-24 3094-0) Creatinine (test 1.00 mg/dL 0.57-1.00 code = 2160-0) EGFR Non-Afr. 67 mL/min/1.73 >59 Malian (test code = 2775) EGFR 77 mL/min/1.73 >59 [facility] abram mars Malian (test code reports eGFR in = 2774) compliance with the current recommendations of the National dney Foundation. Lab kenji will update reporting as ne w guidelines are published from the NKF-ASN Task f orce. BUN/creatinine ratio 9-23 (test code = 3097-3) Sodium (test code = 138 mmol/L 057-076 6684-2) Potassium (test code 4.4 mmol/L 3.5-5.2 = 2823-3) Chloride (test code 101 mmol/L 96-106 = 2075-0) CO2 (test code = 21 mmol/L 20-29 2027-9) Calcium (test code = 9.5 mg/dL 8.7-10.2 04196-9) Protein (test code = 7.0 g/dL 6.0-8.5 2885-2) Albumin, S (test 4.4 g/dL 3.8-4.8 code = 1751-7) Globulin, total 2.6 g/dL 1.5-4.5 (test code = 18795-2) Albumin/globulin 1.2-2.2 ratio (test code = 1759-0) Total bilirubin 0.5 mg/dL 0.0-1.2 (test code = 1975-2) Alkaline phosphatase See_Comment [Autom ated message] (test code = 6768-6) [facility] tem which generated this result transmit siddhartha reference range : 48 - 121 IU/L. The reference range was not used to interpret this result as normal/abnormal . AST (test code = See_Comment [Automated message] 1920-03) The system [facility] generated this result transmit siddhartha reference range : 0 - 40 IU/L. The reference range was not used to interpret this result as normal/abnormal . ALT (test code = See_Comment [Automated message] 1741-6) The system [employer] [employer] [facility] generated this result transmit siddhartha reference range : 0 - 32 IU/L. The reference range was not used to interpret this result as normal/abnormal . LAUREN (test code = Performed at: LAUREN) 01 - [facility] [id number] [place], [place] [id number] Director: José Parmar MD, Phone: [phone] Lab Interpretation Abnormal (test code = 99083-1) [facility] [id number] 10:09:00 Test Item Value Reference Range Interpretation Comments Magnesium (test code = 1.5 mg/dL 1.6-2.3 L 63578-4) LAUREN (test code = LAUREN) Performed at: - [id number] [id number] Director: José Parmar MD, Phone: [phone] Lab Interpretation (test Abnormal code = 20873-7) [facility] [id number] 18:32:54 Test Item Value Reference Range Interpretation Comments Misc test name FACV PTPCR (test code = 2566) Misc test see comment Factor V Leiden (F5) result (test R506Q Mutation ARUP code = 1730) test code 35494 20 FACV Specimen W hole Blood - - - - - - - - - - - - - - - - - - - - - - - - - - - - - - Factor V Leiden (F5) R506Q Mutation Negative Indic ation for testing: As sess genetic risk fo r thrombosis. NEG ATIVE: The factor V Le iden variant, c.1601 G>A; p.[id number], wa s not detected. This does not exclude a g enetic cause for thrombophilia. If this individual has had a previous venous thromboembolism , this negative result is unlikely to significantly r educe the risk for recurrence; deon s, future clinical management to r educe recurrence shou ld not be altered. Thi s result has been reviewed and ap proved by Daryn Johnson, Ph. D. BACKGROUND INFORMATION: Fa ctor V Leiden (F5) R50 6Q Mutation CHARACTERISTICS : Venous thromboe mbolism (VTE) is multifactorial caused by a combinatio n of genetic and environmental f actors. The Factor V Le iden (FVL) variant i s the most common cau se of inherited VTEs, accounting for over 90 percent of acti vated protein C (APC) resistance. Bec ause the FVL variant eliminates the APC cleavage site, factor V is inactivate d slower, thus persisting long er in blood circulati on, leading to more thrombin produc tion. Other genetic r isk factors for VTE include, male s ex and variants in antithrombin, p rotein C, protein S, o r factor XIII. Non-genetic ris k factors include , age, smoking, prolon ged immobilization, malignant neopl asms, surgery, pregna ncy, oral contracept kathleen, estrogen replac ement therapy, tamoxi fen and raloxifene therapy.INCIDEN CE OF FACTOR V LEIDEN VARIANT: Approx imately 5 percent of Caucasians, 2 p ercent of Hispanics, 1 percent of Afri can Americans and 0 .5 percent of Danielle ns are heterozygous; homozygosity oc curs in 1 in 1500 Caucasians.INHE RITANCE : Semi-dominant ; both heterozygotes a nd homozygotes are at increased risk for VTE.PENETRANCE: Lifetime risk o f VTE is 10 percent f or heterozygotes a nd 80 percent of homozygotes.CAU SE: The pathogenic gain of function in the F5 gene variant c. 1601G>A (p.Pao955Unj). Legacy nomenclature: R 506Q (1691G>A) CLINI SILVANO SENSITIVITY: 20 -50 percent of jin viduals with an isolate d VTE have the FVL va riant. METHODOLOGY: Polymerase huber n reaction and fluorescence monitoring.ANAL YTICAL SENSITIVITY AND SPECIFICITY: 99 percent.LIMITAT IONS: Diagnostic erro rs can occur due to ra re sequence variat ions. F5 gene mutatio ns, other than p.Oou790Bov, wi ll not be detected. Th is test was developed a nd its performance characteristics determined by [facility]. I t has not been cleare d or approved by the [place] Food and Drug Administration. This test was perfor med in a CLIA certifie d laboratory and is intended for cl inical purposes. Couns eling and informed co nsent are recommended for genetic testing . Consent forms a re available onlin e. ======= ======= Prothrombin (F2 ) c.*97G>A (G2021 0A) Pathogenic Vari ant AR[facility] test code 9199554 PT PCR Specime n Whole Blood - - - - - - - - - - - - - - - - - - - - - - - - - - - - - - Prothrombin (F2 ) [id number] Variant Negative Indic ation for testing: As sess genetic risk fo r thrombosis. NEG ATIVE: The Factor II, prothrombin G20 210A mutation, was n ot detected. Othe r causes of eleva siddhartha prothrombin lev els and hereditary form s of venous thrombos is have not been exclud ed. Recommendations : If clinically jin cated, testing for oth er inherited or ac quired thrombophilic disorders is recommended inc luding DNA testing for the factor V Leiden mutation, measu rement of total plasma homocysteine concentration, serological ass ays for anticardiolipin antibodies, mul tiple phospholipid-de pendent coagulation ass ays for lupus inhibitor , protein C activ ity, protein S activ ity or free protein S antigen, and antithrombin ac tivity. This result has been reviewed and ap proved by Moncho Huynh. BACKGROUND INFORMATION: Prothrombin (F2 ) c.*97G>A (G2 0210A) Pathogenic VariantCHARACTE RISTICS : The Factor II , c.*97G>A (G2021 0A) pathogenic vari ant is a common geneti c risk factor for veno us thrombosis asso ciated with elevated prothrombin lev els leading to incr eased rates of thromb in generation and excessive growt h of fibrin clots. T he expression of F actor II thrombophili a is impacted by marj xisting genetic thrombo philic disorders, acqu ired thrombophilic disorders (eg, malignancy, hyperhomocystei nemia, high factor VII I levels), and circumstances including: preg lyubov, oral contracept ambrose use, hormone replacement the rapy, selective estro gen receptor modula tors, travel, central venous catheters, surg fidel, and organ transplantation .INCIDE NCE: Approximat nino 2 percent of Cauc asians and 0.3 percent of Dorota ns are heterozygous; homozygosity oc curs in 1 in 10,000 individuals. INHERITANCE: Incomplete auto somal dominant.PENETR ANCE: The risk of thr ombosis is increased 2- 4 fold for heterozygot es and further increas ed for homozygotes.CAU SE: Homozygosity or heterozygosity for F2 c.*97G>A (G2021 0A). PATHOGENIC VARI ANT TESTED: F2 c.*9 7G>A (F26290X).CLINI SILVANO SENSITIVITY FOR VENOUS THROMBOSIS: Approximately 1 0 percent.METHODO LOGY: Polymerase huber n reaction and fluorescence monitoring.ANAL YTICAL SENSITIVITY AND SPECIFICITY: 99 percent.LIMITAT IONS: Diagnostic erro rs can occur due to ra re sequence variat ions. F2 gene variant s, other than c.*9 7G>A (N93242W), will not be detected. This test was developed a nd its performance characteristics determined by [facility]. I t has not been cleare d or approved by the [place] Food and Drug Administration. This test was perfor med in a CLIA certifie d laboratory and is intended for cl inical purposes. Couns eling and informed co nsent are recommended for genetic testing . Consent forms a re available onformerly [facility] e. ======= ======= Test performed by:[facility] [place] [address] [phone] LAUREN (test code 1.9FAC5L - Factor = LAUREN) V Leiden (F5) R506Q Mutation AR Test ID: [id number]: Whole Blood EDTA2.9PTPCR - Prothrombin (F2) c.*97G>A (T57943P) Pathogenic VariantARUP Test ID: [id number]: Whole Blood EDTA [facility] specific qydmmefg9725-23-34 12:03:06 Test Item Value Reference Range Interpretation Comments DSA serum ID (test code [id number] = 5858) DSA serum collection D&T 11/28/2020 04:40 AM (test code = 5859) DSA class I antibody Negative assignment (test code = 5862) DSA antibody I comments NONE (test code = 5863) DSA cPRA class I (test code = 5860) DSA class II antibody Negative assignment (test code = 5864) DSA antibody II comments NONE (test code = 5865) DSA cPRA class II (test code = 5861) Case number (test code = [id number]) Donor specific antibody See link below for (test code = 3713) PDF [facility] lower [id number] 13:37:00 Vascular Ultrasound Laboratory Lower Extremity Venous Report [address] [place] [address] Pat.Name: MINGO FOUNTAIN.ID: [id number] .Date: 11/28/2020 Refer.MD: TAMIA FRANCO MD Exam Time: 7:49:00 PM Study Type:LE Venous Height: 72in Age: 9 1970,50Y Sex: FEMALE Sonogrphr: CHESTER Albert, CIELO Pat. Stat.:Inpatient Room: [address] Vol: , CPT - 4: 74423 Echo Event ID:[id number] Order ID: [id number] Reason for Study:Leg deep vein thrombosis (DVT) suspected. [facility] oforthotopic heart transplant, melanoma, HTN, HLD, Covid-19.Procedures: Colorflow, Grayscale/2D, Pulsed wave DopplerRace: C ------- SUMMARY: Deep Veins Superficial Veins* Normal Reflux [...] No evidence of venous thrombosis of the visualized veins,simran ashley.PHYSICIAN INTERPRETATION: Venous examination of the both lower extremities demonstrated noevidence of venous thrombosis in the visualized veins. Normalcompressibility and augmentation of all veins visualized. FINDINGS: Signed 11/29/2020 08:37 AMJorge Vickers MD, RPVIInterface, Radiology Results In - 11/29/2020 8:38 AM CDT Vascular Ultrasound Laboratory Lower Extremity Venous Report [address] [place] [address] Pat.Name: MINGO FOUNTAIN Pat.ID: [id number] .Date: 11/28/2020 Refer.MD: TAMIA FRANCO MD Exam Time: 7:49:00 PM Study Type:LE Venous Height:72in Age: 9 1970,50Y Sex: FEMALE Sonogrphr: CHESTER Albert RCS Pat. Stat.:Inpatient Room: [place] [address] Tape Vol: JM, CPT - 4: 82611 Echo Event ID:[id number] Order ID: [id number] Reason for Study:Leg deep vein thrombosis (DVT) suspected. PM oforthotopic heart transplant, melanoma, HTN, HLD, Covid- 19.Procedures: Colorflow, Grayscale/2D, Pulsed wave DopplerRace: C SUMMARY:-------- Deep Veins Superficial Veins* Normal Reflux Criteria: [...] is normal compressibility with no evidence of echoge nicmaterial noted within the lumen of the visualized veins. Color flowand Doppler signals are normal.LEFT: There is normal compressibility with no evidence ofechogenic material noted within the lumen of the visualized veins.Color flow and Doppler signals are normal.PRELIMINARY FINDINGS:1. No evidence of venous thrombosis of the visualized veins,bilaterally.PHYSICIAN INTERPRETATION: Venous examination of the both lower extremities demonstrated noevidence of venous thrombosis in the visualized veins. Normalcompressibility and augmentation of all veins visualized. --FINDINGS: Signed 11/29/2020 08:37 Valarie Vickers MD, [facility] 12 [id number] 21:25:55 Test Item Value Reference Range Interpretation Comments Ventricular rate (test code = 253) Atrial rate (test code = 255) NC interval (test code = 266) QRSD interval (test code = 260) QT interval (test code = 264) QTC interval (test code = 265) P axis 1 (test code = 267) QRS axis 1 (test code = 268) T wave axis (test code = 270) EKG impression (test code Normal sinus = 273) rhythm-Possible Left atrial enlargement-Right bundle branch block-Abnormal ECG- [facility] Complete, (w Contrast, Strain and 3D if needed)2020-11-27 21:39:00 Echocardiography Report [address] [address] Pat.Name: MINGO FOUNTAIN Pat.ID: [id number] .Date: 11/26/2020 Refer.MD: BLANCA REID MD Exam Time: 10:56:00 PM Study Type:Routine Echo Height: 72in Weight: 203lb BSA: 2.15 m2 Age: 9 1970,50Y Sex: FEMALE BP: 118/72 HR: 84 bpm Sonogrphr: CIELO Maguire [facility]. Stat.:Inpatient Room: [place] [address] Study Status:Final Echo Event ID:[id number] Order ID: [id number] Reason for Study:Heart allograft dysfunction, To assess LV Function.History / Clinical:Cancer, Heart TransplantProcedures: 2D Echo, Colorflow Doppler, Portable, StrainRace: C SUMMARY: LV size is normal. LV EF is normal.Estimated EF is 60-64%.RV systolic function is moderately depressed.Estimated PA systolic pressure is 41 mmHg, assuming a mean RAP of 5mmHg.Mild to moderate tricuspid regurgitation FINDINGS: LV: LV size is normal. Normal average LV global longitudinal strain at -18.6%. LV EF is normal. Overall wall motion is normal. Septal motion is paradoxical. Estimated EF is 60-64%.RV: RV size is enlarged. RV systolic function is moderately depressed. LA: LA size: post-transplantRA: RA size: post-transplantAO: Aortic root diameter is normal.DONNA: No pericardial effusion.AV: No structural AV abnormalities noted.MV: No structural MV abnormalities noted. Mild mitral regurgitation. PV: No structural PV a bnormalities noted. Mild pulmonic regurgitation. TV: No structural TV abnormalities noted. Mild to moderate tricuspid regurgitationOther: Estimated PA systolic pressure is 41mmHg, assuming a mean RAP of 5 mmHg. MEASUREMENTS:------- 2DParasternal Long [place] Ao An 1.9 cm LVPWd 0.99 cm [...] cm HR 83 bpm LVOT LVOT SV 72ml LVOT CO 6 l/min SVi 33 ml/m2 LVOT CI 2.8 l/m/m2 Signed 11/27/2020 04:39 PMLambert York M.D.Interface, Radiology Results In - 11/27/2020 4:39 PM CDT Echocardiography Report [address] [place] [address] Pat.Name: MINGO FOUNTAIN Pat.ID: [id number] .Date: 11/26/2020 Refer.MD: BLANCA REID MD Exam Time: 10:56:00 PM Study Type:Routine Echo Height: 72in Weight: 203lb BSA: 2.15 m2 Age: 9 1970,50Y Sex: FEMALE BP: 118/72 HR: 84 bpm Sonogrphr: CIELO Maguire Pat. Stat.:Inpatient Room: D10W 1006 Study Status:Final Echo Event ID:[id number] Order ID: [id number] Reason for Study:Heart allograft dysfunction, To assess LV Function.History / Clinical:Cancer, Heart TransplantProcedures: 2D Echo, Colorflow Doppler, Portable, StrainRace: C SUMMARY: LV size is normal.LV EF is normal.Estimated EF is 60-64%.RV systolic function is moderately depressed.Estimated PA systolic pressure is 41 mmHg, assuming a mean RAP of 5mmHg.Mild to moderate tricuspid regurgitation------ FINDINGS: LV: LV size is normal. Normal average LV global longitudinal strain at -18.6%. LV EF is normal. Overall wall motion is normal. Septal motion is paradoxical. Estimated EF is 60-64%.RV: RV size is enlarged. RV systolic function is moderately depressed. LA: LA size: post-transplantRA: RA size: post-transplantAO: Aortic root diameter is normal.DONNA: No pericardial effusion.AV: No structural AV abnormalities noted.MV: No structural MV abnormalities noted. Mild mitral regurgitation. PV: No structural PV abnormalities noted. Mild pulmonic regurgitation. TV: No structural TV abnormalities noted. Mild to moderatetricuspid regurgitationOther: Estimated PA systolic pressure is 41 mmHg, assuming a meanRAP of 5 mmHg. MEASUREMENTS: 2DParasternal Long [place] Ao An 1.9 cm LVPWd 0.99 cm [...] 2.8 l/m/m2 Signed 11/27/2020 04:39 Aleena York M.D.[facility] SARS-CoV-2 (COVID-19) RNA [Presence] in Respiratory specimen by ANNE with probe [id number] 22:21:28 Test Item Value Reference Range Interpretation Comments SARS-CoV-2 (COVID-19) RNA Not detected Not-Detected [Presence] in Respiratory specimen by ANNE with probe detection (test code = 33932-4) Whether patient is employed in a healthcare setting (test code = 92297-2) Whether the patient has symptoms related to condition of interest (test code = 95774-4) Patient was hospitalized because of this condition (test code = 03986-5) Whether the patient was admitted to intensive care unit (ICU) for condition of interest (test code = 32039-0) Whether patient resides in a congregate care setting (test code = 13225-3) CT Angiogram Pe [id number] 16:16:45EXAMINATION: CT ANGIOGRAM PE CHEST CLINICAL HISTORY: R07.9 Chest pain unspecified, U07.1 COVID-19, Post heart recipient who had COVID [address] of chest PE protocol TECHNIQUE: PE PROTOCOL: CTangiographic images of the chest were obtained during intravenous administration of iodinated contrast. Computerized reformatted images and 3-D MIP images were also obtained and archived (CT pulmonary embolus protocol). CT imaging was performed with iterative reconstruction technique and/or automated e xposure control to reduce radiation dose. COMPARISON: November 21, 2018 FINDINGS: Pulmonary arteries: There are subsegmental pulmonary emboli in the right upper lobe (see image 97 series 2) and right lower lobe (image 209). Embolic burden is small. Main pulmonary artery diameter is 3.5 cm. Right ventricular to left ventricular diameter ratio is less than 1. Lungs and airways: Minimal scarring, predominantly in the upper lobes/apices. No acute airspace disease. Pleura: Minimal posterior pleural thickening bilaterally, right greater than left, with a few associated small calcified pleural plaques. No pleural effusion or pneumothorax. Mediastinum and lymph nodes: No lymphadenopathy. Cardiovascular: Surgical changes status post heart transplant, with markedly patulous atria and mildly dilated right and left ventricles. Upper abdomen: There are calcified splenic granulomas. Musculoskeletal: Prior median sternotomy. Scattered degenerative osseous changes. IMPRESSION: 1.Small burden subsegmental pulmonary emboli in the right upper and lower lobes.2.Surgical changes status post heart transplant. [id number] Repeated attempts to reach the clinic were unsuccessful. Dr. Haile spoke with the patient and sent the patient back to clinic. Interface, Radiology Results Incoming - 11/26/2020 11:19 AM CDTF ormatting of this note might be different from the original.EXAMINATION: CT ANGIOGRAM PE CHESTCLINICAL HISTORY: R07.9 Chest pain unspecified, U07.1 COVID- 19, Post heart recipient who had COVID [address] of chest PE protocolTECHNIQUE: PE PROTOCOL: CT angiographic images of the chest were obtai celestine during intravenous administration of iodinated contrast. Computerized reformatted images and 3-DMIP images were also obtained and archived (CT pulmonary embolus protocol). CT imaging was performedwith iterative reconstruction technique and/or automated exposure control to reduce radiation dose.COMPARISON: November 21, 2018FINDINGS:Pulmonary arteries: There are subsegmental pulmonary emboli in the right upper lobe (see image 97 series 2) and right lower lobe (image 209). Embolic burden is small. Main pulmonary artery diameter is 3.5 cm. Right ventricular to left ventricular diameter ratio is lessthan 1.Lungs and airways: Minimal scarring, predominantly in the upper lobes/apices. No acute airspace disease. Pleura: Minimal posterior pleural thickening bilaterally, right greater than left, with afew associated small calcified pleural plaques. No pleural effusion or pneumothorax.Mediastinum and l ymph nodes: No lymphadenopathy. Cardiovascular: Surgical changes status post heart transplant, with markedly patulous atria and mildly dilated right and left ventricles.Upper abdomen: There are calcified splenic granulomas.Musculoskeletal: Prior median sternotomy. Scattered degenerative osseous changes.IMPRESSION:1.Small burden subsegmental pulmonary emboli in the right upper and lower lobes.2.Surgical changes status post heart transplant.[id number] attempts to reach the clinic were unsuccessful. Dr. Haile spoke with the patient and sent the patient back to clinic.[facility] with [id number] 17:55:06 Test Item Value Reference Interpretation Comments Range [...] Not Detected pertussis PCR (test code = 5760160) Bordetella Not Detected parapertussis PCR (test code = 0747184) Chlamydia Not Detected pneumoniae PCR (test code = 3753) Mycoplasma Not Detected pneumoniae PCR (test code = 7110) COVID-19 Not Detected qualitative RT-PCR result (test code = 65729-5) [facility] IgG+IgM Ab [Presence] in Serum or Plasma by Tnwxglwjlzi9886-05-78 11:35:00 Test Item Value Reference Range Interpretation Comments SARS-CoV-2 (COVID-19) IgG+IgM Ab Positive [Presence] in Serum or Plasma by Immunoassay (test code = 99915-7) SARS-CoV-2 (COVID-19) IgG Ab [Presence] in Serum or Plasma by Immunoassay 2020-11-06 11:35:00 Test Item Value Reference Range Interpretation Comments SARS-CoV-2 (COVID-19) IgG Ab Positive [Presence] in Serum or Plasma by Immunoassay (test code = 95649-4) SARS-CoV-2 (COVID-19) RNA [Presence] in Respiratory specimen by ANNE with probe [id number] 15:18:03 Test Item Value Reference Range Interpretation Comments SARS-CoV-2 (COVID-19) RNA [Presence] Detected Not-Detected in Respiratory specimen by ANNE with probe detection (test code = 01870-0) Microscopic Ptulitoftix1455-13-00 23:09:00 Test Item Value Reference Range Interpretation Comments WBC, UA (test code 0-5 See_Comment [Automat ed = 5821-4) message] The system which generated this result transmit siddhartha reference range : 0 - 5 /hpf. The reference range was not used to interpret this result as normal/abnormal . RBC, UA (test code 0-2 See_Comment [Automat ed = 84703-9) message] The system which generated this result [...] code = Performed at: 01 LAUREN) - [facility] [id number] Director: José Parmar MD, Phone: [phone] [facility]inal[facility], routine with microscopic examination on positives 2020-10-15 23:09:00 Test Item Value Reference Range Interpretation Comments Specific gravity, 1.005-1.030 urine (test code = 2965-2) pH, urine (test code 5.0-7.5 = 5803-2) Color, UA (test code Yellow Yellow = 5778-6) Appearance (test code Clear Clear = 5767-9) WBC esterase, urine Trace Negative A (test code = 5799-2) Protein, UA (test Negative Negative/Trace code = 81152-4) Glucose, urine (test Negative Negative code = 2349-9) Ketones, UA (test Negative Negative code = 2514-8) Occult blood, urine Negative Negative (test code = 5794-3) Bilirubin, UA (test Negative Negative code = 5770-3) Urobilinogen, UA 0.2 mg/dL 0.2-1.0 (test code = 32766-3) Nitrite, UA (test Negative Negative code = 5802-4) Microscopic See below: Microscopic was examination (test indicated and was code = 65806-3) performed. LAUREN (test code = LAUREN) Performed at: 01 - [facility] [id number] Director: José Parmar MD, Phone: [phone] Lab Interpretation Abnormal (test code = 69005-7) [facility] lab [id number] 21:02:51After obtaining informed consent, the patient was brought [...] 25 minutes.Findings:Mild (Grade I) CAV without focal stenoses.[facility] HoustonXR Chest 1 Vw Ghirystb3591-48-29 17:31:44 EXAMINATION: XR CHEST 1 VW PORTABLE CLINICAL HISTORY: sob rule out Covid 19 COMPARISON: Most Recent IMPRESSION: Heart and mediastinum stable. No significant effusion. Mild pulmonary vascular congestion, without acute consolidation. [id number] Interface, Radiology Results 07/17/2020 11:34 AM CST EXAMINATION: XR CHEST 1 VW PORTABLECLINICAL HISTORY: sob rule out Covid 19COMPARISON: Most RecentIMPRESSION:Heart and mediastinum stable. No significant effusion. Mild pulmonary vascular congestion, without acute consolidation. [id number] HospitalTransthoracic Echocardiogram Complete, (w Contrast, Strain and 3D if needed)2020-07-17 12:14:00 Echocardiography Report [address] [place] [address] Pat.Name: MINGO FOUNTAIN Pat.ID: [id number] .Date: 07/16/2020 Exam Time: 9:27:00 PM Study Type:Routine Echo Height: 72in Weight: 206lb BSA: 2.16 m2 Age: 9 1970,50Y Sex: FEMALE BP: 104/70 HR: 95 bpm Sonogrphr: CIELO Palomino, RVT Pat. Stat.:Inpatient Room: [facility] CPT -4: 80734, 69[address], [address] Study Status:Final Echo Event ID:[id number] Order ID: [id number] Reason for Study:OHT, chest pain History / Clinical:Cancer, HeartTransplantProcedures: 2D Echo, 2D Echo, Colorflow Doppler, PortableRace: C SUMMARY: LV EF is hyperdynamic. Estimated EF is >70%.RV systolic function is normal.Estimated PA systolic pressure is 30 mmHg,assuming a mean RAP of 5mmHg. FINDINGS: ---------LV: LV size is normal. Concentric left ventricular [...] diastolic function due to Tachycardia.Other: Estimated PA systolic pressure is 30 mmHg, assuming a mean RAP of 5 mmHg. MEASUREMENTS:--------- 2DParasternal Long [place] Ao An 1.7 cm LVPWd 0.96 cm Ao Rtd 2.4 cm Index 1.1 cm/m2 LA Ds 6.3 cm IVSd 0.86 cm RWT 0.43LVIDd 4.5 cm Index 2.1 cm/m2 LV Mass 135 g (87-129) LVIDs 2.5 cm LVM Index 62 g/m2 LV%fs 43 % LVOT 1.9 cm LVOT LVOT Area 2.7 cm2 DOPPLERLVOT Stroke Vol & Cardiac Out LVOT TVI 26 cm HR 98 bpm LVOT LVOT SV 71 ml LVOT CO 6.9 l/min SVi 33 ml/m2 LVOT CI 3.2 l/m/m2 Signed 07/17/2020 06:14 AMMokaylee Garcia MDInterface, Radiology Results In - 07/17/2020 6:15 AM CST Echocardiography Report [address] [address] Pat.Name: MINGO FOUNTAIN Pat.ID: [id number] .Date: 07/16/2020 Exam Time: 9:27:00 PM Study Type:Routine Echo Height: 72in Weight: 206lb BSA: 2.16 m2 Age: 9 1970,50Y Sex: FEMALE BP: 104/70 HR: 95 bpm Sonogrphr: Aleksandra Meadows, RCS, RVT Pat. Stat.:Inpatient Room: [facility] CPT - 4: 26411, 18976, [address] Study Status:Final Echo Event ID:[id number] Order ID: [id number] Reason for Study:OHT, chest pain History / Clinical:Cancer, Heart TransplantProcedures: 2D Echo, 2D Echo, Colorflow Doppler, PortableRace: C ---- SUMMARY: LV EF is hyperdynamic. Estimated EF is >70%.RV systolic function is normal.Estimated PA systolic pressure is 30 mmHg, assuming a mean RAP of 5mmHg. FINDINGS: -------LV: LV size is normal. Concentric left ventricular [...] diastolic function due to Tachycardia.Other: Estimated PA systolic pressure is 30 mmHg, assuming a mean RAP of 5 mmHg. MEASUREMENTS: 2DParasternal Long [place] Ao An 1.7cm LVPWd 0.96 cm Ao Rtd 2.4 cm [...] LVOT CI 3.2 l/m/m2 Signed 07/17/2020 06:14 AMMohamjeremiah Garcia, [facility] carotid [id number] 05:15:00 Vascular Ultrasound Laboratory Carotid Artery Duplex Report [address] [place] [address], [place] [address] For air quality manager purposes, the categorization of the degree of the stenosis of this exam is based on criteria described in the IAC carotid stenosis grading white paper( www.intersocietal.org/Vascular) and Dave Springer., Megan Floyd., et al. Carotid artery stenosis: marc-scale and Doppler US diagnosis--Society of Radiologists in Ultrasound Consensus Conference. Radiology. 2003 Nov; 229(2):340-6. Pat.Name: MINGO FOUNTAIN Pat.ID: [id number] .Date: 07/16/2020 Refer.MD: RONEL MENESES MD Exam Time: 4:38:00 PM Study Type:Carotid Height: 72in Weight: 206lb BSA: 2.16 m2 Age: 9 1970,50Y Sex: FEMALE Sonogrphr: Travis Dawson RVT, MICHAEL Pat. Stat.:Inpatient Room: [address] Tape Vol: , CPT - 4: 34027 Echo Event ID:[id number] Order ID: [id number] Reason for Study:Suspected carotid artery disease; transient visionloss. PMH of orthot opic heart transplant, melanoma, HTN, HLD,Covid-19.Procedures: Colorflow, Grayscale/2D, Pulsed wave DopplerRace: C SUMMARY: PHYSICAL ASSESSMENT Blood Pulses Carotid Pressure Carotid Temporal BruitRight ___ + + 0Left ___ + + 0CAROTID ARTERY SCANRIGHT: There is focal echogenic material noted in the proximal commoncarotid artery. There is focal plaque noted in the bulb. The internaland external carotid artery are clear. Colorflow is nor mal. LEFT: There is smooth intimal lining in the common carotid ,bulb,internal and external carotidartery. PRELIMINARY FINDINGS1. Non-stenotic plaque in the right common carotid artery; partialechogenic material noted in the proximal common carotid artery. 2. <50% stenosis in the right internal carotid artery. Left carotidis normal. 3. Antegrade vertebral artery flow, bilaterally. PHYSICIAN INTERPRETATION Bilateral carotid duplex examination demonstrated atheroscleroticplaques in the right bulb/ CCA. Less than 50% stenosis in the right internal carotid artery. Left sideis normal.Antegrade vertebral artery flow, bilaterally. FINDINGS: Carotid Findings: Right Left Verteb.Flw Antegrade Antegrade Subclavian Triphasic Triphasic MEASUREMENTS: --------- DOPPLERRight CCA Dist CCA Dist PSV 105 [...] cm/s CCA Mid EDV 35.3 cm/sLeft CCA ProxCCA Prox PSV 120 cm/s CCA Prox EDV 35.3 cm/sLeft ECA Prox ECA Prox PSV 100 cm/s ECA Prox EDV 17.5 cm/sLeft ICA Dist ICA Dist PSV 53.7 cm/s ICA Dist EDV 24.1 cm/sLeft ICA Mid ICA Mid PSV 66.1 cm/s ICA Mid EDV 22.4 cm/sLeft ICA ProxICA Prox PSV 67.7 cm/s ICA Prox EDV 27.3 cm/sLeft Vertebral Vertebral PSV 51.5 cm/s Vertebral EDV 23 cm/sLeft Subclavian Subclavian PSV 125 cm/s Subclavian EDV 0 cm/sRight ICA/CCA Ratio ICA/CCA PSV 0.693 Left ICA/CCA Ratio ICA/CCA PSV 0.546 Signed 07/16/2020 11:15 PMJorge Vickers MD, RPVIInterface, Radiology Results In - 07/16/2020 11:17 PM CST [facility] Ul[facility] Laboratory Carotid Artery Duplex Report [id number] [place] [address] For air quality manager purposes, the categorization of the degree of the stenosis of this exam is based on criteria described in the IAC carotid stenosis grading white paper( www.intersocietal.org/Vascular) and Corrie Springer, Boone Floyd, et al. Carotid artery stenosis: marc-scale and Doppler US diagnosis--Society of Radiologists in Ultrasound Consensus Conference. Radiology. 2003 Jun; 22 9(2):340-6. Pat.Name: MINGO FOUNTAIN Pat.ID: [id number] .Date: 07/16/2020 Refer.MD: RONEL MENESES MD Exam Time: 4:38:00 PM Study Type:Carotid Height: 72in Weight: 206lb BSA: 2.16 m2 Age : 9 1970,50Y Sex: FEMALE Sonogrphr: Travis Dawson RVT, MS Pat. Stat.:Inpatient Room: [address] Tape Vol: ,CPT - 4: [id number] Echo Event ID:[id number] Order ID: [id number] Reason for Study:Suspected carotid artery disease; transient visionloss. PMH of orthotopic hearttransplant, melanoma, HTN, HLD,Covid-19.Procedures: Colorflow, Grayscale/2D, Pulsed wave DopplerRace: C SUMMARY: ---------PHYSICAL ASSESSMENT Blood Pulses Carotid Pressure Carotid Temporal BruitRight ___ + + 0Left ___ + + 0CAROTID ARTERY SCANRIGHT: There is focal echogenic material noted in the proximal commoncarotid artery. There is focal plaque noted in the bulb. The internaland external carotid artery are clear. Colorflow is normal. LEFT: There is smooth intimal lining in the common carotid ,bulb,internal and external carotid artery. PRELIMINARY FINDINGS1. Non-stenotic plaque in the right common carotid artery; partialechogenic material noted in the proximal common carotid artery. 2. <50% stenosis in the right internal carotid artery. Left carotidis normal. 3. Antegrade vertebral artery flow, bilaterally. PHYSICIAN INTERPRETATION Bilateral carotid duplex examination demonstrated atheroscleroticplaques in the right bulb/ CCA. Less than 50% stenosis in the right internal carotid artery. Left sideis normal.Antegrade vertebral artery flow, bilaterally. FINDINGS: ---------Carotid Findings: Right Left Verteb.FlwAntegrade Antegrade Subclavian Triphasic Triphasic MEASUREMENTS: ----- DOPPLERRight CCA Dist CCA Dist PSV 105 [...] 12.8 cm/sRight Subclavian Subclavian PSV 142 cm/s S ubclavian EDV 0 cm/sLeft CCA Dist CCA Dist [...] PSV 66.1 cm/s ICA Mid EDV 22.4 cm/sLeft ICA Prox ICA Prox PSV 67.7 cm/s ICA Prox EDV 27.3 cm/sLeft Vertebral Vertebral PSV 51.5 cm/sVertebral EDV 23 cm/sLeft Subclavian Subclavian PSV 125 cm/s Subclavian EDV 0 cm/sRight ICA/CCA Ratio ICA/CCA PSV 0.693 Left ICA/CCA Ratio ICA/CCA PSV 0.546 Signed 07/16/2020 11:15 PMJorge Vickers MD, [facility] Head Wo [id number] 00:59:45EXAMINATION: CT HEAD WO CONTRAST CLINICAL HISTORY: Heart transplant HTN transient vision loss LENA RISON: None. TECHNIQUE: Noncontrast head CT performed using radiation dose reduction techniques. Technical factors are evaluated and adjusted to ensure appropriate moderation of exposure. Automated dose management technology is applied to adjust radiation exposure while achieving a diagnostic quality image. FINDINGS: No evidence of acute intracranial hemorrhage, mass, mass effect, midline shift,or acute infarct. Ventricles and sulci are normal in appearance for patient's age. Basal cisterns are clear. Calvarium is intact. Findings consistent with tiny drusen in the right globe. Orbits are otherwise normal in appearance. No significant paranasal sinus mucosal thickening. Mastoid air cells are clear. IMPRESSION: 1. No CT evidence of acute intracranial abnormality. [id number] Interface, Radiology Results [facility] - 07/16/2020 7:02 PM CST EXAMINATION: CT HEAD WO CONTRASTCLINICAL HISTORY: Heart transplant HTN transient vision l ossCOMPARISON: None.TECHNIQUE: Noncontrast head CT performed using radiation [...] IMPRESSION:1. No CT evidence of acute intracranial abnormality.[id number] RNA [Presence] in Respiratory specimen by ANNE with probe [id number] 23:47:43 Test Item Value Reference Range Interpretation Comments SARS-CoV-2 (COVID-19) RNA Not detected Not-Detected [Presence] in Respiratory specimen by ANNE with probe detection (test code = 92185-0)
[2021-04-05 23:56] LABS: Protime INR 1.16
[2021-04-05 23:58] LABS: Absolute Lymphocytes (CBC) 0.9 K/uL (0.7-4.9); Basophils % 1.1 % (0-1.3); Hematocrit 42.2 % (36.0-45.0); Lymphocytes % 14.4 % (15.3-44.8); MPV 9.1 fL (7.6-11.3); RBC Red Blood Cell Count 4.58 M/uL (3.86-4.86)
[2021-04-06 00:06] LABS: ALT/SGPT 24 U/L (12-78); AST/SGOT 16 U/L (15-37); Alkaline Phosphatase 69 U/L (45-117); BUN Blood Urea Nitrogen 11 mg/dL (7-18); Bicarbonate 28 mmol/L (21-32); Bilirubin Direct 0.2 mg/dL (0-0.2); Bilirubin Total 0.8 mg/dL (0.2-1.0); Glucose Level 97 mg/dL (74-106); Magnesium 1.9 mg/dL (1.8-2.4); NT PRO-BNP 1336 pg/mL (<125); Potassium 4.6 mmol/L (3.5-5.1); Protein, Total 7.6 g/dL (6.4-8.2); Sodium Level 142 mmol/L (136-145); Troponin (Emerg Dept Use Only) < 0.02 ng/mL (0.0-0.045)
[2021-04-06] MEDS ORDERED: ACETAMINOPHEN 500 MG TAB ONE (02:21)
[2021-04-06 04:20] LABS: Urine Blood 2+ (Negative); Urine Glucose Negative (Negative); Urine Protein Negative (Negative)
--- NOTE | 2021-04-06 04:57 | ER ---
Nurse's Notes [facility] Name: Christianne Fountain Age: 50 yrs Sex: Female : 1970 Arrival Date: 04/05/2021 Time: 21:22 Bed 12 Private MD: Diagnosis: Chest pain, unspecified;Acute pulmonary edema-H/O Heart Transplant;Fever, unspecified Presentation: 04/05 21:58 Chief complaint: Patient states: Pain under ribs, chills, headache, fever, fatigue x 1 kg day. Pt stated," I have blood clots and I'm being treated for". Coronavirus screen: Vaccine status: Patient reports being unvaccinated. Coronavirus screen: Client denies travel out of the [place] in the last 14 days. At this time, unable to obtain information related to travel outside the [place] Client presents with at least one sign or symptom that may indicate coronavirus-19. Standard/surgical mask placed on the client. Provider contacted for isolation considerations. Ebola Screen: Patient negative for fever greater than or equal to 101.5 degrees Fahrenheit, and additional compatible Ebola Virus Disease symptoms Patient denies exposure to infectious person. Patient denies travel to an Ebola-affected area in the 21 days before illness onset. Initial Sepsis Screen: Does the patient meet any 2 criteria? No. Patient's initial sepsis screen is negative. Does the patient have a suspected source of infection? No. Patient's initial sepsis screen is negative. Risk Assessment: Do you want to hurt yourself or someone else? Patient reports no desire to harm self or others. 21:58 Method Of Arrival: Ambulatory kg 21:58 Acuity: FOSTER 3 kg Triage Assessment: 22:05 General: Appears in no apparent distress. Behavior is calm, cooperative, appropriate kg for age, quiet. Pain: Denies pain. Complains of pain in abdomen. Cardiovascular: Parent/caregiver reports patient has had chest pain. 22:05 Derm: Rash noted that is red. 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 kg Historical: - Allergies: 22:02 Morphine (Vomiting, Hives); kg - Home Meds: 22:02 Spironolactone Oral [Active]; tacrolimus Oral [Active]; Omeprazole Oral [Active]; kg mycophenolate mofetil Oral [Active]; aspirin 81 mg Oral chew 1 tab once daily [Active]; gabapentin oral [Active]; 22:05 pravastatin 40 mg oral tab 1 tab [Active]; pantoprazole 40 mg oral TbEC 1 tab once kg daily [Active]; amlodipine 5 mg tab 1 tab once daily [Active]; metoprolol tartrate 25 mg Oral tab 1 tab once daily [Active]; Eliquis 5 mg oral tab 1 tab 2 times per day [Active]; - PMHx: 22:05 cardiac issues; PEs; OR; kg - PSHx: 22:05 Heart transplant; Cholecystectomy; kg - Immunization history:: Adult Immunizations not up to date, Client reports having NOT received the Covid vaccine. - Social history:: Smoking status: Patient denies any tobacco usage or history of. Patient uses. Screenin/05 01:02 Abuse screen: Denies threats or abuse. Denies injuries from another. Nutritional lp1 screening: No deficits noted. Tuberculosis screening: No symptoms or risk factors identified. Fall Risk None identified. Assessment: 01:30 General: Appears in no apparent distress. Behavior is calm, cooperative, appropriate lp1 for age. Pain: Complains of pain in chest Pain does not radiate. Pain currently is 5 out of 10 on a pain scale. Pain began gradually. Neuro: Level of Consciousness is awake, alert, obeys commands, Oriented to person, place, time, situation. Cardiovascular: Patient's skin is warm and dry. Respiratory: Respiratory effort is even, unlabored, Breath sounds are clear bilaterally. GI: Abdomen is non-distended, currently eating and drinking Patient currently denies diarrhea, nausea, vomiting. : No signs and/or symptoms were reported regarding the genitourinary system. EENT: No signs and/or symptoms were reported regarding the EENT system. Derm: Skin is pink, warm \\T\\ dry. Musculoskeletal: No deficits noted. 04:20 Reassessment: Patient appears in no apparent distress at this time. Patient is alert, lp1 oriented x 3, equal unlabored respirations, skin warm/dry/pink. Patient resting, eyes closed, respirations even. 05:23 Reassessment: Patient is alert, oriented x 3, equal unlabored respirations, skin bb warm/dry/pink. pt awaiting transfer to facility for higher level of care. 05:40 Reassessment: Nurse to nurse report given to RICKI Fenton for patient transfer to [address] Bed [address]2. Reassessment: [facility] at bedside for transfer. Vital Signs: 04/05 21:58 BP 130 / 77; Pulse 91; Resp 20; Pulse Ox 100% on R/A; Weight 93.44 kg (R); Height 6 ft. kg 0 in. (182.88 cm) (R); Pain 4/10; 04/06 01:01 BP 118 / 69; Pulse 94; Resp 18; Temp 100.7(O); Pulse Ox 98% on R/A; lp1 04:18 BP 113 / 65; Pulse 93; Resp 18; Temp 100(O); Pulse Ox 95% on R/A; lp1 05:24 BP 105 / 61; Pulse 84; Resp 24 S; Temp 99(O); Pulse Ox 95% on R/A; bb 04/05 21:58 Body Mass Index 27.94 (93.44 kg, 182.88 cm) kg ED Course: 04/05 21:22 Patient arrived in ED. bp1 22:02 Triage completed. kg 04/06 00:13 XRAY Chest (1 view) In Process Unspecified. EDMS 01:01 Catalina Noonan, RICKI is Primary Nurse. lp1 01:02 Patient maintains SpO2 saturation greater than 95% on room air. lp1 01:03 Duy Clay MD is Attending Physician. mh7 01:51 Arm band placed on. lp1 01:51 Patient has correct armband on for positive identification. lp1 02:12 Flu and/or RSV swab sent to lab. Strep swab sent to lab. lp1 03:28 CT Chest For PE Angio In Process Unspecified. EDMS 03:28 CT Abd/Pelvis - IV Contrast Only In Process Unspecified. EDMS 04:18 No provider procedures requiring assistance completed. lp1 05:45 Patient transferred, IV remains in place. lp1 Administered Medications: 02:11 Drug: Tylenol 1000 mg Route: PO; lp1 04:19 Follow up: Response: Temperature is decreased lp1 05:24 Drug: Lasix (furosemide) 20 mg Route: IVP; Site: right antecubital; bb 05:45 Follow up: Response: No adverse reaction lp1 05:24 Drug: Zosyn (piperacillin-tazobactam) 3.375 grams Route: IVPB; Infused Over: 60 mins; bb Site: right antecubital; 05:45 Follow up: IV Status: Infusion continued upon transfer lp1 05:45 Drug: vancoMYCIN 1 grams Route: IVPB; Infused Over: 2 hrs; Site: right antecubital; lp1 05:45 Follow up: IV Status: Infusion continued upon transfer lp1 Outcome: 04:56 ER care complete, transfer ordered by . alka 05:41 Condition: stable lp1 05:41 Instructed on the need for transfer. 05:45 Transferred by ground EMS to [facility], Transfer form completed. X-rays lp1 sent w/ patient. 06:11 Patient left the ED. lp1 Signatures: Dispatcher [employer] EDMS Carito Taylor RN RN bb Catalina Noonan RN RN lp1 Jalyeen Henderson Maurice, MD MD mh7 Graham, Kristen, RN RN kg
--- NOTE | 2021-04-06 04:57 | EDPHYS ---
Physician Documentation [facility] Name: Christianne Fountain Age: 50 yrs Sex: Female : 1970 Arrival Date: 04/05/2021 Time: 21:22 Bed 12 Private MD: ESTEFANY Physician Duy Clay HPI: 04/06 01:46 This 50 yrs old Female presents to ER via Ambulatory with complaints of Chest mh7 Pain > 30 y/o, Fever, -Heart Transplant patient. 01:46 The patient or guardian reports chest pain that is located primarily in the epigastric mh7 area. Onset: last night, at 20:00. The pain does not radiate. 01:47 Associated signs and symptoms: Pertinent positives: Fever, chills, body aches, mh7 Pertinent negatives: cough, diaphoresis, dizziness, headache, lower extremity pain, lower extremity swelling, lightheadedness, nausea, near syncope, palpitations, recent travel, shortness of breath, syncope, vomiting. The chest pain is described as sharp. 01:47 Duration: The patient or guardian reports multiple episodes, that are intermittent, mh7 that wax and wane. 01:47 Modifying factors: The symptoms are alleviated by nothing. the symptoms are aggravated mh7 by palpation of area. Severity of pain: At its worst the pain was mild last night, in the emergency department the pain is unchanged. 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 03/29/2021 kg Historical: - Allergies: 22:02 Morphine (Vomiting, Hives); kg - Home Meds: 22:02 Spironolactone Oral [Active]; tacrolimus Oral [Active]; Omeprazole Oral [Active]; kg mycophenolate mofetil Oral [Active]; aspirin 81 mg Oral chew 1 tab once daily [Active]; gabapentin oral [Active]; 22:05 pravastatin 40 mg oral tab 1 tab [Active]; pantoprazole 40 mg oral TbEC 1 tab once kg daily [Active]; amlodipine 5 mg tab 1 tab once daily [Active]; metoprolol tartrate 25 mg Oral tab 1 tab once daily [Active]; Eliquis 5 mg oral tab 1 tab 2 times per day [Active]; - PMHx: 22:05 cardiac issues; PEs; AK; kg - PSHx: 22:05 Heart transplant; Cholecystectomy; kg - Immunization history:: Adult Immunizations not up to date, Client reports having NOT received the Covid vaccine. - Social history:: Smoking status: Patient denies any tobacco usage or history of. Patient uses. ROS: 04/06 01:47 Eyes: Negative for injury, pain, redness, and discharge, ENT: Negative for injury, mh7 pain, and discharge, Neck: Negative for injury, pain, and swelling, Respiratory: Negative for shortness of breath, cough, wheezing, and pleuritic chest pain, Back: Negative for injury and pain, : Negative for injury, bleeding, discharge, and swelling, MS/Extremity: Negative for injury and deformity, Skin: Negative for injury, rash, and discoloration, Neuro: Negative for headache, weakness, numbness, tingling, and seizure, Psych: Negative for depression, anxiety, suicide ideation, homicidal ideation, and hallucinations, Allergy/Immunology: Negative for hives, rash, and allergies, Endocrine: Negative for neck swelling, polydipsia, polyuria, polyphagia, and marked weight changes, Hematologic/Lymphatic: Negative for swollen nodes, abnormal bleeding, and unusual bruising. Exam: 01:47 Constitutional: This is a well developed, well nourished patient who is awake, alert, mh7 and in no acute distress. Head/Face: Normocephalic, atraumatic. Eyes: Pupils equal round and reactive to light, extra-ocular motions intact. Lids and lashes normal. Conjunctiva and sclera are non-icteric and not injected. Cornea within normal limits. Periorbital areas with no swelling, redness, or edema. ENT: Nares patent. No nasal discharge, no septal abnormalities noted. Tympanic membranes are normal and external auditory canals are clear. Oropharynx with no redness, swelling, or masses, exudates, or evidence of obstruction, uvula midline. Mucous membranes moist. Neck: Trachea midline, no thyromegaly or masses palpated, and no cervical lymphadenopathy. Supple, full range of motion without nuchal rigidity, or vertebral point tenderness. No Meningismus. Chest/axilla: Normal chest wall appearance and motion. Nontender with no deformity. No lesions are appreciated. Cardiovascular: Regular rate and rhythm with a normal S1 and S2. No gallops, murmurs, or rubs. Normal PMI, no JVD. No pulse deficits. Respiratory: Lungs have equal breath sounds bilaterally, clear to auscultation and percussion. No rales, rhonchi or wheezes noted. No increased work of breathing, no retractions or nasal flaring. 01:47 Back: No spinal tenderness. No costovertebral tenderness. Full range of motion. Skin: Warm, dry with normal turgor. Normal color with no rashes, no lesions, and no evidence of cellulitis. MS/ Extremity: Pulses equal, no cyanosis. Neurovascular intact. Full, normal range of motion. Neuro: Awake and alert, GCS 15, oriented to person, place, time, and situation. Cranial nerves II-XII grossly intact. Motor strength 5/5 in all extremities. Sensory grossly intact. Cerebellar exam normal. Normal gait. Psych: Awake, alert, with orientation to person, place and time. Behavior, mood, and affect are within normal limits. 01:47 Abdomen/GI: Inspection: scar(s), are noted in the epigastric area, Bowel sounds: normal, in all quadrants, Palpation: mild abdominal tenderness, in the epigastric area, right upper quadrant and left upper quadrant, mass, is not appreciated, rebound tenderness, is not appreciated, voluntary guarding, is not appreciated, involuntary guarding, is not appreciated, no appreciated organomegaly, Rectal exam: the exam is deferred, because of patient request, Indicators: McBurney's point is not tender, Macedo's sign is negative, Rovsing's sign is negative, Obturator sign is negative, Psoas sign is negative, Liver: no appreciated palpable abnormalities, Hernia: not appreciated. Vital Signs: 04/05 21:58 BP 130 / 77; Pulse 91; Resp 20; Pulse Ox 100% on R/A; Weight 93.44 kg (R); Height 6 ft. kg 0 in. (182.88 cm) (R); Pain 4/10; 04/06 01:01 BP 118 / 69; Pulse 94; Resp 18; Temp 100.7(O); Pulse Ox 98% on R/A; lp1 04:18 BP 113 / 65; Pulse 93; Resp 18; Temp 100(O); Pulse Ox 95% on R/A; lp1 05:24 BP 105 / 61; Pulse 84; Resp 24 S; Temp 99(O); Pulse Ox 95% on R/A; 04/05 21:58 Body Mass Index 27.94 (93.44 kg, 182.88 cm) kg MDM: 04:52 Differential diagnosis: abnormal EKG, acute myocardial infarction, acute pericarditis, mh7 anxiety, coronary artery disease chest wall pain, congestive heart failure costochondritis, esophagitis, gastroesophageal reflux disease (GERD), pancreatitis, peptic ulcer disease, pericarditis, pleurisy, pneumonia, pneumothorax, pulmonary embolus. HEART Score: History: Slightly Suspicious (0), ECG: Non specific repolarization disturbance / LBTB / PM (1), Age: > 45 and < 65 years (1), Risk Factors: No Risk Factors Known (0), Troponin: < or = 1 x Normal Limit (0), Total Score = 2. Data reviewed: vital signs, nurses notes, old medical records, lab test result(s), cardiac enzymes, CBC, electrolytes, urinalysis, EKG, radiologic studies, CT scan, plain films. Data interpreted: Pulse oximetry: on room air is 95 %. Interpretation: normal. Counseling: I had a detailed discussion with the patient and/or guardian regarding: the historical points, exam findings, and any diagnostic results supporting the discharge/admit diagnosis, lab results, radiology results, the need to transfer to another facility, [facility] does not immediately have the required specialist. Response to treatment: the patient's symptoms have markedly improved after treatment. 04:56 Patient medically screened. [facility] 04/05 23:21 Order name: Basic Metabolic Panel; Complete Time: 03:23 04/05 23:21 Order name: CBC with Diff; Complete Time: 01:04/05 23:21 Order name: LFT's; Complete Time: 03:23 04/05 23:21 Order name: Magnesium; Complete Time: 03:23 04/05 23:21 Order name: NT PRO-BNP; Complete Time: 03:23 04/05 23:21 Order name: PT-INR; Complete Time: 01:04/05 23:21 Order name: Troponin (emerg Dept Use Only); Complete Time: 03:23 bb 04/06 00:44 Order name: SARS-COV-2 RT PCR; Complete Time: 01:04 EDMS 04/06 01:43 Order name: Blood Culture Adult (2) [facility] 04/06 01:43 Order name: Influenza Screen (a \T\ B); Complete Time: 03:23 [facility] 04/06 01:43 Order name: Rapid Strep; Complete Time: 03:23 [facility] 04/06 01:44 Order name: Lipase [facility] 04/06 01:45 Order name: Lipase; Complete Time: 02:11 [facility] 04/05 23:21 Order name: XRAY Chest (1 view) 04/05 23:21 Order name: EKG; Complete Time: 23:22 04/05 23:21 Order name: Cardiac monitoring; Complete Time: 04:35 04/05 23:21 Order name: EKG - Nurse/Tech; Complete Time: 01:04 04/05 23:21 Order name: IV Saline Lock; Complete Time: 01:04 04/06 01:46 Order name: CT Chest For PE Angio [facility] 04/06 01:46 Order name: CT Abd/Pelvis - IV Contrast Only [facility] 04/06 02:40 Order name: Troponin (emerg Dept Use Only); Complete Time: 03:23 [facility] 04/06 02:50 Order name: Throat Culture [facility] 04/06 04:19 Order name: Urine Microscopic Only [facility] 04/06 04:20 Order name: Urine Dipstick-Ancillary [facility] 04/05 23:21 Order name: Labs collected and sent; Complete Time: 01:04 04/05 23:21 Order name: O2 Per Protocol; Complete Time: 01:04 04/05 23:21 Order name: O2 Sat Monitoring; Complete Time: 01:04 04/06 01:43 Order name: Urine Dipstick-Ancillary (obtain specimen); Complete Time: 04:35 [facility] Administered Medications: 02:11 Drug: Tylenol 1000 mg Route: PO; lp1 04:19 Follow up: Response: Temperature is decreased lp1 05:24 Drug: Lasix (furosemide) 20 mg Route: IVP; Site: right antecubital; bb 05:45 Follow up: Response: No adverse reaction lp1 05:24 Drug: Zosyn (piperacillin-tazobactam) 3.375 grams Route: IVPB; Infused Over: 60 mins; bb Site: right antecubital; 05:45 Follow up: IV Status: Infusion continued upon transfer lp1 05:45 Drug: vancoMYCIN 1 grams Route: IVPB; Infused Over: 2 hrs; Site: right antecubital; lp1 05:45 Follow up: IV Status: Infusion continued upon transfer lp1 Disposition Summary: 04/06/21 04:56 Transfer Ordered Transfer Location: [facility] Reason: Higher level of care mh7 Condition: Stable mh7 Problem: new mh7 Symptoms: have improved mh7 Accepting Physician: Dr. Stanley(04/06/21 06:11) 1 Diagnosis - Chest pain, unspecified mh7 - Acute pulmonary edema - H/O Heart Transplant mh7 - Fever, unspecified mh7 Forms: - Medication Reconciliation Form mh7 - SBAR form 7 Signatures: Dispatcher [employer] EDTN Carito Taylor RN RN Catalina Noonan RN RN 1 Hernan Henry, BRANCH SERVICE REPRESENTATIVE-C BRANCH SERVICE REPRESENTATIVE-Cla1 Duy Clay MD MD 7 Azeb Martinez RN RN kg Corrections: (The following items were deleted from the chart) 04/05 23:48 23:22 CORONAVIRUS+MR.LAB.BRZ ordered. EDMS EDMS 04/06 06:11 04:56 Dr. Stanley 7 1
[2021-04-06 05:16] LABS: Urine Bacteria <20 /HPF (<20); Urine RBC <5 /HPF (NONE SEEN)
[2021-04-06] MEDS ORDERED: FUROSEMIDE 20 MG/ 2ML VIAL ONE (05:25)
[2021-04-06] MEDS ORDERED: PIPER/TAZO/NS 3.375gm 3.375 GM/100 ML BAG ONE (05:26)
[2021-04-06] MEDS ORDERED: VANCOMYCIN 1 GM/VIAL ONE (05:42)
[2021-04-06] MEDS ORDERED: NA CHLORIDE 0.9% 250 ML ONE (05:58)
[2021-04-06 06:20] VITALS: O2SAT 95
[2021-04-06 06:22] VITALS: BP 105/61; TEMP 99
--- NOTE | 2021-04-06 08:00 | RAD REPORT ---
EXAM DESCRIPTION: RAD - Chest Single View - 04/06/2021 12:09 am CLINICAL HISTORY: CHEST PAIN COMPARISON: Chest Single View dated 12/17/2020; Chest Pa And Lat (2 Views) dated 11/14/2020; Chest Sin gle View dated 07/16/2020; Chest Single View dated 08/31/2019; Chest For Pe Angio dated 04/06/2021 FINDINGS: Lines: None. Lungs: Mild diffuse increased prominence of the pulmonary interstitium. Pleural: No significant pleural effusions or pneumothorax. Cardiac: Cardiomegaly. Bones: No acute fractures. Other: Sternotomy IMPRESSION: Mild increased prominence of the pulmonary interstitium which may reflect vascular conge stion
--- NOTE | 2021-04-07 11:11 | RAD REPORT ---
EXAM DESCRIPTION: CT - Chest For Pe Angio - 04/06/2021 5:38 am CLINICAL HISTORY: 50 years, Female, CHEST PAIN COMPARISON: 11/14/2020 TECHNIQUE: Multiple transaxial tomograms of the chest were obtained from the lung apices through the lung bases utilizing 2 mm slice thickness at 2 mm interval reconstruction after the administration o f large bolus of IV contrast for complete opacification of the pulmonary arteries. Subsequent maximum intensity projection images were generated in the coronal and sagittal plane for r eview. This exam was performed according to our departmental dose-optimization protocol, which includes auto mated exposure control, adjustment of the mA and/or kV according to patient size and/or use of iterat ambrose reconstruction technique. FINDINGS: The lungs parenchyma demonstrate minimal increase interstitial densities perhaps suggestin g the possibility of air trapping and/or interstitial pulmonary edema. No significant masses, nodules and/or consolidations are identified. The trachea mainstem bronchus demonstrate to be normal. There is no significant pericardial or pleura l effusions. The thoracic aorta demonstrate to be unremarkable. There is no evidence for thoracic aortic dissectio n. Sternotomy wires and pericardiac clips correspond to previous cardiothoracic surgery. The heart de monstrate coronary megaly with significant atrial enlargement. There are no significant coronary pinky ry calcifications. There is no significant mediastinal and/or hilar lymphadenopathy. The axillary regions demonstrate to be clear. Pulmonary arteries demonstrate to be normal, no intraluminal defect are seen that would suggest pulmo nary embolus. The bone windows demonstrate no significant skeletal lesions. The visualized portions of the upper abdomen demonstrate status post cholecystectomy and splenic gran ulomas. IMPRESSION: No evidence for pulmonary embolism and/or thoracic aortic dissection. Minimal increase interstitial densities perhaps suggesting the possibility of lytic the interstitial pulmonary edema. Cardiomegaly with significant atrial enlargement. Status post cardiothoracic surgery Electronically signed by: Michael Stevenson MD 04/06/2021 3:48 AM CDT Due to temporary technical issues with the PACS/Fluency reporting system, reports are being signed by the in house radiologists without review as a courtesy to insure prompt reporting. The interpreting radiologist is fully responsible for the content of the report.
--- NOTE | 2021-04-07 11:30 | RAD REPORT ---
EXAM DESCRIPTION: CT - Abdomen Pelvis W Contrast - 04/06/2021 5:38 am CLINICAL HISTORY: 50 years, Female, ABD PAIN COMPARISON: 01/02/2021. TECHNIQUE: Contrast-enhanced images of the abdomen and pelvis were performed utilizing 5 mm slice th ickness at 5 mm interval reconstruction from the lung bases to the ischial tuberosities after the adm inistration of 100 cc of Omnipaque 350 at the rate of 3.0 cc/sec. In addition multiplanar reformats in the coronal and sagittal plane were obtained and reviewed. This exam was performed according to our departmental dose-optimization protocol, which includes auto mated exposure control, adjustment of the mA and/or kV according to patient size and/or use of iterat ambrose reconstruction technique. FINDINGS: The lung bases demonstrate to be clear. There is cardiomegaly. There is right atrial enlar gement The liver, pancreas, spleen and adrenal glands demonstrate to be unremarkable, no focal lesions are n oted. Splenic granulomas. Surgical clips within the gallbladder fossa corresponding to previous fer cystectomy. The kidneys demonstrate normal uptake of contrast media with no evidence for hydronephrosis. Grossly the unopacified stomach, small bowel and large bowel demonstrate to be within normal limits. There is no evidence for bowel dilatation/or free air. The appendix is normal. The urinary bladder demonstrate to be unremarkable. The uterus is unremarkable. Again there is note d the presence of 2 cm right ovarian cyst similar to prior study. The aorta demonstrate to be daysi l. There is no retroperitoneal lymphadenopathy. There is no evidence for ascites/or significant abn ormal fluid collections. The rest of the soft tissue and bony structures are within normal limits. IMPRESSION: Status post cholecystectomy. Cardiomegaly with right atrial enlargement. No follow-up imaging is recommended. Reference: J Am Skylar Radiol 2013;10:675-681. No evidence for acute intra-abdominal process. Electronically signed by: Michael Stevenson MD 04/06/2021 3:45 AM CDT Due to temporary technical issues with the PACS/Fluency reporting system, reports are being signed by the in house radiologists without review as a courtesy to insure prompt reporting. The interpreting radiologist is fully responsible for the content of the report.
--- NOTE | 2021-04-07 16:58 | EKG ---
Test Date: 2021-04-05 Test Time: 22:01:54 Data Governance Analyst: CHELA MEASUREMENT RESULTS: Intervals: Rate: 89 DE: 152 QRSD: 118 QT: 380 QTc: 462 [place]: P: 70 DE: 152 QRS: 73 T: 18 INTERPRETIVE STATEMENTS: Normal sinus rhythm Possible Left atrial enlargement Low voltage QRS Right bundle branch block Septal infarct, age undetermined Abnormal ECG Compared to ECG 12/17/2020 09:04:51 Low QRS voltage now present Myocardial infarct finding still present Electronically Signed On 04-07-21 16:56:02 CDT by Cristi Lara
== END 2021-04-06 06:11 | disposition short-term general hospital (02) ==
LOC: ER 21:22
DX: J81.0 Acute pulmonary edema (principal); R50.9 Fever, unspecified; Z94.1 Heart transplant status; Z20.822 Contact with and (suspected) exposure to COVID-19; Z79.82 Long term (current) use of aspirin; Z88.5 Allergy status to narcotic agent
CPT/HCPCS: 96365; 93005; 87040 ×2; 87070; 85025; 80048; 36415; 83735; 87205 ×2; 85610; 80076; 87081; 84484 ×2; 83690; 83880; 87804 ×2; 71275; 74177; 71045; 96375; 99285; U0003; Q9967; J1940; J3370; J2543; J7050; 81003; 81015

== ENCOUNTER 2022-02-17 06:52 | Emergency (ER) | payer OTHER ==
[2022-02-17 07:45] LABS: Magnesium 1.6 mg/dL (1.8-2.4); Potassium 3.6 mmol/L (3.5-5.1); Troponin High Sensitivity 5.3 pg/mL (<58.9)
[2022-02-17 07:55] LABS: Hematocrit 44.2 % (36.0-45.0); Lymphocytes % 29.3 % (15.3-44.8); MCV 89.2 fL (80-100); MPV 8.5 fL (7.6-11.3); RBC Red Blood Cell Count 4.95 M/uL (3.86-4.86)
--- NOTE | 2022-02-17 08:52 | RAD REPORT ---
EXAM DESCRIPTION: CT - Chest Angio - 02/17/2022 8:42 am CLINICAL HISTORY: Chest pain COMPARISON: 2020 TECHNIQUE: Dynamically enhanced axial 3 mm thick images of the chest were obtained during administra tion of <100> mL Isovue 370 IV contrast. Coronal and oblique reconstruction images were generated and reviewed. Exam utilizes a protocol for optimal evaluation of pulmonary arterial tree. Maximum intensity projections 3D imaging was utilized All CT scans are performed using dose optimization technique as appropriate and may include automated exposure control or mA/KV adjustment according to patient size. FINDINGS: A pulmonary embolus is not seen. A thoracic aortic aneurysm is not noted. A pleural effusion is not seen. A pericardial effusion is not seen. A lung consolidation is not present. Postsurgical changes involve the chest. Cardiomegaly. Prominence of central pulmonary arteries. IMPRESSION: Negative for a pulmonary embolism.
--- NOTE | 2022-02-17 08:52 | RAD REPORT ---
EXAM DESCRIPTION: Negar Single View02/17/2022 8:05 am CLINICAL HISTORY: Chest pain COMPARISON: 2020 FINDINGS: Postsurgical changes involve the chest. Heart is mildly to moderately enlarged. Lungs appear clear IMPRESSION: No acute abnormality displayed
--- NOTE | 2022-02-17 09:57 | EDPHYS ---
Physician Documentation [facility] Name: Christianne Fountain Age: 51 yrs Sex: Female : 1970 Arrival Date: 02/17/2022 Time: 06:55 Bed 6 Private MD: ED Physician Kamron Benoit HPI: 02/17 08:18 This 51 yrs old Female presents to ER via Ambulatory with complaints of Chest Pain > 30 ms3 y/o. 08:18 The patient or guardian reports chest pain that is located primarily in the lower left ms3 and right chest. Onset: 1 week(s) ago. The pain does not radiate. Associated signs and symptoms: The patient has no apparent associated signs or symptoms. The chest pain is described as dull, sharp. Duration: The patient or guardian reports multiple episodes, the episodes last approximately 3 second(s). Modifying factors: The symptoms are alleviated by nothing. the symptoms are aggravated by nothing. Severity of pain: At its worst the pain was moderate in the emergency department the pain has improved. The patient has experienced a previous episode, Was diagnosed with PE. Historical: - Allergies: 07:24 Morphine (Vomiting, Hives); pradhan - Home Meds: 07:24 amlodipine 5 mg tab 1 tab once daily [Active]; aspirin 81 mg Oral chew 1 tab once daily pradhan [Active]; Eliquis 5 mg Oral tab 1 tab 2 times per day [Active]; gabapentin Oral [Active]; metoprolol tartrate 25 mg Oral tab 1 tab once daily [Active]; mycophenolate mofetil Oral [Active]; Omeprazole Oral [Active]; pantoprazole 40 mg Oral TbEC 1 tab once daily [Active]; pravastatin 40 mg Oral tab 1 tab [Active]; Spironolactone Oral [Active]; tacrolimus Oral [Active]; - PMHx: 07:24 cardiac issues; ID; PEs; pradhan - PSHx: 07:24 Cholecystectomy; Heart transplant; pradhan - Immunization history:: Adult Immunizations. - Social history:: Smoking status: Patient denies any tobacco usage or history of. ROS: 08:18 Constitutional: Negative for fever, and chills. ENT: Negative for injury, pain, and ms3 discharge, Neck: Negative for injury, pain, and swelling. 08:18 Respiratory: Negative for shortness of breath, cough, wheezing, and pleuritic chest pain, Abdomen/GI: Negative for abdominal pain, nausea, vomiting, diarrhea, and constipation, MS/Extremity: Negative for injury and deformity, Skin: Negative for injury, rash, and discoloration, Neuro: Negative for headache, weakness, numbness, tingling. Hematologic/Lymphatic: Negative for swollen nodes, abnormal bleeding, and unusual bruising. 08:18 Cardiovascular: Positive for chest pain. 08:18 All other systems are negative. Exam: 07:13 ECG was reviewed by the Attending Physician. ms3 08:18 Constitutional: This is a well developed, well nourished patient who is awake, alert, ms3 and in no acute distress. ENT: Nares patent. No nasal discharge, no septal abnormalities noted. Tympanic membranes are normal and external auditory canals are clear. Oropharynx with no redness, swelling, or masses, exudates, or evidence of obstruction, uvula midline. Mucous membranes moist. Neck: Trachea midline, no cervical lymphadenopathy. Supple, full range of motion without nuchal rigidity, or vertebral point tenderness. No Meningismus. Chest/axilla: Normal chest wall appearance and motion. Nontender with no deformity. Respiratory: Lungs have equal breath sounds bilaterally, clear to auscultation and percussion. No rales, rhonchi or wheezes noted. No increased work of breathing, no retractions or nasal flaring. Abdomen/GI: Soft, non-tender, with normal bowel sounds. No distension or tympany. No guarding or rebound. No evidence of tenderness throughout. Skin: Warm, dry with normal turgor. Normal color with no rashes, no lesions, and no evidence of cellulitis. MS/ Extremity: Pulses equal, no cyanosis. Neurovascular intact. Full, normal range of motion. Psych: Awake, alert, with orientation to person, place and time. Behavior, mood, and affect are within normal limits. 08:18 Cardiovascular: Rate: tachycardic, Rhythm: regular, Pulses: no pulse deficits are appreciated, Heart sounds: normal. Vital Signs: 07:22 BP 142 / 90; Pulse 107; Resp 17; Temp 98.1(O); Pulse Ox 97% ; Weight 79.38 kg; Height 5 pradhan ft. 8 in. (172.72 cm); 07:22 Body Mass Index 26.61 (79.38 kg, 172.72 cm) pradhan MDM: 07:24 Patient medically screened. ms3 09:29 ED course: Discussed case with transplant cordinator Renard. He will have cardiology ms3 call us back. 09:55 ED course: Discussed case with Dr Mitchell at [facility] and patient to follow up with ms3 them today or tomorrow.. 14:13 Differential diagnosis: abnormal EKG, acute myocardial infarction, pulmonary embolus. ms3 Data reviewed: vital signs, nurses notes, lab test result(s), EKG, radiologic studies, and as a result, I will discharge patient. Counseling: I had a detailed discussion with the patient and/or guardian regarding: the historical points, exam findings, and any diagnostic results supporting the discharge/admit diagnosis, lab results, radiology results, the need for outpatient follow up, to return to the emergency department if symptoms worsen or persist or if there are any questions or concerns that arise at home. ED course: Discussed labs, chest x-ray, CTA, physical exam findings with patient. Patient to follow-up with her Test Bore Helper in 2 to 3 days. Patient understands and agrees with plan. All questions were answered. Return precautions discussed include worsening symptoms, or any other concerns. On reevaluation patient is alert and oriented x4, in no apparent distress, nontoxic-appearing, speaking full sentences, ambulatory in emergency department.. 02/17 07:00 Order name: Basic Metabolic Panel; Complete Time: 08:13 ms3 02/17 07:00 Order name: CBC with Diff; Complete Time: 08:13 3 02/17 07:00 Order name: Magnesium; Complete Time: 08:13 ms3 02/17 07:00 Order name: NT PRO-BNP; Complete Time: 08:13 ms3 02/17 07:00 Order name: Troponin HS; Complete Time: 08:13 ms3 02/17 07:00 Order name: XRAY Chest (1 view); Complete Time: 09:02 ms3 02/17 07:00 Order name: EKG; Complete Time: 07:3 02/17 07:00 Order name: Cardiac monitoring; Complete Time: 07:22 ms3 02/17 07:00 Order name: EKG - Nurse/Tech; Complete Time: 07: ms3 02/17 07:00 Order name: IV Saline Lock; Complete Time: : ms3 02/17 07:00 Order name: Labs collected and sent; Complete Time: ms3 02/17 07:00 Order name: O2 Per Protocol; Complete Time: ms3 02/17 07:00 Order name: O2 Sat Monitoring; Complete Time: ms3 02/17 08:14 Order name: CT Chest Angio; Complete Time: 09:02 ms3 EC:13 Rate is 109 beats/min. Rhythm is regular. QRS [place] is Normal. No ST changes noted. ms3 Clinical impression: Sinus tachycardia. Interpreted by me. Reviewed by me. Administered Medications: No medications were administered Disposition Summary: 02/17/22 09:56 Discharge Ordered Location: Home ms3 Condition: Stable ms3 Diagnosis - Chest pain, unspecified ms3 Followup: ms3 - With: Private Physician - When: 1 - 2 days - Reason: Recheck today's complaints Discharge Instructions: - Discharge Summary Sheet ms3 - Nonspecific Chest Pain, Adult ms3 Forms: - Medication Reconciliation Form ms3 - Thank You Letter ms3 - Antibiotic Education ms3 - Work release form ms3 - Prescription Opioid Use ms3 Signatures: Dispatcher [employer] EDKamron Lassiter DO DO ms3 Agustina-Tania Dupree RN RN pradhan
--- NOTE | 2022-02-17 09:57 | ER ---
Nurse's Notes [facility] Name: Christianne Fountain Age: 51 yrs Sex: Female : 1970 Arrival Date: 02/17/2022 Time: 06:55 Bed 6 Private MD: Diagnosis: Chest pain, unspecified Presentation: 02/17 07:22 Chief complaint: Patient states: chest pain and shortness of breath x 1 week. pradhan Coronavirus screen: Vaccine status: Patient reports receiving the 2nd dose of the covid vaccine. Ebola Screen: Patient denies travel to an Ebola-affected area in the 21 days before illness onset. Initial Sepsis Screen: Does the patient meet any 2 criteria? HR > 90 bpm. Does the patient have a suspected source of infection? No. Patient's initial sepsis screen is negative. Risk Assessment: Do you want to hurt yourself or someone else? Patient reports no desire to harm self or others. Onset of symptoms was February 09, 2022. 07:22 Method Of Arrival: Ambulatory 07:22 Acuity: FOSTER 3 pradhan Triage Assessment: 07:24 General: Appears in no apparent distress. Behavior is flat. Pain: Complains of pain in pradhan chest. Cardiovascular: Reports chest pain, shortness of breath, Historical: - Allergies: 07:24 Morphine (Vomiting, Hives); pradhan - Home Meds: 07:24 amlodipine 5 mg tab 1 tab once daily [Active]; aspirin 81 mg Oral chew 1 tab once daily pradhan [Active]; Eliquis 5 mg Oral tab 1 tab 2 times per day [Active]; gabapentin Oral [Active]; metoprolol tartrate 25 mg Oral tab 1 tab once daily [Active]; mycophenolate mofetil Oral [Active]; Omeprazole Oral [Active]; pantoprazole 40 mg Oral TbEC 1 tab once daily [Active]; pravastatin 40 mg Oral tab 1 tab [Active]; Spironolactone Oral [Active]; tacrolimus Oral [Active]; - PMHx: 07:24 cardiac issues; [place]; PEs; pradhan - PSHx: 07:24 Cholecystectomy; Heart transplant; pradhan - Immunization history:: Adult Immunizations. - Social history:: Smoking status: Patient denies any tobacco usage or history of. Screenin:25 Abuse screen: Denies threats or abuse. Denies injuries from another. Nutritional pradhan screening: No deficits noted. Tuberculosis screening: No symptoms or risk factors identified. Fall Risk None identified. Assessment: 07:25 Pain: Pain does not radiate. Pain began gradually. pradhan Vital Signs: 07:22 BP 142 / 90; Pulse 107; Resp 17; Temp 98.1(O); Pulse Ox 97% ; Weight 79.38 kg; Height 5 pradhan ft. 8 in. (172.72 cm); 07:22 Body Mass Index 26.61 (79.38 kg, 172.72 cm) pradhan ED Course: 06:55 Patient arrived in ED. bp1 06:55 Kamron Benoit DO is Attending Physician. ms3 07:00 Claudia Church is Primary Nurse. tw5 07:24 Triage completed. pradhan 07:24 Arm band placed on. pradhan 07:25 Patient has correct armband on for positive identification. Bed in low position. pradhan monitor tech on. Pulse ox on. NIBP on. 07:25 No provider procedures requiring assistance completed. Inserted saline lock: 20 gauge pradhan in right antecubital area, using aseptic technique. Patient maintains SpO2 saturation greater than 95% on room air. 08:06 XRAY Chest (1 view) In Process Unspecified. EDMS 08:44 CT Chest Angio In Process Unspecified. EDMS 10:18 IV discontinued, intact, Pressure dressing applied. pradhan Administered Medications: No medications were administered Medication: 07:25 VIS not applicable for this client. pradhan Outcome: 09:56 Discharge ordered by . ms3 10:18 Discharged to home ambulatory. pradhan 10:18 Condition: good 10:18 Discharge instructions given to patient. 10:18 Patient left the ED. pradhan Signatures: Dispatcher [employer] EDMS Kamron Benoit DO DO ms3 Jayleen Henderson bp1 Claudia Church tw5 Agustina-StagerTania RN RN pradhan
[2022-02-17 10:31] VITALS: BP 142/90; TEMP 98.1; O2SAT 97
--- NOTE | 2022-02-18 07:24 | EKG ---
Test Date: 2022-02-17 Test Time: 07:13:40 Roof Fitter: SUNIL MEASUREMENT RESULTS: Intervals: Rate: 109 [place]: 158 QRSD: 114 QT: 344 QTc: 463 [place]: P: 55 [place]: 158 QRS: 65 T: 41 INTERPRETIVE STATEMENTS: Sinus tachycardia Possible Left atrial enlargement Right bundle branch block Septal infarct, age undetermined Abnormal ECG Compared to ECG 04/05/2021 22:01:54 Sinus rhythm no longer present Myocardial infarct finding still present Electronically Signed On 02-18-22 07:20:45 CDT by Cristi Lara
== END 2022-02-17 10:18 | disposition home or self-care (01) ==
LOC: ER 06:52
DX: R07.9 Chest pain, unspecified (principal); Z94.1 Heart transplant status; Z88.5 Allergy status to narcotic agent
CPT/HCPCS: 85025; 80048; 36415; 83735; 84484; 83880; 71275; 71045; Q9967; 93005

== ENCOUNTER 2022-12-27 08:43 | Emergency (ER) | payer OTHER ==
--- OUTSIDE RECORDS SUMMARY | 2022-12-27 08:49 | XMS REPORT | Continuity of Care Document ---
:1970 Author Organization [facility] t Address [address] [facility] [place] [address] Care Team Providers Name Role Phone Asked, No Pcp Primary Care Physician Unavailable Rita Lawrence MD Attending Clinician Renard Bello RN Attending Clinician Unavailable Michael Pickett MD Attending Clinician Kinjal Maldonado MA Attending Clinician Unavailable Rosa Toribio RN Attending Clinician Unavailable Deedee Lynn MD Attending Clinician Provider, Unknown Attending Clinician Unavailable AYAN ARGUETA Attending Clinician Unavailable BLANCA BLANCA Attending Clinician Unavailable Elieser Robles Attending Clinician Unavailable Shawanda SULLIVAN, Hung Trinidad Attending Clinician [phone] Joya Peralta MA Attending Clinician Unavailable Daisy Rose DO Attending Clinician Hoang Mccarthy MD Attending Clinician [phone] Ignacio Rose MD Attending Clinician DO DAISY ROSE A Attending Clinician Unavailable Gregor Bhat Attending Clinician Unavailable Monisha Malone MA Attending Clinician Unavailable Holli Brady MA Attending Clinician Unavailable Tamia Franco MD Attending Clinician Librado Morales Attending Clinician Unavailable MD BLANCA BLANCA Attending Clinician Unavailable MD MICHAEL PICKETT Attending Clinician Unavailable Kayleigh Schofield Attending Clinician Unavailable Catrachita Mccarthy Attending Clinician Unavailable Kim ROBISON, Trace Attending Clinician Unavailable Ronel Adams MD Attending Clinician Martin RN, Norah Attending Clinician Unavailable Aniyah BERRY, Shagufta Attending Clinician MD RONEL ADAMS Attending Clinician Unavailable Madeleine Desir MD Attending Clinician DEEDEE LYNN Admitting Clinician Unavailable BLANCA BLANCA Admitting Clinician Unavailable MD RITA LAWRENCE Admitting Clinician Unavailable DAISY ROSE Admitting Clinician Unavailable DO DAISY ROSE A Admitting Clinician Unavailable MD BLANCA BLANCA Admitting Clinician Unavailable MD MICHAEL PICKETT Admitting Clinician Unavailable TAMIA FRANCO Admitting Clinician Unavailable MD RONEL ADAMS Admitting Clinician Unavailable MICHAEL PICKETT Admitting Clinician Unavailable Payers Payer Name Policy Type Policy Number Effective Date Expiration Date S [email or web address] [id number] 2019 NON-CONTRACT 00:00:00 GENERIC Problems Condition Condition Condition Status Onset Resolution Last Treating Co mments Source Name Details Category Date Date Treatment Clinician Date Mixed Mixed Disease Active Overview: Method i hyperlipid hyperlipid [address] emia emia 00:00: g of this Hospita 00 note l might be different from the original. Images from the original note were not included. Abnormal Abnormal Disease Active Overview: [facility] cardiac cardiac 08-[address] function function 00:00: g of this Hos lauryn test test 00 note l might be different from the original. Added automatic ally from request for surgery [id number] Congestive Congestive Disease Active M ethodi heart heart 9 st failure of failure of 00:00: Ho spita unknown unknown 00 l etiology etiology Therapeuti Therapeuti Disease Active M ethodi c drug c drug 11-29 st monitoring monitoring 00:00: Ho spita 00 l Pulmonary Pulmonary Disease Active Overview: Methodi embolism embolism 11-[address] on right on right 00:00: g of this Hos lauryn 00 note is l different from the original. Clinic >ADMIT 11/26/20Fo r PE [facility] re 340.26 BNP 143, SCR 1.13 / GFR 57,: seen for SOB &chest pain. CT Chest PE protocol (+) For PE multi PE. home on Eliquist 5 per protocol Remains On Eliquist 5 mg daily SOB SOB Disease Active Methodi (shortness (shortness 4-27 st of breath) of breath) 00:00: Ho spita 00 l COVID-19 COVID-19 Disease Active Metho di 10-30 st 00:00: Hospita 00 l Heart Heart Disease Active Overview: Method i failure failure 10-[address] 00:00: g of this Hospita 00 note l might be different from the original. Added automatic ally from request for surgery [id number] Essential Essential Disease Active 2019-08 [facility] [address]ensi [address] on on 00:00: Hospita 00 l COVID-19 COVID-19 Disease Active 2019-08 Overview: Me thodi virus virus Formattin st infection infection 00:00: g of this H ospita 00 note l might be different from the original. March 2020 Covid infection with symptoms: Fever,chi lls, SOB, weakness / malase, cough, head aches,Not e related virtual visits Anxiety Anxiety Disease Active 2019-08 Overview: Meth romel Formattin st 00:00: g of this Hospita [...] Disease Active Overview: Meth romel dysrhythmi dysrhythmi 12-[address] a a 00:00: g of this Hospita 00 note l might be different from the original. Added 12/04/2019 Intermitt ent c/o palpation s and chest pain.14 day [place] failed to record any occurence s Cardiac Cardiac Disease Active 2018-08 [facility] transplant transplant 2-09 st rejection rejection 00:00: Hosp ten 00 l Other Other Disease Active Overview: Method i heart heart 11-[address] failure failure 00:00: g of this Hospi ta 00 note l might be different from the original. Added automatic ally from request for surgery [id number] Long-term Long-term Disease Active Met hodi use of use of 11-21 immunosupp immunosupp 00:00: Ho spita ressant ressant 00 l medication medication Weakness Weakness Disease Active Metho di 11-21 00:00: Hospita 00 l Heart Heart Disease Active Overview: Method i transplant transplant 04-01 [facility] ed ed 00:00: g of this Hospita 00 note is l different from the original. Images from the original note were not included. [place] : 1970 8 Heart Transplan tedPre hx [facility] DCM,MIs x3 in 1999 & 2000Not seen [...] of appetite Testing today AdmitPost DC 09/19/2011 / ChestLeft cathD/C PainNormc kelsie Admit via transfer from [facility] ER fo uncontrol ed BP/ chest pain upon exertionD ischarge clinic: Started op colchicin e 0.3 mg BID NoDSAs 70% Fk 7.9 [id number] COVID ? 10/14/20 10/22/20AM ap 373/ 10/30/214/ [...] /Neutr 57.1 DSAs negCOVID CMV pendneg 8.6 28.9 215.4 [facility] >ADMIT 11/26/20Fo r PE [facility] 340.26 BNP 143, SCR 1.13 / GFR 57,: seen for SOB &chest pain. CT Chest PE protocol (+) For PE multi PE. home on Eliquist 5 per protocol 60-64 neg 6.8 09/0301/06/21 Local l Lab BUN 18 / SCR 1.0 / GFR67, Mag 1.5 6.9 AdmitD/CP ost DC / / GID/C Clin agmit for gastritis , viral infection suspected but not identifie dVirtual post d/c visit conducted with Bereket Davidson 13 Annual - cath A-Map A.Sure 330.22 BNP 152,Scr0. 96 /GFR69, Chol 203, 70/122, Trg 95. Normal cath 5.5 ER local 02/17/22 B. [facility] ER For chest pain/ PE and Cardiac ruled out. Follow-up in clinic [facility] 02/19/22- Care chest [facility] [id number] 7 BNP 32, Trop <6, Scr 1.0 /GFR 66: Probable rib/muscu lar 55-59DSAs Neg 5.6 on , Allergies, Adverse Reactions, Alerts Allergy Allergy Status Severity Reaction(s) Onset Inactive Treating Comm ents Source Name Type Date Date Clinician Morphine Propensi Active Rash Rash and Meth romel ty to 11-[address] adverse 00:00: Can Hospita reaction 00 tolerate l s to codeine. drug MORPHINE DRUG Active [facility]I 305 ity of 00:00: [place] [facility] Family History Family Member Diagnosis Comments Start Date Stop Date Source Natural father No Known Problems Met [facility] Natural mother No Known Problems Met [facility] Natural sister No Known Problems Met [facility] Social History Social Habit Start Date Stop Date Quantity Comments Source Gender identity 2020-07-20 Identifies as Method ist 14:56:44 female gender Hospital (finding) Sexual orientation 2020-07-20 Heterosexual Meth odist 14:56:44 (finding) Hospital History SDOH [facility] Std Drinks Hospit al History SDOH [facility] Binge Hospital History SDOH [facility] Comment Hospital Exposure to Not sure [facility] SARS-CoV-2 (event) Hospit al ASSERTION [facility] History of Social 2022-10-06 2022-10-[address] function 00:00:00 00:00:00 Hospital Alcohol intake 2022-03-09 2022-03-09 Current non-drinker M ethodist 00:00:00 00:00:00 of alcohol Hospital (finding) History SDOH 2018-11-21 2018-11-21 1 [facility] Frequency 00:00:00 00:00:00 Hospita l Tobacco use and 2018-11-21 2018-11-21 Smokeless tobacco Me thodist exposure 00:00:00 00:00:00 non-user Hospital Sex Assigned At [birth year] F [facility] 00:00:[facility] 00:00:00 Hospital Smoking Status Start Date Stop Date Source Never smoked tobacco [facility] Medications Ordered Filled Start Stop Current Ordering Indication Dosage Frequency Signature Comments Components Source Medication Medication Date Date Medication? Clinician (SIG) Name Name mycophenola 2023- Yes [id number] 500mg Q.5D Take 1 Methodi te 12-[address] (CELLCEPT) 00:00: 04:59 (500 mg Hos lauryn 500 mg 00 :00 total) by l tablet mouth 2 (two) times a day. Dx: Z94.1 - Heart Transplant on 07/25/2008 . tacrolimus 2021-08 Yes [id number] TAKE 2 Methodi (PROGRAF) 1 -[address] MG capsule 00:00: BY MOUTH 2 H ospita 00 TIMES A l DAY. mycophenola 2021-08- No [id number] TAKE 1 Methodi te 08-08- TABLET BY st (CELLCEPT) 00:00: 00:00 MOUTH Hospi ta 500 mg 00 :00 TWICE l tablet DAILY spironolact 2021- No 50mg QD Take 50 mg Methodi one 04-[address] (ALDACTONE) 15:15: 00:00 daily. Hos lauryn 25 MG 52 :00 l tablet metoprolol 2022- No 25mg QD Take 1 Meth romel succinate 04-30 tablet (25 st XL (Toprol 00:00: 04:59 mg total) H ospita XL) 25 mg 00 :00 by mouth l 24 hr daily. tablet spironolact 2022- No 50mg QD Take 2 Met hodi one 04-[address] (ALDACTONE) 00:00: 04:59 (50 mg Hos lauryn 25 MG 00 :00 total) by l tablet mouth daily. hydrALAZINE 2022- No 25mg Q.[id number] Take 1 [facility] (APRESOLINE 03-02 [id number] tablet (25 st ) 25 MG 00:00: 04:59 3D mg total) Hosp ten tablet 00 :00 by mouth 3 l (three) times a day. Take BP before each dose. If less than 115 systolic hold dose, if bp is greater than 140 systolic dipesh take 2 tablets (50 mg) colchicine Yes .3mg QD Take 0.5 Met hodi 0.6 mg 3-[address] tablet 00:00: (0.3 mg Hospita 00 total) by l mouth in the morning. Reduction of pleuracy symptoms. pravastatin 2022- No 40mg QD Take 1 Met hodi (PravachoL) 08 03-09 tablet (40 s t 40 mg 00:00: 05:59 mg total) Hospit a tablet 00 :00 by mouth l nightly. aspirin 2022-0 2023- No 81mg QD Take 1 [facility] (ECOTRIN) 10-07-09 tablet (81 st 81 MG 00:00: 05:59 mg total) Hospit a enteric 00 :00 by mouth l coated in the tablet morning. pantoprazol Yes 40mg QD Take 1 Meth romel e -18 tablet (40 st (Protonix) 00:00: mg total) Ho spita 40 MG EC 00 by mouth l tablet daily. apixaban 2022- No 5mg Q.5D Take 1 Method i (ELIQUIS) 5 08-19 tablet (5 st mg tablet 00:00: 05:59 mg total) Ho spita 00 :00 by mouth 2 l (two) times a day. Z94.1 HEART TRANSPLANT STATUS POST pantoprazol No 40mg QD Take 1 Met hodi e 08-19 tablet (40 st (Protonix) 00:00: 05:59 mg total) H ospita 40 MG EC 00 :00 by mouth l tablet daily. apixaban 2021- No 5mg Q.5D Take 1 Method i (ELIQUIS) 5 08-19- tablet (5 st mg tablet 00:00: 00:00 mg total) Ho spita 00 :00 by mouth 2 l (two) times a day. Z94.1 HEART TRANSPLANT STATUS POST pravastatin 2020-08 Yes TAKE 1 Meth romel (PRAVACHOL) 2-[address] 40 mg 00:00: MOUTH Hospita tablet 00 EVERY DAY l tacrolimus 2020-08- No [id number] 2mg Q.5D Take 2 [facility] (Prograf) 1 -18 06-[address] MG capsule 00:00: 05:59 (2 mg Hospi ta 00 :00 total) by l mouth 2 (two) times a day. Z94.1 Heart Txp S/P tacrolimus 2020-08- No [id number] 2mg Q.5D Take 2 [facility] (Prograf) 1 -18 06-[address] MG capsule 00:00: 00:00 (2 mg Hospi ta 00 :00 total) by l mouth 2 (two) times a day. Z94.1 Heart Txp S/P mycophenola 2020-08- No [id number] 500mg Q.5D Take 1 Methodi te - 11-[address] (CELLCEPT) 00:00: 05:59 (500 mg Hos lauryn 500 mg 00 :00 total) by l tablet mouth 2 (two) times a day. Z94.1 Heart TXP S/P mycophenola 2020-08- No [id number] 500mg Q.5D Take 1 Methodi te 08-13 11-[address] (CELLCEPT) 00:00: 00:00 (500 mg Hos lauryn 500 mg 00 :00 total) by l tablet mouth 2 (two) times a day. Z94.1 Heart TXP S/P aspirin 81 2020- No 81mg QD Chew 1 Meth romel mg chewable 04-10-10 tablet (81 s t tablet 00:00: 04:59 mg total) Hospi ta 00 :00 daily for l 30 days. spironolact Yes 50mg QD Take 50 mg Methodi one 04-[address] (ALDACTONE) 20:39: daily. Hosp ten 25 MG 42 l tablet amLODIPine 2020- No 5mg QD Take 1 Meth romel (NORVASC) 5 04-09- tablet (5 st mg tablet 00:00: 04:59 mg total) Ho spita 00 :00 by mouth l daily for 30 days. hydrALAZINE 2021- No 25mg Q.[id number] Take 1 [facility] (APRESOLINE 03-19 [id number] tablet (25 st ) 25 MG 00:00: 04:59 3D mg total) Hosp ten tablet 00 :00 by mouth 3 l (three) times a day. Patient may Hold if systolic BP is less than 120 hydrALAZINE 2021- No 25mg Q.[id number] Take 1 [facility] (APRESOLINE 03-19- [id number] tablet (25 st ) 25 MG 00:00: 04:59 3D mg total) Hosp ten tablet 00 :00 by mouth 3 l (three) times a day. Patient may Hold if systolic BP is less than 120 apixaban 2021- No 5mg Q.5D Take 1 Method i (ELIQUIS) 5 8-03 08-04 tablet (5 st mg tablet 00:00: 04:59 mg total) Ho spita 00 :00 by mouth 2 l (two) times a day. Z94.1 HEART TRANSPLANT STATUS POST apixaban 2021- No 5mg Q.5D Take 1 Method i (ELIQUIS) 5 03-04-18 tablet (5 st mg tablet 00:00: 00:00 mg total) Ho spita 00 :00 by mouth 2 l (two) times a day. Z94.1 HEART TRANSPLANT STATUS POST mycophenola Yes TAKE 1 Meth romel te 02-[address] (CELLCEPT) 00:00: MOUTH Hospit a 500 mg 00 TWICE l tablet DAILY tacrolimus Yes TAKE 2 Metho di (PROGRAF) 1 - CAPSULES st MG capsule 00:00: BY MOUTH 2 H ospita 00 TIMES A l DAY mycophenola 2020- No TAKE 1 Met hodi te 02-25 09-[address] (CELLCEPT) 00:00: 00:00 MOUTH Hospi ta 500 mg 00 :00 TWICE l tablet DAILY tacrolimus 2020- No TAKE 2 Meth romel (PROGRAF) 1 02-25 09-[address] MG capsule 00:00: 00:00 BY MOUTH 2 Hospita 00 :00 TIMES A l DAY mycophenola 2021- No 500mg Q.5D Take 1 Me thodi te 02-19- tablet st (CELLCEPT) 00:00: 04:59 (500 mg Hos lauryn 500 mg 00 :00 total) by l tablet mouth 2 (two) times a day. Z94.1 Heart TXP S/P tacrolimus 2020-2021- No 2mg Q.5D Take 2 Meth romel (Prograf) 1 02-19-[address] MG capsule 00:00: 04:59 (2 mg Hospi ta 00 :00 total) by l mouth 2 (two) times a day. Z94.1 Heart Txp S/P tacrolimus 2020-2020- No 2mg Q.5D Take 2 Meth romel (Prograf) 1 02-19 11-[address] MG capsule 00:00: 00:00 (2 mg Hospi ta 00 :00 total) by l mouth 2 (two) times a day. Z94.1 Heart Txp S/P mycophenola 2020- No 500mg Q.5D Take 1 Me thromel te 7- 11-[address] (CELLCEPT) 00:00: 00:00 (500 mg Hos lauryn 500 mg 00 :00 total) by l tablet mouth 2 (two) times a day. Z94.1 Heart TXP S/P apixaban 2020- No 5mg Q.5D Take 1 Method i (ELIQUIS) 5 5-05 08-03 tablet (5 st mg tablet 00:00: 00:00 mg total) Ho spita 00 :00 by mouth 2 l (two) times a day. apixaban 2020- No 5mg Q.5D Take 1 [...] times a day for 4 days. apixaban 2020- No 10mg Q.5D Take 2 Method i (ELIQUIS) 5 4-30 05-[address] mg tablet 00:00: 04:59 (10 mg Hospi ta 00 :00 total) by l mouth 2 (two) times a day for 4 days. apixaban Yes follow Methodi (Eliquis -[address] DVT-PE 00:00: instructio Hospi ta Treat 30D 00 ns l Start) 5 mg (74 tabs) tablets,dos e pack apixaban 2020- No follow Method i (Eliquis 428 09-[address] DVT-PE 00:00: 00:00 instructio Hosp ten Treat 30D 00 :00 ns l Start) 5 mg (74 tabs) tablets,dos e pack ciprofloxac 2020- No 500mg QD Take 1 Me thodi in (Cipro) 10-[address] 500 MG 00:00: 04:59 (500 mg Hospita tablet 00 :00 total) by l mouth daily for 5 days. For UTI ciprofloxac 2020- No 500mg QD Take 1 Me thodi in (Cipro) 10-[address] 500 MG 00:00: 04:59 (500 mg Hospita tablet 00 :00 total) by l mouth daily for 5 days. For UTI colchicine 2020- No TAKE BY Met hodi 0.6 mg 09-11 MOUTH 1/2 st tablet 00:00: 00:00 TABLET 2 Hospit a 00 :00 TIMES A l DAY colchicine 2020- No TAKE BY Met hodi 0.6 mg 09-11 MOUTH 1/2 st tablet 00:00: 00:00 TABLET 2 Hospit a 00 :00 TIMES A l DAY colchicine 2020- No .3mg Q.5D Take 0.5 Me thodi 0.6 mg 09-10-[address] tablet 00:00: 00:00 (0.3 mg Hospita 00 :00 total) by l mouth 2 (two) times a day for 90 days. ( take 1/2 a tablet twice a day = total of 0.6 mg daily) colchicine 2020- No .3mg Q.5D Take 0.5 Me thodi 0.6 mg 09-[address] tablet 00:00: 00:00 (0.3 mg Hospita 00 :00 total) by l mouth 2 (two) times a day for 90 days. ( take 1/2 a tablet twice a day = total of 0.6 mg daily) Effexor XR Yes TAKE 1 Metho di 75 mg 24 hr -[address] capsule 00:00: MOUTH Hospita 00 EVERY l MORNING Effexor XR 2020- No TAKE 1 Meth romel 75 mg 24 hr -14 09-08 CAPSULE BY s t capsule 00:00: 00:00 MOUTH Hospita 00 :00 EVERY l MORNING colchicine 2019-08 No .3mg Q.5D Take 0.5 Me thodi 0.6 mg -[address] tablet 00:00: 00:00 (0.3 mg Hospita 00 :00 total) by l mouth 2 (two) times a day. ( take 1/2 a tablet twice a day = total of 0.6 mg daily) colchicine 2019-08 No .3mg Q.5D Take 0.5 Me thodi 0.6 mg 09-[address] tablet 00:00: 00:00 (0.3 mg [...] a day for 90 days. polyethylen 2019-08 No 17g QD Take 17 g Methodi e glycol 09-22-[address] (MIRALAX) 00:00: 04:59 daily for Ho spita 17 gram 00 :00 90 days. l packet docusate 2019-08 No 100mg Q.5D Take 1 Metho di sodium 09-22- capsule st (COLACE) 00:00: 04:59 (100 mg Hospi ta 100 MG 00 :00 total) by l capsule mouth 2 (two) times a day for 90 days. polyethylen 2019-08 17g QD Take 17 g Methodi e glycol -20 10-[address] (MIRALAX) 00:00: 04:59 daily for Ho spita 17 gram 00 :00 90 days. l packet venlafaxine 2019-08 75mg QD Take 1 Met hodi XR 2-20 08-[address] (EFFEXOR-XR 00:00: 00:00 (75 mg Hos lauryn ) 75 MG 24 00 :00 total) by l hr capsule mouth every morning. venlafaxine 2019-08 No 75mg QD Take 1 Met hodi XR 2-19 12-[address] (EFFEXOR-XR 00:00: 00:00 (75 mg Hos lauryn ) 75 MG 24 00 :00 total) by l hr capsule mouth every morning for 30 days. pravastatin 2019-08 Yes TAKE 1 Meth romel (PRAVACHOL) 2-[address] 40 mg 00:00: MOUTH Hospita tablet 00 EVERY DAY l pravastatin 2019-08 No TAKE 1 Met hodi (PRAVACHOL) 2-18 12-[address] 40 mg 00:00: 00:00 MOUTH Hospita tablet 00 :00 EVERY DAY l butalbital- 2019-08- No 1{tbl} Q6H Take 1 M ethodi acetaminoph 2-18 -[address] en-caff 00:00: 05:59 mouth Hospita (FIORICET) 00 :00 every 6 l 50-325-40 (six) mg per hours as tablet needed for headaches for up to 20 days. tacrolimus 2019-08 No 1mg QD Take 1 mg M ethodi (PROGRAF) 1 09-18-[address] MG capsule 23:59: 00:00 every Hospi ta 54 :00 evening. 2 l mg in morning1 mg in evenin amLODIPine No 5mg QD Take 1 Meth romel (NORVASC) 5 04-05 09-08 tablet (5 st mg tablet 00:00: 00:00 mg total) Ho spita 00 :00 by mouth l daily. amLODIPine No 5mg QD Take 1 Meth romel (NORVASC) 5 04-05 09-05 tablet (5 st mg tablet 00:00: 04:59 mg total) Ho spita 00 :00 by mouth l daily. benzonatate 2019- No 100mg Q.[id number] Take 1 [facility] (Tessalon 8 09-[id number] [place]) 100 00:00: 04:59 3D (100 mg Ho spita MG capsule 00 :00 total) by l mouth 3 (three) times a day as needed for cough for up to 30 days. mycophenola 2020- No 500mg Q.5D Take 1 Me thodi te 03-05 07-[address] (CELLCEPT) 00:00: 00:00 (500 mg Hos lauryn 500 mg 00 :00 total) by l tablet mouth 2 (two) times a day. Z94.1 Heart TXP S/P tacrolimus 2020-0 2021- No 2mg Q.5D Take 2 Meth romel (Prograf) 1 03-[address] MG capsule 00:00: 00:00 (2 mg Hospi ta 00 :00 total) by l mouth 2 (two) times a day. Z94.1 Heart Txp S/P mycophenola 2019-0 2020- No 500mg Q.5D Take 1 Me thodi te 03-[address] (CELLCEPT) 00:00: 00:00 (500 mg Hos lauryn 500 mg 00 :00 total) by l tablet mouth 2 (two) times a day. Z94.1 Heart TXP S/P tacrolimus 2019-0 2020- No 2mg Q.5D Take 2 Meth romel (Prograf) 1 03-[address] MG capsule 00:00: 00:00 (2 mg Hospi ta 00 :00 total) by l mouth 2 (two) times a day. Z94.1 Heart Txp S/P pantoprazol 2020-0 Yes 40mg QD Take 1 Meth romel e 5-04 tablet (40 st (Protonix) 00:00: mg total) Ho spita 40 MG EC 00 by mouth l tablet daily. metoprolol 2020-0 Yes 25mg QD Take 1 Metho di succinate 5-04 tablet (25 st XL (Toprol 00:00: mg total) Ho spita XL) 25 mg 00 by mouth l 24 hr daily. tablet metoprolol 2020-0 Yes 25mg QD Take 1 Metho di succinate 5-04 tablet (25 st XL (Toprol 00:00: mg total) Ho spita XL) 25 mg 00 by mouth l 24 hr daily. tablet metoprolol 2020-0 2022- No 25mg QD Take 1 Meth romel succinate 5-04 09-29 tablet (25 st XL (Toprol 00:00: 00:00 mg total) H ospita XL) 25 mg 00 :00 by mouth l 24 hr daily. tablet pantoprazol 2020-0 2022- No 40mg QD Take 1 Met hodi e 5-04 -18 tablet (40 st (Protonix) 00:00: 00:00 mg total) H ospita 40 MG EC 00 :00 by mouth l tablet daily. pravastatin 2018-08 No 40mg QD Take 1 Met hodi (PRAVACHOL) 08-05 tablet (40 s t 40 MG 00:00: 00:00 mg total) Hospit a tablet 00 :00 by mouth l daily. aspirin 81mg QD Take 81 mg Met hodi (ECOTRIN) 03-[address] 81 MG 00:00: 04:59 daily. Hospita enteric 00 :00 l coated tablet multivitami No 1{tbl} QD Take 1 M ethodi n 03-[address] (THERAGRAN) 00:00: 04:59 mouth Hosp ten tablet 00 :00 daily. l aspirin 81mg QD Take 81 mg Met hodi (ECOTRIN) 03-[address] 81 MG 00:00: 04:59 daily. Hospita enteric 00 :00 l coated tablet multivitami No 1{tbl} QD Take 1 M ethodi n 03-[address] (THERAGRAN) 00:00: 04:59 mouth Hosp ten tablet 00 :00 daily. l Immunizations Ordered Immunization Filled Immunization Date Status Commen ts Source Name Name FLUCELVAX QUAD PF 2020-07-[address] 00:[facility]00 Hospital FLUCELVAX QUAD PF 2020-07-[address] 00:[facility]00 Hospital FLUCELVAX QUAD PF 2020-07-[address] 00:00:00 Hospital FLUCELVAX QUAD PF 2019-07-[address] 00:00:00 Hospital FLUCELVAX QUAD PF 2019-07-[address] 00:00:00 Hospital FLUCELVAX QUAD PF 2019-07-[address] 00:00:00 Hospital Vital Signs Vital Name Observation Time Observation Value Comments Source Systolic blood 2022-03-04 15:30:00 138 mm[Hg] [facility] pressure Diastolic blood 2022-03-04 15:30:00 92 mm[Hg] [facility] pressure Heart rate 2022-03-04 15:30:00 95 /min [facility] Respiratory rate 2022-03-04 15:30:00 20 /min [facility] Oxygen saturation in 2022-03-04 15:30:00 97 /min [facility] Arterial blood by Pulse oximetry Body temperature 2022-03-04 14:50:00 36.67 Susan [facility] Body height 2022-03-04 12:40:00 182.9 cm [facility] Body weight 2022-03-04 12:40:00 91.218 kg [facility] BMI 2022-03-04 12:40:00 27.27 kg/m2 [facility] Systolic blood 2021-04-10 00:36:24 114 mm[Hg] [facility] pressure Diastolic blood 2021-04-10 00:36:24 75 mm[Hg] [facility] pressure Heart rate 2021-04-10 00:36:24 81 /min [facility] Body temperature 2021-04-10 00:36:24 36.22 Susan [facility] Respiratory rate 2021-04-10 00:36:24 22 /min [facility] Oxygen saturation in 2021-04-10 00:36:24 96 /min [facility] Arterial blood by Pulse oximetry Body weight 2021-04-09 11:10:10 86.864 kg [facility] BMI 2021-04-09 11:10:10 25.97 kg/m2 [facility] Systolic blood 2020-11-29 16:16:17 126 mm[Hg] [facility] pressure Diastolic blood 2020-11-29 16:16:17 77 mm[Hg] [facility] pressure Heart rate 2020-11-29 16:16:17 88 /min [facility] Body temperature 2020-11-29 16:16:17 35.83 Susan [facility] Respiratory rate 2020-11-29 16:16:17 18 /min [facility] Oxygen saturation in 2020-11-29 16:16:17 98 /min [facility] Arterial blood by Pulse oximetry Body weight 2020-11-29 09:50:33 91.218 kg [facility] BMI 2020-11-29 09:50:33 27.27 kg/m2 [facility] Body height 2020-11-27 03:05:56 182.9 cm [facility] Procedures Procedure Date / Time Performing Clinician Source Performed CBC WITH PLATELET AND 2022-12-16 13:17:00 Melinda [facility] DIFFERENTIAL COMPREHENSIVE METABOLIC 2022-12-16 13:17:00 Melinda [facility] PANEL [id number] TACROLIMUS LEVEL, 2022-12-16 13:17:00 Melinda [facility] RANDOM MAGNESIUM LEVEL 2022-12-16 13:17:00 [facility] SURGICAL PATHOLOGY REQUEST 2022-03-04 15:12:[address] [facility] CV RIGHT HEART CATH RIGHT 2022-03-04 14:35:20 [facility] HE[facility] BIOPSY ECG 12-LEAD 2022-02-19 18:04:03 [facility] TTE COMPLETE, WO CONTRAST, 2022-02-19 15:00:00 Melinda [facility] W DOPPLER ([id number]) BASIC METABOLIC PANEL 2022-02-19 13:32:00 Melinda [facility] CBC WITH PLATELET AND 2022-02-19 13:32:00 Melinda [facility] DIFFERENTIAL PHOSPHORUS LEVEL 2022-02-19 13:32:00 [facility] MAGNESIUM LEVEL 2022-02-19 13:32:00 [facility] HEPATIC FUNCTION PANEL 2022-02-19 13:32:00 Melinda [facility] LDH 2022-02-19 13:32:00 Melinda [facility] sp[facility] TROPONIN T 2022-02-19 13:32:00 Melinda [facility] spital B NATRIURETIC PEPTIDE 2022-02-19 13:32:00 Melinda [facility] [id number] TACROLIMUS LEVEL, 2022-02-19 13:32:00 Melinda [facility] RANDOM SIROLIMUS LEVEL, RANDOM 2022-02-19 13:32:00 Melinda [facility] CYTOMEGALOVIRUS BY PCR 2022-02-19 13:32:00 Melinda [facility] IGAM 2022-02-19 13:32:00 Melinda [facility] spital ESTIMATED GFR 2022-02-19 13:32:00 Melinda [facility] spital DONOR SPECIFIC ANTIBODY 2022-02-19 13:32:00 Melinda [facility] [id number] TACROLIMUS LEVEL, 2021-04-22 14:31:00 [facility] RANDOM CBC WITH PLATELET AND 2021-04-22 14:31:00 Melinda [facility] DIFFERENTIAL COMPREHENSIVE METABOLIC 2021-04-22 14:31:00 [facility] PANEL MAGNESIUM LEVEL 2021-04-22 14:31:00 Melinda [facility] spital CT ABDOMEN PELVIS W 2021-04-09 19:37:02 [facility] H[facility] QUALITATIVE, SERUM 2021-04-09 16:48:00 Hoang Mccarthy [facility] SCREEN [place] PHOSPHORUS LEVEL 2021-04-09 09:53:00 Cassy Leblanc ospital Micaela Nithya HC COMPLETE BLD COUNT 2021-04-09 09:52:00 [facility] W/AUTO DIFF Micaela Nithya COMPREHENSIVE METABOLIC 2021-04-09 09:52:00 [facility] PANEL Micaela Nithya MAGNESIUM LEVEL 2021-04-09 09:52:00 Rigo Dodson [facility] spital Micaela Nithya [id number] TACROLIMUS LEVEL, 2021-04-09 09:52:00 Irene Soriano [facility] TROUGH ESTIMATED GFR 2021-04-09 09:52:00 Shari [facility] [place] DONOR SPECIFIC ANTIBODY 2021-04-09 09:52:00 Shawanda [facility] Vincjennifer FECAL CALPROTECTIN 2021-04-09 02:59:00 [facility] Catrachita R PHOSPHORUS LEVEL 2021-04-08 10:04:00 Sulaiman Sanchez [facility] A HC COMPLETE BLD COUNT 2021-04-08 10:04:00 [facility] W/AUTO DIFF Micaela Nithya COMPREHENSIVE METABOLIC 2021-04-08 10:04:00 Rigo Dodson [facility] PANEL Micaela Nithya MAGNESIUM LEVEL 2021-04-08 10:04:00 [facility] Micaela Nithya [id number] TACROLIMUS LEVEL, 2021-04-08 10:04:00 Irene Soriano [facility] TROUGH ESTIMATED GFR 2021-04-08 10:04:00 [facility] [place] ENTERIC PARASITIC PANEL 2021-04-07 19:43:00 Rigo Dodson [facility] Micaela Nithya ENTERIC BACTERIAL PANEL 2021-04-07 19:43:00 Neli [facility] ENTERIC VIRAL PANEL 2021-04-07 19:43:00 Neli, [facility] INFLUENZA ANTIGEN TEST, 2021-04-07 18:07:00 Bazan AdkinsAlli vasquez [facility] REFLEX NEGATIVE TO RPP A RESPIRATORY PATHOGEN PANEL 2021-04-07 18:07:00 Feroz Mccarthy [facility] WITH COVID-19 RT-PCR [place] CREATININE LEVEL, URINE, 2021-04-07 17:15:00 [facility] RANDOM Micaela Nithya UREA NITROGEN, URINE, 2021-04-07 17:15:00 [facility] RANDOM Micaela Nithya BASIC METABOLIC PANEL 2021-04-07 17:15:00 [facility] Micaela Nithya D-DIMER 2021-04-07 17:15:00 [facility] Micaela Nithya ESTIMATED GFR 2021-04-07 17:15:00 Shari [facility] [place] MRSA PCR 2021-04-07 09:59:00 Krystalar [facility] Micaela Nithya CYTOMEGALOVIRUS BY PCR 2021-04-07 09:59:00 Willie Sims [facility] MAGNESIUM LEVEL 2021-04-07 09:58:00 Sulaiman Sanchez [facility] A PHOSPHORUS LEVEL 2021-04-07 09:58:00 Bazan Adkins, [facility] A ESTIMATED GFR 2021-04-07 09:58:00 [facility] AMADO GARCIA VIRUS (EBV) 2021-04-07 09:58:00 Daisy Rose [facility] BY PCR [id number] TACROLIMUS LEVEL, 2021-04-07 09:58:00 [facility] TROUGH Micaela Nithya HC COMPLETE BLD COUNT 2021-04-07 09:58:00 [facility] vas[facility] W/AUTO DIFF A COMPREHENSIVE METABOLIC 2021-04-07 09:58:00 [facility] PANEL A URINE CULTURE 2021-04-07 03:39:00 Daisy [facility] CLOSTRIDIUM DIFFICILE 2021-04-07 01:44:00 Neli [facility] TOXIN URINALYSIS SCREEN AND 2021-04-07 00:49:00 [facility] MICROSCOPY, WITH REFLEX TO Micaela Nithya CULTURE ECG 12-LEAD 2021-04-07 00:41:02 [facility] Micaela Nithya BLOOD CULTURE, AEROBIC & 2021-04-06 20:42:00 [facility] ANAEROBIC Micaela Nithya BLOOD CULTURE, AEROBIC & 2021-04-06 20:41:00 [facility] ANAEROBIC Micaela Nithya TTE COMPLETE, WO CONTRAST, 2021-04-06 17:31:00 BazanMarina Song [facility] W DOPPLER ([id number]) A COVID-19 QUALITATIVE 2021-04-06 14:42:00 Daisy Rose [facility] RT-PCR HC COMPLETE BLD COUNT 2021-04-06 14:42:00 [facility]mer[facility]ulaiman vasquez [facility] W/AUTO DIFF A PROTHROMBIN TIME WITH INR 2021-04-06 14:42:00 [facility] CenterK[facility]y [facility] A COMPREHENSIVE METABOLIC 2021-04-06 14:42:00 [facility] Center[facility]ume[facility] PANEL A HEMOGLOBIN A1C 2021-04-06 14:42:00 [facility] A LACTIC ACID LEVEL 2021-04-06 14:42:00 [facility] A MAGNESIUM LEVEL 2021-04-06 14:42:00 [facility] A PHOSPHORUS LEVEL 2021-04-06 14:42:00 [facility] A LIPID PANEL 2021-04-06 14:42:00 [facility] A TROPONIN 2021-04-06 14:42:00 [facility] A B NATRIURETIC PEPTIDE 2021-04-06 14:42:00 [facility] A THYROID STIMULATING 2021-04-06 14:42:00 [facility] HORMONE A ESTIMATED GFR 2021-04-06 14:42:00 Neli [facility] spital PROCALCITONIN 2021-04-06 14:42:00 Neli [facility] spital XR CHEST 1 VW PORTABLE 2021-04-06 13:11:00 [facility] A CT CHEST EXTERNAL STUDY 2021-04-06 07:45:02 [facility] ABD/PELVIC EXTERNAL 2021-04-06 07:45:[facility] [place] [facility] CHEST EXTERNAL STUDY 2021-04-06 07:45:[address] [facility] [facility] [address] ABD/PELVIC EXTERNAL 2021-04-06 07:45:00 [facility] ABD/PELVIC EXTERNAL 2021-04-06 06:46:[facility] [place] [facility] CHEST EXTERNAL STUDY 2021-04-06 06:46:00 [facility] CHEST EXTERNAL STUDY 2021-04-06 04:58:24 Ignacio Rose [facility] [place] EXTERNAL STUDY EXAM 2021-02-03 14:09:22 [facility] [place] EXTERNAL ST[facility] EXAM 2021-02-03 14:09:00 Neli [facility] [id number] TACROLIMUS LEVEL, 2021-01-06 12:45:00 [facility] RANDOM CBC WITH PLATELET AND 2021-01-06 12:45:00 Melinda [facility] DIFFERENTIAL COMPREHENSIVE METABOLIC 2021-01-06 12:45:00 [facility] PANEL MAGNESIUM LEVEL 2021-01-06 12:45:00 Melinda [facility] ABD/PELVIC EXTERNAL 2021-01-02 13:05:48 Bereket [facility] [place] CT ABD/PELVIC EXTERNAL 2021-01-02 13:05:00 [facility] ST[facility] XR CHEST EXTERNAL STUDY 2020-12-17 14:20:07 [facility] XR CHEST EXTERNAL STUDY 2020-12-17 14:20:00 [facility] [id number] TACROLIMUS LEVEL, 2020-11-29 10:14:00 Jeanette [facility] RANDOM BASIC METABOLIC PANEL 2020-11-29 10:14:00 [facility] CBC WITH PLATELET AND 2020-11-29 10:14:00 [facility] DIFFERENTIAL [facility] ESTIMATED GFR 2020-11-29 10:14:00 Amanda Uriostegui H ospital [facility] US DUPLEX VENOUS LOWER 2020-11-29 01:25:00 Tamia Franco [facility] EXTREMITY BILATERAL ECG 12-LEAD 2020-11-28 18:22:48 Hung [facility] [id number] TACROLIMUS LEVEL, 2020-11-28 09:40:00 Jeanette [facility] RANDOM BASIC METABOLIC PANEL 2020-11-28 09:40:00 [facility] CBC WITH PLATELET AND 2020-11-28 09:40:00 [facility] DIFFERENTIAL [facility] THYROID STIMULATING 2020-11-28 09:40:00 [facility] H[facility] [place] T4, FREE 2020-11-28 09:40:00 Hung [facility] spital [place] HEPATIC FUNCTION PANEL 2020-11-28 09:40:00 Shawanda [facility] Dieudonnejennifer CYTOMEGALOVIRUS BY PCR 2020-11-28 09:40:00 [facility] ESTIMATED GFR 2020-11-28 09:40:00 Amanda Uriostegui [facility] DONOR SPECIFIC ANTIBODY 2020-11-28 09:40:00 Shawanda [facility] Amos [id number] TACROLIMUS LEVEL, 2020-11-27 10:41:00 Jeanette [facility] RANDOM BASIC METABOLIC PANEL 2020-11-27 10:41:00 [facility] HC COMPLETE BLD COUNT 2020-11-27 10:41:00 [facility]/AUTO DIFF [facility] ESTIMATED GFR 2020-11-27 10:41:00 Moody [facility] ANTI XA, UNFRACTIONATED 2020-11-27 10:41:00 Jeanette [facility] TTE COMPLETE, WO CONTRAST, 2020-11-27 05:45:00 Jeanette [facility] W DOPPLER ([id number]) ANTI XA, UNFRACTIONATED 2020-11-27 05:28:00 [facility] 2020-11-27 05:16:00 [facility] TEST LUPUS ANTICOAGULANT PANEL 2020-11-26 23:00:00 AshwinTamia orr Ra [facility] ANTI XA, UNFRACTIONATED 2020-11-26 23:00:00 Jeanette [facility] FACTOR VIII ASSAY 2020-11-26 23:00:00 Ashwin, [facility] ANTITHROMBIN III LEVEL 2020-11-26 23:00:00 [facility] FUNCTIONAL PROTEIN C 2020-11-26 23:00:00 [facility] FUNCTIONAL PROTEIN S 2020-11-26 23:00:00 [facility] THYROID STIMULATING 2020-11-26 21:44:00 [facility] HORMONE T4, FREE 2020-11-26 21:44:00 [facility] C-REACTIVE PROTEIN 2020-11-26 21:39:00 [facility] CARDIOLIPIN ANTIBODIES 2020-11-26 21:39:00 [facility] BETA-2 GLYCOPROTEIN 1 2020-11-26 21:39:00 [facility] ANTIBODY, IGG AND IGM COVID-19 QUALITATIVE 2020-11-26 21:27:00 [facility] ANGIOGRAM PE CHEST 2020-11-26 16:02:43 Jeanette [facility] ECG 12-LEAD 2020-11-26 13:06:11 [facility] COMPREHENSIVE METABOLIC 2020-11-26 12:00:00 Michael Pickett [facility] PANEL MAGNESIUM LEVEL 2020-11-26 12:00:00 Michael Pickett [facility] ospital HC COMPLETE BLD COUNT 2020-11-26 12:00:00 [facility] W/AUTO DIFF CYTOMEGALOVIRUS BY PCR 2020-11-26 12:00:00 [facility] LDH 2020-11-26 12:00:00 [facility] B NATRIURETIC PEPTIDE 2020-11-26 12:00:00 [facility] TROPONIN 2020-11-26 12:00:00 Michael Pickett [facility] ospital PROTHROMBIN TIME WITH INR 2020-11-26 12:00:[address] [facility] [id number] TACROLIMUS LEVEL, 2020-11-26 12:00:00 Michael Pickett [facility] RANDOM ESTIMATED GFR 2020-11-26 12:00:00 [facility] CT CHEST EXTERNAL STUDY 2020-11-14 18:08:59 Hung Mayberry [facility] CT CHEST EXTERNAL STUDY 2020-11-14 18:08:00 Neli [facility] X[facility] CHEST EXTERNAL STUDY 2020-11-14 15:13:38 [facility]NAL STUDY 2020-11-14 15:13:00 Neli [facility] RESPIRATORY PATHOGEN PANEL 2020-11-06 13:05:00 [facility] WITH COVID-19 RT-PCR [id number] N 2020-11-06 13:05:00 [facility] (NUCLEOCAPSID PROTEIN) ANTIBODY COMPREHENSIVE METABOLIC 2020-11-06 13:05:00 [facility] PANEL HC COMPLETE BLD COUNT 2020-11-06 13:05:00 [facility] W/AUTO DIFF B NATRIURETIC PEPTIDE 2020-11-06 13:05:00 [facility] [id number] TACROLIMUS LEVEL, 2020-11-06 13:05:00 [facility] RANDOM PROTHROMBIN TIME WITH INR 2020-11-06 13:05:00 [facility] ESTIMATED GFR 2020-11-06 13:05:00 [facility] ospital COMPREHENSIVE METABOLIC 2020-10-29 13:40:00 [facility] PANEL MAGNESIUM LEVEL 2020-10-29 13:40:00 [facility] ospital HC COMPLETE BLD COUNT 2020-10-29 13:40:00 [facility] W/AUTO DIFF B NATRIURETIC PEPTIDE 2020-10-29 13:40:00 [facility] PROTHROMBIN TIME WITH INR 2020-10-29 13:40:00 [facility] URINALYSIS, AUTOMATED WITH 2020-10-29 13:40:00 [facility] MICROSCOPY ESTIMATED GFR 2020-10-29 13:40:00 [facility] ospital DONOR SPECIFIC ANTIBODY 2020-10-29 13:40:00 Michael Pickett [facility] COVID-19 QUALITATIVE 2020-10-29 13:27:00 Blanca Blanca Swati [facility] RT-PCR ECG 12-LEAD 2020-10-22 13:20:03 [facility] COMPREHENSIVE METABOLIC 2020-10-22 12:35:00 Michael Pickett [facility] PANEL MAGNESIUM LEVEL 2020-10-22 12:35:00 Michael Pickett [facility] ospital HC COMPLETE BLD COUNT 2020-10-22 12:35:00 [facility] W/AUTO DIFF CYTOMEGALOVIRUS BY PCR 2020-10-22 12:35:00 [facility] B NATRIURETIC PEPTIDE 2020-10-22 12:35:00 [facility] TROPONIN 2020-10-22 12:35:00 [facility] PROTHROMBIN TIME WITH INR 2020-10-22 12:35:00 Michael Pickett [facility] [id number] TACROLIMUS LEVEL, 2020-10-22 12:35:00 Michael Pickett [facility] RANDOM ESTIMATED GFR 2020-10-22 12:35:00 [facility] DONOR SPECIFIC ANTIBODY 2020-10-22 12:35:00 [facility]ary[facility] alexander [facility] URINE CULTURE 2020-10-14 14:18:00 [facility] CBC WITH PLATELET AND 2020-10-14 14:18:00 [facility] DIFFERENTIAL COMPREHENSIVE METABOLIC 2020-10-14 14:18:00 [facility] PANEL URINALYSIS, ROUTINE WITH 2020-10-14 14:18:00 [facility] MICROSCOPIC EXAMINATION ON POSITIVES MICROSCOPIC EXAMINATION 2020-10-14 14:18:00 [facility] MAGNESIUM LEVEL 2020-10-14 14:18:00 [facility] [id number] TACROLIMUS LEVEL, 2020-10-14 14:18:00 [facility] RANDOM CBC WITH PLATELET AND 2020-08-15 13:55:00 [facility] DIFFERENTIAL COMPREHENSIVE METABOLIC 2020-08-15 13:55:00 [facility] PANEL MAGNESIUM LEVEL 2020-08-15 13:55:00 [facility] spital [id number] TACROLIMUS LEVEL, 2020-08-15 13:55:00 [facility] RANDOM [id number] TACROLIMUS LEVEL, 2020-07-24 14:02:00 [facility] RANDOM CBC WITH PLATELET AND 2020-07-24 14:02:00 [facility] DIFFERENTIAL COMPREHENSIVE METABOLIC 2020-07-24 14:02:00 [facility] PANEL MAGNESIUM LEVEL 2020-07-24 14:02:00 [facility] spital [id number] TACROLIMUS LEVEL, 2020-07-19 10:55:00 Hung Mayberry [facility] RANDOM BASIC METABOLIC PANEL 2020-07-19 10:55:00 [facility] HC COMPLETE BLD COUNT 2020-07-19 10:55:00 [facility] W/AUTO DIFF ESTIMATED GFR 2020-07-19 10:55:00 [facility] MAGNESIUM LEVEL 2020-07-19 10:55:00 [facility] PHOSPHORUS LEVEL 2020-07-19 10:55:00 [facility] CV LEFT HEART CATH LV GRAM 2020-07-18 20:32:04 Moody Amanda [facility] WITH CORS [place] [id number] TACROLIMUS LEVEL, 2020-07-18 11:43:00 ShawandaHung [facility] RANDOM BASIC METABOLIC PANEL 2020-07-18 11:43:00 [facility] HC COMPLETE BLD COUNT 2020-07-18 11:43:00 [facility] W/AUTO DIFF ESTIMATED GFR 2020-07-18 11:43:00 [facility] MAGNESIUM LEVEL 2020-07-18 11:43:00 [facility] PHOSPHORUS LEVEL 2020-07-18 11:43:00 [facility] XR CHEST 1 VW PORTABLE 2020-07-17 17:22:06 [facility] [id number] TACROLIMUS LEVEL, 2020-07-17 11:47:00 [facility] RANDOM CYTOMEGALOVIRUS BY PCR 2020-07-17 11:47:00 [facility] THYROID STIM[facility]ATING 2020-07-17 11:47:00 [facility] HORMONE T4, FREE 2020-07-17 11:47:00 [facility] IMMUNOGLOBULIN G 2020-07-17 11:47:00 [facility] LIPID PANEL 2020-07-17 11:47:00 [facility] BASIC METABOLIC PANEL 2020-07-17 11:47:00 [facility] CBC WITH PLATELET AND 2020-07-17 11:47:00 [facility] DIFFERENTIAL MAGNESIUM LEVEL 2020-07-17 11:47:00 [facility] ESTIMATED GFR 2020-07-17 11:47:00 [facility] TTE COMPLETE, WO CONTRAST, 2020-07-17 03:45:00 [facility] W DOPPLER ([id number]) URINE CULTURE 2020-07-17 01:26:[address] [facility] [address] HEAD WO CONTRAST 2020-07-17 00:55:56 [facility] URINALYSIS SCREEN AND 2020-07-17 00:15:00 [facility] MICROSCOPY, WITH REFLEX TO CULTURE US DUPLEX VENOUS LOWER 2020-07-16 23:15:00 [facility] EXTREMITY BILATERAL US CAROTID DUPLEX 2020-07-16 23:00:00 [facility] BILATERAL INFLUENZA ANTIGEN TEST, 2020-07-16 22:30:00 Shawanda, [facility] REFLEX NEGATIVE TO RPP RESPIRATORY PATHOGEN PANEL 2020-07-16 22:30:00 Shawanda, [facility] WITH COVID-19 RT-PCR HCG QUALITATIVE, SERUM 2020-07-16 22:17:00 Tamia Franco [facility] SCREEN BLOOD CULTURE, AEROBIC & 2020-07-16 22:15:00 Shawanda [facility] ANAEROBIC BLOOD CULTURE, AEROBIC & 2020-07-16 22:00:00 Shawanda [facility] ANAEROBIC HC COMPLETE BLD COUNT 2020-07-16 22:00:00 [facility]O DIFF BASIC METABOLIC PANEL 2020-07-16 22:00:00 [facility] HEPATIC FUNCTION PANEL 2020-07-16 22:00:00 [facility] TROPONIN 2020-07-16 22:00:00 Shawanda [facility] ESTIMATED GFR 2020-07-16 22:00:00 [facility] DONOR SPECIFIC ANTIBODY 2020-07-16 22:00:[facility] 1 VW PORTABLE 2020-07-16 21:11:42 [facility] ECG 12-LEAD 2020-07-16 21:10:22 [facility]-19 QUALITATIVE 2020-07-16 21:07:[address] [facility] RT-PCR Plan of Care Planned Activity Planned Date Details Comments Source Future Scheduled 2022-12-26 COVID-19 VACCINE (#1) [facility] Test 21:26:15 [code = COVID-19 VACCINE (#1)] Future Scheduled 2022-12-26 Pneumococcal Vaccine: [facility] Test 21:26:15 Pediatrics (0 to 5 Years) and At-Risk Patients (6 to 64 Years) (1 - PCV) [code = Pneumococcal Vaccine: Pediatrics (0 to 5 Years) and At-Risk Patients (6 to 64 Years) (1 - PCV)] Future Scheduled 2022-12-26 DIABETES: [facility]INAL [facility] 21:26:15 EXAM [code = DIABETES: RETINAL EYE EXAM] Future Scheduled 2022-12-26 DIABETIC FOOT EXAM [facility] 21:26:15 [code = DIABETIC FOOT EXAM] Future Scheduled 2022-12-26 SHINGLES VACCINES (1 [facility] 21:26:15 of 2) [code = SHINGLES VACCINES (1 of 2)] Future Scheduled 2022-12-26 [facility] 21:26:15 malignant neoplasm of cervix (procedure) [code = 314422244] Future Scheduled 2022-12-26 BREAST CANCER [facility] Test 21:26:15 SCREENING [code = BREAST CANCER SCREENING] Future Scheduled 2022-12-26 COLONOSCOPY SCREENING [facility] 21:26:15 [code = COLONOSCOPY SCREENING] Future Scheduled 2022-12-26 INFLUENZA VACCINE [facility] 21:26:15 [code = INFLUENZA VACCINE] Future Scheduled 2021-09-02 [facility]ABETES: [facility] 10:26:33 EXAM [code = DIABETES: RETINAL EYE EXAM] Future Scheduled 2021-09-02 [facility] 10:26:33 [code = DIABETIC FOOT EXAM] Future Scheduled 2021-09-02 COVID-19 VACCINE (1) [facility] 10:26:33 [code = COVID-19 VACCINE (1)] Future Scheduled 2021-09-02 Hepatitis C screening [facility] 10:26:33 (procedure) [code = 862543115] Future Scheduled 2021-09-02 [facility] Test 10:26:33 malignant neoplasm of cervix (procedure) [code = 781976580] Future Scheduled 2021-09-02 INFLUENZA VACCINE [facility] 10:26:33 [code = INFLUENZA VACCINE] Future Scheduled DIABETES: RETINAL EYE [facility] EXAM [code = DIABETES: RETINAL EYE EXAM] Future Scheduled DIABETIC FOOT EXAM [facility] [code = DIABETIC FOOT EXAM] Future Scheduled COVID-19 VACCINE (1) Met [facility] Test [code = COVID-19 VACCINE (1)] Future Scheduled Hepatitis C screening [facility] (procedure) [code = 546926992] Future [facility]uled [facility] malignant neoplasm of cervix (procedure) [code = 134557103] Future Scheduled INFLUENZA VACCINE Method ist Hospital Test [code = INFLUENZA VACCINE] Encounters Start End Encounter Admission Attending Care Care Encounter Source Date/Time Date/Time Type Type Clinicians Facility Department ID 2022-12-16 2022-12-16 Orders Melinda, 1.2.840.1 [id number] Methodi 00:00:00 00:00:00 Only Ashriramses 41773.1.[address] 3.430.2.7 Hospit a .3.571770 l .8 2022-12-16 2022-12-16 Documentat Ace, 1.2.840.1 [id number] 643 [id number] Methodi 00:00:00 00:00:00 ion Renard 92372.1.[address] 3.430.2.7 Hospit a .3.621310 l .8 2022-12-01 2022-12-01 Refill Ace, 1.2.840.1 [id number] [id number] 0208 Methodi 00:00:00 00:00:[address] 3.430.2.7 Hospit a .3.694085 l .8 2022-12-01 2022-12-01 Refill Melinda, 1.2.840.1 [id number] 3907 Methodi 00:00:00 00:00:[address] 3.430.2.7 Hospit a .3.987703 l .8 2022-06-08 2022-06-08 Refill Bhimabenjamin, 1.2.840.1 [id number] 2100 399367 Methodi 00:00:00 00:00:[address] 3.430.2.7 Hospit a .3.269470 l .8 2022-06-08 2022-06-08 Refill Melinda, 1.2.840.1 [id number] 966642 7060 Methodi 00:00:00 00:00:[address] 3.430.2.7 Hospit a .3.908734 l .8 2022-04-30 2022-04-30 Refjesus Canalesado, 1.2.840.1 [id number] 006 7089047 Methodi 00:00:00 00:00:[address] 3.430.2.7 Hospit a .3.114855 l .8 2022-04-09 2022-04-09 Telephone Catarino, 1.2.840.1 [id number] 21 [id number] Methodi 00:00:00 00:00:[address] 3.430.2.7 Hospit a .3.158266 l .8 2022-03-09 2022-03-09 Documentdee Bello, 1.2.840.1 [id number] 933 [id number] Methodi 00:00:00 00:00:[address] 3.430.2.7 Hospit a .3.356431 l .8 2022-03-04 2022-03-04 [facility], 1.2.840.1 [id number] 21 [id number] Methodi 06:47:00 11:03:00 Encounter Deedee 83363.1.[address] 3.430.2.7 Hospit a .3.704139 l .8 2022-03-04 2022-03-04 [facility], 1.2.840.1 [id number] 668 [id number] Methodi 09:15:00 10:30:[address] 3.430.2.7 Hospit a .3.635448 l .8 2022-03-04 2022-03-04 [facility], 1.2.840.1 [id number] 455 [id number] Methodi 10:05:00 10:10:[address] 3.430.2.7 Hospit a .3.019010 l .8 2022-03-04 2022-03-04 Travel 1.2.840.1 1.2.801.752 8629 325717 Methodi 00:00:00 00:00:[address] 3.430.2.7 0.2.7.3.698 spita .3.714819 084.8 l .8 2022-03-04 2022-03-04 Outpatient [facility] 021 2099 [id number] [place] 00:00:00 00:00:[address] RAYAN [address] 2022-03-04 2022-03-04 Outpatient [facility] 2099 [id number] [place] 00:00:00 00:00:00 RAYAN [address] 2022-02-19 2022-03-03 Office Melinda, 1.2.840.1 [id number] 1327 Methodi 13:20:00 11:13:24 Visit Rita 76768.1.[address] 3.430.2.7 Hospit a .3.088212 l .8 2022-03-03 2022-03-03 Documentat Provider, 1.2.840.1 [id number] 2 [id number] Methodi 00:00:00 00:00:00 ion Sabino 84940.1.[address] 3.430.2.7 Hospit a .3.762863 l .8 2022-03-02 2022-03-02 [facility], 1.2.840.1 [id number] 011 [id number] Methodi 00:00:00 00:00:[address] 3.430.2.7 Hospit a .3.465135 l .8 2022-03-02 2022-03-02 [facility], 1.2.840.1 [id number] 437 [id number] Methodi 00:00:00 00:00:00 ion Renard 02600.1.[address] 3.430.2.7 Hospit a .3.366262 l .8 2022-02-27 2022-02-27 [facility], 1.2.840.1 [id number] 241 [id number] Methodi 00:00:00 00:00:00 ion Renard 37512.1.[address] 3.430.2.7 Hospit a .3.066532 l .8 2022-02-19 2022-02-19 [facility], 1.2.840.1 [id number] 98495 03378 Methodi 09:00:00 23:59:00 Encounter Ashriramses 36971.1.[address] 3.430.2.7 Hospit a .3.805992 l .8 2022-02-19 2022-02-19 Travel 1.2.840.1 1.2.589.632 1172 987653 Methodi 00:00:00 00:00:[address] 3.430.2.7 0.2.7.3.698 spita .3.636770 084.8 l .8 2022-02-19 2022-02-19 Outpatient ELLIE [facility] [id number] 487 [place] 00:00:00 00:00:00 AHMED 986 Method i 2022-02-19 2022-02-19 Outpatient [facility] [id number] 487 [place] 00:00:00 00:00:00 ASHRITH 727 Method i 2022-02-19 2022-02-19 Outpatient [facility] [id number] 487 [place] 00:00:00 00:00:00 ASHRITH 881 Method i 2022-02-17 [facility]22-[facility]-17 [facility] 1.[facility].840.1 [id number] 005 [id number] Methodi 00:00:00 00:00:00 ion [address]ard 10456.1.[address] 3.430.2.7 Hospit a .3.241055 l .8 2021-10-07 2021-10-07 Outpatient [facility] [id number] 585 [place] 00:00:00 00:00:00 ASHRITH 726 Method i 2021-10-07 2021-10-07 [facility] 35683 [id number] [place] 00:00:00 00:00:00 MICHAEL 610 Method i 2021-09-30 2021-09-30 Outpatient [facility] 754 [id number] 796 [place] 00:00:00 00:00:00 309 Method i 2021-09-25 2021-09-25 [facility] 56326 92444 [place] 00:00:00 00:00:00 MICHAEL 254 Method i 2021-09-25 2021-09-25 Outpatient [facility], [facility] [id number] 698 [place] 00:00:00 00:00:00 ASHRITH 413 Method i 2021-09-25 2021-09-25 Outpatient [facility], [facility] [id number] 454 [place] 00:00:00 00:00:00 ASHRITH 993 Method i 2021-09-25 2021-09-25 Outpatient [facility], [facility] [id number] 699 [place] 00:00:00 00:00:00 ASHRITH 642 Method i 2021-09-25 2021-09-25 Outpatient [facility], [facility] [id number] 780 [place] 00:00:00 00:00:00 ASHRITH 810 Method i 2021-09-25 2021-09-25 Outpatient [facility], [facility] [id number] 454 [place] 00:00:00 00:00:00 ASHRITH 847 Method i 2021-08-27 2021-08-27 Documentat Topfer, 1.2.840.1 [id number] 177 [id number] Methodi 00:00:00 00:00:[address] 3.430.2.7 Hospit a .3.022470 l .8 2021-08-22 2021-08-22 Travel 1.2.840.1 1.2.680.056 9718 242071 Methodi 00:00:00 00:00:[address] 3.430.2.7 0.2.7.3.698 Ho spita .3.734658 084.8 l .8 2021-08-19 2021-08-19 Documentat Topfer, 1.2.840.1 [id number] 058 1420226 Methodi 00:00:00 00:00:00 ion [address]ard 37038.1.[address] 3.430.2.7 Hospit a .3.851979 l .8 2021-08-19 2021-08-19 Refill , 1.2.840.1 [id number] 305 7931230 Methodi 00:00:00 00:00:[address] 3.430.2.7 Hospit a .3.330317 l .8 2021-08-16 2021-08-16 Refill Bhimaraj, 1.2.840.1 [id number] 2099 723493 Methodi 00:00:00 00:00:[address] 3.430.2.7 Hospit a .3.160894 l .8 2021-07-17 2021-07-17 Documentat [facility], 1.2.840.1 [id number] 173 [id number] Methodi 00:00:00 00:00:00 ion Renard 94601.1.[address] 3.430.2.7 Hospit a .3.899808 l .8 2021-07-17 2021-07-17 [facility] 1.2.840.1 [id number] 462 3434430 Methodi 00:00:00 00:00:00 ion Renard 00049.1.[address] 3.430.2.7 Hospit a .3.199593 l .8 2021-07-15 2021-07-15 Refill Bhimaraj, 1.2.840.1 [id number] 2099 596087 Methodi 00:00:00 00:00:[address] 3.430.2.7 Hospit a .3.336954 l .8 2021-06-18 2021-06-18 Refill Travis, 1.2.840.1 [id number] 429156 9745 Methodi 00:00:00 00:00:[address] 3.430.2.7 Hospit a .3.041715 l .8 2021-06-13 2021-06-13 Refill , 1.2.840.1 [id number] 321 1992847 Methodi 00:00:00 00:00:[address] 3.430.2.7 Hospit a .3.555935 l .8 2021-06-13 2021-06-13 Documentat Ace, 1.2.840.1 [id number] 874 [id number] Methodi 00:00:00 00:00:[address] 3.430.2.7 Hospit a .3.692628 l .8 2021-06-04 2021-06-04 Refjesus Pickett, 1.2.840.1 [id number] 2100 678741 Methodi 00:00:00 00:00:[address] 3.430.2.7 Hospit a .3.226368 l .8 2021-04-24 2021-04-24 Transplant Rita Lawrence 1.2.840.1 [id number] 32 [id number] Methodi 13:18:13 13:33:13 Telemedici Hung Mayberry 20100.1.[address] ne 3.430.2.7 Hospit a .3.420612 l .8 2021-04-22 2021-04-22 Hospital 1.2.840.1 [id number] 80193 Methodi 09:42:48 23:59:[address] 3.430.2.7 Hospit a .3.348218 l .8 2021-04-22 2021-04-22 [facility] 1.2.840.1 [id number] 99153 Methodi 09:41:47 09:41:[address] 3.430.2.7 Hospit a .3.308606 l .8 2021-04-22 2021-04-22 Hospital 1.2.840.1 [id number] 49885 Methodi 09:39:47 09:40:[address] 3.430.2.7 Hospit a .3.628049 l .8 2021-04-22 2021-04-22 Hospital 1.2.840.1 [id number] 76705 Methodi 09:39:08 09:40:[address] 3.430.2.7 Hospit a .3.897442 l .8 2021-04-22 2021-04-22 [facility] 1.2.840.1 [id number] 43349 Methodi 09:35:07 09:38:[address] 3.430.2.7 Hospit a .3.356030 l .8 2021-04-22 2021-04-22 [facility] 1.2.840.1 [id number] 52482 Methodi 09:33:56 09:34:[address] 3.430.2.7 Hospit a .3.250644 l .8 2021-04-22 2021-04-22 [facility] 1.2.840.1 [id number] 89166 Methodi 09:27:19 09:32:[address] 3.430.2.7 Hospit a .3.729788 l .8 2021-04-10 2021-04-10 Telephone Travis, 1.2.840.1 [id number] 2100 276016 Methodi 00:00:00 00:00:[address] 3.430.2.7 Hospit a .3.716820 l .8 2021-04-10 2021-04-10 Telephone Kathryn, 1.2.840.1 [id number] 376 [id number] Methodi 00:00:00 00:00:[address] 3.430.2.7 Hospit a .3.069111 l .8 2021-04-06 2021-04-09 [facility] 1.2.840.1 [id number] Methodi 07:10:00 20:39:00 Encounter Hoang Mccarthy 07850.1.[address] 3.430.2.7 Hospit a .3.526452 l .8 2021-04-08 2021-04-08 [facility] 1.2.840.1 [id number] 29657 Methodi 08:37:10 23:59:00 Encounter Ignacio Maguire 97003.1.[address] 3.430.2.7 Hospit a .3.037505 l .8 2021-04-08 2021-04-08 [facility], 1.2.840.1 [id number] 32551 Methodi 08:35:11 08:36:00 Encounter Ignacio Reedi 52659.1.[address] 3.430.2.7 Hospit a .3.642437 l .8 2021-04-08 2021-04-08 [facility], 1.2.840.1 [id number] 26439 Methodi 08:34:02 08:34:02 Encounter Ignacio Maguire 27000.1.[address] 3.430.2.7 Hospit a .3.248613 l .8 2021-04-06 2021-04-06 Travel 1.2.840.1 1.2.187.869 0281 826801 Methodi 00:00:00 00:00:[address] 3.430.2.7 0.2.7.3.698 Ho spita .3.379223 084.8 l .8 2021-04-05 2021-04-05 [facility], 1.2.840.1 [id number] 934913 9239 Methodi 00:00:00 00:00:00 Only Ignacio Reedi 86706.1.1 558 s t 3.430.2.7 Hospit a .3.249099 l .8 2021-03-20 2021-03-20 Outpatient R [facility] [id number] 580 Univers 11:35:00 11:35:00 ity [facility] 2021-03-20 2021-03-20 Telephone Perlita, 1.2.840.1 [id number] 2099 034172 Methodi 00:00:00 00:00:[address] 3.430.2.7 Hospit a .3.886142 l .8 2021-03-19 2021-03-19 Documentat Ace, 1.2.840.1 [id number] 279 2602372 Methodi 00:00:00 00:00:00 ion Renard 56930.1.[address] 3.430.2.7 Hospit a .3.324679 l .8 2021-03-17 2021-03-17 Telephone Kira, 1.2.840.1 [id number] 836 6213464 Methodi 00:00:00 00:00:[address] 3.430.2.7 Hospit a .3.020113 l .8 2021-03-04 2021-03-04 Refill , 1.2.840.1 [id number] 320 9696620 Methodi 00:00:00 00:00:[address] 3.430.2.7 Hospit a .3.470809 l .8 2021-02-19 2021-02-19 Refill , 1.2.840.1 [id number] 716 9571076 Methodi 00:00:00 00:00:[address] 3.430.2.7 Hospit a .3.783355 l .8 2021-02-17 2021-02-17 Refill Ashishmarina, 1.2.840.1 [id number] 2099 861601 Methodi 00:00:00 00:00:[address] 3.430.2.7 Hospit a .3.020157 l .8 2021-02-03 2021-02-03 Orders Shawanda, 1.2.840.1 [id number] 243894 0763 Methodi 00:00:00 00:00:00 Only Hung 44575.1.[address] Vincent 3.430.2.7 Hospit a .3.803896 l .8 2020-12-17 2020-12-17 Orders Neli, 1.2.840.1 [id number] 649657 5430 Methodi 00:00:00 00:00:00 Only Ignacio Maguire 97468.1.1 069 s t 3.430.2.7 Hospit a .3.557091 l .8 2020-12-16 2020-12-16 Telephone Jose Antonio, 1.2.840.1 [id number] 2100 459039 Methodi 00:00:00 00:00:[address] 3.430.2.7 Hospit a .3.149882 l .8 2020-12-03 2020-12-03 Documentat Ace, 1.2.840.1 [id number] 012 1149220 Methodi 00:00:00 00:00:00 ion [address]3475.1.[address] 3.430.2.7 Hospit a .3.037847 l .8 2020-11-26 2020-11-29 [facility] Blanca Blanca 1.2.840.1 [id number] Methodi 15:18:00 18:49:00 Encounter Tamia Franco 64305.1.[address] 3.430.2.7 Hospit a .3.369950 l .8 2020-11-29 2020-11-29 Telephone Andrew, 1.2.840.1 [id number] 21 [id number] Methodi 00:00:00 00:00:[address] 3.430.2.7 Hospit a .3.208760 l .8 2020-11-26 2020-11-26 [facility] Blanca Blanca 1.2.840.1 [id number] 56370 35146 Methodi 08:00:00 15:17:00 Encounter Swati 11397.1.[address] 3.430.2.7 Hospit a .3.267293 l .8 2020-11-26 2020-11-26 Office Michael Pickett 1.2.840.1 [id number] 32 [id number] Methodi 06:41:01 06:56:01 Visit Blanca Blanca 01491.1.[address] 3.430.2.7 Hospit a .3.389439 l .8 2020-11-26 2020-11-26 Outpatient [facility] 10388 38875 [place] 00:00:00 00:00:00 MICHAEL [address] 2020-11-26 2020-11-26 [facility], 1.2.840.1 [id number] 233 2713152 Methodi 00:00:00 00:00:00 ion [address]ard [address]163.1.[address] 3.430.2.7 Hospit a .3.489643 l .8 2020-11-26 2020-11-26 Documentat Provider, 1.2.840.1 [id number] 2 [id number] Methodi 00:00:00 00:00:00 ion Unknown 07122.1.[address] 3.430.2.7 Hospit a .3.669913 l .8 2020-11-26 2020-11-26 Travel 1.2.840.1 1.2.670.805 2561 104280 Methodi 00:00:00 00:00:[address] 3.430.2.7 0.2.7.3.698 Ho spita .3.306664 084.8 l .8 2020-11-14 2020-11-14 Orders Neli, 1.2.840.1 [id number] 210001 6895 Methodi 00:00:00 00:00:00 Only Ignacio Maguire 18736.1.1 735 s t 3.430.2.7 Hospit a .3.266537 l .8 2020-11-07 2020-11-07 [facility] 1.2.840.1 [id number] 379 [id number] Methodi 00:00:00 00:00:00 ion Renard [address]492.1.[address] 3.430.2.7 Hospit a .3.215510 l .8 2020-11-06 2020-11-06 Lab [facility], 1.2.840.1 [id number] 2100 100477 Methodi 08:05:07 08:10:[address] 3.430.2.7 Hospit a .3.597140 l .8 2020-11-03 2020-11-03 Documentat Provider, 1.2.840.1 [id number] 2 [id number] Methodi 00:00:00 00:00:00 ion Sabino 60192.1.[address] 3.430.2.7 Hospit a .3.770060 l .8 2020-10-31 2020-10-31 Infusion [facility], 1.2.840.1 [id number] 838 2584277 Methodi 12:44:33 18:29:[address] 3.430.2.7 Hospit a .3.612532 l .8 2020-10-31 2020-10-31 Orders [facility], 1.2.840.1 [id number] 121367 6658 Methodi 00:00:00 00:00:00 Only Renard 74743.1.[address] 3.430.2.7 Hospit a .3.851807 l .8 2020-10-30 2020-10-30 [facility]1 [id number] 2100 200973 Methodi 00:00:00 00:00:00 Only Michael 03163.1.[address] 3.430.2.7 Hospit a .3.753329 l .8 2020-10-30 2020-10-30 Telephone All, 1.2.840.1 [id number] 2100 735372 Methodi 00:00:00 00:00:[address] 3.430.2.7 Hospit a .3.914211 l .8 2020-10-30 2020-10-30 Documentat [facility], 1.2.840.1 [id number] 989 7086788 Methodi 00:00:00 00:00:00 [address]27.1.[address] 3.430.2.7 Hospit a .3.946605 l .8 2020-10-29 2020-10-29 Outpatient [facility] 23163 64123 [place] 00:00:00 00:00:00 MICHAEL [address] 2020-10-29 2020-10-29 Outpatient GIO, [facility] 89833 18537 [place] 00:00:00 00:00:00 MICHAEL [address] 2020-10-29 2020-10-29 Documentat Top[facility], 1.2.840.1 [id number] 403 [id number] Methodi 00:00:00 00:00:00 ion Renard 54032.1.[address] 3.430.2.7 Hospit a .3.777618 l .8 2020-10-29 2020-10-29 Telephone Mccarthy, 1.2.840.1 [id number] 2100 808821 Methodi 00:00:00 00:00:00 Catrachita Pavan 94305.1.[address] 3.430.2.7 Hospit a .3.734756 l .8 2020-10-29 2020-10-29 Travel 1.2.840.1 1.2.524.161 6879 197698 Methodi 00:00:00 00:00:[address] 3.430.2.7 0.2.7.3.698 Ho spita .3.875776 084.8 l .8 2020-10-28 2020-10-28 Documentat Provider, 1.2.840.1 [id number] 2 [id number] Methodi 00:00:00 00:00:00 ion Unknown 72008.1.[address] 3.430.2.7 Hospit a .3.802677 l .8 2020-10-25 2020-10-25 Orders Kim, 1.2.840.1 [id number] 478 9837154 Methodi 00:00:00 00:00:00 Only Clement 32462.1.[address] 3.430.2.7 Hospit a .3.441927 l .8 2020-10-25 2020-10-25 Orders Tabermekarey, 1.2.840.1 [id number] 341 8911891 Methodi 00:00:00 00:00:00 Only Clement 87491.1.[address] 3.430.2.7 Hospit a .3.487004 l .8 2020-10-25 2020-10-25 Documentat Kim, 1.2.840.1 [id number] [id number] Methodi 00:00:00 00:00:00 ion Trace 58648.1.[address] 3.430.2.7 Hospit a .3.923310 l .8 2020-10-22 2020-10-22 Office Michael Pickett 1.2.840.1 6363659 32 [id number] Methodi 07:13:02 07:28:02 Visit Deedee Lynn 53636.1.[address] 3.430.2.7 Hospit a .3.490849 l .8 2020-10-22 2020-10-22 Outpatient ASHISHMarina [facility] 44959 89623 [place] 00:00:00 00:00:00 MICHAEL [address] 2020-10-22 2020-10-22 Travel 1.2.840.1 1.2.344.626 0867 094921 Methodi 00:00:00 00:00:[address] 3.430.2.7 0.2.7.3.698 Ho spita .3.512789 084.8 l .8 2020-10-17 2020-10-17 Telephone Joel, 1.2.840.1 [id number] 2 [id number] Methodi 00:00:00 00:00:[address] 3.430.2.7 Hospit a .3.040112 l .8 2020-10-14 2020-10-14 Orders Trachtenber 1.2.840.1 [id number] 21 [id number] Methodi 00:00:00 00:00:00 Only Ronel gupta 26551.1.[address] 3.430.2.7 Hospit a .3.698272 l .8 2020-10-11 2020-10-11 Telephone Martin, 1.2.840.1 [id number] 2099 830750 Methodi 00:00:00 00:00:[address] 3.430.2.7 Hospit a .3.459998 l .8 2020-10-11 2020-10-11 Orders Topfer, 1.2.840.1 [id number] 291518 5857 Methodi 00:00:00 00:00:00 Only Renard 99529.1.[address] 3.430.2.7 Hospit a .3.065134 l .8 2020-10-04 2020-10-04 Orders Topfer, 1.2.840.1 208012564 250058 1595 Methodi 00:00:00 00:00:00 Only Renard [address]345.1.[address] 3.430.2.7 Hospit a .3.849881 l .8 2020-09-27 2020-09-27 Orders Top[facility], 1.2.840.1 388986843 366181 4645 Methodi 00:00:00 00:00:00 Only Renard [address]248.1.[address] 3.430.2.7 Hospit a .3.147292 l .8 2020-09-20 2020-09-20 Orders Topfer, 1.2.840.1 822573865 937834 4199 Methodi 00:00:00 00:00:00 Only Renard 81945.1.[address] 3.430.2.7 Hospit a .3.150269 l .8 2020-09-13 2020-09-13 Orders Topfer, 1.2.840.1 [id number] 087382 2198 Methodi 00:00:00 00:00:00 Only Renard [address]84.1.[address] 3.430.2.7 Hospit a .3.499154 l .8 2020-09-11 2020-09-11 Refill Nieves, 1.2.840.1 555650984 2100 040305 Methodi 00:00:00 00:00:[address] 3.430.2.7 Hospit a .3.857322 l .8 2020-09-10 2020-09-10 Refill Joel, 1.2.840.1 [id number] 788 [id number] Methodi 00:00:00 00:00:[address] 3.430.2.7 Hospit a .3.581228 l .8 2020-09-10 2020-09-10 Telephone Mccarthy, 1.2.840.1 [id number] 2100 689344 Methodi 00:00:00 00:00:00 Catrachita Pavan [address]056.1.[address] 3.430.2.7 Hospit a .3.129598 l .8 2020-09-06 2020-09-06 Orders Ace, 1.2.840.1 [id number] 419957 3403 Methodi 00:00:00 00:00:00 Only Renard 85105.1.[address] 3.430.2.7 Hospit a .3.502715 l .8 2020-08-30 2020-08-30 Orders Ace, 1.2.840.1 [id number] 936413 4997 Methodi 00:00:00 00:00:00 Only Renard 70769.1.[address] 3.430.2.7 Hospit a .3.953400 l .8 2020-08-23 2020-08-23 Orders Ace, 1.2.840.1 042604255 761735 2565 Methodi 00:00:00 00:00:00 Only Renard 67597.1.[address] 3.430.2.7 Hospit a .3.664951 l .8 2020-08-16 2020-08-16 Orders Ace, 1.2.840.1 542922452 290405 7151 Methodi 00:00:00 00:00:00 Only Renard [address]607.1.[address] 3.430.2.7 Hospit a .3.752707 l .8 2020-08-15 2020-08-15 Orders Melinda, 1.2.840.1 [id number] 625081 7371 Methodi 00:00:00 00:00:00 Only Jorgitoramses 62364.1.[address] 3.430.2.7 Hospit a .3.529632 l .8 2020-08-09 2020-08-09 Orders Ace, 1.2.840.1 [id number] 589650 4227 Methodi 00:00:00 00:00:00 Only Renard 77262.1.[address] 3.430.2.7 Hospit a .3.512196 l .8 2020-08-01 2020-08-01 Documentat Ace, 1.2.840.1 [id number] 242 [id number] Methodi 00:00:00 00:00:00 ion Renard 87007.1.[address] 3.430.2.7 Hospit a .3.496378 l .8 2020-07-30 2020-07-30 Transplant Rita Lawrence 1.2.840.1 7152832 32 [id number] Methodi 09:20:36 09:37:33 Telemedici Deedee Lynn 25747.1.[address] ne 3.430.2.7 Hospit a .3.499712 l .8 2020-07-30 2020-07-30 Telephone Kira, 1.2.840.1 [id number] 741 [id number] Methodi 00:00:00 00:00:[address] 3.430.2.7 Hospit a .3.626726 l .8 2020-07-26 2020-07-26 Doris Bello, 1.2.840.1 [id number] 005259 1051 Methodi 00:00:00 00:00:00 Only Renard 89866.1.[address] 3.430.2.7 Hospit a .3.600333 l .8 2020-07-22 2020-07-22 Refill Milaramezmarry 1.2.840.1 [id number] 21 [id number] Methodi 00:00:00 00:00:[address] 3.430.2.7 Hospit a .3.343402 l .8 2020-07-22 2020-07-22 Telephone Kitzmiller, 1.2.840.1 [id number] 21 [id number] Methodi 00:00:00 00:00:[address] 3.430.2.7 Hospit a .3.130777 l .8 2020-07-22 2020-07-22 Documentat [facility], 1.2.840.1 [id number] 377 [id number] Methodi 00:00:00 00:00:00 ion Renard 03747.1.[address] 3.430.2.7 Hospit a .3.414963 l .8 2020-07-16 2020-07-19 [facility] 1.2.840.1 104 774388 [id number] Methodi 14:04:00 13:55:00 Encounter Tamia Franco Benjamin 21270.1.[address] 3.430.2.7 Hospit a .3.722392 l .8 2020-07-18 2020-07-18 Surgery [facility], 1.2.840.1 [id number] 537911 7215 Methodi 15:15:00 16:15:[facility] [address] 3.430.2.7 Hospit a .3.025238 l .8 2020-07-18 2020-07-18 Refill bradford, 1.2.840.1 [id number] 2100 825025 Methodi 00:00:00 00:00:[address] 3.430.2.7 Hospit a .3.128781 l .8 2020-07-16 2020-07-16 Telephone Kira, 1.2.840.1 [id number] 294 [id number] Methodi 00:00:00 00:00:[address] 3.430.2.7 Hospit a .3.244120 l .8 2020-07-15 2020-07-15 Travel 1.2.840.1 1.2.168.336 4336 910450 Methodi 00:00:00 00:00:[address] 3.430.2.7 0.2.7.3.698 Ho spita .3.556089 084.8 l .8 2020-07-15 2020-07-15 Documentat [facility], 1.2.840.1 [id number] 843 [id number] Methodi 00:00:00 00:00:00 ion Renard [address]212.1.[address] 3.430.2.7 Hospit a .3.573527 l .8 2020-06-28 2020-06-28 Orders Topfer, 1.2.840.1 [id number] 752296 4524 Methodi 00:00:00 00:00:00 Only Renard 73469.1.[address] 3.430.2.7 Hospit a .3.799750 l .8 2020-05-31 2020-05-31 Orders [facility], 1.2.840.1 025600998 770062 1637 Methodi 00:00:00 00:00:00 Only Renard [address]052.1.[address] 3.430.2.7 Hospit a .3.953412 l .8 2020-05-03 2020-05-03 Orders [facility], 1.2.840.1 [id number] 877974 3967 Methodi 00:00:00 00:00:00 Only Renard 89068.1.[address] 3.430.2.7 Hospit a .3.369917 l .8 2020-04-05 2020-04-05 Transplant Nieves, Michael 1.2.840.1 1040 17388 [id number] Methodi 08:17:58 10:19:28 Telemedici Madeleine Desir 39654.1.[address] ne 3.430.2.7 Hospit a .3.147454 l .8 2019-12-04 2019-12-04 Outpatient [facility] 33321 61917 [place] 00:00:00 00:00:00 MICHAEL [address] 2019-12-04 2019-12-04 Outpatient [facility] 52594 88310 [place] 00:00:00 00:00:00 MICHAEL [address] 2019-12-04 2019-12-04 Outpatient [facility] 58473 00336 [place] 00:00:00 00:00:00 MICHAEL [address] 2019-08-07 2019-08-07 Outpatient [facility] 938 [id number] [place] 00:00:00 00:00:00 RONEL Gupta 463 Ricardo courtney 2019-07-10 2019-07-13 Inpatient [facility] [id number] 83 [place] 00:00:00 00:00:[address] Results Test Description Test Time Test Comments Results Result Comments Source CBC with platelet and differential 2022-12-19 21:08:00 Test Item Value Reference Range Interpretation Comme nts WBC (test code = 6690-2) 7.0 See_Comment [A utomated message] The system which ge nerated this result tra nsmitted reference range : 3.4 - 10.8 x10E3/uL. The reference range was not used to interpr et this result as daysi l/abnormal. RBC (test code = 789-8) 4.71 See_Comment [Au tomated message] The system which ge nerated this result tra nsmitted reference range : 3.77 - 5.28 x10E6/uL. The reference range was not used to interpr et this result as daysi l/abnormal. HGB (test code = 718-7) 14.5 g/dL 11.1-15.9 HCT (test code = 4544-3) 42.5 % 34.0-46.6 MCV (test code = 787-2) 90 fL 79-97 MCH (test code = 785-6) 30.8 pg 26.6-33.0 MCHC (test code = 786-4) 34.1 g/dL 31.5-35.7 RDW (test code = 788-0) 12.3 % 11.7-15.4 Platelet count (test code 227 See_Comment [ Automated message] The = 777-3) system which ge nerated this result tra nsmitted reference range : 150 - 450 x10E3/uL. The r eference range was not u sed to interpret this result as normal/abnormal . Neutrophils (test code = 50 % Not Estab. 770-8) Lymphocytes (test code = 31 % Not Estab. 736-9) Monocytes (test code = 10 % Not Estab. 5905-5) Eosinophils (test code = 7 % Not Estab. 713-8) Basophils (test code = 2 % Not Estab. 706-2) Neutrophils, absolute 3.5 See_Comment [Auto mated message] The (test code = 751-8) system w Liztic generated this result tra nsmitted reference range : 1.4 - 7.0 x10E3/uL. The r eference range was not u sed to interpret this result as normal/abnormal . Lymphocytes, absolute 2.2 See_Comment [Auto mated message] The (test code = 731-0) system w Liztic generated this result tra nsmitted reference range : 0.7 - 3.1 x10E3/uL. The r eference range was not u sed to interpret this result as normal/abnormal . Monocytes, absolute (test 0.7 See_Comment [ Automated message] The code = 742-7) system which g enerated this result tra nsmitted reference range : 0.1 - 0.9 x10E3/uL. The r eference range was not u sed to interpret this result as normal/abnormal . Eosinophils, absolute 0.5 See_Comment H [Auto mated message] The (test code = 711-2) system w Liztic generated this result tra nsmitted reference range : 0.0 - 0.4 x10E3/uL. The r eference range was not u sed to interpret this result as normal/abnormal . Basophils, absolute (test 0.1 See_Comment [ Automated message] The code = 704-7) system which g enerated this result tra nsmitted reference range : 0.0 - 0.2 x10E3/uL. The r eference range was not u sed to interpret this result as normal/abnormal . Immature granulocytes 0 % Not Estab. (test code = 76805-3) Immature granulocytes, 0.0 See_Comment [Aut omated message] The absolute (test code = system which generated 87286-2) this result tra nsmitted reference range : 0.0 - 0.1 x10E3/uL. The r eference range was not u sed to interpret this result as normal/abnormal . LAUREN (test code = LAUREN) Performed at: [facility] [address] [place], [place] [id number] Director: José Parmar MD, Phone: [phone] Lab Interpretation (test Abnormal code = 45229-0) [facility], shwswl6811-71-76 21:08:00 Test Item Value Reference Range Interpretation Comments Tacrolimus 4.3 ng/mL 2.0-20.0 Trough (FK506), blood (immediately (test code = following 68922-8) transplant) 15.0 Trough (steady state, 2 weeks or more after transplant): 3.0 - 8.0 Performed by LC-MS/MS technology. LAUREN (test code = Test(s) LAUREN) 868941-Ufijhbbmiz (FK506), Bloodwas developed and its performance characteristics determinedby [facility]. It has not been cleared or approved by the Foodand Drug Administration.Perform ed at: 02 - [address] [id number] Director: Staci Delgado MD, Phone: [phone] [facility] iuaoc5514-76-20 21:08:00 Test Item Value Reference Range Interpretation Comments Glucose (test code = 119 mg/dL 70-99 H 2345-7) BUN (test code = 12 mg/dL 6-24 3094-0) Creatinine (test code 0.89 mg/dL 0.57-1.00 = 2160-0) eGFR (test code = 79 mL/min/1.73 >=59 17979-1) BUN/creatinine ratio 13 9-23 (test code = 3097-3) Sodium (test code = 139 mmol/L 453-238 3843-2) Potassium (test code 4.6 mmol/L 3.5-5.2 = 2823-3) Chloride (test code = 99 mmol/L 96-106 2075-0) CO2 (test code = 27 mmol/L 20-29 8-9) Calcium (test code = 9.3 mg/dL 8.7-10.2 13492-5) Protein (test code = 6.8 g/dL 6.0-8.5 2885-2) Albumin, S (test code 4.3 g/dL 3.8-4.8 = 1751-7) Globulin, total (test 2.5 g/dL 1.5-4.5 code = 44755-2) Albumin/globulin 1.7 1.2-2.2 ratio (test code = 1759-0) Total bilirubin (test 0.6 mg/dL 0.0-1.2 code = 1975-2) Alkaline phosphatase 59 See_Comment [Autom ated (test code = 6768-6) message ] The system which generated this result transmitted reference range : 44 - 121 IU/L. The reference range was not used to interpr et this result as normal/abnormal . AST (test code = 22 See_Comment [Automated 1919-8) message] The system which generated this result transmitted reference range : 0 - 40 IU/L. Th e reference range was not used to interpret this result as normal/abnormal . ALT (test code = 16 See_Comment [Automated 1741-6) message] The system which generated this result transmitted reference range : 0 - 32 IU/L. Th e reference range was not used to interpret this result as normal/abnormal . LAUREN (test code = LAUREN) Performed at: [address] [place] [id number] Director: José Parmar MD, Phone: [phone] Lab Interpretation Abnormal (test code = 98907-4) [facility]2023-05-20 21:08:00 Test Item Value Reference Range Interpretation Comments Magnesium (test code = 1.8 mg/dL 1.6-2.3 75949-0) LAUREN (test code = LAUREN) Performed at: [address] [place] [id number] Director: José Parmar MD, Phone: [phone] [facility] ohfpweh7663-69-29 20:44:43 Test Item Value Reference Range Interpretation Comments Case number (test [id number] code = 1493187) Surgical pathology See link below for PDF report (test code = Lab Report 2255) Result status (test This is Supplemental code = 0707596) Report for [id number] [facility] 12 dfqs9211-09-42 18:23:53 Test Item Value Reference Range Interpretation Comments Ventricular rate (test 114 code = 253) Atrial rate (test code = 114 255) KY interval (test code = 160 266) QRSD interval (test code 114 = 260) QT interval (test code = 328 264) QTC interval (test code = 452 265) P axis 1 (test code = 64 267) QRS axis 1 (test code = 73 268) T wave axis (test code = 84 270) EKG impression (test code Sinus = 273) tachycardia--Right bundle branch block- [place]-CoV-2 (COVID-19) RNA [Presence] in Respiratory specimen by ANNE with probe aenqpwuuz5499-11-17 11:53:05 Test Item Value Reference Range Interpretation Comments SARS coronavirus RNA [Presence] Not detected in Isolate by ANNE with probe detection (test code = 68748-2) Whether patient is employed in a Unknown healthcare setting (test code = 46813-0) Whether the patient has symptoms Unknown related to condition of interest (test code = 49432-7) Whether the patient was Yes hospitalized for condition of interest (test code = 75834-5) Whether the patient was admitted No to intensive care unit (ICU) for condition of interest (test code = 35065-0) Whether patient resides in a Yes congregate care setting (test code = 87299-9) status (test code = No 86549-1) Date and time of symptom onset Unknown (test code = 71351-2) GERARDO STEWARD-CoV-2 (COVID-19) RNA [Presence] in Respiratory specimen by ANNE with probe ddpvvaerc6305-06-42 11:53:05 Test Item Value Reference Range Interpretation Comments SARS-CoV-2 (COVID-19) RNA Not detected [Presence] in Respiratory specimen by ANNE with probe detection (test code = 64820-5) Whether patient is employed in a Unknown healthcare setting (test code = 97518-8) Whether the patient has symptoms Unknown related to condition of interest (test code = 38025-2) Whether the patient was Yes hospitalized for condition of interest (test code = 08052-6) Whether the patient was admitted No to intensive care unit (ICU) for condition of interest (test code = 56587-2) Whether patient resides in a Yes congregate care setting (test code = 39809-2) status (test code = No 87290-1) Date and time of symptom onset Unknown (test code = 37299-2) GERARDO HAASFK506 Tacrolimus level, gsaerb1340-82-15 16:10:00 Test Item Value Reference Range Interpretation Comments FK506 level 7.4 ng/mL 2.0-20.0 Trough (immedi ately (test code = following trans plant) 29474-4) 15.0 Trough (st arabella state, 2 weeks or more after transplan t): 3.0 - 8.0 Detection Limit = 1.0 Performed b y LC-MS/MS techno logy. This test was d ernesto and its perform ance characteristics determined by [facility] It has not been cleared or approved by the Food and Drug Administration. LAUREN (test Performed at: 01 - code = LAUREN) [facility] [address] [place], [place] [id number] Director: Staci Delgado MD, Phone: [phone] [facility] [id number] 10:09:00 Test Item Value Reference Interpretation Comments Range Glucose (test code = 118 mg/dL 65-99 H 2345-7) BUN (test code = 27 mg/dL 6-24 H 3094-0) Creatinine (test 1.36 mg/dL 0.57-1.00 H code = 2160-0) EGFR Non-Afr. 46 mL/min/1.73 >59 L [place] (test code = 2775) EGFR 53 mL/min/1.73 >59 L [facility] abram rently [place] (test code reports eGFR in = 2774) compliance with the current recommendations of the National Ki dney Foundation. Lab kenji will update reporting as ne w guidelines are published from the NKF-ASN Task fo rce. BUN/creatinine ratio 9-23 (test code = 3097-3) Sodium (test code = 140 mmol/L 726-012 4568-2) Potassium (test code 4.7 mmol/L 3.5-5.2 = 2823-3) Chloride (test code 104 mmol/L 96-106 = 2075-0) CO2 (test code = 22 mmol/L 20-29 2027-9) Calcium (test code = 9.9 mg/dL 8.7-10.2 46199-3) Protein (test code = 7.2 g/dL 6.0-8.5 2885-2) Albumin, S (test 4.7 g/dL 3.8-4.8 code = 1751-7) Globulin, total 2.5 g/dL 1.5-4.5 (test code = 68484-4) Albumin/globulin 1.2-2.2 ratio (test code = 1759-0) Total bilirubin 1.0 mg/dL 0.0-1.2 (test code = 1975-2) Alkaline phosphatase See_Comment Plea se note (test code = 6768-6) referen ce interval change [Autom ated message] The sy stem which generated this result transmit siddhartha reference range : 44 - 121 IU/L. The reference range was not used to interpret this result as normal/abnormal . AST (test code = See_Comment [Automated message] 192-8) The system [employer] generated this result transmit siddhartha reference range : 0 - 40 IU/L. The reference range was not used to interpret this result as normal/abnormal . ALT (test code = See_Comment [Automated message] 174-6) The system [employer] generated this result transmit siddhartha reference range : 0 - 32 IU/L. The reference range was not used to interpret this result as normal/abnormal . LAUREN (test code = Performed at: 01 LAUREN) - [facility] [address] [id number] Director: José Parmar MD, Phone: [phone] Lab Interpretation Abnormal (test code = 54816-9) [facility] bypvz5455-17-19 10:09:00 Test Item Value Reference Range Interpretation Comments Magnesium (test code = 1.7 mg/dL 1.6-2.3 11017-4) LAUREN (test code = LAUREN) Performed at: 01 - [facility] [address] [id number] Director: José Parmar MD, Phone: [phone] [facility] with platelet and nsbpqpnkityn8910-23-82 09:07:00 Test Item Value Reference Range Interpretation Comments WBC (test code = See_Comment [Automated 7587-2) message] The system which generated this result transmit siddhartha reference range : 3.4 - 10.8 x10E3/uL. The reference range was not used to interpret this result as normal/abnormal . RBC (test code = See_Comment [Automated 789-8) message] The system which generated this result transmit siddhartha reference range : 3.77 - 5.28 x10E6/uL. The reference range was not used to interpret this result as normal/abnormal . HGB (test code = 13.6 g/dL 11.1-15.9 718-7) HCT (test code = 39.5 % 34.0-46.6 4544-3) MCV (test code = 90 fL 79-97 787-2) MCH (test code = 30.9 pg 26.6-33.0 785-6) MCHC (test code = 34.4 g/dL 31.5-35.7 786-4) RDW (test code = 12.2 % 11.7-15.4 788-0) Platelet count See_Comment [Automated (test code = 777-3) message] The system which generated this result transmit siddhartha reference range : 150 - 450 x10E3/uL. The reference range was not used to interpret this result as normal/abnormal . Neutrophils (test 48 % Not Estab. code = 770-8) Lymphocytes (test 36 % Not Estab. code = 736-9) Monocytes (test 10 % Not Estab. code = 5905-5) Eosinophils (test 4 % Not Estab. code = 713-8) Basophils (test 2 % Not Estab. code = 706-2) Neutrophils, See_Comment [Automated absolute (test code message] The = 751-8) system which generated this result transmit siddhartha reference range : 1.4 - 7.0 x10E3/uL. The reference range was not used to interpret this result as normal/abnormal . Lymphocytes, See_Comment [Automated absolute (test code message] The = 731-0) system which generated this result transmit siddhartha reference range : 0.7 - 3.1 x10E3/uL. The reference range was not used to interpret this result as normal/abnormal . Monocytes, absolute See_Comment [Automa siddhartha (test code = 742-7) message] The system which generated this result transmit siddhartha reference range : 0.1 - 0.9 x10E3/uL. The reference range was not used to interpret this result as normal/abnormal . Eosinophils, See_Comment [Automated absolute (test code message] The = 711-2) system which generated this result transmit siddhartha reference range : 0.0 - 0.4 x10E3/uL. The reference range was not used to interpret this result as normal/abnormal . Basophils, absolute See_Comment [Automa siddhartha (test code = 704-7) message] The system which generated this result transmit siddhartha reference range : 0.0 - 0.2 x10E3/uL. The reference range was not used to interpret this result as normal/abnormal . Immature 0 % Not Estab. granulocytes (test code = 66877-6) Immature grans See_Comment [Automated (abs) (test code = message] The 95818-2) system which generated this result transmit siddhartha reference range : 0.0 - 0.1 x10E3/uL. The reference range was not used to interpret this result as normal/abnormal . LAUREN (test code = Performed at: 01 LAUREN) - [facility] [address] [place] [id number] Director: José Parmar MD, Phone: [phone] [facility] zmmvomcq0024-83-08 01:40:17 Test Item Value Reference Range Interpretation Comments DSA serum ID (test code [id number] = 5858) DSA serum collection D&T 04/09/2021 04:52 AM (test code = 5859) DSA class [...] = 5861) Case number (test code = [id number]) Donor specific antibody See link below for (test code = 1080) PDF Lab Report [facility] gvtsims6181-40-45 14:21:04 Test Item Value Reference Range Interpretation Comments Urine culture No growth Specimen isolate (test after 24 InformationSpe [facility] infirmaryen code = 54831-1) hours Source: Urin eSpecimen Site: Clean cat [facility] 12 vsrh1789-06-50 17:30:40 Test Item Value Reference Range Interpretation Comments Ventricular rate (test code = 253) Atrial rate (test code = 255) KY interval (test code = 266) QRSD interval (test code = 260) QT interval (test code = 264) QTC interval (test code = 265) P axis 1 (test code = 267) QRS axis 1 (test code = 268) T wave axis (test code = 270) EKG impression (test Normal sinus code = 273) rhythm-Possible Left atrial enlargement-Right bundle branch block-Septal infarct , age undetermined-Abnormal ECG-In automated comparison with ECG of 28-NOV-2020 13:22,-Septal infarct is now present- [facility] [id number] 18:08:06 Test Item Value Reference Range Interpretation Comments Interpretation (test Negative results do code = 3461144) not preclude 2019-nCoV infection and should not be used as the sole basis for treatment or other patient management decisions. Negative results must be combined with clinical observations, patient history, and epidemiological information. COVID-19 qualitative Not-Detected Not-Detected RT-PCR result (test code = 39154-3) COVID-19 qualitative See link below for C ase Number: RT-PCR (test code = PDF Lab Report [id number]) LAUREN (test code = COVPS - received a LAUREN) swab in viral transport media. Clarified order with Rachael Ferro 04/06/2021 10:16. Test will be re-ordered as NCOVP. COVPS will be re-ordered by nursing floor. Cassy RodriguezARS-CoV-2 (COVID-19) RNA [Presence] in Respiratory specimen by ANNE with probe kackmcyhx0451-14-27 13:07:59 Test Item Value Reference Range Interpretation Comments SARS-CoV-2 (COVID-19) RNA Not detected Not-Detected [Presence] in Respiratory specimen by ANNE with probe detection (test code = 77593-0) Whether patient is employed in a healthcare setting (test code = 67087-3) Whether the patient has symptoms related to condition of interest (test code = 80962-0) Patient was hospitalized because of this condition (test code = 76847-0) Whether the patient was admitted to intensive care unit (ICU) for condition of interest (test code = 96328-0) Whether patient resides in a congregate care setting (test code = 22599-0) [facility] [id number] Tacrolimus level, [id number] 22:08:00 Test Item Value Reference Range Interpretation Comments FK506 level 6.9 ng/mL 2.0-20.0 Trough (immedi ately (test code = following trans plant) 81481-1) 15.0 Trough (st arabella state, 2 weeks or more after transplan t): 3.0 - 8.0 Detection Limit = 1.0 Performed b y LC-MS/MS techno logy. This test was sada orozco and its perform ance characteristics determined by [facility] It has not been cleared or approved by the Food and Drug Administration. LAUREN (test Performed at: 01 - code = LAUREN) [address] [id number] Director: Staci Delgado MD, Phone: [phone] [facility] with platelet and osyrapzpllyt2685-92-64 11:09:00 Test Item Value Reference Range Interpretation Comments WBC (test code = See_Comment [Automated 8765-2) message] The system which generated this result transmitted reference range : 3.4 - 10.8 x10E3/uL. The reference range was not used to interpret this result as normal/abnormal . RBC (test code = See_Comment [Automated 078-8) message] The system which generated this result [...] absolute See_Comment [Auto mated (test code = 751-8) message] The system which generated this result [...] 0 % Not Estab. (test code = 44703-6) Immature grans (abs) See_Comment [Autom ated (test code = 61226-3) messag e] The system which generated this result transmitted reference range : 0.0 - 0.1 x10E3/uL. The reference range was not used to interpret this result as normal/abnormal . LAUREN (test code = LAUREN) Performed at: [address] [place] [address] [id number] Director: José Parmar MD, Phone: [phone] Lab Interpretation Abnormal (test code = 15378-0) [facility] [id number] 10:09:00 Test Item Value Reference Interpretation Comments Range Glucose (test code = 59 mg/dL 65-99 L 2345-7) BUN (test code = 18 mg/dL 6-24 3094-0) Creatinine (test 1.00 mg/dL 0.57-1.00 code = 2160-0) EGFR Non-Afr. 67 mL/min/1.73 >59 [place] (test code = 2775) EGFR 77 mL/min/1.73 >59 [facility] cur rently [place] (test code reports eGFR in = 2774) compliance with the current recommendations of the National Ki dney Foundation. Lab kenji will update reporting as ne w guidelines are published from the NKF-ASN Task fo rce. BUN/creatinine ratio 9-23 (test code = 3097-3) Sodium (test code = 138 mmol/L 941-444 5664-2) Potassium (test code 4.4 mmol/L 3.5-5.2 = 2823-3) Chloride (test code 101 mmol/L 96-106 = 2075-0) CO2 (test code = 21 mmol/L 20-29 2027-9) Calcium (test code = 9.5 mg/dL 8.7-10.2 54502-0) Protein (test code = 7.0 g/dL 6.0-8.5 2885-2) Albumin, S (test 4.4 g/dL 3.8-4.8 code = 1751-7) Globulin, total 2.6 g/dL 1.5-4.5 (test code = 45279-5) Albumin/globulin 1.2-2.2 ratio (test code = 1759-0) Total bilirubin 0.5 mg/dL 0.0-1.2 (test code = 1974-2) Alkaline phosphatase See_Comment [Autom ated message] (test code = 6768-6) The sys tem which generated this result transmit siddhartha reference range : 48 - 121 IU/L. The reference range was not used to interpret this result as normal/abnormal . AST (test code = See_Comment [Automated message] 1920-8) The system whic h generated this result transmit siddhartha reference range : 0 - 40 IU/L. The reference range was not used to interpret this result as normal/abnormal . ALT (test code = See_Comment [Automated message] 0802-6) The system [employer] generated this result transmit siddhartha reference range : 0 - 32 IU/L. The reference range was not used to interpret this result as normal/abnormal . LAUREN (test code = Performed at: LAUREN) - [facility] [id number] Director: José Parmar MD, Phone: [phone] Lab Interpretation Abnormal (test code = 43007-1) [facility] vtnee9484-14-78 10:09:00 Test Item Value Reference Range Interpretation Comments Magnesium (test code = 1.5 mg/dL 1.6-2.3 L 48785-5) LAUREN (test code = LAUREN) Performed at: 01 - [facility] [address] [id number] Director: José Parmar MD, Phone: [phone] Lab Interpretation (test Abnormal code = 70575-5) [facility] referral [id number] 18:32:54 Test Item Value Reference Range Interpretation Comments [facility] test name FACV PTPCR (test code = 2566) [facility] test see comment Factor V Leiden (F5) result (test R506Q Mutation ARUP code = 1730) test code 32151 20 FACV Specimen Whole Blood - - - - - - - - - - - - - - - - - - - - - - - - - - - - - - F actor V Leiden (F5) R50 6Q Mutation Negati ve Indication for testing: Assess genetic risk fo r thrombosis. NEG ATIVE: The factor V Le iden variant, c.1601 G>A; p.Xxf258Yrw, wa s not detected. This does not [...] in the F5 gene variant c. 1601G>A (p.Ebk401Edf). Legacy nomenclature: R 506Q (1691G>A) [facility]IN[facility] SILVANO SENSITIVITY: 20 -50 percent of jin viduals with an isolate d VTE have the FVL va riant. METHODOLOGY: Polymerase huber n reaction and fluorescence monitoring.ANAL YTICAL SENSITIVITY AND SPECIFICITY: 99 percent.LIMITAT IONS: Diagnostic erro rs can occur due to ra re sequence variat ions. F5 gene mutatio ns, other than p.Vfa199Ppq, wi ll not be detected. Th is test was developed a nd its performance characteristics determined by [facility]. I t has not been cleare [...] 0A) Pathogenic Vari ant [facility]UP test code 1574003 PT PCR Specimen Whole Blood - - - - - - - - - - - - - - - - - - - - - - - - - - - - - - Prothrombin (F2 ) N15400R Variant Negative Indica tion for testing: As sess genetic risk fo r thrombosis. NEG ATIVE: The Factor II, prothrombin G20 210A mutation, was n ot detected. Other causes of elevated prothrombin lev els and hereditary form s [...] Huynh. BACKGROUND INFORMATION: Prothrombin (F2 ) c.*97G>A (G2021 0A) Pathogenic VariantCHARACTE RISTICS : The Factor II [...] PATHOGENIC VARI ANT TESTED: F2 c.*9 7G>A (P86760Y).CLINI SILVANO SENSITIVITY FOR VENOUS THROMBOSIS: Approximately 1 0 percent.METHODO LOGY: Polymerase huber n reaction and fluorescence monitoring.ANAL YTICAL SENSITIVITY AND SPECIFICITY: 99 percent.LIMITAT IONS: Diagnostic erro rs can occur due to ra re sequence variat ions. F2 gene variant s, other than c.*9 7G>A ([id number]), will not be detected. This test was developed a nd its performance characteristics determined by [facility]. I t has not been cleare d or approved by the US Food and Drug Administration. This test was perfor med in a CLIA certifie d laboratory and is intended for cl inical purposes. Couns eling and informed co nsent are recommended for genetic testing . Consent forms a re [facility]. ======= ======= Test performed by:[facility] [address] [place] [address] 8410 8 LAUREN (test code 1.9FAC5L - Factor = LAUREN) V Leiden (F5) R506Q Mutation AR Test ID: [id number]: Whole Blood EDTA2.9PTPCR - Prothrombin (F2) c.*97G>A (U07708I) Pathogenic VariantARUP Test ID: [id number]: Whole Blood EDTA [facility] referral [id number] 18:32:54 Test Item Value Reference Range Interpretation Comments [facility] test name FACV PTPCR (test code = 2566) [facility] test see comment Factor V Leiden (F5) result (test R506Q Mutation ARUP code = 1730) test code 72696 20 FACV Specimen Whole Blood - - - - - - - - - - - - - - - - - - - - - - - - - - - - - - F actor V Leiden (F5) R50 6Q Mutation Negati ve Indication for testing: Assess genetic risk fo r thrombosis. NEG ATIVE: The factor V Le iden variant, c.1601 G>A; p.Fyl428Pcc, wa s not detected. This does not [...] in the F5 gene variant c. 1601G>A (p.Aue681Jsh). Legacy nomenclature: R 506Q (1691G>A) CLINI SILVANO SENSITIVITY: 20 -50 percent of jin viduals with an isolate d VTE have the FVL va riant. METHODOLOGY: Polymerase huber n reaction and fluorescence monitoring.ANAL YTICAL SENSITIVITY AND SPECIFICITY: 99 percent.LIMITAT IONS: Diagnostic erro rs can occur due to ra re sequence variat ions. F5 gene mutatio ns, other than p.Ljz205Zlx, wi ll not be detected. Th is test was developed a nd its performance characteristics determined by [facility]. I t has not been cleare d or approved by the [place] Food and Drug Administration. This test was perfor med in a CLIA certifie d laboratory and is intended for cl inical purposes. Couns eling and informed co nsent are recommended for genetic testing . Consent forms a re [facility]. ======= ======= Prothrombin (F2 ) c.*97G>A (G2021 0A) Pathogenic Vari ant ARUP test code 9726260 PT PCR Specimen Whole Blood - - - - - - - - - - - - - - - - - - - - - - - - - - - - - - Prothrombin (F2 ) D12807Q Variant Negative Indica tion for testing: As sess genetic risk fo r thrombosis. NEG ATIVE: The Factor II, prothrombin G20 210A mutation, was n ot detected. Other causes of elevated prothrombin lev els and hereditary form s [...] been reviewed and ap proved by Moncho Huynh BACKGROUND INFORMATION: Prothrombin (F2 ) c.*97G>A (G2021 0A) Pathogenic VariantCHARACTE RISTICS : The Factor II [...] PATHOGENIC VARI ANT TESTED: F2 c.*9 7G>A (V91096O).CLINI SILVANO SENSITIVITY FOR VENOUS THROMBOSIS: Approximately 1 0 percent.METHODO LOGY: Polymerase huber n reaction and fluorescence monitoring.ANAL YTICAL SENSITIVITY AND SPECIFICITY: 99 percent.LIMITAT IONS: Diagnostic erro rs can occur due to ra re sequence variat ions. F2 gene variant s, other than c.*9 7G>A (R81632F), will not be detected. This test was developed a nd its performance characteristics determined by [facility]. I t has not been cleare d or approved by the US Food and Drug Administration. This test was perfor med in a CLIA certifie d laboratory and is intended for cl inical purposes. Couns eling and informed co nsent are recommended for genetic testing . Consent forms a re available onlin e. ======= ======= Test performed by:[facility] [address] [place] [address] 84 8 LAUREN (test code 1.9FAC5L - Factor = LAUREN) V Leiden (F5) R506Q Mutation [facility] Test ID: [id number]: Whole Blood EDTA2.9PTPCR - Prothrombin (F2) c.*97G>A (T30898I) Pathogenic [facility] Test ID: [id number]: Whole Blood [facility] swtoowhj3717-67-87 12:03:06 Test Item Value Reference Range Interpretation Comments DSA serum ID (test code [id number] = 5858) DSA serum collection D&T 11/28/2020 [...] = 5861) Case number (test code = [id number]) Donor specific antibody See link below for (test code = 1080) PDF Lab Report [facility] duplex venous lower mnzyzsmzm9851-08-66 13:37:00 Vascular Ultrasound Laboratory Lower Extremity Venous Report [address] [place] [address] Pat.Name: MINGO FOUNTAIN Pat.ID: [id number] .Date: 11/28/2020 Refer.MD: TAMIA FRANCO MD Exam Time: 7:49:00 PM Study Type:LE Venous Height: 72in Age: 9 1970,50Y Sex: FEMALE Sonogrphr: CHESTER Albert RCS Pat. Stat.:Inpatient Room: [place] [address] Tape Vol: TRE, CPT - 4: 44432 Echo Event ID:[id number] Order ID: [id number] Reason for Study:Leg deep vein thrombosis (DVT) suspected. PMHoforthotopic heart transplant, melanoma, HTN, HLD, Covid- 19.Procedures: Colorflow, Grayscale/2D, Pulsed wave DopplerRace: C SUMMARY: --Deep Veins Superficial Veins* Normal Reflux Criteria: < [...] is normal compressibility with no evidence ofechogenic materialnoted within the lumen of the visualized veins.Color flow and Doppler signals are normal.PRELIMINARYFINDINGS:1. No evidence of venous thrombosis of the visualized veins,bilaterally.PHYSICIAN INTERPRETATION: Venous examination of the both lower extremities demonstrated noevidence of venous thrombosis in the visualized veins. Normalcompressibility and augmentation of all veins visualized. FINDINGS: Signed 11/29/2020 08:37 Valarie Vickers MD, RPVIIgraemece, Radiology Results In - 11/29/2020 8:38 AM CDT Vascular Ultrasound Laboratory Lower Extremity Venous Report [address], [place] [address], [place] [address] Pat.Name: MINGO FOUNTAIN Pat.ID: [id number] .Date: 11/28/2020 Refer.: TAMIA FRANCO MD Exam Time: 7:49:00 PM Study Type:LE Venous Height: 72in Age: 9 1970,50Y Sex: FEMALE Sonogrphr: Zackery Wei, RVS, RCS Pat. Stat.:Inpatient Room: [place] [address] Tape Vol: , CPT - 4: 63138 Echo Event ID:[id number] Order ID: [id number] Reason for Study:Leg deep vein thrombosis (DVT) suspected. [facility] oforthotopic heart transplant, melanoma, HTN, HLD, Covid-19.Procedures: Colorflow, Grayscale/2D, Pulsed wave DopplerRace: C SUMMARY:-- Deep Veins Superficial Veins* Normal Reflux Criteria: [...] Normal Normal (below knee)Popliteal Normal NormalPT (prox) NormalNormal SSV Normal NormalPT (dist) Normal Normal Peroneal [...] FINDINGS: Signed 11/29/2020 08:37 Valarie Vickers MD, [facility] ECG 12 [id number] 21:25:55 Test Item Value Reference Range Interpretation Comments Ventricular rate (test code = 253) Atrial rate (test code = 255) [place] interval (test code = 266) QRSD interval (test code = 260) QT interval (test code = 264) QTC interval (test code = 265) P axis 1 (test code = 267) QRS axis 1 (test code = 268) T wave axis (test code = 270) EKG impression (test code Normal sinus = 273) rhythm-Possible Left atrial enlargement-Right bundle branch block-Abnormal ECG- [facility] Complete, (w Contrast, Strain and 3D if needed)2020-11-27 21:39:00 Echocardiography Report [address]Name: MINGO FOUNTAIN Pat.ID: [id number] .Date: 11/26/2020 Refer.MD: BLANCA BLANCA MD Exam Time: 10:56:00 PM Study Type:Routine Echo Height: 72in Weight: 203lb BSA: 2.15 m2 Age: 9 1970,50Y Sex: FEMALE BP: 118/72 HR: 84 bpm Sonogrphr: CIELO Maguire Pat. Stat.:Inpatient Room: [place] [address] Study Status:Final Echo Event ID:[id number] Order ID: [id number] Reason for Study:Heart allograft dysfunction, To assess LV Function.History / Clinical:Cancer, Heart TransplantProcedures: 2D Echo, Colorflow Doppler, Portable, StrainRace: C SUMMARY: LV size is normal. LV EF is normal.Estimated EF is 60-64%.RV systolic function is moderately depressed.Estimated PA systolic pressure is 41 mmHg, assuming a mean RAP of 5mmHg.Mild to moderate tricuspid regurgitation---- FINDINGS: LV: LV size is normal. Normal average LV global longitudinal strain at -18.6%. LV EF is normal. Overall wall motion is normal. Septal motion is paradoxical. Estimated EF is 60-64%.RV: RV size is enlarged. RV systolic functionis moderately depressed. LA: LA size: post-transplantRA: RA [...] RAP of 5 mmHg. MEASUREMENTS: 2DParasternal Long [place] Ao An 1.9 cm LVPWd 0.99 cm Ao Rtd 2.4 cm Index 1.1 cm/m2 LA Ds 5.7 cm IVSd 1 cm RWT 0.45 LVIDd 4.4 cm Index 2 cm/m2 LV Mass 148 g (87- 129) LVIDs 3 cm LVM Index 69 g/m2 LV%fs 32 % LVOT 1.9 cm LA Sng Plane LA Area 45 cm2 (8.8-23.4) LA Vol 187 ml Index 87 ml/m2 LA LngAx 8.8 cm RA Sng Plane RA Vol 111 ml Index 52 ml/m2 RA LngAx 8.5 cm RA Area 35 cm2 (8.3-19.5)LVOT LVOT Area 2.8 cm2 DOPPLERLVOT Stroke Vol &Cardiac Out LVOT TVI 25 cm HR 83 bpm LVOT LVOT SV 72 ml LVOT CO 6 l/min SVi 33 ml/m2 LVOT CI 2.8 l/m/m2 Signed 11/27/2020 04:39 PMLambert York M.D.Interface, Radiology Results In - 11/27/2020 4:39 PM CDT Echocardiography Report [address] [place] [address] Pat.Name: MINGO FOUNTAIN Pat.ID: [id number] St.Date: 11/26/2020 Refer.MD: BLANCA BLANCA MD Exam Time: 10:56:00 PM Study Type:Routine Echo Height: 72in Weight: 203lb BSA: 2.15 m2 Age: 9 1970,50Y Sex: FEMALE BP: 118/72 HR: 84 bpm Sonogrphr: CIELO Maguire Pat. Stat.:Inpatient Room: [place] [address] Study Status:Final Echo Event ID:[id number] Order ID: [id number] Reason for Study:Heart allograft dysfunction, To assess LV Function.History / Clinical:Cancer, Heart Tr ansplantProcedures: 2D Echo, Colorflow Doppler, Portable, StrainRace: C -------SUMMARY: LV size is normal. LV EF is normal.Estimated EF is 60-64%.RV systolic function is moderately depressed.Estimated PA systolic pressure is 41 mmHg, assuming a mean RAP of 5mmHg.Mild to moderate tricuspid regurgitation F INDINGS: LV: LV size is normal. Normal average [...] abnormalities noted. Mild pulmonic regurgitation. TV: No st ructural TV abnormalities noted. Mild to moderate tricuspid regurgitationOther: Estimated PA systolic pressure is 41 mmHg, assuming a mean RAP of 5 mmHg. MEASUREMENTS: 2DParasternal Long [place] Ao An 1.9 cm LVPWd 0.99 cm [...] 52 ml/m2 RA LngAx 8.5 cm RA Area35 cm2 (8.3-19.5)LVOT LVOT Area 2.8 cm2 DOPPLERLVOT Stroke Vol & Cardiac Out LVOT TVI 25 cm HR 83 bpm LVOT LVOT SV 72 ml LVOT CO 6 l/min SVi 33 ml/m2 LVOT CI 2.8 l/m/m2 Signed 11/27/2020 04:39 Laron Gaspar VwhqjzojRKFO-FkZ-8 (COVID-19) RNA [Presence] in Respiratory specimen by ANNE with probe syjrgblkn8131-76-09 22:21:28 Test Item Value Reference Range Interpretation Comments SARS-CoV-2 (COVID-19) RNA Not detected Not-Detected [Presence] in Respiratory specimen by ANNE with probe detection (test code = 22772-8) Whether patient is employed in a healthcare setting (test code = 41077-7) Whether the patient has symptoms related to condition of interest (test code = 36707-8) Patient was hospitalized because of this condition (test code = 22840-0) Whether the patient was admitted to intensive care unit (ICU) for condition of interest (test code = 91035-3) Whether patient resides in a congregate care setting (test code = 17813-8) [facility] Angiogram Pe Bksaw5455-52-64 16:16:45EXAMINATION: CT ANGIOGRAM PE CHEST CLINICAL HISTORY: R07.9 Chest pain unspecified, U07.1 COVID- 19, Post heart recipient who had COVID [address] of chest PE protocol TECHNIQUE: PE PROTOCOL: CT angiographic images of the chest were obtained during intravenous administration of iodinated contrast. Computerized reformatted images and 3-D MIP images were also obtained and archived (CT pulmonary embolus protocol). CT imaging was performed with iterative reconstruction technique and/or automated exposure control to reduce radiation dose. COMPARISON: November 21, 2018 FINDINGS: Pulmonary arteries: Thereare subsegmental pulmonary emboli in the right upper lobe (see image 97 series 2) and right lower lobe (image 209). Embolic burden is small. Main pulmonary artery diameter is 3.5 cm. Right ventricular to left ventricular diameter ratio is less than 1. Lungs and airways: Minimal scarring, predominantlyin the upper lobes/apices. No acute airspace disease. Pleura: Minimal posterior pleural thickening bilaterally, right greater than left, with a few associated small calcified pleural plaques. No pleural effusion or pneumothorax. Mediastinum and lymph nodes: No lymphadenopathy. Cardiovascular: Surgicalchanges status post heart transplant, with markedly patulous atria and mildly dilated right and leftventricles. Upper abdomen: There are calcified splenic granulomas. Musculoskeletal: Prior median sternotomy. Scattered degenerative osseous changes. IMPRESSION: 1.Small burden subsegmental pulmonary emboli in the right upper and lower lobes.2.Surgical changes status post heart transplant. [id number] Repeated attempts to reach the clinic were unsuccessful. Dr. Haile spoke with the patient and sent the patient back to clinic. Interface, Radiology Results Incoming - 11/26/2020 11:19 AM CDT EXAMINATION: CT ANGIOGRAM PE CHESTCLINICAL HISTORY: R07.9 Chest pain unspecified, U07.1 COVID-19, Post heart recipient who had COVID [address] of chest PE protocolTECHNIQUE: PE PROTOCOL: CT angiographic images of the chest were obtained during intravenous administration of iodinated contrast. Computerized reformatted images and 3-D MIP images were also obtained and archived (CT pulmonary embolus protocol). CT imaging was performed with iterati ve reconstruction technique and/or automated exposure control to reduce radiation dose.COMPARISON: November 21, 2018FINDINGS:Pulmonary arteries: There are subsegmental pulmonary emboli in the right upper lobe (see image 97 series 2) and right lower lobe (image 209). Embolic burden is small. Main pulmonary artery diameter is 3.5 cm. Right ventricular to left ventricular diameter ratio is less than 1.Lungs and airways: Minimal scarring, predominantly in the upper lobes/apices. No acute airspace disease. Pleura: Minimal posterior pleural thickening bilaterally, right greater than left, with a few associated small calcified pleural plaques. No pleural effusion or pneumothorax.Mediastinum and lymph nodes:No lymphadenopathy. Cardiovascular: Surgical changes status post heart transplant, with markedly patulous atria and mildly dilated right and left ventricles.Upper abdomen: There are calcified splenic gr anulomas.Musculoskeletal: Prior median sternotomy. Scattered degenerative osseous changes.IMPRESSION:1.Small burden subsegmental pulmonary emboli in the right upper and lower lobes.2.Surgical changes status post heart transplant.[id number] attempts to reach the clinic were unsuccessful. spoke with the patient and sent the patient back to clinic.[facility] pathogen panel with [id number] 17:55:06 Test Item Value Reference Interpretation Comments [...] Not Detected pertussis PCR (test code = 0166598) Bordetella Not Detected parapertussis PCR (test code = 0223019) Chlamydia Not Detected pneumoniae PCR (test code = 3753) Mycoplasma Not Detected pneumoniae PCR (test code = 7110) COVID-19 Not Detected qualitative RT-PCR result (test code = 51057-7) [facility] OcahqbarGRQP-SkR-8 (COVID-19) IgG+IgM Ab [Presence] in Serum or Plasma by Iyirbgcrgae4400-03-79 11:35:00 Test Item Value Reference Range Interpretation Comments SARS-CoV-2 (COVID-19) IgG+IgM Ab Positive [Presence] in Serum or Plasma by Immunoassay (test code = 69380-7) GERARDO OMALLEY TRALYTWD-FwW-0 (COVID-19) IgG Ab [Presence] in Serum or Plasma by Qyekogjuznb7642-07-28 11:35:00 Test Item Value Reference Range Interpretation Comments SARS-CoV-2 (COVID-19) IgG Ab Positive [Presence] in Serum or Plasma by Immunoassay (test code = 56875-5) GERARDO OMALLEY TLCNXWXT-CnJ-6 (COVID-19) RNA [Presence] in Respiratory specimen by ANNE with probe gmxffiyih0518-86-54 15:18:03 Test Item Value Reference Range Interpretation Comments SARS-CoV-2 (COVID-19) RNA [Presence] Detected Not-Detected in Respiratory specimen by ANNE with probe detection (test code = 85916-0) [facility] Nyvbiavwigk3236-47-35 23:09:00 Test Item Value Reference Range Interpretation Comments WBC, UA (test code 0-5 See_Comment [Automat ed = 5821-4) message] The system which generated this result transmit siddhartha reference range : 0 - 5 /hpf. The reference range was not used to interpret this result as normal/abnormal . RBC, UA (test code 0-2 See_Comment [Automat ed = 30793-4) message] The system which generated this result [...] LAUREN (test code = Performed at: 01 - LAUREN) [facility] [address] [id number] Director: José Parmar MD, Phone: [phone] [facility], routine with microscopic examination on positives 2020-10-15 23:09:00 Test Item Value Reference Range Interpretation Comments Specific gravity, 1.005-1.030 urine (test code = 2965-2) pH, urine (test code 5.0-7.5 = 5803-2) Color, UA (test code Yellow Yellow = 5778-6) Appearance (test code Clear Clear = 5767-9) WBC esterase, urine Trace Negative A (test code = 5799-2) Protein, UA (test Negative Negative/Trace code = 03399-6) Glucose, urine (test Negative Negative code = 2679-9) Ketones, UA (test Negative Negative code = 2514-8) Occult blood, urine Negative Negative (test code = 5794-3) Bilirubin, UA (test Negative Negative code = 5770-3) Urobilinogen, UA 0.2 mg/dL 0.2-1.0 (test code = 38030-6) Nitrite, UA (test Negative Negative code = 5802-4) Microscopic See below: Microscopic was examination (test indicated and was code = 71790-7) performed. LAUREN (test code = LAUREN) Performed at: [facility] [id number] Director: José Parmar MD, Phone: [phone] Lab Interpretation Abnormal (test code = 87207-4) [facility] Mzjtfsjpywo0214-43-54 23:09:00 Test Item Value Reference Range Interpretation Comments WBC, UA (test code 0-5 See_Comment [Automat ed = 5821-4) message] The system which generated this result transmit siddhartha reference range : 0 - 5 /hpf. The reference range was not used to interpret this result as normal/abnormal . RBC, UA (test code 0-2 See_Comment [Automat ed = 18271-9) message] The system which generated this result [...] 5769-5) LAUREN (test code = Performed at: LAUREN) [facility] [address] [id number] Director: José Parmar MD, Phone: [phone] [facility] Hospital[facility], routine with microscopic examination on positives 2020-10-15 23:09:00 Test Item Value Reference Range Interpretation Comments Specific gravity, 1.005-1.030 urine (test code = 2965-2) pH, urine (test code 5.0-7.5 = 5803-2) Color, UA (test code Yellow Yellow = 5778-6) Appearance (test code Clear Clear = 5767-9) WBC esterase, urine Trace Negative A (test code = 5799-2) Protein, UA (test Negative Negative/Trace code = 76754-8) Glucose, urine (test Negative Negative code = 2349-9) Ketones, UA (test Negative Negative code = 2514-8) Occult blood, urine Negative Negative (test code = 5794-3) Bilirubin, UA (test Negative Negative code = 5770-3) Urobilinogen, UA 0.2 mg/dL 0.2-1.0 (test code = 11718-6) Nitrite, UA (test Negative Negative code = 5802-4) Microscopic See below: Microscopic was examination (test indicated and was code = 97111-7) performed. LAUREN (test code = LAUREN) Performed at: [facility] [id number] Director: José Parmar MD, Phone: [phone] Lab Interpretation Abnormal (test code = 57122-2) [facility] lab pnmkpeshc5975-24-39 21:02:51After obtaining informed consent, the patient was [...] for a total of 25 minutes.Findings:Mild (Grade I)CAV without focal stenoses.[facility] Chest 1 Vw Qpidacbg8262-45-55 17:31:44 EXAMINATION: XR CHEST 1 VW PORTABLE CLINICAL HISTORY: sob rule out Covid 19 COMPARISON: Most Recent IMPRESSION: Heart and mediastinum stable. No significant effusion. Mild pulmonary vascular congestion, without acute consolidation. [facility]- [id number] Interface, Radiology Results - 07/17/2020 11:34 AM CST EXAMINATION: XR CHEST 1 VW PORTABLECLINICAL HISTORY: sob rule out Covid 19COMPARISON: Most RecentIMPRESSION:Heart and mediastinum stable. No significant effusion. Mild pulmonary vascular congestion, without acute consolidation. [facility]-[id number] [facility] Brook[facility]ansthoracic Echocardiogram Complete, (w Contrast, Strain and 3D if needed)2020-07-17 12:14:00 Echocardiography Report [address] [place] [address] Pat.Name: MINGO FOUNTAIN Pat.ID: [id number] .Date: 07/16/2020 Exam Time: 9:27:00 PM Study Type:Routine Echo Height: 72in Weight: 206lb BSA: 2.16 m2 Age: 9 1970,50Y Sex: FEMALE BP: 104/70 HR: 95 bpm Sonogrphr: Aleksandra Meadows, [facility], RVT Pat. Stat.:Inpatient Room: [facility] CPT - 4: 80370, 44718, [address] Study Status:Final Echo Event ID:[id number] Order ID: [id number] Reason for Study:OHT, chest pain History / Clinical:Cancer, Heart TransplantProcedures: 2D Echo, 2D Echo, Colorflow Doppler, PortableRace: C SUMMARY: LV EF is hyperdynamic. Estimated EF is >70%.RV systolic function is normal.Estimated PA systolic pressure is 30 mmHg, assuming a mean RAP of 5 mmHg. FINDINGS: ------LV: LV size isnormal. Concentric left ventricular remodeling. Normal average LV global longitudinal strain at -18%. LV EF is hyperdynamic. Overall wall motion is hyperdynamic. Estimated EF is >70%.RV: RV size is upper limits of normal. RV systolic function is normal. LA: The left atrium is dilated consistent with history of heart transplant. RA: RA volume is enlarged.AO: Aortic root diameter is normal.DONNA: Nopericardial effusion.SVn: Normal collapse of IVC during inspiration [...] assuming a mean RAP of 5 mmHg. ------MEASUREMENTS: 2DParasternal Long [place] Ao An 1.7 cm LVPWd 0.96 cm Ao Rtd 2.4 cm Index 1.1 cm/m2 LA Ds 6.3 cm IVSd 0.86 cm RWT 0.43 LVIDd 4.5 cm Index 2.1 cm/m2LV Mass 135 g (87-129) LVIDs 2.5 cm LVM Index 62 g/m2 LV%fs 43 % LVOT 1.9 cm LVOT LVOT Area 2.7 he1IMMBJDOEFLO Stroke Vol & Cardiac Out LVOT TVI 26 cm HR 98 bpm LVOT LVOT SV 71 ml LVOT CO 6.9 l/min SVi 33 ml/m2 LVOT CI 3.2 l/m/m2 Signed 07/17/2020 06:14 Chuyita Pereira MDInterface, Radiology Results In - 07/17/2020 6:15 AM CST Echocardiography Report [address] [address] Pat.Name: JOHANNA MINGOLuci Correia.ID: [id number] .Date: 07/16/2020 Exam Time: 9:27:00 PM Study Type:Routine Echo Height: 72in Weight:206lb BSA: 2.16 m2 Age: 9 1970,50Y Sex: FEMALE BP: 104/70 HR: 95 bpm Sonogrphr: Aleksandra Meadows, RCS, RVT Pat. Stat.:Inpatient Room: [facility] CPT - 4: 16039, 47614, 19043 Study Status:Final Echo Event ID:[id number] Order ID: [id number] Reason for Study:OHT, chest pain History / Clinical:Cancer, Heart TransplantProcedures: 2D Echo, 2D Echo, Colorflow Doppler, PortableRace: C SUMMARY: LV EF is hyperdynamic. Estimated EF is >70%.RV systolic function is normal.Estimated PA systolic pressure is 30 mmHg, assuming a mean RAP of 5mm Hg. FINDINGS: ----LV: LV size is normal. Concentric left ventricular [...] assuming a mean RAP of 5 mmHg. ---MEASUREMENTS: 2DParasternal Long [place] Ao An 1.7 cm LVPWd 0.96cm Ao Rtd 2.4 cm Index 1.1 cm/m2 [...] LVOT CI 3.2 l/m/m2 Signed 07/17/2020 06:14 AMMohamenc[facility] carotid bafnkw1193-11-32 05:15:00 Vascular Ultrasound Laboratory Carotid Artery Duplex Report [address] [place] [address] For clinical quality rn purposes, the categorization of the degree of the stenosis of this exam is based on criteria described in the IAC carotid stenosis grading white paper( www.intersocietal.org/Vascular) and Dave Springer., Buzz FloydB., et al. Carotid artery stenosis: marc-scale and Doppler US diagnosis--Society of Radiologists in Ultrasound Consensus Conference. Radiology. 2003 Nov; 229(2):340-6. Pat.Name: MINGO FOUNTAIN Pat.ID: [id number] .Date: 07/16/2020 Refer.MD: RONEL ADAMS MDExam Time: 4:38:00 PM Study Type:Carotid Height: 72in Weight: 206lb BSA: 2.16 m2 Age: 9 1970,50Y Sex: FEMALE Sonogrphr: Travis Samir, RVT, RDMS Pat. Stat.:Inpatient Room: D12- A Tape Vol: VINEET,[facility] - 4: 27102 Echo Event ID:[id number] Order ID: [id number] Reason for Study:Suspected carotid artery disease; transient visionloss. PMH of orthotopic heart transplant, melanoma, HTN, HLD,Covid-19.Procedures: Colorflow, Grayscale/2D, Pulsed wave DopplerRace: C SUMMAR Y: PHYSICAL ASSESSMENT Blood Pulses Carotid Pressure Carotid [...] Left Verteb.Flw Antegrade Antegrade Subclavian Triphasic Triphasic MEASUREMENTS:-- DOPPLERRight CCA Dist CCA Dist PSV 105 [...] CCA Mid EDV 35.3 cm/sLeft CCA Prox CCAProx PSV 120 cm/s CCA Prox EDV 35.3 [...] Ratio ICA/CCA PSV 0.546 Signed 07/16/2020 11:15 PMZsolt Rancho MD, RPVIInternew wayside emergency hospital, Radiology Results In - 07/16/2020 11:17 PM CSTFormatting of this note might bedifferent from the original. Vascular Ultrasound Laboratory Carotid Artery Duplex Report [id number] [facility], [place] [address], [place] [address] For clinical quality rn purposes, the categorization of the degree of the stenosis of this exam is based on criteria described in the IAC carotid stenosis grading white paper( www.intersocietal.org/Vascular) and Dave Springer., Boone Floyd, et al. Carotid artery stenosis: marc-scale and Doppler US diagnosis--Society of Radiologists in Ultrasound Consensus Conference.Radiology. 2003 Nov; 229(2):340-6. Pat.Name: MINGO FOUNTAIN Pat.ID: [id number] St.Date: 07/16/2020 Refer.MD: RONEL ADAMS MD Exam Time: 4:38:00 PM Study Type:Carotid Height: 72in Weight: 206lb BSA: 2.16 m2 Age: 9 1970,50Y Sex: FEMALE Sonogrphr: Travis Dawson RVT, MICHAEL Pat. Stat.:InpatientRoom: X0328-Q Tape Vol: MK, CPT - 4: 05750 Echo Event ID:[id number] Order ID: [id number] Reason for Study:Suspected carotid artery disease; transient visionloss. PMH of orthotopic heart transplant, melanoma, HTN, HLD,Covid-19.Procedures: Colorflow, Grayscale/2D, Pulsed wave DopplerRace: C SUMMARY: PHYSICAL ASSESSMENT Blood Pulses Carotid Pressure Carotid Temporal BruitRight ___ + + 0Left ___ + + 0CAROTID ARTERY SCANRIGHT: There is focal echogenic material noted in the proximal commoncarotid artery. There is focal plaque noted inthe bulb. The internaland external carotid artery are clear. Colorflow is normal. LEFT: There is smooth intimal lining in the common carotid ,bulb,internal and external carotid artery. PRELIMINARY FINDINGS1. Non-stenotic plaque in the right common carotid artery; partialechogenic material noted in theproximal common carotid artery. 2. <50% stenosis in the right internal carotid artery. Left carotidis normal. 3. Antegrade vertebral artery flow, bilaterally. PHYSICIAN INTERPRETATION Bilateral carotid duplex examination demonstrated atheroscleroticplaques in the right bulb/ CCA. Less than 50% stenosis in the right internal carotid artery. Left sideis normal.Antegrade vertebral artery flow, bilaterally. FINDINGS: -Carotid Findings: Right Left Verteb.Flw Antegrade Antegrade Subclavian Triphasic Triphasic MEASUREMENTS: DOPPLERRight CCA Dist CCA Dist PSV 105cm/s CCA Dist EDV 39.4 cm/sRight CCA Mid [...] Subclavian PSV 142 cm/s Subclavian EDV 0 cm/sLeftCCA Dist CCA Dist PSV 126 cm/s CCA [...] PSV 67.7 cm/s ICA Prox EDV 27.3 cm/sLeftVertebral Vertebral PSV 51.5 cm/s Vertebral EDV 23 cm/sLeft Subclavian Subclavian PSV 125 cm/s Subclavian EDV 0 cm/sRight ICA/CCA Ratio ICA/CCA PSV 0.693 Left ICA/CCA Ratio ICA/CCA PSV 0.546 Signed 07/16/2020 11:15 PMJorge Vickers MD, [facility] Head Wo [id number] 00:59:45EXAMINATION: CT HEAD WO CONTRAST CLINICAL HISTORY: Heart transplant HTN transient vision loss COMPARI SON: None. TECHNIQUE: Noncontrast head CT performed using [...] sinus mucosal thickening. Mastoid air cells are clear.IMPRESSION: 1. No CT evidence of acute intracranial abnormality. [id number] Interface, Radiology Results Incoming - 07/16/2020 7:02 [...] in Respiratory specimen by ANNE with probe [id number] 23:47:43 Test Item Value Reference Range Interpretation Comments SARS-CoV-2 (COVID-19) RNA Not detected Not-Detected [Presence] in Respiratory specimen by ANNE with probe detection (test code = 44952-0) GERARDO HAAS
--- NOTE | 2022-12-27 09:26 | RAD REPORT ---
EXAM DESCRIPTION: RAD - Knee Left 3 View - 12/27/2022 9:17 am CLINICAL HISTORY: knee pain COMPARISON: No comparisonsNo comparisons FINDINGS/IMPRESSION: No acute fracture. No malalignment. Patellar enthesophyte. Mild mediolateral co mpartment spurring. Small knee effusion.
--- NOTE | 2022-12-27 09:48 | ER ---
Nurse's Notes [facility] Name: Christianne Fountain Age: 52 yrs Sex: Female : 1970 Arrival Date: 12/27/2022 Time: 08:43 Bed 12 Private MD: Elliott Veras V Diagnosis: Other internal derangements of left knee Presentation: 12/27 08:50 Chief complaint: Left knee gave out when getting up from kneeling position, fell with hb left leg tucked under body, now c/o left knee pain and swelling. Coronavirus screen: At this time, the client does not indicate any symptoms associated with coronavirus-19. Ebola Screen: No symptoms or risks identified at this time. Initial Sepsis Screen: Does the patient meet any 2 criteria? No. Patient's initial sepsis screen is negative. Does the patient have a suspected source of infection? No. Patient's initial sepsis screen is negative. Risk Assessment: Do you want to hurt yourself or someone else? Patient reports no desire to harm self or others. Onset of symptoms was December 26, 2022. 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 - Social history:: Smoking status: Patient denies any tobacco usage or history of. Screenin:57 [facility] ED Fall Risk Assessment (Adult) History of falling in the last 3 months, ap3 including since admission No falls in past 3 months (0 pts). Abuse screen: Denies threats or abuse. Nutritional screening: No deficits noted. Tuberculosis screening: No symptoms or risk factors identified. Assessment: 08:56 General: Appears in no apparent distress. Behavior is calm, cooperative, appropriate ap3 for age. Pain: Complains of pain in lateral aspect of left knee Pain began 1 day ago. Neuro: Level of Consciousness is awake, alert, obeys commands, Oriented to person, place, time, situation. Cardiovascular: Patient's skin is warm and dry. Respiratory: Airway is patent Respiratory effort is even, unlabored, Respiratory pattern is regular, symmetrical. Vital Signs: 08:50 BP 123 / 85; Pulse 98; Resp 16; Pulse Ox 98% on R/A; Weight 90.72 kg; Height 6 ft. 0 hb in. ; Pain 1010; 08:55 Temp 98.4(TE); ap3 08:50 Body Mass Index 27.12 (90.72 kg, 182.88 cm) hb 08:50 Pain Scale: Adult hb ED Course: 08:43 Patient arrived in ED. am2 08:43 Elliott Veras MD is Private Physician. am2 08:45 Brenden Andersen PA is [facility] 08:45 Venancio Copeland MD is Attending Physician. [facility] 08:52 Triage completed. hb 08:52 Arm band placed on. hb 08:55 Dinora Paula, RN is Primary Nurse. ap3 08:57 Patient has correct armband on for positive identification. Bed in low position. Call ap3 light in reach. Side rails up X 1. Pulse ox on. NIBP on. Door closed. Noise minimized. 09:19 Knee Left 3 View XRAY In Process Unspecified. EDMS 09:48 Donaldo Ordaz MD is Referral Physician. [facility] 10:04 No provider procedures requiring assistance completed. Patient did not have IV access ap3 during this emergency room visit. Administered Medications: No medications were administered Medication: 10:05 VIS not applicable for this client. ap3 Outcome: 09:47 Discharge ordered by . [facility] 10:05 Discharged to home ap3 10:05 Condition: good 10:05 Discharge instructions given to patient, Instructed on discharge instructions, follow up and referral plans. Demonstrated understanding of instructions, follow-up care. 10:05 Patient left the ED. ap3 Signatures: Dispatcher [employer] EDMS Brenden Andersen PA PA jmm Baxter, Heather, RN RN Dinora Castro am2 Dinora Paula, RN RN ap3
--- NOTE | 2022-12-27 09:48 | EDPHYS ---
Physician Documentation [facility] Name: Christianne Fountain Age: 52 yrs Sex: Female : 1970 Arrival Date: 12/27/2022 Time: 08:43 Bed 12 Private MD: Elliott Veras V ED Physician Venancio Copeland HPI: 12/27 08:47 This 52 yrs old Female presents to ER via Ambulatory with complaints of Knee Pain. jmm 08:47 The patient presents with an injury, pain. Onset: The symptoms/episode began/occurred jmm acutely. This is a 52 year old female with a history of heart transplant that presents to the ED with complaints of left posterior knee pain after falling while playing [employer]. Patient states her ankle rolled, flexing her knee and falling to her side. Pain was initially laterally, now mainly posterior. Denies other known injury. . 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 - Social history:: Smoking status: Patient denies any tobacco usage or history of. ROS: 08:47 Constitutional: Negative for fever, chills, and weight loss, Cardiovascular: Negative jmm for chest pain, palpitations, and edema, Respiratory: Negative for shortness of breath, cough, wheezing, and pleuritic chest pain. 08:47 MS/extremity: Positive for injury or acute deformity. 08:47 All other systems are negative. Exam: 08:47 Constitutional: This is a well developed, well nourished patient who is awake, alert, jmm and in no acute distress. Head/Face: atraumatic. Eyes: EOMI, no conjunctival erythema appreciated ENT: Moist Mucus Membranes Neck: Trachea midline, Supple Chest/axilla: Normal chest wall appearance and motion. Cardiovascular: Regular rate and rhythm. No edema appreciated Respiratory: Normal respirations, no respiratory distress appreciated Abdomen/GI: Non distended Back: Normal ROM 08:47 Musculoskeletal/extremity: painful rom noted to the left knee, compartments are soft, full dorsalis pulse, NVI. 08:47 Skin: Appearance: Color: normal in color. Vital Signs: 08:50 BP 123 / 85; Pulse 98; Resp 16; Pulse Ox 98% on R/A; Weight 90.72 kg; Height 6 ft. 0 hb in. ; Pain 10/10; 08:55 Temp 98.4(TE); ap3 08:50 Body Mass Index 27.12 (90.72 kg, 182.88 cm) hb 08:50 Pain Scale: Adult hb MDM: 08:47 Patient medically screened. [facility] 08:47 Patient medically screened. [facility] 09:46 Differential diagnosis: closed fracture, Sprain. Data reviewed: vital signs, nurses [facility] notes, radiologic studies, plain films. Independent interpretation of the following test(s) in the Emergency Department X-Ray: My interpretation is No fracture appreciated. Counseling: I had a detailed discussion with the patient and/or guardian regarding: the historical points, exam findings, and any diagnostic results supporting the discharge/admit diagnosis, radiology results, the need for outpatient follow up, to return to the emergency department if symptoms worsen or persist or if there are any questions or concerns that arise at home. 12/27 08:52 Order name: Knee Left 3 View XRAY; Complete Time: 09:30 [facility] 12/27 09:38 Order name: Knee Immobilizer; Complete Time: 09:54 [facility] Administered Medications: No medications were administered Disposition Summary: 12/27/22 09:47 Discharge Ordered Location: Home [facility] Condition: Stable [facility] Diagnosis - Other internal derangements of left knee [facility] Followup: [facility] - With: Private Physician - When: 2 - 3 days - Reason: Recheck today's complaints, Continuance of care, Re-evaluation by your physician Followup: [facility] - With: Donaldo Ordaz MD - When: 2 - 3 days - Reason: Recheck today's complaints, Continuance of care, Re-evaluation by your physician Discharge Instructions: - Discharge Summary Sheet [facility] - RICE Therapy for Routine Care of Injuries jmm - Acute Knee Pain, Adult jmm Forms: - Work release form jmm - Medication Reconciliation Form jmm - Thank You Letter jmm - Antibiotic Education jmm - Prescription Opioid Use jmm Signatures: Dispatcher [employer] Venancio Spicer MD MD cha Mickail, Joel, PA PA jmm Baxter, Heather, RN RN
[2022-12-27 10:22] VITALS: BP 123/85; O2SAT 98
[2022-12-27 10:26] VITALS: TEMP 98.4
== END 2022-12-27 10:05 | disposition home or self-care (01) ==
LOC: ER 08:43
DX: M23.8X2 Other internal derangements of left knee (principal); Z94.1 Heart transplant status; Z88.5 Allergy status to narcotic agent
CPT/HCPCS: 99283

== ENCOUNTER 2024-02-22 00:42 | Emergency (ER) | payer OTHER ==
[2024-02-22] MEDS ORDERED: ACETAMINOPHEN 500 MG TAB ONE (01:19)
[2024-02-22 02:13] LABS: Absolute Basophils 0.1 K/uL (0-0.5); Absolute Lymphocytes (CBC) 0.3 K/uL (0.7-4.9); Absolute Monocytes 0.7 K/uL (0.1-1.3); Absolute Neutrophil 3.8 K/uL (1.8-8.0); Basophils % 1.8 % (0-1.3); Eosinophils % 0.7 % (0-4.4); Hematocrit 39.3 % (36.0-45.0); Hemoglobin 13.2 g/dL (12.0-15.0); Lymphocytes % 6.7 % (15.3-44.8); MCH 31.3 pg (27.0-35.0); MCHC 33.7 g/dL (32.0-36.0); MPV 8.8 fL (7.6-11.3); Monocytes % 13.4 % (3.3-12.3); Neutrophils % 77.4 % (41.7-73.7); Nucleated Red Blood Cells % 0.1 % (0-0); Platelets 193 thou/uL (152-406); RBC Red Blood Cell Count 4.22 M/uL (3.86-4.86); Red Cell Distribution Width 12.8 % (12.1-15.2)
[2024-02-22 02:15] LABS: Calcium Oxalate Crystals- Ur Few /HPF (None Seen); Specific Gravity > 1.030 (1.005-1.030); Sqamous Epithelial <5 /HPF (None Seen); Urine Bacteria 20-50 /HPF (<20); Urine Bilirubin NEGATIVE (Negative); Urine Blood 3+ (Negative); Urine Clarity Extremely Turbid (Clear); Urine Color Yellow (Yellow); Urine Culture Reflex Order REFLEXED; Urine Glucose NEGATIVE (Negative); Urine Ketones NEGATIVE (Negative); Urine Microscopic Reflex YN ORDER UMIC; Urine Mucus 1+ /HPF (None Seen); Urine Nitrite NEGATIVE (Negative); Urine Protein 1+ (Negative); Urine RBC >50 /HPF (None Seen); Urine Urobilinogen Normal (Normal); Urine WBC 20-50 /HPF (<5); Urine WBC Clump Rare /HPF (None Seen); Urine pH 5.5 (5.0-7.0)
[2024-02-22 02:22] LABS: ALT/SGPT 18 U/L (13-56); Albumin 3.9 g/dL (3.4-5.0); Albumin/Globulin Ratio 1.1 (1.1-1.8); Alkaline Phosphatase 61 U/L (45-117); Anion Gap 8.1 mEq/L (5.0-15.0); BUN Blood Urea Nitrogen 14 mg/dL (7-18); Bicarbonate 27 mEq/L (21-32); Bilirubin Total 0.6 mg/dL (0.2-1.0); Globulin 3.6 g/dL (2.3-3.5); Glomerular Filtration Rate 62 ml/min (=/>90); Glucose Level 118 mg/dL (74-106); Potassium 4.1 mEq/L (3.5-5.1); Protein, Total 7.5 g/dL (6.4-8.2); Sodium Level 135 mEq/L (136-145)
[2024-02-22 02:25] LABS: SARS-CoV-2 Antigen CONTROL BLUE LINE VIS/BG OK; SARS-CoV-2 Antigen Rapid Res Positive (Negative)
[2024-02-22 02:28] LABS: AST/SGOT < 10 U/L (15-37)
[2024-02-22] MEDS ORDERED: METOCLOPRAMIDE 5 MG TAB ONE (02:34)
[2024-02-22] MEDS ORDERED: TRAMADOL HCL 50 MG TAB ONE (02:35)
--- NOTE | 2024-02-22 03:06 | ER ---
Nurse's Notes [facility] Name: Christianne Fountain Age: 53 yrs Sex: Female : 1970 Arrival Date: 02/22/2024 Time: 00:42 Bed 15 Private MD: Diagnosis: Acute COVID-19, acute lower UTI. Presentation: 02/21 00:53 Chief complaint: Patient states: I started having flu like symptoms around 1pm with a jb4 99.0 fever and woke up at 2130 with a temp of 101. Coronavirus screen: At this time, the client does not indicate any symptoms associated with coronavirus-19. Ebola Screen: No symptoms or risks identified at this time. Initial Sepsis Screen: Does the patient meet any 2 criteria? No. Patient's initial sepsis screen is negative. Does the patient have a suspected source of infection? No. Patient's initial sepsis screen is negative. Risk Assessment: Do you want to hurt yourself or someone else? Patient reports no desire to harm self or others. Onset of symptoms was February 22, 2024. Transition of care: patient was not received from another setting of care. 00:53 Method Of Arrival: Ambulatory jb4 00:53 Acuity: FOSTER 4 jb4 Triage Assessment: 03:16 Headache History: Denies prior headaches. General: Appears in no apparent distress. tm6 Pain: Also complains of no other associated symptoms. Historical: - Allergies: 00:56 Morphine (Hives, Vomiting); jb4 00:56 shrimp; jb4 - PMHx: 00:56 cardiac issues; [place]; PEs; jb4 - PSHx: 00:56 Cholecystectomy; Heart transplant; jb4 - Immunization history:: Adult Immunizations up to date. - Infectious Disease History:: Denies. - Social history:: Smoking status: Patient denies any tobacco usage or history of. - Family history:: not pertinent. Screenin:02 [facility] ED Fall Risk Assessment (Adult) History of falling in the last 3 months, tm6 including since admission No falls in past 3 months (0 pts) Confusion or Disorientation No (0 pts) Intoxicated or Sedated No (0 pts) Impaired Gait No (0 pts) Mobility Assist Device Used No (0 pt) Altered Elimination No (0 pt) Score/Fall Risk Level 0 - 2 = Low Risk Oriented to surroundings, Maintained a safe environment, Educated pt \T\ family on fall prevention, incl call for assistance when getting out of bed. Abuse screen: Denies threats or abuse. Denies injuries from another. Nutritional screening: No deficits noted. Tuberculosis screening: No symptoms or risk factors identified. Assessment: 01:02 General: Appears in no apparent distress. Behavior is calm, cooperative. Pain: tm6 Complains of pain in face, general body aches. Pain: Pain does not radiate. Quality of pain is described as aching. Neuro: Level of Consciousness is awake, alert, obeys commands, Oriented to person, place, time, situation, Reports headache. Cardiovascular: Patient's skin is warm and dry. Respiratory: Airway is patent Respiratory effort is even, unlabored, Respiratory pattern is regular, symmetrical. GI: No signs and/or symptoms were reported involving the gastrointestinal system. Abdomen is flat, non-distended. : Reports burning with urination, urinary frequency. EENT: Reports itchy eyes. Derm: No signs and/or symptoms reported regarding the dermatologic system. Musculoskeletal: Reports general body aches. 02:29 Reassessment: Patient and/or family updated on plan of care and expected duration. Pain tm6 level reassessed. Patient is alert, oriented x 3, equal unlabored respirations, skin warm/dry/pink. 03:16 Reassessment: Patient appears in no apparent distress at this time. tm6 Vital Signs: 00:53 Resp 16; Weight 108.86 kg; Height 6 ft. 0 in. ; jb4 00:53 BP 128 / 79; Pulse 103; Resp 19; Temp 98.2; Pulse Ox 96% on R/A; vk 02:28 BP 134 / 86; Pulse 98; Pulse Ox 93% on R/A; MAP 99 mmHg; Pain 4/10; tm6 03:15 BP 125 / 90; Pulse 93; Resp 19; Temp 97.5(TE); Pulse Ox 96% on R/A; Pain 0/10; tm6 00:53 Body Mass Index 32.55 (108.86 kg, 182.88 cm) jb4 02:28 Pain Scale: Adult tm6 03:15 Pain Scale: Adult tm6 [place] Coma Score: 03:01 Eye Response: spontaneous(4). Motor Response: obeys commands(6). Verbal Response: sp4 oriented(5). Total: 15. 03:01 Eye Response: spontaneous(4). Motor Response: obeys commands(6). Verbal Response: sp4 oriented(5). Total: 15. ED Course: 00:45 Patient arrived in ED. jj6 00:46 Chintan Rollins MD is Attending Physician. sp4 00:51 Dai Braun, RICKI is Primary Nurse. tm6 00:54 Triage completed. jb4 00:56 Arm band placed on right wrist. jb4 01:02 Patient has correct armband on for positive identification. Bed in low position. Call tm6 light in reach. Side rails up X 1. Provided Education on: use of call brewster. Client placed on continuous cardiac and pulse oximetry monitoring. NIBP monitoring applied. Pulse ox on. NIBP on. Door closed. Noise minimized. Warm blanket given. Pillow given. 01:31 CBC with Diff Sent. tm6 01:31 CMP Sent. tm6 01:31 Urinalysis w/ reflexes Sent. tm6 01:31 SARS RAPID Sent. tm6 01:31 Influenza Screen (a \T\ B) Sent. tm6 01:31 Inserted saline lock: 22 gauge in right antecubital area, using aseptic technique. tm6 Blood collected. Flushed with 10 mL NS. 03:16 No provider procedures requiring assistance completed. IV discontinued, intact, tm6 bleeding controlled, No redness/swelling at site. Pressure dressing applied. Administered Medications: 01:31 Drug: Acetaminophen PO 1000 mg PO once Route: PO; tm6 02:40 Drug: traMADol PO 100 mg PO once Route: PO; tm6 02:40 Drug: MetoCLOPramide PO 10 mg PO once Route: PO; tm6 03:15 Drug: Cephalexin PO 500 mg PO once Route: PO; tm6 Medication: 01:02 VIS not applicable for this client. tm6 Outcome: 03:05 Discharge ordered by . sp4 03:16 Discharged to home ambulatory, tm6 03:16 Condition: stable 03:16 Discharge instructions given to patient, Instructed on discharge instructions, follow up and referral plans. medication usage, Demonstrated understanding of instructions, follow-up care, medications, Prescriptions given X 3, 03:17 Patient left the ED. tm6 Addendum: 02/25/2024 09:46 Addendum: Culture Results: Positive urine culture. No further action required. Bacteria e b sensitive to prescribed antibiotic. Signatures: Jaxon Fine, RN RN jb4 Nuzhat Turpin Jennifer jj6 Chintan Rollins MD MD sp4 Dai Braun RN RN tm6 Dalia Morales
--- NOTE | 2024-02-22 03:06 | EDPHYS ---
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 00:52 LMP N/A - Hysterectomy Historical: Allergies: Morphine (Hives, Vomiting); Home Meds: sp4 tacrolimus Oral; pravastatin 40 mg Oral tab 1 tab; mycophenolate mofetil Oral; Spironolactone Oral; metoprolol tartrate 25 mg Oral tab 1 tab once daily; aspirin 81 mg Oral chew 1 tab once daily; PMHx: cardiac issues; SC; PEs; PSHx: Cholecystectomy; Heart transplant;. 03:01 Patient with history of cardiac transplant in 2007 at [facility] on tacrolimus and sp4 mycophenolate presents with 1 day of fever 101 point no associated with sore throat, fatigue, headache, congestion, body aches. She was advised to come to the emergency room by her improvement coordinator to be checked for flu, COVID and UTI.. Historical: - Allergies: 00:56 Morphine (Hives, Vomiting); jb4 00:56 shrimp; jb4 - PMHx: 00:56 cardiac issues; SC; PEs; jb4 - PSHx: 00:56 Cholecystectomy; Heart transplant; jb4 - Immunization history:: Adult Immunizations up to date. - Infectious Disease History:: Denies. - Social history:: Smoking status: Patient denies any tobacco usage or history of. - Family history:: not pertinent. ROS: 03:01 Constitutional: Positive fever positive chills positive headache positive body aches sp4 positive congestion positive urinary frequency and burning. 03:01 All other systems are negative, Exam: 03:01 Constitutional: This is a well developed, well nourished patient who is awake, alert, sp4 and in no acute distress. Head/Face: Normocephalic, atraumatic. Eyes: Pupils equal round and reactive to light, extra-ocular motions intact. Lids and lashes normal. Conjunctiva and sclera are not injected. Cornea within normal limits. Periorbital areas with no swelling, redness, or edema. ENT: Nares patent. No nasal discharge, no septal abnormalities noted. Tympanic membranes are normal and external auditory canals are clear. Oropharynx with no redness, swelling, or masses, exudates, or evidence of obstruction, uvula midline. Mucous membranes moist. Neck: Trachea midline, no thyromegaly or masses palpated, and no cervical lymphadenopathy. Supple, full range of motion without nuchal rigidity, or vertebral point tenderness. Chest/axilla: Normal chest wall appearance and motion. Nontender with no deformity. No lesions are appreciated. Cardiovascular: Regular rate and rhythm with a normal S1 and S2. No gallops, murmurs, or rubs. Normal PMI, no JVD. No pulse deficits. Respiratory: Lungs have equal breath sounds bilaterally, clear to auscultation and percussion. No rales, rhonchi or wheezes noted. No increased work of breathing, no retractions or nasal flaring. Abdomen/GI: Soft, with normal bowel sounds. No distension or tympany. No guarding or rebound. No evidence of tenderness throughout. Back: No spinal tenderness. No costovertebral tenderness. Skin: Warm, dry with normal turgor. Normal color with no rashes, no lesions, and no evidence of cellulitis. MS/ Extremity: Pulses equal, no cyanosis. Neurovascular intact. Full, normal range of motion. Neuro: Awake and alert, GCS 15, oriented to person, place, time, and situation. Cranial nerves II-XII grossly intact. Motor strength 5/5 in all extremities. Sensory grossly intact. Psych: Awake, alert, with orientation to person, place and time. Behavior, mood, and affect are within normal limits Vital Signs: 00:53 Resp 16; Weight 108.86 kg; Height 6 ft. 0 in. ; jb4 00:53 BP 128 / 79; Pulse 103; Resp 19; Temp 98.2; Pulse Ox 96% on R/A; vk 02:28 BP 134 / 86; Pulse 98; Pulse Ox 93% on R/A; MAP 99 mmHg; Pain 4/10; tm6 03:15 BP 125 / 90; Pulse 93; Resp 19; Temp 97.5(TE); Pulse Ox 96% on R/A; Pain 0/10; tm6 00:53 Body Mass Index 32.55 (108.86 kg, 182.88 cm) jb4 02:28 Pain Scale: Adult tm6 03:15 Pain Scale: Adult tm6 Opal Coma Score: 03:01 Eye Response: spontaneous(4). Motor Response: obeys commands(6). Verbal Response: sp4 oriented(5). Total: 15. 03:01 Eye Response: spontaneous(4). Motor Response: obeys commands(6). Verbal Response: sp4 oriented(5). Total: 15. MDM: 01:02 Patient medically screened. sp4 03:01 Differential diagnosis: cluster headache, glaucoma, migraine, uremia. Data reviewed: sp4 vital signs, nurses notes, lab test result(s). ED course: Patient is positive for COVID-19 also she has mild degree of UTI.. 03:07 ED course: Also findings of acute mild UTI, will provide cephalexin for the next 10 sp4 days. Will advise follow-up with her medical team at [facility] for further assessment.. 02/21 00:58 Order name: Influenza Screen (a \T\ B); Complete Time: 02:57 sp4 02/21 00:58 Order name: SARS RAPID; Complete Time: 02:57 sp4 02/21 00:58 Order name: CBC with Diff; Complete Time: 02:57 sp4 02/21 00:58 Order name: CMP; Complete Time: 02:57 sp4 02/21 00:58 Order name: Urinalysis w/ reflexes; Complete Time: 02:57 sp4 02/21 02:20 Order name: Urine Culture EDVT 02/21 00:58 Order name: IV Saline Lock; Complete Time: 01:31 sp4 02/21 00:58 Order name: Labs collected and sent; Complete Time: 01:31 sp4 Administered Medications: 01:31 Drug: Acetaminophen PO 1000 mg PO once Route: PO; tm6 02:40 Drug: traMADol PO 100 mg PO once Route: PO; tm6 02:40 Drug: MetoCLOPramide PO 10 mg PO once Route: PO; tm6 03:15 Drug: Cephalexin PO 500 mg PO once Route: PO; tm6 Disposition Summary: 02/22/24 03:05 Discharge Ordered Notes: Location: Home sp4 Problem: new sp4 Symptoms: have improved sp4 Condition: Stable sp4 Diagnosis - Acute COVID-19, acute lower UTI. sp4 Followup: sp4 - With: Private Physician - When: 7 - 10 days - Reason: Recheck today's complaints Discharge Instructions: - Discharge Summary Sheet sp4 - COVID-19 sp4 Forms: - Work release form sp4 - Patient Portal Instructions sp4 Prescriptions: - Cephalexin 500 mg Oral Capsule - take 1 capsule ORAL route every 12 hours for 10 days; 20 capsule; Refills: 0, sp4 Product Selection Permitted - Tramadol 50 mg Oral tablet - take 1 tablet ORAL route every 8 hours as needed; 20 tablet; Refills: 0, sp4 Product Selection Permitted - ondansetron 8 mg Oral Tablet,disintegrating - take 1 tablet ORAL route every 8 hours PRN nausea; 30 tablet; Refills: 0, sp4 Product Selection Permitted Signatures: Dispatcher [employer] EDJaxon Urbina, RN RN jb4 Chintan Rollins MD MD sp4 Dai Braun RN RN tm6 Corrections: (The following items were deleted from the chart) 00:58 00:58 Influenza Screen (A \T\ B)+BA.LAB.BRZ ordered. EDMS EDMS 00:58 00:58 SARS-COV-2 Antigen Rapid+I.LAB.BRZ ordered. EDMS EDMS 00:58 00:58 CBC+H.LAB.BRZ ordered. EDMS EDMS 00:58 00:58 COMPREHENSIVE METABOLIC PANEL+C.LAB.BRZ ordered. EDMS EDMS 00:58 00:58 Urinalysis+U.LAB.BRZ ordered. EDMS EDMS
[2024-02-22] MEDS ORDERED: CEPHALEXIN 250 MG CAP ONE (03:07)
[2024-02-24 16:18] VITALS: BP 125/90; TEMP 97.5; O2SAT 96
== END 2024-02-22 03:17 | disposition home or self-care (01) ==
LOC: ER 00:42
DX: U07.1 COVID-19 (principal); N39.0 Urinary tract infection, site not specified; I25.2 Old myocardial infarction; Z94.1 Heart transplant status; Z86.711 Personal history of pulmonary embolism; Z88.5 Allergy status to narcotic agent; Z91.013 Allergy to seafood
CPT/HCPCS: 36415; 80053; 81001; 85025; 87077; 87086; 87088; 87186; 87804; 87811; 99284